=== PATIENT | male | born 1935 | race Caucasian/White ===

== ENCOUNTER 2016-12-28 21:50 | Inpatient (IN) | payer MEDICARE, OTHER ==
--- NOTE | 2016-12-28 22:07 | ED ---
Altered Mental Status HPI - General Stated Complaint: Altered Mental Status Time Seen by Provider: 12/28/16 21:51 Source: EMS Mode of arrival: EMS Limitations: altered mental status - History of Present Illness Initial Comments: This is a 81-year-old male with a history of arthritis in his lower back who presents emergency department for mental status changes. The patient is difficult to get a history from however per EMS he's been having mental status changes for the last 2 days. The has noticed that. The is not currently at bedside to get history from. The patient only takes tramadol and gabapentin. The patient denies having any complaints except for some lower back pain which is chronic for him. He states that he was sent in here because his was concerned about him. He denies any alcohol use or drug use. No overdose on his medications. No recent head trauma. He denies any physical complaints. No focal weakness. No other complaints. - Related Data Home Medications Medication Instructions Recorded Confirmed traMADol HCl [Ultram] 50 - 100 mg PO QID PRN 07/22/14 12/28/16 Atorvastatin Calcium [Lipitor] 10 mg PO DAILY 12/28/16 12/28/16 Gabapentin [Neurontin] 300 mg PO TID 12/28/16 12/28/16 Allergies Allergy/AdvReac Type Severity Reaction Status Date / Time thallium-201 Allergy "passed Verified 10/16/15 14:25 out" Review of Systems ROS Statement: Those systems with pertinent positive or pertinent negative responses have been documented in the HPI. ROS Other: All systems not noted in ROS Statement are negative. Past Medical History Past Medical History: GERD/Reflux, Hyperlipidemia, Osteoarthritis (OA), Prostate Disorder Additional Past Medical History / Comment(s): chronic back pain, arthritis; colonoscopy(s), mitral valve disorder History of Any Multi-Drug Resistant Organisms: None Reported Past Surgical History: Tonsillectomy Past Anesthesia/Blood Transfusion Reactions: No Reported Reaction Past Psychological History: No Psychological Hx Reported Smoking Status: Former smoker Past Alcohol Use History: None Reported Additional Past Alcohol Use History / Comment(s): ETOH & Smoking "i quit 38 years ago" "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 alcoholic" Past Drug Use History: None Reported - Past Family History Mother Family Medical History: Cancer Additional Family Medical History / Comment(s): lung Father History Unknown: Yes Additional Family Medical History / Comment(s): "i don't know a lot about him...he as an alcoholic General Exam - General Exam Comments Initial Comments: Constitutional: Awake alert Appears comfortable Head: Normocephalic atraumatic Eyes: no conjunctival injection No scleral icterus EOMI, pupils are 4 mm reactive bilaterally Neck: No JVD Supple Heart: Regular rate rhythm normal S1-S2 no murmurs Lungs: Clear to auscultation bilaterally No wheezing No rales Abdomen: Soft nondistended nontender Extremities: Non edematous DP pulses intact Radial pulses intact Neuro: A&Ox2, patient is oriented to the year and himself however does not know his location. He is slow to answer questions however does answer appropriately cranial nerves II through XII are grossly intact, 5 out of 5 strength in upper and lower [place] bilaterally, no ataxia in upper and lower extremities Psych: Appropriate mood and affect Limitations: altered mental status Course Vital Signs 12/28/16 12/28/16 21:58 23:02 Temperature 98.5 F Pulse Rate 82 76 Respiratory 16 16 Rate Blood Pressure 211/106 175/82 O2 Sat by Pulse 98 98 Oximetry - Reevaluation(s) Reevaluation #1: 12/28/16 23:07 EKG showing sinus rhythm with a rate of 78. No abnormal ST segment changes or T -wave inversions. QTC is 446. There is a right bundle-branch block. No ectopy. Medical Decision Making - Medical Decision Making This 81-year-old came in for mental status changes. No obvious cause for mental status changes on blood work or imaging. The states that this is brand-new over the last couple of days. Like to keep the hospital for neuro evaluation. Dr. kumari except see admission. - Lab Data Result diagrams: 12/28/16 22:50 12/28/16 22:50 Lab Results 12/28/16 12/28/16 12/28/16 Range/Units 22:50 22:50 22:50 WBC 5.0 (3.8-10.6) k/uL RBC 4.95 (4.30-5.90) m/uL Hgb 15.0 (13.0-17.5) gm/dL Hct 43.2 (39.0-53.0) % MCV 87.3 (80.0-100.0) fL MCH 30.3 (25.0-35.0) pg MCHC 34.7 (31.0-37.0) g/dL RDW 12.3 (11.5-15.5) % Plt Count 243 (150-450) k/uL Neutrophils % 75 % Lymphocytes % 13 % Monocytes % 9 % Eosinophils % 1 % Basophils % 1 % Neutrophils # 3.8 (1.3-7.7) k/uL Lymphocytes # 0.6 L (1.0-4.8) k/uL Monocytes # 0.4 (0-1.0) k/uL Eosinophils # 0.0 (0-0.7) k/uL Basophils # 0.0 (0-0.2) k/uL PT 11.1 (9.0-12.0) sec INR 1.1 (<1.1) APTT 27.6 (22.0-30.0) sec Sodium 127 L (137-145) mmol/L Potassium 4.4 (3.5-5.1) mmol/L Chloride 90 L (98-107) mmol/L Carbon Dioxide 27 (22-30) mmol/L Anion Gap 10 mmol/L BUN 17 (9-20) mg/dL Creatinine 0.80 (0.66-1.25) mg/dL Est GFR (MDRD) Af Amer >60 (>60 ml/min/1.73 sqM) Est GFR (MDRD) Non-Af >60 (>60 ml/min/1.73 sqM) Glucose 111 H (74-99) mg/dL Calcium 9.0 (8.4-10.2) mg/dL Magnesium 2.0 (1.6-2.3) mg/dL Total Bilirubin 0.7 (0.2-1.3) mg/dL AST 17 (17-59) U/L ALT 27 (21-72) U/L Alkaline Phosphatase 127 H (38-126) U/L Ammonia (<30) umol/L Troponin I (0.000-0.034) ng/mL Total Protein 6.9 (6.3-8.2) g/dL Albumin 4.1 (3.5-5.0) g/dL TSH 3.070 (0.465-4.680) mIU/L Urine Color Urine Appearance (Clear) Urine pH (5.0-8.0) Ur Specific [place] (1.001-1.035) Urine Protein (Negative) Urine Glucose (UA) (Negative) Urine Ketones (Negative) Urine Blood (Negative) Urine Nitrite (Negative) Urine Bilirubin (Negative) Urine Urobilinogen (<2.0) mg/dL Ur Leukocyte Esterase (Negative) Urine RBC (0-5) /hpf Urine WBC (0-5) /hpf Urine Mucus (None) /hpf Salicylates <1.0 mg/dL Urine Opiates Screen (NotDetected) Ur Oxycodone Screen (NotDetected) Urine Methadone Screen (NotDetected) Ur Propoxyphene Screen (NotDetected) Acetaminophen <10.0 ug/mL Ur Barbiturates Screen (NotDetected) U Tricyclic Antidepress (NotDetected) Ur Phencyclidine Scrn (NotDetected) Ur Amphetamines Screen (NotDetected) U Methamphetamines Scrn (NotDetected) U Benzodiazepines Scrn (NotDetected) Urine Cocaine Screen (NotDetected) U Marijuana (THC) Screen (NotDetected) Serum Alcohol <10 mg/dL 12/28/16 12/28/16 12/29/16 Range/Units 22:50 22:50 00:05 WBC (3.8-10.6) k/uL RBC (4.30-5.90) m/uL Hgb (13.0-17.5) gm/dL Hct (39.0-53.0) % MCV (80.0-100.0) fL MCH (25.0-35.0) pg MCHC (31.0-37.0) g/dL RDW (11.5-15.5) % Plt Count (150-450) k/uL Neutrophils % % Lymphocytes % % Monocytes % % Eosinophils % % Basophils % % Neutrophils # (1.3-7.7) k/uL Lymphocytes # (1.0-4.8) k/uL Monocytes # (0-1.0) k/uL Eosinophils # (0-0.7) k/uL Basophils # (0-0.2) k/uL PT (9.0-12.0) sec INR (<1.1) APTT (22.0-30.0) sec Sodium (137-145) mmol/L Potassium (3.5-5.1) mmol/L Chloride (98-107) mmol/L Carbon Dioxide (22-30) mmol/L Anion Gap mmol/L BUN (9-20) mg/dL Creatinine (0.66-1.25) mg/dL Est GFR (MDRD) Af Amer (>60 ml/min/1.73 sqM) Est GFR (MDRD) Non-Af (>60 ml/min/1.73 sqM) Glucose (74-99) mg/dL Calcium (8.4-10.2) mg/dL Magnesium (1.6-2.3) mg/dL Total Bilirubin (0.2-1.3) mg/dL AST (17-59) U/L ALT (21-72) U/L Alkaline Phosphatase (38-126) U/L Ammonia <9 (<30) umol/L Troponin I <0.012 (0.000-0.034) ng/mL Total Protein (6.3-8.2) g/dL Albumin (3.5-5.0) g/dL TSH (0.465-4.680) mIU/L Urine Color Yellow Urine Appearance Clear (Clear) Urine pH 6.5 (5.0-8.0) Ur Specific [place] 1.020 (1.001-1.035) Urine Protein 1+ H (Negative) Urine Glucose (UA) Negative (Negative) Urine Ketones 2+ H (Negative) Urine Blood Small H (Negative) Urine Nitrite Negative (Negative) Urine Bilirubin Negative (Negative) Urine Urobilinogen 2.0 (<2.0) mg/dL Ur Leukocyte Esterase Negative (Negative) Urine RBC 25 H (0-5) /hpf Urine WBC 1 (0-5) /hpf Urine Mucus Rare H (None) /hpf Salicylates mg/dL Urine Opiates Screen Not Detected (NotDetected) Ur Oxycodone Screen Not Detected (NotDetected) Urine Methadone Screen Not Detected (NotDetected) Ur Propoxyphene Screen Not Detected (NotDetected) Acetaminophen ug/mL Ur Barbiturates Screen Not Detected (NotDetected) U Tricyclic Antidepress Not Detected (NotDetected) Ur Phencyclidine Scrn Not Detected (NotDetected) Ur Amphetamines Screen Not Detected (NotDetected) U Methamphetamines Scrn Not Detected (NotDetected) U Benzodiazepines Scrn Not Detected (NotDetected) Urine Cocaine Screen Not Detected (NotDetected) U Marijuana (THC) Screen Not Detected (NotDetected) Serum Alcohol mg/dL Disposition Clinical Impression: Encephalopathy Disposition: ADMITTED IP TO THIS [facility] Condition: Stable
--- NOTE | 2016-12-28 22:57 | CT ---
EXAM: CT Head Without Intravenous Contrast CLINICAL HISTORY: Mental status change, altered, confused, agitated, poor historian TECHNIQUE: Axial computed tomography images of the head/brain without intravenous contrast. CTDI is 0.15, 59.43 mGy and DLP is 1165 mGy-cm. This CT exam was performed using one or more of the following dose reduction techniques: automated exposure control, adjustment of the mA and/or kV according to patient size, and/or use of iterative reconstruction technique. COMPARISON: No relevant prior studies available. FINDINGS: Brain: No acute intracranial hemorrhage, loss of ku-white differentiation, or significant mass effect. Areas of hypoattenuation in the periventricular white matter bilaterally are compatible with the sequela of chronic small vessel ischemic disease. Ventricular and sulcal prominence commensurate with the patient's age. Ventricles: As above. Bones/joints: Unremarkable. No acute fracture. Soft tissues: Unremarkable. Sinuses: Unremarkable as visualized. No acute sinusitis. Mastoid air cells: Unremarkable. IMPRESSION: No acute intracranial abnormality.
--- NOTE | 2016-12-28 23:04 | XR ---
EXAM: XR Chest, 2 Views CLINICAL HISTORY: Reason: Pain TECHNIQUE: Frontal and lateral views of the chest. COMPARISON: No relevant prior studies available. FINDINGS: Lungs: Unremarkable. No consolidation. Pleural space: Unremarkable. No pneumothorax. Heart: Unremarkable. No cardiomegaly. Mediastinum: Unremarkable. Bones/joints: No acute osseous abnormality. IMPRESSION: No acute cardiopulmonary process.
[2016-12-28 23:07] LABS: Basophils % (A) 1 %; CH 31.2; CHCM 35.8; Eosinophils % (A) 1 %; HCT 43.2 % (39.0-53.0); HDW 2.44; Luc # (Auto) 0.12; Luc % (Auto) 3; Lymphocytes # (A) 0.6 k/uL (1.0-4.8); Lymphocytes % (A) 13 %; MCH 30.3 pg (25.0-35.0); MCHC 34.7 g/dL (31.0-37.0); MCV 87.3 fL (80.0-100.0); Mean Platelet Volume 6.2; Monocytes # (A) 0.4 k/uL (0-1.0); Monocytes % (A) 9 %; Neutrophils # (A) 3.8 k/uL (1.3-7.7); Neutrophils % (A) 75 %; RBC 4.95 m/uL (4.30-5.90); RDW 12.3 % (11.5-15.5); WBC (Perox) 4.84
[2016-12-28] MEDS: SODIUM CHLORIDE 0.9% 1,000 ML IV SCH (23:08)
[2016-12-28] MEDS: hydrALAZINE HCL 20 MG/ML 1 ML VIAL IVP STA (23:16)
[2016-12-28 23:17] LABS: ALT 27 U/L (21-72); AST 17 U/L (17-59); Acetaminophen <10.0 ug/mL; Alcohol <10 mg/dL; Alkaline Phosphatase 127 U/L (38-126); Anion Gap 10 mmol/L; Blood Urea Nitrogen 17 mg/dL (9-20); Carbon Dioxide 27 mmol/L (22-30); Chloride 90 mmol/L (98-107); Glucose 111 mg/dL (74-99); INR 1.1 (<1.1); Non-African American GFR(MDRD) >60 (>60 ml/min/1.73 sqM); Partial Thromboplastin Time 27.6 sec (22.0-30.0); Potassium 4.4 mmol/L (3.5-5.1); Prothrombin Time 11.1 sec (9.0-12.0); Salicylate <1.0 mg/dL; Sodium 127 mmol/L (137-145); Total Bilirubin 0.7 mg/dL (0.2-1.3); Total Protein 6.9 g/dL (6.3-8.2)
[2016-12-29 00:23] LABS: Appearance,Urine Clear (Clear); Bilirubin,Urine Negative (Negative); Glucose,Urine (UA) Negative (Negative); Ketones,Urine 2+ (Negative); Leukocyte Esterase,Urine Negative (Negative); Mucus,Urine Rare /hpf; Nitrite,Urine Negative (Negative); PH, Urine 6.5 (5.0-8.0); Particle Count 1855; Protein,Urine 1+ (Negative); RBC,Urine 25 /hpf (0-5); UA Billing (MACRO vs. MICRO) MICRO; WBC,Urine 1 /hpf (0-5)
[2016-12-29] MEDS ORDERED: traMADol 50 MG TAB PO STA (01:07)
[2016-12-29] MEDS ORDERED: LORazepam 2 MG/ML SYRINGE IV STA ×2 (01:07→20:21)
[2016-12-29] MEDS ORDERED: NALOXONE 0.4 MG/ML 1 ML VIAL IV PRN (01:33)
[2016-12-29] MEDS ORDERED: traMADol 50 MG TAB PO PRN (01:33)
[2016-12-29] MEDS ORDERED: LABETALOL 5 MG/ML VIAL MDV IVP STA (02:43)
[2016-12-29] MEDS: hydrALAZINE HCL 20 MG/ML 1 ML VIAL IVP STA (02:52)
[2016-12-29] MEDS ORDERED: hydrALAZINE HCL 20 MG/ML 1 ML VIAL ONE (05:00)
[2016-12-29] MEDS ORDERED: cloNIDine HCL 0.1 MG TAB PO STA (05:45)
[2016-12-29] MEDS: SODIUM CHLORIDE 0.9% 1,000 ML IV SCH ×2 (08:44→18:24)
[2016-12-29] MEDS: hydrALAZINE HCL 20 MG/ML 1 ML VIAL IVP PRN ×2 (10:53→22:18)
[2016-12-29 11:56] LABS: ALT 24 U/L (21-72); AST 18 U/L (17-59); Alkaline Phosphatase 118 U/L (38-126); Anion Gap 13 mmol/L; Blood Urea Nitrogen 19 mg/dL (9-20); Carbon Dioxide 23 mmol/L (22-30); Chloride 91 mmol/L (98-107); Glucose 114 mg/dL (74-99); Non-African American GFR(MDRD) >60 (>60 ml/min/1.73 sqM); Potassium 4.3 mmol/L (3.5-5.1); Sodium 127 mmol/L (137-145); Total Bilirubin 0.8 mg/dL (0.2-1.3)
--- NOTE | 2016-12-29 14:06 | P.HPIM ---
History of Present Illness H&P Date: 12/29/16 Chief Complaint: Mental status changes This is a 81-year-old male one of Dr. Sanchez with a previous medical history significant for GERD, hyper lipidemia, osteophytes, enlarged prostate with lower urinary tract symptoms, degenerative disc disease of the lumbar spine under the care of Dr. Jack from pain management, history of mitral valve disorder, patient apparently was brought into the emergency department yesterday by his because of severe mental status changes with severe encephalopathy with negative computed tomography scan of the brain and negative chest x-ray however abnormal serum sodium with a sodium of 127 and a serum osmolality of 263, patient according to his was in his usual state of health about yesterday at around 2:30 in the afternoon when he was sitting in a recliner after he woke up in the morning and he took a shower and dressed up and suddenly he became quite confused and disoriented, patient became quite weak to the degree that he could not even make sense to a lot of things, he has no fever or chills at that time he had no nausea or vomiting at that time he had no coughing, patient's is a friend of and his had cold her and she was on her way to go see the patient however she told her that she is getting the patient to the ER for evaluation and subsequently was admitted to the hospital with neurology consultation was obtained. 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 Rodgers at the bedside I was concerned about the significant hyponatremia and the possibility of possible ischemic event even though the computed tomography scan was negative and we could be dealing with some acute event. 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 Past Anesthesia/Blood Transfusion Reactions: No Reported Reaction Past Psychological History: No Psychological Hx Reported Smoking Status: Former smoker (Patient used to smoke about pack every day and he quit about 38 years ago) Past Alcohol Use History: None Reported Additional Past Alcohol Use History / Comment(s): ETOH & Smoking "i quit 38 years ago" "I'm an recovering alcoholic" Past Drug Use History: None Reported - Past Family History Mother Family Medical History: Cancer (Mother from lung cancer as well as dementia at the age of 70.) Additional Family Medical History / Comment(s): lung Father History Unknown: Yes Family Medical History: No Reported History (Father in his 40s due to alcohol isn't.) Additional Family Medical History / Comment(s): "i don't know a lot about him...he as an alcoholic Brother(s) Family Medical History: Coronary Artery Disease (CAD) (Patient had 2 brothers one as a drug overdose in his 30s and the other one has CAD.) Sister(s) Family Medical History: Cancer, Coronary Artery Disease (CAD) (Patient has one sister with CAD and breast cancer.) Son(s) Family Medical History: No Reported History (Patient has 3 sons to contact and one healthy.) Medications and Allergies Home Medications Medication Instructions Recorded Confirmed Type Atorvastatin Calcium [Lipitor] 10 mg PO HS 12/29/16 12/29/16 History Tamsulosin HCl [Flomax] 0.4 mg PO BID 12/29/16 12/29/16 History Allergies Allergy/AdvReac Type Severity Reaction Status Date / Time thallium-201 Allergy Severe Dyspnea Verified 12/29/16 09:26 Physical Exam Vitals: Vital Signs Temp Pulse Pulse Resp BP BP Pulse Ox 12/29/16 10:12 99 170/87 12/29/16 09:27 83 18 12/29/16 07:00 99.1 F 83 18 175/92 95 12/29/16 06:24 99.9 F H 83 20 193/95 95 12/29/16 05:51 100 F H 82 20 169/86 98 12/29/16 02:55 88 18 190/93 97 12/29/16 02:31 86 20 189/99 97 12/28/16 23:02 76 16 175/82 98 12/28/16 21:58 98.5 F 82 16 211/106 98 Intake and Output 12/28/16 12/29/16 12/29/16 22:59 06:59 14:59 Other: Weight 81.193 kg 81.647 kg 81.647 kg Patient Weight 12/30/16 06:59 Weight 81.647 kg - Constitutional General appearance: average body habitus, mild distress - EENT Eyes: anicteric sclerae, no PERRLA, no ptosis, no scleral icterus, normal appearance ENT: hearing grossly normal, NA/AT, normal oropharynx (A bit dry.) Ears: bilateral: normal - Neck Neck: normal ROM, no rigidity, no stridor Carotids: bilateral: upstroke normal Thyroid: bilateral: normal size - Respiratory Respiratory: bilateral: diminished, negative: dullness, rales, rhonchi, wheezing , prolonged expiration - Cardiovascular Rhythm: regular Heart sounds: normal: S1, S2 Abnormal Heart Sounds: no systolic murmur, no diastolic murmur, no rub, no S3 Gallop, no S4 Gallop, no click - Gastrointestinal General gastrointestinal: distended, normal bowel sounds, soft, tenderness, no umbilical hernia, no ventral hernia - Genitourinary Male genitourinary: enlarged prostate - Integumentary Integumentary: normal, normal turgor - Neurologic Neurologic: CNII-XII intact - Musculoskeletal Musculoskeletal: generalized weakness, strength equal bilaterally - Psychiatric Psychiatric: no A&O x's 3, no appropriate affect, no intact judgment & insight Results CBC & Chem 7: 01/04/17 08:11 01/05/17 07:47 Labs: Abnormal Lab Results - Last 24 Hours (Table) 12/28/16 12/28/16 12/29/16 Range/Units 22:50 22:50 00:05 Lymphocytes # 0.6 L (1.0-4.8) k/uL Sodium 127 L (137-145) mmol/L Chloride 90 L (98-107) mmol/L Glucose 111 H (74-99) mg/dL Alkaline Phosphatase 127 H (38-126) U/L Urine Protein 1+ H (Negative) Urine Ketones 2+ H (Negative) Urine Blood Small H (Negative) Urine RBC 25 H (0-5) /hpf Urine Mucus Rare H (None) /hpf Thrombosis Risk Factor Assmnt - DVT/VTE Prophylaxis DVT/VTE Prophylaxis: Pharmacologic Prophylaxis ordered, Mechanical Prophylaxis ordered - Choose All That Apply Any of the Below Risk Factors Present?: No Other Risk Factors: Yes Each Risk Factor Represents 2 Points: Patient confined to bed Each Risk Factor Represents 3 Points: Age 75 years or older Other congenital or acquired thrombophilia - If yes, enter type in comment: No Thrombosis Risk Factor Assessment Total Risk Factor Score: 5 Thrombosis Risk Factor Assessment Level: High Risk Assessment and Plan Plan: Assessment and plan: 1. Metabolic encephalopathy due to hyponatremia and syndrome of inappropriate ADH secretion. Discontinue tramadol as well as gabapentin for now, patient was given normal saline 100 mL over the next 24 hours, and then we'll Hep-Lock his IV and place the patient on a fluid restriction, we will obtain repeat a computed tomography scan of the brain without contrast further evaluation, as the patient may need to go for the MRI/MRA of the brain when the patient is more stable. Neuro check every 2 hours for the next 34 hours, ultrasound of the carotid, echocardiogram, neurology consultation,and if the MRI is negative will proceed with Lumbar Puncture for evaluation of infectious etiology namely meningitis and or encephalitis. 2. Hyponatremia likely related to the syndrome of inappropriate ADH secretion that may be caused by neurological insults vascular or infectious. Patient will need to go on a fluid restriction 1000 mL and the next 24 hours. And we may need to start the patient on the Demeclocycline 300 mg orally twice every day. Monitor the patient BMP every 6 hours for the next 24 hours. 3. Enlarged prostate with urinary retention. A Cervantes catheter placement, start Flomax 0.4 mg orally twice every day. 4. Degenerative disc disease of the lumbar spine post epidural injection, discontinue tramadol, discontinue gabapentin, especially tramadol has the tendency to lower seizure threshold. 5. Hyperlipidemia. Continue Lipitor 10 mg orally once every day. 6. History of mitral valve disorder. We will get echo care gram. 7. Osteoarthritis. Stable at this time. 8. GERD. Start the patient on Protonix 40 mg IV push every 24 hours. 9. DVT prophylaxis. Heparin 5000 units subcutaneously every 12 hours as well as bilateral knee-high SHAR hose. 10. Patient is full code. 11. Admitted to inpatient. Estimate a length of stay 2 midnights.
[2016-12-29] MEDS: ASPIRIN 325 MG TAB PO SCH (15:38)
--- NOTE | 2016-12-29 16:47 | CT ---
EXAMINATION TYPE: CT brain wo con DATE OF EXAM: 12/29/2016 4:42 PM COMPARISON: 12/28/16 HISTORY: Altered mental status. CT DLP: 1009.[address] of the brain was performed. The ventricles, basal cisterns and sulci overlying the cerebral convexities demonstrate moderate enla rgement. There is no evidence for intracranial hemorrhage or sulcal effacement. There is decreased attenuation about the periventricular white matter and deep white matter of both c erebral hemispheres, compatible with chronic small vessel ischemia. Differential diagnosis does inclu de demyelination. No mass effects are seen.No midline shift. Osseous calvarium is intact. If symptoms persist consider MRI. IMPRESSION: 1. Age related atrophic and chronic small vessel ischemic change without acute intracranial process s een at this time.
[2016-12-29 19:22] LABS: Anion Gap 12 mmol/L; Blood Urea Nitrogen 18 mg/dL (9-20); Calcium 8.7 mg/dL (8.4-10.2); Carbon Dioxide 23 mmol/L (22-30); Chloride 92 mmol/L (98-107); Glucose 140 mg/dL (74-99); Non-African American GFR(MDRD) >60 (>60 ml/min/1.73 sqM); Potassium 3.9 mmol/L (3.5-5.1); Sodium 127 mmol/L (137-145)
[2016-12-29] MEDS: DEMECLOCYCLINE 150 MG TAB PO SCH (22:12)
[2016-12-29] MEDS: ATORVASTATIN 10 MG TAB PO SCH (22:13)
[2016-12-29] MEDS: TAMSULOSIN 0.4 MG CAP.ER.24H PO SCH (22:13)
[2016-12-29] MEDS: HEPARIN SODIUM,PORCINE 5,000 UNIT/ML 1 ML VIAL SQ SCH (22:13)
[2016-12-30 00:50] LABS: Anion Gap 11 mmol/L; Calcium 8.8 mg/dL (8.4-10.2); Carbon Dioxide 20 mmol/L (22-30); Chloride 98 mmol/L (98-107); Glucose 113 mg/dL (74-99); Non-African American GFR(MDRD) >60 (>60 ml/min/1.73 sqM); Sodium 129 mmol/L (137-145)
[2016-12-30 00:57] LABS: Blood Urea Nitrogen 18 mg/dL (9-20); Potassium 4.6 mmol/L (3.5-5.1)
[2016-12-30 02:02] LABS: Treponemal Ab Non-Reactive (Non-Reactive)
--- NOTE | 2016-12-30 07:46 | US ---
EXAMINATION TYPE: US carotid duplex BILAT DATE OF EXAM: 12/29/2016 3:33 PM COMPARISON: NONE CLINICAL HISTORY: cva. EXAM MEASUREMENTS: RIGHT: Peak Systolic Velocity (PSV) cm/sec ----- Right CCA: 50.5 ----- Right ICA: 236.8 ----- Right ECA: 178.3 ICA/CCA ratio: 4.7 RIGHT: End Diastole cm/sec ----- Right CCA: 0.0 ----- Right ICA: 25.0 ----- Right ECA: 9.6 LEFT: Peak Systolic Velocity (PSV) cm/sec ----- Left CCA: 93.7 ----- Left ICA: 82.9 ----- Left ECA: 114.0 ICA/CCA ratio: 0.9 LEFT: End Diastole cm/sec ----- Left CCA: 15.8 ----- Left ICA: 17.5 ----- Left ECA: 13.9 VERTEBRALS (direction of flow): Right Vertebral: Antegrade Left Vertebral: Antegrade Severe plaque in right bulb with elevated velocities. This appears to extend to the internal carotid artery origin. Left shows no significant stenosis. IMPRESSION: 1. 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 Criteria for Assigning % of Stenosis / Diameter reduction (Estimation based on the indirect measurements of the internal carotid artery velocities (ICA PSV). 1. Normal (no stenosis)=ICA PSV < 125 cm/s: ratio < 2.0: ICA EDV<40 cm/s. 2. Less than 50% stenosis=ICA PSV < 125 cm/s: ratio < 2.0: ICA EDV<40 cm/s. 3. 50 to 69% stenosis=ICA PSV of 125 to 230 cm/s: ration 2.0 ? 4.0: ICA EDV 40-100 cm/s. 4. Greater than 70% stenosis to near occlusion= ICA PSV > 230 cm/s: ratio > 4.0: ICA EDV > 100 cm/s. 5. Near occlusion= ICA PSV velocities may be low or undetectable: variable ratio and ICA EDV. 6. Total occlusion=unable to detect flow.
--- NOTE | 2016-12-30 08:13 | ECHOF ---
Referral Reason:CVA MEASUREMENTS -------- HEIGHT: 157.5 cm WEIGHT: 81.6 kg BP: 130/60 RVIDd: 2.5 cm (< 3.3) IVSd: 1.0 cm (0.6 - 1.1) LVIDd: 4.1 cm (3.9 - 5.3) LVPWd: 1.1 cm (0.6 - 1.1) IVSs: 1.4 cm LVIDs: 2.6 cm LVPWs: 1.4 cm Ao Diam: 2.9 cm (2.0 - 3.7) AV Cusp: 1.5 cm (1.5 - 2.6) LA Diam: 3.6 cm (2.7 - 3.8) MV EXCURSION: 18.742 mm (> 18.000) MV EF SLOPE: 108 mm/s (70 - 150) EPSS: 1.1 cm MV E Allen: 0.51 m/s MV DecT: 307 ms MV A Allen: 0.74 m/s MV E/A Ratio: 0.69 RAP: 5.00 mmHg RVSP: 11.19 mmHg FINDINGS -------- Sinus rhythm. This was a technically adequate study. There is mild concentric left ventricular hypertrophy. Overall left ventricular systolic function is low-normal with, an EF between 50 - 55 %. The right ventricle is normal in size. The left atrial size is normal. The right atrial size is normal. There is mild aortic valve sclerosis. There is no evidence of aortic regurgitation. Mild mitral annular calcification present. Mild mitral regurgitation is present. Mild tricuspid regurgitation present. There is no evidence of pulmonary hypertension. The right ventricular systolic pressure, as measured by Doppler, is 11.19mmHg. There is no pulmonic regurgitation present. The aortic root size is normal. There is a small, generalized pericardial effusion present. CONCLUSIONS -------- 1. There is mild concentric left ventricular hypertrophy. 2. Overall left ventricular systolic function is low-normal with, an EF between 50 - 55 %. 3. There is mild aortic valve sclerosis. 4. Mild mitral annular calcification present. 5. Mild mitral regurgitation is present. 6. Mild tricuspid regurgitation present. 7. There is no evidence of pulmonary hypertension. 8. The right ventricular systolic pressure, as measured by Doppler, is 11.19mmHg. MACHINE SOLE LEVELER: Deja Knight RDCS
--- NOTE | 2016-12-30 09:06 | CONS ---
DATE OF CONSULTATION: 12/29/2016 CHIEF COMPLAINT: Altered mental status. HISTORY OF PRESENT ILLNESS: Mr. Carrera is a 81-year-old, male who is being evaluated by the neurology service per the request of Dr. Fermin for altered mental status. The patient was brought into [facility] Emergency Room after his noticed that he has been getting more confused at home. According to the , she had woken up yesterday morning and did not notice anything abnormal with the patient. She did leave the house and when she returned several hours later the patient was acting like he was drowsy. She had noticed that the patient had not drank any of the coffee she made, which was quite unusual. She denies any changes in his medications recently. He does take Neurontin and Ultram for his chronic lumbago and treats with Dr. Jack for this. The patient went to lay down in his bed and when his went to check up on him, she found him to be still confused. She did contact Dr. Rodgers who is a family friend and she recommended that he be taken to the emergency room. In the emergency room, the patient was found to be significantly confused. His baseline is that he is oriented x3 and is quite independent and still works. The patient was found to have hyponatremia with a sodium of 127. He was also found to have urinary retention and a Cervantes catheter was placed, and it drained 800 mL of urine. A CT scan of the brain was done, which showed no acute intracranial abnormalities. Small vessel ischemic changes and generalized atrophy was seen. His CBC and urinalysis were normal. His serum osmolality was low at 263. His urine drug screen was negative. The patient was admitted for further workup and management and has been started on IV hydration with normal saline. A repeat chemistry panel continued hyponatremia at 127. A repeat CT scan of the brain was done today which showed no changes from yesterday. At the time of my evaluation, the patient is sleeping in his bed. He is arousable but his speech is difficult to comprehend. He does move all 4 extremities spontaneously with no evidence of any lateralizing weakness. PAST MEDICAL HISTORY: Chronic low back pain, osteoarthritis, dyslipidemia, gastroesophageal reflux disease, history of tonsillectomy. SOCIAL HISTORY: The patient has history of alcohol abuse, but he quit drinking almost 40 years ago. There is no history of any tobacco or drug use. FAMILY HISTORY: Positive for cancer. There is also a family history of heart disease. HOME MEDICATIONS: Reviewed in the chart. ALLERGIES: THALLIUM. REVIEW OF SYSTEMS: Unable to obtain due to confusion. PHYSICAL EXAM: Vital signs show a temperature of 100.4, pulse 104, respirations 16, blood pressure 170/86. GENERAL APPEARANCE: The patient is a well-developed male who appears to be drowsy. HEENT: Normocephalic, atraumatic, no facial asymmetry is seen. Extraocular muscle testing showed decreased left lateral gaze. Neck is supple with no masses felt. CARDIOVASCULAR: Regular rate and rhythm. ABDOMEN: Nontender, nondistended. Extremities showed no edema or clubbing. NEUROLOGICAL EXAM: The patient is quite drowsy. He is arousable but drifts right back to sleep. He is oriented to person only. He does move all 4 extremities to command with no obvious lateralizing weakness. Plantar reflex showed downgoing toes bilaterally. No tremors or seizure-like activity is seen. No facial asymmetry is noticed on cranial nerve testing. IMPRESSION: 1. Altered mental status. 2. Acute metabolic encephalopathy. 3. Hyponatremia. 4. 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 5. Fever. 6. Urinary retention. RECOMMENDATIONS: The patient's altered mental status is likely due to acute metabolic encephalopathy. He continues to have hyponatremia, although he has been receiving normal saline. Continue IV hydration as tolerated to slowly correct sodium levels. I highly recommend avoiding ( ) correction of his sodium to prevent any central pontine myelinolysis. I will consult nephrology. Otherwise, ( ) and has been on tramadol, both of these reduce seizure threshold. An EEG will be ordered to rule out any nonconvulsive seizures. His neurological examination showed reduced left lateral gaze on extraocular muscle testing. I will order an MRI of the brain to rule out any ischemic event. I will pretreat him with IV Ativan. Continue neurologic checks. I will continue to follow with you. Further recommendations to follow. Thank you Dr. Fermin for allowing me to participate in the care of your patient. If you have any questions, please feel free to contact me.
--- NOTE | 2016-12-30 09:25 | MR ---
EXAMINATION TYPE: MR brain wo con DATE OF EXAM: 12/30/2016 9:07 AM COMPARISON: CT brain 12/29/2016 HISTORY: AMS T1-weighted sagittal, T2, FLAIR, and diffusion axial, and T2 coronal coronal views of the brain are s ubmitted. There is no evidence of acute ischemia. Moderate degenerative change. There is diffuse and focal area s of abnormal signal the white matter which are nonspecific but most typical remote microvascular isc hemia. No midline shift. Changes of chronic sinusitis noted. 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 Areas of abnormal signal in the cristian are suggestive of remote ischemia. T1 sagittal demonstrates an area of hypercellular signal within the left posterior thalamus which is not seen on the additional sequences felt to be most likely artifactual. Craniocervical junction maintained. Sella turcica has a normal appearance. No cerebellopontine angle mass. IMPRESSION: 1. No acute intracranial process. Degenerative remote ischemic white matter changes suspected. Correl ate clinically for confirmation. 2. Area of increased signal on T1 sagittal within the posterior left thalamus and temporal lobe most likely is artifactual but recommend be correlated with repeat CT of the head to exclude potential hem orrhage which is felt less likely. Report called to patient's nurse. Stat CT brain recommended.
[2016-12-30] MEDS ORDERED: LORazepam 2 MG/ML SYRINGE IV STA (09:33)
[2016-12-30] MEDS: PANTOPRAZOLE 40 MG/10 ML VIAL IVP SCH (09:41)
[2016-12-30] MEDS: TAMSULOSIN 0.4 MG CAP.ER.24H PO SCH ×2 (09:41→21:29)
[2016-12-30] MEDS: DEMECLOCYCLINE 150 MG TAB PO SCH (09:41)
--- NOTE | 2016-12-30 10:45 | CT ---
EXAMINATION TYPE: CT brain wo con DATE OF EXAM: 12/30/2016 10:31 AM COMPARISON: 12/29/2016 INDICATION: altered mental status DLP: 1054.2 mGycm, Automated exposure control for dose reduction was used. CONTRAST: None CT of the brain is performed utilizing 3 mm thick sections through the posterior fossa and 3 mm thick sections through the remaining calvarium. Study is performed within 24 hours of arrival to the hosp ital. No abnormal hyperdensity is present to suggest an acute intracranial hemorrhage. No mass lesion is evident. No acute infarcts are evident. Confluent periventricular white matter changes are present suggestive for chronic white matter ischemic changes. This may be greater in the left basal ganglion and sanchez radiata. Ventricles and sulci are appropriate for the patient age. Paranasal sinuses and mastoid air cells within the [id number] are clear. IMPRESSIONS: 1. White matter ischemic changes., Stable from previous day.
[2016-12-30 11:15] LABS: Basophils % (A) 0 %; CHCM 34.9; Eosinophils # (A) 0.1 k/uL (0-0.7); Eosinophils % (A) 1 %; HDW 2.42; HGB 15.5 gm/dL (13.0-17.5); Luc # (Auto) 0.08; Luc % (Auto) 2; Lymphocytes # (A) 0.7 k/uL (1.0-4.8); Lymphocytes % (A) 13 %; MCHC 33.7 g/dL (31.0-37.0); Mean Platelet Volume 7.6; Monocytes # (A) 0.5 k/uL (0-1.0); Monocytes % (A) 9 %; Neutrophils # (A) 4.1 k/uL (1.3-7.7); Neutrophils % (A) 76 %; RBC 5.17 m/uL (4.30-5.90); RDW 12.4 % (11.5-15.5); WBC 5.4 k/uL (3.8-10.6); WBC (Perox) 5.57
[2016-12-30] MEDS: metroNIDAZOLE-NS PMX 500 MG in SALINE 1 100ML.BAG IVPB SCH ×3 (11:59→23:58)
[2016-12-30] MEDS: ASPIRIN 325 MG TAB PO SCH ×2 (12:01→13:29)
[2016-12-30] MEDS: HEPARIN SODIUM,PORCINE 5,000 UNIT/ML 1 ML VIAL SQ SCH ×2 (12:01→21:27)
--- NOTE | 2016-12-30 12:18 | P.NPCON ---
History of Present Illness - Reason for Consult hyponatremia - History of Present Illness Reason for consultation: Hyponatremia History of present illness: Patient is a 81-year-old male seen in renal consultation for hyponatremia. His sodium level was 127 on admission and is up to 129 as of yesterday. He is noted to have urinary retention and a Cervantes catheter has been placed. Initially over 800 mL of urine was obtained. Patient presented with acute mental status changes. According to the he was having severe back pain over the weekend but wasn't his usual self. Subsequently he became more confused and the brought him to the hospital. There is concern for an acute stroke. Patient's currently resting in bed and is quite lethargic and sleepy and is not a reliable historian. He did just receive a dose of Ativan. Denies any prior history of kidney disease. His creatinine is 0.7. Denies drinking excessive amounts of water. No evidence of sepsis. I don't see any thiazide diuretics listed in his home medications. He does have a history of BPH for which she is maintained on Flomax. He's also been having some diarrhea. He is currently off all IV fluids. Blood pressures are on the higher side. Vital signs are stable. General: The patient appeared well nourished and normally developed. HEENT: Head exam is unremarkable. Neck is without jugular venous distension. LUNGS: Lungs are clear to auscultation and percussion. Breath sounds decreased. HEART: Rate and Rhythm are regular. First and second heart sounds normal. No murmurs, rubs or gallops. ABDOMEN: Abdominal exam reveals normal bowel sounds. Non-tender and non- distended. No evidence of peritonitis. EXTREMITITES: No clubbing, cyanosis, or edema. 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 Past Anesthesia/Blood Transfusion Reactions: No Reported Reaction Past Psychological History: No Psychological Hx Reported Smoking Status: Former smoker (Patient used to smoke about pack every day and he quit about 38 years ago) Past Alcohol Use History: None Reported Additional Past Alcohol Use History / Comment(s): ETOH & Smoking "i quit 38 years ago" "I'm an recovering alcoholic" Past Drug Use History: None Reported - Past Family History Mother Family Medical History: Cancer (Mother from lung cancer as well as dementia at the age of 70.) Additional Family Medical History / Comment(s): lung Father History Unknown: Yes Family Medical History: No Reported History (Father in his 40s due to alcohol isn't.) Additional Family Medical History / Comment(s): "i don't know a lot about him...he as an alcoholic Brother(s) Family Medical History: Coronary Artery Disease (CAD) (Patient had 2 brothers one as a drug overdose in his 30s and the other one has CAD.) Sister(s) Family Medical History: Cancer, Coronary Artery Disease (CAD) (Patient has one sister with CAD and breast cancer.) Son(s) Family Medical History: No Reported History (Patient has 3 sons to contact and one healthy.) Medications and Allergies Home Medications Medication Instructions Recorded Confirmed Type traMADol HCl [Ultram] 50 - 100 mg PO QID PRN 07/22/14 12/28/16 History Gabapentin [Neurontin] 300 mg PO TID 12/28/16 12/28/16 History Atorvastatin Calcium [Lipitor] 10 mg PO HS 12/29/16 12/29/16 History Tamsulosin HCl [Flomax] 0.4 mg PO BID 12/29/16 12/29/16 History Allergies Allergy/AdvReac Type Severity Reaction Status Date / Time thallium-201 Allergy Severe Dyspnea Verified 12/29/16 09:26 Physical Exam Vitals: Vital Signs Temp Pulse Resp BP Pulse Ox 12/30/16 09:48 98.9 F 91 18 172/82 97 12/30/16 08:00 91 18 12/30/16 00:00 95 18 12/29/16 23:00 98.2 F 95 18 175/75 96 12/29/16 16:00 104 H 16 12/29/16 14:49 100.4 F H 104 H 16 170/86 96 Intake and Output 12/29/16 12/30/16 12/30/16 22:59 06:59 14:59 Intake Total 480 240 Output Total 600 450 Balance -120 -450 240 Intake: Oral 480 240 Output: Urine 600 450 Other: Voiding Method Indwelling Catheter # Voids 300 # Bowel Movements 1 2 2 Weight 81.647 kg Results - Lab Results Most recent lab results Calcium 8.8 mg/dL (8.4-10.2) 12/29/16 23:52 Magnesium 2.0 mg/dL (1.6-2.3) 12/28/16 22:50 12/30/16 11:10 12/29/16 23:52 Assessment and Plan Plan: Assessment: #1. Hyponatremia. Appears euvolemic in nature. He did have urinary retention which can be a contributing factor. Also concern of SIADH due to potential stroke. Sodium level 127 on admission and is up to 129 as of yesterday. #2. Urinary retention status post Cervantes catheter placement. #3. Altered mental status. Questionable CVA. Neurology following. Plan: I will put him on fluid restricted diet. Maintain Cervantes catheter. Discontinue demeclocycline. Repeat urine sodium and urine osmolality. Repeat morning labs. Check TSH, or cortisol and uric acid level. Thank you for the consultation. I will continue to follow the patient with you during his hospital stay.
[2016-12-30] MEDS: hydrALAZINE HCL 20 MG/ML 1 ML VIAL IVP PRN (12:37)
[2016-12-30 12:54] LABS: ALT 28 U/L (21-72); AST 26 U/L (17-59); Alkaline Phosphatase 111 U/L (38-126); Anion Gap 11 mmol/L; Blood Urea Nitrogen 19 mg/dL (9-20); Calcium 8.5 mg/dL (8.4-10.2); Carbon Dioxide 23 mmol/L (22-30); Chloride 97 mmol/L (98-107); Glucose 108 mg/dL (74-99); Non-African American GFR(MDRD) >60 (>60 ml/min/1.73 sqM); Potassium 3.7 mmol/L (3.5-5.1); Sodium 131 mmol/L (137-145); Total Bilirubin 0.7 mg/dL (0.2-1.3); Total Protein 6.3 g/dL (6.3-8.2); Uric Acid 4.2 mg/dL (3.5-8.5)
[2016-12-30] MEDS ORDERED: ACETAMINOPHEN TAB 325 MG TAB PO PRN (13:18)
[2016-12-30] MEDS ORDERED: ACETAMINOPHEN IV (For NPO) 1,000 MG in EMPTY BAG 1 BAG IVPB ONE (14:01)
--- NOTE | 2016-12-30 15:32 | P.PN ---
<Trudi Isbell A - Last Filed: 12/30/16 15:20> Subjective This is a 81-year-old male one of Dr. Sanchez with a previous medical history significant for GERD, hyper lipidemia, osteophytes, enlarged prostate with lower urinary tract symptoms, degenerative disc disease of the lumbar spine under the care of Dr. Jack from pain management, history of mitral valve disorder, patient apparently was brought into the emergency department yesterday by his because of severe mental status changes with severe encephalopathy with negative computed tomography scan of the brain and negative chest x-ray however abnormal serum sodium with a sodium of 127 and a serum osmolality of 263, patient according to his was in his usual state of health about yesterday at around 2:30 in the afternoon when he was sitting in a recliner after he woke up in the morning and he took a shower and dressed up and suddenly he became quite confused and disoriented, patient became quite weak to the degree that he could not even make sense to a lot of things, he has no fever or chills at that time he had no nausea or vomiting at that time he had no coughing, patient's is a friend of and his had cold her and she was on her way to go see the patient however she told her that she is getting the patient to the ER for evaluation and subsequently was admitted to the hospital with neurology consultation was obtained. 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 Rodgers at the bedside I was concerned about the significant hyponatremia and the possibility of possible ischemic event even though the computed tomography scan was negative and we could be dealing with some acute event. 12/30: Patient remains confused and unable to follow most commands. feels the patient is a little improved and was able to take some oral medications this morning. Subsequently, patient refused to take Tylenol by mouth and was holding it in his mouth and would not swallow. Sodium is improved to 131 and chloride is 97. Repeat lactic acid normal. Cortisol 22, serum osmolality 263 and urine osmolality 754. Urine sodium is 125 with repeat of 90. Consult added for Dr. Porter with plan to continue fluid restriction, discontinue demeclocycline. He remains with Cervantes catheter in place for urinary retention. Patient had 3 episodes of diarrhea during the night and 1 in the morning on day shift. Stool is negative for C. difficile toxin. CAT scan of the brain done last evening showed age-related atrophy and chronic small vessel ischemic change without acute intracranial process. MRI of the brain done this morning revealed no acute intracranial process. Degenerative remote ischemic white matter changes suspected. There are areas of increased signal in the posterior left thalamus and temporal lobe most likely artifact but recommend repeat CAT scan of the head to exclude potential hemorrhage which is less likely. Patient' s third CAT scan of the brain done this morning reveals white matter ischemic changes. Stable from previous day. Carotid ultrasound showed severe right internal carotid artery stenosis greater than 70% and consult with Dr. Jasso has been added. Echocardiogram reveals EF 50-55%, mild aortic sclerosis, mild mitral regurgitation, mild tricuspid regurgitation, mild concentric left ventricular hypertrophy. Patient was seen in consultation by Dr. Turcios with altered mental status most likely due to acute metabolic encephalopathy EEG has been ordered. Objective - Vital Signs Vital signs: Vital Signs Temp 98.9 F 12/30/16 09:48 Pulse 91 12/30/16 09:48 Resp 18 12/30/16 09:48 BP 172/82 12/30/16 09:48 Pulse Ox 97 12/30/16 09:48 Intake & Output 12/29/16 12/30/16 12/30/16 18:59 06:59 18:59 Intake Total 480 Output Total 600 450 Balance -600 30 Weight 81.647 kg Intake: Oral 480 Output: Urine 600 450 Other: # Voids 300 # Bowel Movements 1 2 - Exam General appearance: average body habitus, mild distress - EENT Eyes: anicteric sclerae, no PERRLA, no ptosis, no scleral icterus, normal appearance ENT: hearing grossly normal, NA/AT, normal oropharynx (A bit dry.) Ears: bilateral: normal - Neck Neck: normal ROM, no rigidity, no stridor Carotids: bilateral: upstroke normal Thyroid: bilateral: normal size - Respiratory Respiratory: bilateral: diminished, negative: dullness, rales, rhonchi, wheezing , prolonged expiration - Cardiovascular Rhythm: regular Heart sounds: normal: S1, S2 Abnormal Heart Sounds: no systolic murmur, no diastolic murmur, no rub, no S3 Gallop, no S4 Gallop, no click - Gastrointestinal General gastrointestinal: distended, normal bowel sounds, soft, tenderness, no umbilical hernia, no ventral hernia - Genitourinary Male genitourinary: enlarged prostate - Integumentary Integumentary: normal, normal turgor - Neurologic Neurologic: CNII-XII intact - Musculoskeletal Musculoskeletal: generalized weakness, strength equal bilaterally - Psychiatric Psychiatric: no A&O x's 3, no appropriate affect, no intact judgment & insight - Labs CBC & Chem 7: 12/30/16 11:10 12/30/16 12:24 Labs: Abnormal Lab Results - Last 24 Hours (Table) 12/29/16 12/29/16 12/29/16 Range/Units 10:59 12:21 18:47 Sodium 127 L 127 L (137-145) mmol/L Chloride 91 L 92 L (98-107) mmol/L Carbon Dioxide (22-30) mmol/L Glucose 114 H 140 H (74-99) mg/dL Osmolality 263 L (280-301) mosm/kg Ur Random Sodium 125 H (30-90) mmol/L 12/29/16 Range/Units 23:52 Sodium 129 L (137-145) mmol/L Chloride (98-107) mmol/L Carbon Dioxide 20 L (22-30) mmol/L Glucose 113 H (74-99) mg/dL Osmolality (280-301) mosm/kg Ur Random Sodium (30-90) mmol/L Assessment and Plan Plan: 1. Metabolic encephalopathy due to hyponatremia and syndrome of inappropriate ADH secretion. Discontinue tramadol as well as gabapentin for now, patient was given normal saline 100 mL over the next 24 hours, and then we'll Hep-Lock his IV and place the patient on a fluid restriction, repeat a computed tomography scan of the brain and MRI/MRA of the brain as above. Neuro consult appreciated. EEG is pending. Carotid ultrasound as above. Consult with Dr. Jasso appreciated. 2. Hyponatremia likely related to hypovolemia and the syndrome of inappropriate ADH secretion. Continue fluid restriction 1000 mL and the next 24 hours. Monitor the patient BMP closely. Consult with nephrology appreciated. 3. Enlarged prostate with urinary retention. A Cervantes catheter placement, start Flomax 0.4 mg orally twice every day. 4. Degenerative disc disease of the lumbar spine post epidural injection, discontinue tramadol, discontinue gabapentin, especially tramadol has the tendency to lower seizure threshold. 5. Hyperlipidemia. Continue Lipitor 10 mg orally once every day. 6. History of mitral valve disorder. We will get echo care gram. 7. Osteoarthritis. Stable at this time. 8. GERD. Start the patient on Protonix 40 mg IV push every 24 hours. 9. DVT prophylaxis. Heparin 5000 units subcutaneously every 12 hours as well as bilateral knee-high SHAR hose. 10. Patient is full code. Discharge plan: To be determined Impression and plan of care have been directed as dictated by the signing physician. Trudi Isbell nurse practitioner acting as scribe for signing physician. 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 Objective - Vital Signs Vital signs: Vital Signs Temp 98.5 F 12/30/16 15:00 Pulse 88 12/30/16 15:00 Resp 18 12/30/16 15:00 BP 170/82 12/30/16 15:00 Pulse Ox 98 12/30/16 15:00 Intake & Output 12/29/16 12/30/16 12/30/16 18:59 06:59 18:59 Intake Total 480 340 Output Total 600 450 Balance -600 30 340 Weight 81.647 kg Intake: Intake, IV Titration 100 Amount metroNIDAZOLE-NS PMX 500 100 mg In Saline 1 100ml.bag @ 100 mls/hr IVPB Q8HR MEG Rx#:[id number] Oral 480 240 Output: Urine 600 450 Other: Voiding Method Indwelling Catheter # Voids 300 # Bowel Movements 1 2 2 - Labs CBC & Chem 7: 01/04/17 08:11 01/05/17 07:47 Labs: Abnormal Lab Results - Last 24 Hours (Table) 12/29/16 12/29/16 12/30/16 Range/Units 18:47 23:52 11:10 Lymphocytes # 0.7 L (1.0-4.8) k/uL Sodium 127 L 129 L (137-145) mmol/L Chloride 92 L (98-107) mmol/L Carbon Dioxide 20 L (22-30) mmol/L Glucose 140 H 113 H (74-99) mg/dL 12/30/16 Range/Units 12:24 Lymphocytes # (1.0-4.8) k/uL Sodium 131 L (137-145) mmol/L Chloride 97 L (98-107) mmol/L Carbon Dioxide (22-30) mmol/L Glucose 108 H (74-99) mg/dL Assessment and Plan Plan: 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
--- NOTE | 2016-12-30 16:20 | P.PN ---
Subjective Principal diagnosis: Patient is a 81-year-old male who is being followed by the neurology service for altered mental status. noticed patient to be drowsy and had behavioral changes which prompted her to bring him to [facility] emergency room. Upon admission to the emergency room patient was found to be quite confused. Patient was found to be hyponatremic with a sodium of 127. Patient also had urinary retention. A computed tomography scan of the brain was done which showed no acute intracranial abnormalities. CT did reveal small vessel ischemic changes and generalized atrophy. Patient had repeat computed tomography scan of the brain which showed no changes from previous day. Patient did have MRI of the brain done today which showed no intracranial process. MRI did reveal area of increased signal within the posterior left thalamus and temporal lobe which most likely is artifactual but needs to be correlated with repeat CT of the head to exclude potential hemorrhage. Stat CT of the brain was done today which is stable as compared to CT done yesterday. CT did reveal white matter ischemic changes. At the time of my evaluation, patient is sedated having had an MRI previously. Patient is currently being prepped for an EEG. Objective - Vital Signs Vital signs: Vital Signs Temp 98.9 F 12/30/16 09:48 Pulse 91 12/30/16 09:48 Resp 18 12/30/16 09:48 BP 170/98 12/30/16 12:39 Pulse Ox 97 12/30/16 09:48 Intake & Output 12/29/16 12/30/16 12/30/16 18:59 06:59 18:59 Intake Total 480 340 Output Total 600 450 Balance -600 30 340 Weight 81.647 kg Intake: Intake, IV Titration 100 Amount metroNIDAZOLE-NS PMX 500 100 mg In Saline 1 100ml.bag @ 100 mls/hr IVPB Q8HR [facility] Rx#:[id number] Oral 480 240 Output: Urine 600 450 Other: Voiding Method Indwelling Catheter # Voids 300 # Bowel Movements 1 2 2 - Exam PHYSICAL EXAM: GENERAL APPEARANCE: Patient is a male who appears to be in no acute distress. HEENT: Normocephalic, atraumatic, no facial asymmetry is seen. Neck is supple with no masses felt. CARDIOVASCULAR: Regular rate and rhythm. ABDOMEN: Nontender, nondistended. EXTREMITIES: Show no edema or clubbing. NEUROLOGICAL EXAM: Patient is currently sedated and is extremely lethargic. I am unable to perform a meaningful neurological exam at this point. - Labs CBC & Chem 7: 12/30/16 11:10 12/30/16 12:24 Labs: Abnormal Lab Results - Last 24 Hours (Table) 12/29/16 12/29/16 12/30/16 Range/Units 18:47 23:52 11:10 Lymphocytes # 0.7 L (1.0-4.8) k/uL Sodium 127 L 129 L (137-145) mmol/L Chloride 92 L (98-107) mmol/L Carbon Dioxide 20 L (22-30) mmol/L Glucose 140 H 113 H (74-99) mg/dL 12/30/16 Range/Units 12:24 Lymphocytes # (1.0-4.8) k/uL Sodium 131 L (137-145) mmol/L Chloride 97 L (98-107) mmol/L Carbon Dioxide (22-30) mmol/L Glucose 108 H (74-99) mg/dL Assessment and Plan (1) Encephalopathy Status: Acute (2) Hyponatremia Status: Acute Plan: Recommendations: Patient's altered mental status is likely due to acute metabolic encephalopathy. Sodium is still low at 131 today. I recommend continuing correction of sodium level. I recommend slowly correcting sodium levels to avoid central pontine myelinolysis. Nephrology has been consulted. An EEG was about to be started at the time of my visit. No seizure activities been reported by the staff. Continue neurological checks. I will continue to follow with you. Further recommendations to follow. I performed an examination of the patient and discussed the management with the BULKING MACHINE OPERATOR. I have reviewed the BULKING MACHINE OPERATOR notes and agree with the findings and plan of care.
[2016-12-30 19:14] LABS: Anion Gap 13 mmol/L; Blood Urea Nitrogen 19 mg/dL (9-20); Calcium 8.7 mg/dL (8.4-10.2); Carbon Dioxide 20 mmol/L (22-30); Chloride 98 mmol/L (98-107); Glucose 101 mg/dL (74-99); Non-African American GFR(MDRD) >60 (>60 ml/min/1.73 sqM); Potassium 3.4 mmol/L (3.5-5.1); Sodium 131 mmol/L (137-145)
--- NOTE | 2016-12-30 20:43 | EEG ---
DATE OF SERVICE: 12/30/2016 REASON FOR TESTING: Altered mental status. DESCRIPTION OF THE PROCEDURE: This EEG was performed using a 21-channel digital electroencephalograph, following international 10-20 system. DESCRIPTION OF THE RECORDING: From the beginning of the tracing, and with the patient's eyes closed, the background rhythm was mostly consisting of 7 Hz theta frequency in the posterior occipital leads. No obvious asymmetry is seen. Significant lead artifacts are noticed. Occasional movement artifacts are seen. The patient does reach stage II of sleep and occasional sleep spindles are seen. More lead artifacts are seen later in the tracing. No epileptiform discharges were seen. INTERPRETATION: This asleep and awake EEG is limited due to the frequency of lead and movement artifacts. There is evidence of mild encephalopathy. No obvious asymmetry is seen. No epileptiform discharges were noticed. The absence of epileptiform discharges does not rule out the diagnosis of epilepsy; therefore clinical correlation is recommended.
[2016-12-30] MEDS: ATORVASTATIN 10 MG TAB PO SCH (21:29)
[2016-12-31] MEDS: hydrALAZINE HCL 20 MG/ML 1 ML VIAL IVP PRN (05:20)
[2016-12-31 08:04] LABS: CH 31.2; CHCM 35.9; HDW 2.45; HGB 15.7 gm/dL (13.0-17.5); MCH 30.4 pg (25.0-35.0); MCHC 34.9 g/dL (31.0-37.0); MCV 87.2 fL (80.0-100.0); Mean Platelet Volume 6.5; RBC 5.16 m/uL (4.30-5.90); RDW 12.5 % (11.5-15.5); WBC 5.7 k/uL (3.8-10.6)
[2016-12-31 08:23] LABS: Anion Gap 12 mmol/L; Blood Urea Nitrogen 20 mg/dL (9-20); Calcium 8.6 mg/dL (8.4-10.2); Carbon Dioxide 22 mmol/L (22-30); Chloride 99 mmol/L (98-107); Glucose 95 mg/dL (74-99); Non-African American GFR(MDRD) >60 (>60 ml/min/1.73 sqM); Potassium 3.5 mmol/L (3.5-5.1); Sodium 133 mmol/L (137-145)
[2016-12-31 09:18] LABS: Glucose,Whole Blood 98 mg/dL (75-99)
[2016-12-31 09:54] LABS: Glucose,Whole Blood 98 mg/dL (75-99)
--- NOTE | 2016-12-31 09:54 | XR ---
EXAMINATION TYPE: XR chest 1V portable DATE OF EXAM: 12/31/2016 9:48 AM COMPARISON: 12/28/2016 HISTORY: Shortness of breath TECHNIQUE: Single frontal view of the chest is obtained. FINDINGS: There is no focal air space opacity, pleural effusion, or pneumothorax seen. The cardiac silhouette size is within normal limits. The osseous structures are intact. Arthropathy of the shou lders. Hypertrophic change of the spine. No overt failure. IMPRESSION: No acute process.
[2016-12-31] MEDS ORDERED: ACETAMINOPHEN IV (For NPO) 1,000 MG in EMPTY BAG 1 BAG IVPB PRN (10:03)
--- NOTE | 2016-12-31 10:41 | P.PN ---
Subjective Patient is seen in follow-up for hyponatremia. His sodium level was 127 on admission. He was noted to have urinary retention and Cervantes catheter was placed. His sodium level today is up to 133. He is currently not on any IV fluids. He was seen in the intensive care unit. Patient was apparently tachycardic into This morning and was subsequently transferred to the intensive care unit. He is following commands however his mentation is not at his baseline. He has a Cervantes catheter in place and is nonoliguric. Vital signs are stable. General: The patient appeared well nourished and normally developed. HEENT: Head exam is unremarkable. Neck is without jugular venous distension. LUNGS: Lungs are clear to auscultation and percussion. Breath sounds decreased. HEART: Rate and Rhythm are regular. First and second heart sounds normal. No murmurs, rubs or gallops. ABDOMEN: Abdominal exam reveals normal bowel sounds. Non-tender and non- distended. No evidence of peritonitis. EXTREMITITES: No clubbing, cyanosis, or edema. Objective - Vital Signs Vital signs: Vital Signs Temp 97.1 F L 12/31/16 07:00 Pulse 101 H 12/31/16 07:00 Resp 20 12/31/16 07:00 BP 158/77 12/31/16 07:00 Pulse Ox 94 L 12/31/16 07:00 Intake & Output 12/30/16 12/31/16 12/31/16 18:59 06:59 18:59 Intake Total 340 110 Output Total 450 Balance -110 110 Intake: IV 100 metroNIDAZOLE-NS PMX 500 100 mg In Saline 1 100ml.bag @ 100 mls/hr IVPB Q8HR [facility] Rx#:[id number] Intake, IV Titration 100 Amount metroNIDAZOLE-NS PMX 500 100 mg In Saline 1 100ml.bag @ 100 mls/hr IVPB Q8HR [facility] Rx#:[id number] Oral 240 10 Output: Urine 450 Other: Voiding Method Indwelling Catheter Indwelling Catheter # Voids 300 # Bowel Movements 2 - Labs CBC & Chem 7: 12/31/16 07:22 12/31/16 07:22 Labs: Abnormal Lab Results - Last 24 Hours (Table) 12/30/16 12/30/16 12/30/16 Range/Units 11:10 12:24 18:15 Lymphocytes # 0.7 L (1.0-4.8) k/uL Sodium 131 L 131 L (137-145) mmol/L Potassium 3.4 L (3.5-5.1) mmol/L Chloride 97 L (98-107) mmol/L Carbon Dioxide 20 L (22-30) mmol/L Glucose 108 H 101 H (74-99) mg/dL 12/31/16 Range/Units 07:22 Lymphocytes # (1.0-4.8) k/uL Sodium 133 L (137-145) mmol/L Potassium (3.5-5.1) mmol/L Chloride (98-107) mmol/L Carbon Dioxide (22-30) mmol/L Glucose (74-99) mg/dL Microbiology - Last 24 Hours (Table) 12/29/16 22:50 Blood Culture - Preliminary Blood No Growth after 24 hours Assessment and Plan Plan: Assessment: #1. Hyponatremia. Appears euvolemic in nature. He did have urinary retention which can be a contributing factor. Also concern of SIADH due to potential stroke versus [place] infection. Sodium level 127 on admission and is up to 133 today. TSH and cortisol level normal. #2. Urinary retention status post Cervantes catheter placement. #3. Altered mental status. Questionable CVA versus infectious etiology. Neurology following. Plan: He is currently nothing by mouth. Maintain Cervantes catheter. Demeclocycline has been discontinued. Repeat sodium level at 6 PM today. If sodium level drops, I will give him a small dose of Lasix to help dilute the urine further. Case was discussed with the as well as the software engineer backend. Potential plans to do a lumbar puncture.
[2016-12-31 10:45] LABS: ALT 28 U/L (21-72); AST 27 U/L (17-59); Alkaline Phosphatase 110 U/L (38-126); Anion Gap 14 mmol/L; Blood Urea Nitrogen 21 mg/dL (9-20); Calcium 8.7 mg/dL (8.4-10.2); Carbon Dioxide 21 mmol/L (22-30); Chloride 98 mmol/L (98-107); Glucose 100 mg/dL (74-99); Non-African American GFR(MDRD) >60 (>60 ml/min/1.73 sqM); Potassium 3.4 mmol/L (3.5-5.1); Sodium 133 mmol/L (137-145); Total Bilirubin 0.8 mg/dL (0.2-1.3); Total Protein 6.9 g/dL (6.3-8.2)
[2016-12-31 10:55] LABS: Basophils # (A) 0.1 k/uL (0-0.2); Basophils % (A) 1 %; CH 30.7; CHCM 35.4; Eosinophils % (A) 0 %; HDW 2.64; Luc # (Auto) 0.08; Luc % (Auto) 1; Lymphocytes # (A) 0.6 k/uL (1.0-4.8); Lymphocytes % (A) 9 %; MCH 31.1 pg (25.0-35.0); MCHC 35.6 g/dL (31.0-37.0); MCV 87.2 fL (80.0-100.0); Mean Platelet Volume 6.8; Monocytes # (A) 0.6 k/uL (0-1.0); Monocytes % (A) 10 %; Neutrophils # (A) 4.6 k/uL (1.3-7.7); Neutrophils % (A) 78 %; RBC 5.16 m/uL (4.30-5.90); RDW 12.2 % (11.5-15.5); WBC 5.9 k/uL (3.8-10.6); WBC (Perox) 5.86
--- NOTE | 2016-12-31 11:02 | P.CNPUL ---
History of Present Illness Consult date: 12/31/16 Chief complaint: Altered mental status History of present illness: This is a 81-year-old male patient, who was in a good state of health until approximately 4 days ago when he started developing acute mental status change. For that reason the patient was brought into the hospital as his mental status was gradually declining and this was witnessed by his . The patient had no fever chills or any night sweats. The patient had no neck stiffness. No skin rashes. No oral ulceration. No trauma to the head. No substance abuse. He was on his usual medication and there is no new medication change. No sick contacts. No travel history. Initially his sodium level was at 127 and his urine is osmolality was at 263. 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 Based on that he was placed on fluid restriction and he was given a dose of demeclocycline. Subsequent sodium levels improved. My understanding that the patient also had some urinary retention. The Cervantes catheter was inserted and immediately the bladder was emptied and this could have also contributed to his low sodium. Most recent sodium level is at 131. For now, the patient has undergone a neurologic workup and this included 2 CAT scans of the head and a subsequent MRI of the brain that was done on 2016. The MRI showed no acute intracranial process. There is degenerative remote ischemic white matter changes. There is an area of signal intensity at the level of posterior left thalamus and temporal lobe, likely an artifactual area and it was recommended to correlated with a repeat CAT scan of the brain to exclude any potential hemorrhage. The patient had a EGD that showed no evidence of any epileptic foci and showed mild encephalopathy. 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 The patient is slow in answering questions and obviously still encephalopathic. He can follow some simple commands. His considerably weak both in upper and lower extremities. No spasticity. No rigidity. He remains afebrile. He became a bit tachypneic this morning and there was no signs of any respiratory failure or distress. No reported aspiration. White cell count remains low at 5.7. The rest of the electrodes are all within normal limits. There is no significant acidosis from today. Patient's anion gap is at 14. Liver function tests are all within normal limits. Coagulation profile was within normal limits. Urine drug screen was also negative. Salicylate and acetaminophen levels were negative. Alcohol level was negative. C x-ray is within normal limits. Patient's pulse ox on room air is between 94-98%. No hypotension. Is producing adequate amount of urine output. He is currently not taking any IV fluids and repeat electrodes are still pending for now. The patient has had previous history of pain shots for lumbar ago by Dr. Jack and the last shot was more than 2 years ago. 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 Past Anesthesia/Blood Transfusion Reactions: No Reported Reaction Past Psychological History: No Psychological Hx Reported Smoking Status: Former smoker (Patient used to smoke about pack every day and he quit about 38 years ago) Past Alcohol Use History: None Reported Additional Past Alcohol Use History / Comment(s): ETOH & Smoking "i quit 38 years ago" "I'm an recovering alcoholic" Past Drug Use History: None Reported - Past Family History Mother Family Medical History: Cancer (Mother from lung cancer as well as dementia at the age of 70.) Additional Family Medical History / Comment(s): lung Father History Unknown: Yes Family Medical History: No Reported History (Father in his 40s due to alcohol isn't.) Additional Family Medical History / Comment(s): "i don't know a lot about him...he as an alcoholic Brother(s) Family Medical History: Coronary Artery Disease (CAD) (Patient had 2 brothers one as a drug overdose in his 30s and the other one has CAD.) Sister(s) Family Medical History: Cancer, Coronary Artery Disease (CAD) (Patient has one sister with CAD and breast cancer.) Son(s) Family Medical History: No Reported History (Patient has 3 sons to contact and one healthy.) Medications and Allergies Home Medications Medication Instructions Recorded Confirmed Type traMADol HCl [Ultram] 50 - 100 mg PO QID PRN 07/22/14 12/28/16 History Gabapentin [Neurontin] 300 mg PO TID 12/28/16 12/28/16 History Atorvastatin Calcium [Lipitor] 10 mg PO HS 12/29/16 12/29/16 History Tamsulosin HCl [Flomax] 0.4 mg PO BID 12/29/16 12/29/16 History Allergies Allergy/AdvReac Type Severity Reaction Status Date / Time thallium-201 Allergy Severe Dyspnea Verified 12/29/16 09:26 Physical Exam Vitals: Vital Signs Temp Pulse Pulse Resp BP Pulse Ox 12/31/16 08:00 101 H 101 H 30 H 12/31/16 07:00 97.1 F L 101 H 20 158/77 94 L 12/30/16 23:00 98.4 F 83 16 169/77 98 12/30/16 16:00 88 18 12/30/16 15:00 98.5 F 88 18 170/82 98 12/30/16 12:39 170/98 Intake and Output 12/30/16 12/31/16 12/31/16 22:59 06:59 14:59 Intake Total 0 110 Output Total 450 Balance -450 110 Intake: IV 100 metroNIDAZOLE-NS PMX 500 100 mg In Saline 1 100ml.bag @ 100 mls/hr IVPB Q8HR [facility] Rx#:[id number] Oral 0 10 Output: Urine 450 Other: Voiding Method Indwelling Catheter Indwelling Catheter Indwelling Catheter # Voids 300 # Bowel Movements 2 The patient is a well-developed male patient, nonacute distal distress. Not using excessive muscle breathing. His lethargic and obtunded. He opens his eyes spontaneously. At times he is able to follow simple commands such as squeezing with his fingers and moving his toes stents taken out his tongue and the majority of these are simple commands. His speech is delayed and garbled.Head exam was generally normal. There was no scleral icterus or corneal arcus. Mucous membranes were moist. No neck stiffness.Neck was supple and without jugular venous distension, thyromegaly, or carotid bruits. Carotids were easily palpable bilaterally. There was no adenopathy.Lungs were clear to auscultation and percussion, and with normal diaphragmatic excursion. No wheezes or rales were noted. Cardiac exam revealed the PMI to be normally situated and sized. The rhythm was regular and no extrasystoles were noted during several minutes of auscultation. The first and second heart sounds were normal and physiologic splitting of the second heart sound was noted. There were no murmurs, rubs, clicks, or gallops.Abdominal exam revealed normal bowel sounds. The abdomen was soft, non-tender, and without masses, organomegaly, or appreciable enlargement of the abdominal aorta.Examination of the extremities revealed easily palpable radial, femoral and pedal pulses. There was no cyanosis , clubbing or edema. Results - Laboratory Findings CBC and BMP: 12/31/16 07:22 12/31/16 10:18 PT/INR, D-dimer PT 11.1 sec (9.0-12.0) 12/28/16 22:50 INR 1.1 (<1.1) 12/28/16 22:50 D-Dimer 1.38 mg/L FEU (<0.60) H 12/31/16 10:18 Abnormal lab findings: Abnormal Labs 12/28/16 12/28/16 12/29/16 22:50 22:50 00:05 Lymphocytes # 0.6 L D-Dimer Sodium 127 L Potassium Chloride 90 L Carbon Dioxide BUN Glucose 111 H Osmolality Alkaline Phosphatase 127 H Urine Protein 1+ H Urine Ketones 2+ H Urine Blood Small H Urine RBC 25 H Urine Mucus Rare H Ur Random Sodium 12/29/16 12/29/16 12/29/16 10:59 12:21 18:47 Lymphocytes # D-Dimer Sodium 127 L 127 L Potassium Chloride 91 L 92 L Carbon Dioxide BUN Glucose 114 H 140 H Osmolality 263 L Alkaline Phosphatase Urine Protein Urine Ketones Urine Blood Urine RBC Urine Mucus Ur Random Sodium 125 H 12/29/16 12/30/16 12/30/16 23:52 11:10 12:24 Lymphocytes # 0.7 L D-Dimer Sodium 129 L 131 L Potassium Chloride 97 L Carbon Dioxide 20 L BUN Glucose 113 H 108 H Osmolality Alkaline Phosphatase Urine Protein Urine Ketones Urine Blood Urine RBC Urine Mucus Ur Random Sodium 12/30/16 12/31/16 12/31/16 18:15 07:22 10:18 Lymphocytes # D-Dimer 1.38 H Sodium 131 L 133 L Potassium 3.4 L Chloride Carbon Dioxide 20 L BUN Glucose 101 H Osmolality Alkaline Phosphatase Urine Protein Urine Ketones Urine Blood Urine RBC Urine Mucus Ur Random Sodium 12/31/16 10:18 Lymphocytes # D-Dimer Sodium 133 L Potassium 3.4 L Chloride Carbon Dioxide 21 L BUN 21 H Glucose 100 H Osmolality Alkaline Phosphatase Urine Protein Urine Ketones Urine Blood Urine RBC Urine Mucus Ur Random Sodium - Diagnostic Findings Chest x-ray: image reviewed Assessment and Plan Plan: Assessment 1 altered mental status. This is most likely an underlying encephalopathy and the possibilities include viral encephalopathy. An underlying stroke cannot be completely excluded despite the negative CAT scans and MRI lower obtain over the past 48 hours. The patient has no signs of septicemia. No leukocytosis. He is afebrile. No other obvious cause for his encephalopathy. Further workup will be needed including a lumbar puncture. 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 I doubt the hyponatremia was contributing to his altered mentation. 3 chronic lower back pain 4 osteoarthritis 5 hyperlipidemia 6 BPH 7 normal echocardiogram with an ejection fraction of 50-55%. No evidence of any pulmonary hypertension. Plan Repeat electrolytes today. Fluid management per nephrology. Proceed with a lumbar puncture. I've contacted anesthesia and an LP will be done today. His correlation profile admission was normal. He has normal platelets and he has not been on any form of anticoagulation or antiplatelet agents. Based on this, the PEEP will be done and the fluid was sent for analysis. Neurology on the case. Consider repeating the CAT scan of the brain. Monitor his hemodynamics in the ICU. We'll continue to follow make further recommendations. Atelectatic discussion with the patient's elderly consider transferring him to another facility if his condition remains the same and underlying diagnoses remains unclear.
--- NOTE | 2016-12-31 11:46 | P.PCN ---
Date of Procedure: 12/31/16 Preoperative Diagnosis: Postoperative Diagnosis: Procedure(s) Performed: Procedure=1-lumbar puncture . Preoperative diagnoses= altered mental status Postoperative diagnosis= altered mental status Anesthesia= local lidocaine infiltration 1% 3 mL for skin and subcu infiltration. Condition= stable. Complications=none. Indication for the procedure= patient with altered mental status, lumbar puncture for diagnostic study procedure risk and benefits and alternatives discussed with the patient and his agreed with the preceding, Description of the procedure= patient in the procedure room lateral position (left side down )and monitors on ,, the back prepped with chlorhexidine 3, sterile technique, local infiltration of the skin and subcu interstitial with lidocaine 1% 3 mL, then 22-gauge quickie Needle advanced slowly at L4 5 interlaminar space, the cerebrospinal fluid was clear, and no heme no paresthesia, a total of 10 mL of clear cerebrospinal fluid collected in 4 different tubes, the needle removed, Band-Aid applied , patient tolerated the procedure well without any complications, and further management as per her neurologist Opening pressure =16.5 mm h2o closing pressure= 11 mm h2o Implants: Indications for Procedure: Operative Findings: Description of Procedure:
[2016-12-31 11:52] LABS: ABG Base Excess -1.8 mmol/L; ABG HCO3 21 mmol/L (21-25); ABG PCO2 30 mmHg (35-45); ABG PH 7.47 (7.35-7.45); ABG PO2 100 mmHg (83-108); ABG TCO2 22 mmol/L (19-24)
[2016-12-31] MEDS: ASPIRIN 325 MG TAB PO SCH (11:57)
[2016-12-31] MEDS: LOSARTAN 25 MG TAB PO SCH (11:57)
[2016-12-31] MEDS: TAMSULOSIN 0.4 MG CAP.ER.24H PO SCH ×2 (11:57→21:24)
[2016-12-31 12:06] LABS: Glucose,CSF 36 mg/dL (40-70)
[2016-12-31 12:44] LABS: Appearance,CSF Clear
[2016-12-31 12:45] LABS: Red Blood Cell, CSF Fresh 100 %
[2016-12-31 12:47] LABS: Diff, Total Cells Cnt, CSF 100; Polynuclear WBC,CSF 4 %
[2016-12-31] MEDS ORDERED: DEXAMETHASONE SOD PHOSPHATE 10 MG/ML 1 ML VIAL IV STA (13:00)
[2016-12-31] MEDS: PANTOPRAZOLE 40 MG/10 ML VIAL IVP SCH (13:10)
[2016-12-31] MEDS: HEPARIN SODIUM,PORCINE 5,000 UNIT/ML 1 ML VIAL SQ SCH ×2 (13:16→21:28)
[2016-12-31] MEDS ORDERED: AMPICILLIN 250 MG VIAL IV SCH (13:30)
[2016-12-31] MEDS ORDERED: IV VANCOMYCIN PER PHARMACY 1 EACH MISC MISCELLANE ONE (13:30)
[2016-12-31] MEDS ORDERED: VANCOMYCIN 1,500 MG in SODIUM CHLORIDE 0.9% 250 ML IVPB ONE (14:00)
[2016-12-31] MEDS: cefTRIAXone 2,000 MG in SODIUM CHLORIDE 0.9% 100 ML IVPB SCH ×2 (14:01→21:28)
[2016-12-31] MEDS: ACYCLOVIR SODIUM 800 MG in SODIUM CHLORIDE 0.9% 100 ML IV SCH ×2 (14:03→23:00)
[2016-12-31] MEDS ORDERED: LIDOCAINE 2% INJ 20 MG/ML SQ ONE (15:18)
--- NOTE | 2016-12-31 15:49 | XR ---
EXAMINATION TYPE: XR chest 1V portable DATE OF EXAM: 12/31/2016 3:43 PM COMPARISON: NONE HISTORY: PICC line placement TECHNIQUE: Single frontal view of the chest is obtained. FINDINGS: There is no focal air space opacity, pleural effusion, or pneumothorax seen. The cardiac silhouette size is within normal limits. The osseous structures are intact. Tip of the PICC line ap pears at the level of the SVC. Slight paratracheal soft tissue fullness is stable. This likely is vas cular. Alternatively could be related to thyroid. Atherosclerotic change aorta. Hyperinflation sugges ts COPD. IMPRESSION: 1. No acute infiltrate. 2. PICC line appears with the tip overlying the SVC
--- NOTE | 2016-12-31 16:04 | P.PN ---
Subjective This is a 81-year-old male one of Dr. Sanchez with a previous medical history significant for GERD, hyper lipidemia, osteophytes, enlarged prostate with lower urinary tract symptoms, degenerative disc disease of the lumbar spine under the care of Dr. Jack from pain management, history of mitral valve disorder, patient apparently was brought into the emergency department yesterday by his because of severe mental status changes with severe encephalopathy with negative computed tomography scan of the brain and negative chest x-ray however abnormal serum sodium with a sodium of 127 and a serum osmolality of 263, patient according to his was in his usual state of health about yesterday at around 2:30 in the afternoon when he was sitting in a recliner after he woke up in the morning and he took a shower and dressed up and suddenly he became quite confused and disoriented, patient became quite weak to the degree that he could not even make sense to a lot of things, he has no fever or chills at that time he had no nausea or vomiting at that time he had no coughing, patient's is a friend of and his had cold her and she was on her way to go see the patient however she told her that she is getting the patient to the ER for evaluation and subsequently was admitted to the hospital with neurology consultation was obtained. 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 Rodgers at the bedside I was concerned about the significant hyponatremia and the possibility of possible ischemic event even though the computed tomography scan was negative and we could be dealing with some acute event. 12/30: Patient remains confused and unable to follow most commands. feels the patient is a little improved and was able to take some oral medications this morning. Subsequently, patient refused to take Tylenol by mouth and was holding it in his mouth and would not swallow. Sodium is improved to 131 and chloride is 97. Repeat lactic acid normal. Cortisol 22, serum osmolality 263 and urine osmolality 754. Urine sodium is 125 with repeat of 90. Consult added for Dr. Porter with plan to continue fluid restriction, discontinue demeclocycline. He remains with Cervantes catheter in place for urinary retention. Patient had 3 episodes of diarrhea during the night and 1 in the morning on day shift. Stool is negative for C. difficile toxin. CAT scan of the brain done last evening showed age-related atrophy and chronic small vessel ischemic change without acute intracranial process. MRI of the brain done this morning revealed no acute intracranial process. Degenerative remote ischemic white matter changes suspected. There are areas of increased signal in the posterior left thalamus and temporal lobe most likely artifact but recommend repeat CAT scan of the head to exclude potential hemorrhage which is less likely. Patient' s third CAT scan of the brain done this morning reveals white matter ischemic changes. Stable from previous day. Carotid ultrasound showed severe right internal carotid artery stenosis greater than 70% and consult with Dr. Jasso has been added. Echocardiogram reveals EF 50-55%, mild aortic sclerosis, mild mitral regurgitation, mild tricuspid regurgitation, mild concentric left ventricular hypertrophy. Patient was seen in consultation by Dr. Turcios with altered mental status most likely due to acute metabolic encephalopathy EEG has been ordered. 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 Espinoza and the patient was seen also in consultation by Dr. Bustamante from intensive care, patient was maintaining his airways, I had a long conversation with his at the bedside and they were in agreement for the above plan of treatment. Objective - Vital Signs Vital signs: Vital Signs Temp 100.2 F H 12/31/16 12:00 Pulse 105 H 12/31/16 12:00 Resp 38 H 12/31/16 12:00 BP 172/90 12/31/16 12:00 Pulse Ox 99 12/31/16 12:00 Intake & Output 12/30/16 12/31/16 12/31/16 18:59 06:59 18:59 Intake Total 340 110 0 Output Total 450 50 Balance -110 110 -50 Intake: IV 100 metroNIDAZOLE-NS PMX 500 100 mg In Saline 1 100ml.bag @ 100 mls/hr IVPB Q8HR [facility] Rx#:[id number] Intake, IV Titration 100 Amount metroNIDAZOLE-NS PMX 500 100 mg In Saline 1 100ml.bag @ 100 mls/hr IVPB Q8HR [facility] Rx#:[id number] Oral 240 10 0 Tube Feeding 0 Output: Urine 450 50 Other: Voiding Method Indwelling Catheter Indwelling Catheter Indwelling Catheter # Voids 300 # Bowel Movements 2 - Exam - Exam General appearance: average body habitus, mild distress - EENT Eyes: anicteric sclerae, no PERRLA, no ptosis, no scleral icterus, normal appearance ENT: hearing grossly normal, NA/AT, normal oropharynx (A bit dry.) Ears: bilateral: normal - Neck Neck: normal ROM, no rigidity, no stridor Carotids: bilateral: upstroke normal Thyroid: bilateral: normal size - Respiratory Respiratory: bilateral: diminished, negative: dullness, rales, rhonchi, wheezing , prolonged expiration - Cardiovascular Rhythm: regular Heart sounds: normal: S1, S2 Abnormal Heart Sounds: no systolic murmur, no diastolic murmur, no rub, no S3 Gallop, no S4 Gallop, no click - Gastrointestinal General gastrointestinal: distended, normal bowel sounds, soft, tenderness, no umbilical hernia, no ventral hernia - Genitourinary Male genitourinary: enlarged prostate - Integumentary Integumentary: normal, normal turgor - Neurologic Neurologic: CNII-XII intact - Musculoskeletal Musculoskeletal: generalized weakness, strength equal bilaterally - Psychiatric Psychiatric: no A&O x's 3, no appropriate affect, no intact judgment & insight - Labs CBC & Chem 7: 12/31/16 10:18 12/31/16 10:18 Labs: Abnormal Lab Results - Last 24 Hours (Table) 12/30/16 12/30/16 12/31/16 Range/Units 12:24 18:15 07:22 Lymphocytes # (1.0-4.8) k/uL D-Dimer (<0.60) mg/L FEU ABG pH (7.35-7.45) ABG pCO2 (35-45) mmHg ABG O2 Saturation (94-97) % Sodium 131 L 131 L 133 L (137-145) mmol/L Potassium 3.4 L (3.5-5.1) mmol/L Chloride 97 L (98-107) mmol/L Carbon Dioxide 20 L (22-30) mmol/L BUN (9-20) mg/dL Glucose 108 H 101 H (74-99) mg/dL Troponin I (0.000-0.034) ng/mL CSF RBC (0-10) u/L CSF Tot Nucleated Cells (0-5) u/L CSF Glucose (40-70) mg/dL CSF Total Protein (12-60) mg/dL 12/31/16 12/31/16 12/31/16 Range/Units :02 06: 10:18 Lymphocytes # 0.6 L (1.0-4.8) k/uL D-Dimer 1.38 H (<0.60) mg/L FEU ABG pH (7.35-7.45) ABG pCO2 (35-45) mmHg ABG O2 Saturation (94-97) % Sodium 133 L (137-145) mmol/L Potassium 3.4 L (3.5-5.1) mmol/L Chloride (98-107) mmol/L Carbon Dioxide 21 L (22-30) mmol/L BUN 21 H (9-20) mg/dL Glucose 100 H (74-99) mg/dL Troponin I (0.000-0.034) ng/mL CSF RBC (0-10) u/L CSF Tot Nucleated Cells (0-5) u/L CSF Glucose (40-70) mg/dL CSF Total Protein (12-60) mg/dL 12/31/16 12/31/16 12/31/16 Range/Units 10:18 11:15 11:43 Lymphocytes # (1.0-4.8) k/uL D-Dimer (<0.60) mg/L FEU ABG pH 7.47 H (7.35-7.45) ABG pCO2 30 L (35-45) mmHg ABG O2 Saturation 98.0 H (94-97) % Sodium (137-145) mmol/L Potassium (3.5-5.1) mmol/L Chloride (98-107) mmol/L Carbon Dioxide (22-30) mmol/L BUN (9-20) mg/dL Glucose (74-99) mg/dL Troponin I 0.066 H* (0.000-0.034) ng/mL CSF RBC 15 H (0-10) u/L CSF Tot Nucleated Cells 323 H (0-5) u/L CSF Glucose 36 L (40-70) mg/dL CSF Total Protein 434 H (12-60) mg/dL Microbiology - Last 24 Hours (Table) 12/29/16 22:50 Blood Culture - Preliminary Blood No Growth after 24 hours Assessment and Plan Plan: Assessment and Plan Plan: 1. 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 Place the patient in droplet isolation, contact isolation , continue vancomycin, Rocephin, ampicillin, acyclovir, infectious disease consultation, transfer the patient to the intensive care unit, ICU consult from Dr. Bustamante, IV fluid resuscitation, start the patient on Decadron SHANITA.. 2. 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 Continue treatment as in #1. 3. Enlarged prostate with urinary retention. A Cervantes catheter placement, start Flomax 0.4 mg orally twice every day. 4. Degenerative disc disease of the lumbar spine post epidural injection, discontinue tramadol, discontinue gabapentin, especially tramadol has the tendency to lower seizure threshold. 5. Hyperlipidemia. Continue Lipitor 10 mg orally once every day. 6. History of mitral valve disorder. We will get echo care gram. 7. Osteoarthritis. Stable at this time. 8. GERD. Start the patient on Protonix 40 mg IV push every 24 hours. 9. DVT prophylaxis. Heparin 5000 units subcutaneously every 12 hours as well as bilateral knee-high SHAR hose. 10. Patient is full code.
[2016-12-31] MEDS ORDERED: MIDAZOLAM 2 MG/2 ML VIAL IV ONE (16:37)
--- NOTE | 2016-12-31 17:07 | P.PN ---
Subjective Principal diagnosis: Patient is a 81-year-old male who is being followed by the neurology service for altered mental status. noticed patient to be drowsy and had behavioral changes which prompted her to bring him to [facility] emergency room. Upon admission to the emergency room patient was found to be quite confused. Patient was found to be hyponatremic with a sodium of 127. Patient also had urinary retention. A computed tomography scan of the brain was done which showed no acute intracranial abnormalities. CT did reveal small vessel ischemic changes and generalized atrophy. Patient had repeat computed tomography scan of the brain which showed no changes from previous day. Patient did have MRI of the brain done today which showed no intracranial process. MRI did reveal area of increased signal within the posterior left thalamus and temporal lobe which most likely is artifactual but needs to be correlated with repeat CT of the head to exclude potential hemorrhage. Stat CT of the brain was done today which is stable as compared to CT done yesterday. CT did reveal white matter ischemic changes. Patient was quite sedated following Ativan given for MRI yesterday. Patient remained with altered mental status changes this morning. A lumbar puncture was done which was concerning for bacterial meningitis. Patient was started on vancomycin and an infectious disease consult was obtained. Patient was transferred to the ICU. At the time of my evaluation, patient continues to be lethargic but in no acute distress. is at the bedside. Objective - Vital Signs Vital signs: Vital Signs Temp 99.4 F 12/31/16 13:00 Pulse 105 H 12/31/16 14:00 Resp 26 H 12/31/16 14:00 BP 184/96 12/31/16 14:00 Pulse Ox 97 12/31/16 14:00 Intake & Output 12/30/16 12/31/16 12/31/16 18:59 06:59 18:59 Intake Total 340 110 350 Output Total 450 115 Balance -110 110 235 Intake: IV 100 metroNIDAZOLE-NS PMX 500 100 mg In Saline 1 100ml.bag @ 100 mls/hr IVPB Q8HR [facility] Rx#:[id number] Intake, IV Titration 100 350 Amount Acyclovir Sodium 800 mg 100 In Sodium Chloride 0.9% 100 ml @ 100 mls/hr IV Q8H [facility] Rx#:[id number] Vancomycin 1,500 mg In 250 Sodium Chloride 0.9% 250 ml @ 125 mls/hr IVPB ONCE ONE Rx#:[id number] metroNIDAZOLE-NS PMX 500 100 mg In Saline 1 100ml.bag @ 100 mls/hr IVPB Q8HR [facility] Rx#:[id number] Oral 240 10 0 Tube Feeding 0 Output: Urine 450 115 Other: Voiding Method Indwelling Catheter Indwelling Catheter Indwelling Catheter # Voids 300 # Bowel Movements 2 - Exam PHYSICAL EXAM: GENERAL APPEARANCE: Patient is a male who appears to be in no acute distress. HEENT: Normocephalic, atraumatic, no facial asymmetry is seen. Neck is supple with no masses felt. CARDIOVASCULAR: Regular rate and rhythm. ABDOMEN: Nontender, nondistended. EXTREMITIES: Show no edema or clubbing. NEUROLOGICAL EXAM: Patient awakens to name and will track. He does not follow commands. He does withdraw all 4 extremities to pain. No obvious facial asymmetry is seen. No tremors or seizure-like activity is noted. No obvious lateralizing weakness is seen. - Labs CBC & Chem 7: 12/31/16 10:18 12/31/16 10:18 Labs: Abnormal Lab Results - Last 24 Hours (Table) 12/30/16 12/31/16 12/31/16 Range/Units 18:15 07:22 10:18 Lymphocytes # 0.6 L (1.0-4.8) k/uL D-Dimer (<0.60) mg/L FEU ABG pH (7.35-7.45) ABG pCO2 (35-45) mmHg ABG O2 Saturation (94-97) % Sodium 131 L 133 L (137-145) mmol/L Potassium 3.4 L (3.5-5.1) mmol/L Carbon Dioxide 20 L (22-30) mmol/L BUN (9-20) mg/dL Glucose 101 H (74-99) mg/dL Troponin I (0.000-0.034) ng/mL CSF RBC (0-10) u/L CSF Tot Nucleated Cells (0-5) u/L CSF Glucose (40-70) mg/dL CSF Total Protein (12-60) mg/dL 12/31/16 12/31/16 12/31/16 Range/Units 10:18 10:18 10:18 Lymphocytes # (1.0-4.8) k/uL D-Dimer 1.38 H (<0.60) mg/L FEU ABG pH (7.35-7.45) ABG pCO2 (35-45) mmHg ABG O2 Saturation (94-97) % Sodium 133 L (137-145) mmol/L Potassium 3.4 L (3.5-5.1) mmol/L Carbon Dioxide 21 L (22-30) mmol/L BUN 21 H (9-20) mg/dL Glucose 100 H (74-99) mg/dL Troponin I 0.066 H* (0.000-0.034) ng/mL CSF RBC (0-10) u/L CSF Tot Nucleated Cells (0-5) u/L CSF Glucose (40-70) mg/dL CSF Total Protein (12-60) mg/dL 12/31/16 12/31/16 Range/Units 11:15 11:43 Lymphocytes # (1.0-4.8) k/uL D-Dimer (<0.60) mg/L FEU ABG pH 7.47 H (7.35-7.45) ABG pCO2 30 L (35-45) mmHg ABG O2 Saturation 98.0 H (94-97) % Sodium (137-145) mmol/L Potassium (3.5-5.1) mmol/L Carbon Dioxide (22-30) mmol/L BUN (9-20) mg/dL Glucose (74-99) mg/dL Troponin I (0.000-0.034) ng/mL CSF RBC 15 H (0-10) u/L CSF Tot Nucleated Cells 323 H (0-5) u/L CSF Glucose 36 L (40-70) mg/dL CSF Total Protein 434 H (12-60) mg/dL Microbiology - Last 24 Hours (Table) 12/31/16 11:15 CSF Gram Stain - Preliminary Cerebral Spinal Fluid CSF Culture - Preliminary 12/29/16 22:50 Blood Culture - Preliminary Blood No Growth after 24 hours Assessment and Plan (1) Encephalopathy Status: Acute (2) Hyponatremia Status: Acute Plan: Recommendations: As previously mentioned, patient's mental status declined and patient was scheduled for lumbar puncture. Patient's lumbar puncture preliminary results are consistent with bacterial meningitis. Patient's been started on multiple antibiotics with infectious disease on consult. CSF cultures are pending. No seizure activity has been reported by the staff. EEG showed mild encephalopathy. This may improve as infectious process improves. I agree with discontinuation of tramadol as this can lower seizure threshold. Carotid ultrasound did show severe right internal carotid artery stenosis greater than 70% and Dr. Jasso has been consulted. Continue neurological checks. Continue contact isolation. I will continue to follow with you. Further recommendations to follow. I performed an examination of the patient and discussed the management with the FOOD ADVISER. I have reviewed the FOOD ADVISER notes and agree with the findings and plan of care.
[2016-12-31] MEDS: AMPICILLIN 2,000 MG in SODIUM CHLORIDE 0.9% 100 ML IVPB SCH ×2 (17:30→21:24)
[2016-12-31] MEDS: SODIUM CHLORIDE 0.9% 1,000 ML IV SCH (17:30)
[2016-12-31] MEDS: DEXAMETHASONE SOD PHOSPHATE 10 MG/ML 1 ML VIAL IV SCH (17:31)
[2016-12-31 18:33] LABS: Anion Gap 13 mmol/L; Blood Urea Nitrogen 22 mg/dL (9-20); Calcium 9.2 mg/dL (8.4-10.2); Carbon Dioxide 18 mmol/L (22-30); Chloride 105 mmol/L (98-107); Glucose 104 mg/dL (74-99); Non-African American GFR(MDRD) >60 (>60 ml/min/1.73 sqM); Sodium 136 mmol/L (137-145)
[2016-12-31 18:38] LABS: Potassium 5.6 mmol/L (3.5-5.1)
[2016-12-31] MEDS: ATORVASTATIN 10 MG TAB PO SCH (21:54)
--- NOTE | 2016-12-31 21:56 | MR ---
EXAMINATION TYPE: MR brain w con DATE OF EXAM: 12/31/2016 9:23 PM COMPARISON: NONE HISTORY: Neurologic symptoms possible meningitis CONTRAST: Patient received 20 mL intravenous gadolinium contrast. Post contrast axial and coronal T1-weighted images are submitted only. The ventricles, basal cisterns and sulci overlying the cerebral convexities are mildly enlarged. There is no evidence for leptomeningeal enhancement to suggest meningitis although strict clinical co rrelation is advised and correlation with CSF. No enhancing mass lesion identified. Normal vascular enhancement seen. IMPRESSION: There is no evidence for leptomeningeal enhancement to suggest meningitis although strict clinical co rrelation is advised and correlation with CSF.
--- NOTE | 2016-12-31 22:05 | MR ---
EXAMINATION TYPE: MR cspine/tspine/lspine wo/w DATE OF EXAM: 12/31/2016 9:24 PM COMPARISON: NONE HISTORY: Pain evaluate for paraspinal abscess. CONTRAST: Multihance 20ml Technique: Limited MRI of the complete spine was performed with sagittal T1 and T2-weighted images ob tained as well as sagittal T1-weighted imaging postcontrast administration. Coronal T1 also obtained. Limited study was performed given patient's overall sedated state. Patient was also very uncooperati ve. FINDINGS: No pathologic enhancement to suggest paraspinal abscess. No evidence for epidural enhancing abscess. Bone marrow signal is somewhat heterogenous. Correlate with CBC and with patient history of any prima ry malignancy to exclude metastatic disease. Disc desiccation is noted at C4-5, C5-6 and C6-7 with disc bulging seen. No central stenosis or herni ation. Ventral spondylosis identified. Degenerative disc disc disease at T8-9 and T9-T10. Disc bulging noted. At T8-9 and cannot exclude a s mall protrusion. Degenerative disc disease with disc bulge and annular tear at L3-4 L4-5 and L5-S1. No central stenosi s or bryant herniation. IMPRESSION: 1. No definite enhancing paraspinal abscess or epidural abscess. No evidence for discitis. 2. Degenerative disc disease with disc bulging as discussed.
[2016-12-31] MEDS: VANCOMYCIN 1,500 MG in SODIUM CHLORIDE 0.9% 250 ML IVPB SCH (22:59)
--- NOTE | 2016-12-31 23:54 | CONS ---
DATE OF CONSULTATION: 12/31/2016 REASON FOR CONSULTATION: Encephalitis / meningitis. HISTORY OF PRESENT ILLNESS: The patient is a 81-year-old male who was brought into the ER at [facility] on 12/28/2016 with the chief complaints of mental status changes. Apparently the patient's symptoms started on Wednesday, December 28, with some weakness and lethargy noticed over the weekend. The patient remains lethargic. No high-grade fever, though. No significant history of any headache, nausea or vomiting. However, his did mention that he did have episodes of diarrhea. No significant abdominal pain or chest pain or shortness of breath or cough. The patient apparently does have chronic back pain and sees Dr. Jack; recently saw him last week. However, the patient did not have spinal injection. The patient has been admitted to the hospital, where the patient was noticed to be hyponatremic with evidence of urinary retention. He did have a CT scan of the brain which did not show any acute bleed. An MRI was done which raised the possibility of abnormality in the thalamus and the left temporal lobe area. With his worsening mental status, the patient has been admitted to the ICU, where the patient underwent a lumbar puncture. Results show low glucose of 36, high protein of 434. The white count was 323 with 96% mononuclear cells. Patient has been started on broad-spectrum antibiotic in addition to the antiviral steroids. I was asked to see the patient for further recommendations. All of this information has been obtained from review of chart and talking to his present at the bedside, as the patient was not in a condition to give me any reliable history. Review of the chart did show that the patient did have a low-grade fever of 100.4 on December 29 and 100.2 today. Review of systems could not be reliably obtained. The positives have been mentioned in the HPI. His past medical history is significant for: 1. Chronic back pain. 2. Osteoarthritis. 3. Hyperlipidemia. 4. Gastroesophageal reflux disease. 5. Benign prostatic hypertrophy. PAST SURGICAL HISTORY: Tonsillectomy, epidural injection. SOCIAL HISTORY: Remote history of smoking; quit about 38 years ago. He is a recovered alcoholic. No drug use. FAMILY HISTORY: Mother from lung cancer. Father in his 40s ALLERGIES: THALLIUM. Medications currently include: 1. Tylenol. 2. Acyclovir. 3. Ampicillin. 4. Lipitor. 5. Ceftriaxone 2 grams q.12. 6. Vancomycin. 7. Decadron 10 mg q.6. 8. Hydralazine. 9. Cozaar. 10. Narcan. 11. Protonix. 12. Flomax. On examination, blood pressure is 166/96 with a pulse of 94, temperature 99.2, T-max 100.2. He is 98% on 2 L nasal cannula. General description is an elderly male lying in bed in no distress. No tachypnea or accessory muscle of respiration use. HEENT examination shows no pallor or scleral icterus. Oral mucous membrane dry. NECK: Trachea is central. No thyromegaly. LUNGS: Unlabored breathing. Clear to auscultation anteriorly. No wheeze or crackles. HEART: S1, S2. Regular rate and rhythm. ABDOMEN: Soft. No tenderness. No guarding or rigidity. EXTREMITIES: No edema of the feet. SKIN EXAMINATION: No rash or mass palpable. NEUROLOGICAL: The patient is awake but confused, disoriented. He was unable to provide any history to me . No significant neck rigidity was noticed, either. LABS: BUN of 22 with a creatinine 0.70. Hemoglobin is 16. White count of 5.9. CSF examination with glucose of 36, protein 434, 323 WBCs with 96% mononuclear cells. CT was negative. xray negative for pneumonia. MRI report as mentioned above. DIAGNOSTIC IMPRESSION AND PLAN: Patient with mental status changes, confusion, lethargy, with a low-grade fever, now with CSF with a high protein, low glucose, elevated white count with mostly mononuclear cells with some abnormality seen on the temporal lobe; raises the possibility of herpes encephalitis , the possibility of bacterial meningitis especially Listeria with GI symptoms cannot be entirely excluded in addition to the routine pathogens. PLAN: 1. We will obtain HSV DNA by PCR on the CSF examination and await CSF culture to finalize. Blood culture will be obtained, too. 2. Patient will be kept on the acyclovir 10 mg per kg while watching his clinical condition closely in addition to the vancomycin ampicillin and rocephin while waiting for the culture to finalize. 3. We will continue with the steroids. 4. Will follow up on his clinical condition and cultures to further adjust medication if needed. Thank you for this consultation. Will follow this patient along with you. MARCO
[2017-01-01] MEDS: AMPICILLIN 2,000 MG in SODIUM CHLORIDE 0.9% 100 ML IVPB SCH ×6 (00:15→19:43)
[2017-01-01] MEDS: DEXAMETHASONE SOD PHOSPHATE 10 MG/ML 1 ML VIAL IV SCH ×4 (00:15→17:16)
[2017-01-01] MEDS: hydrALAZINE HCL 20 MG/ML 1 ML VIAL IVP PRN (03:19)
[2017-01-01 04:44] LABS: CHCM 35.7; HCT 44.2 % (39.0-53.0); HDW 2.57; HGB 15.6 gm/dL (13.0-17.5); MCH 30.7 pg (25.0-35.0); MCHC 35.3 g/dL (31.0-37.0); Mean Platelet Volume 6.6; RBC 5.07 m/uL (4.30-5.90); RDW 12.5 % (11.5-15.5); WBC 4.9 k/uL (3.8-10.6)
[2017-01-01 05:07] LABS: Anion Gap 12 mmol/L; Blood Urea Nitrogen 25 mg/dL (9-20); Calcium 8.6 mg/dL (8.4-10.2); Carbon Dioxide 19 mmol/L (22-30); Chloride 105 mmol/L (98-107); Glucose 117 mg/dL (74-99); Non-African American GFR(MDRD) >60 (>60 ml/min/1.73 sqM); Potassium 3.4 mmol/L (3.5-5.1); Sodium 136 mmol/L (137-145)
[2017-01-01] MEDS ORDERED: POTASSIUM CHLORIDE 20 MEQ in WATER FOR INJECTION 1 100ML.BAG IVPB ONE (05:24)
[2017-01-01] MEDS ORDERED: Potassium Replacement Protocol 1 EACH MISC MISCELLANE PRN (05:24)
[2017-01-01] MEDS: ACYCLOVIR SODIUM 800 MG in SODIUM CHLORIDE 0.9% 100 ML IV SCH ×3 (05:53→22:02)
[2017-01-01] MEDS: ASPIRIN 325 MG TAB PO SCH (07:58)
[2017-01-01] MEDS: LOSARTAN 25 MG TAB PO SCH (07:58)
[2017-01-01] MEDS: TAMSULOSIN 0.4 MG CAP.ER.24H PO SCH ×2 (07:59→20:55)
--- NOTE | 2017-01-01 08:44 | P.PN ---
Subjective Patient is seen in follow-up for hyponatremia. His sodium level was 127 on admission. He was noted to have urinary retention and Cervantes catheter was placed. His sodium level today is up to 136. He was seen in the intensive care unit. Patient is more awake and alert this morning although still not a very reliable historian due to encephalopathy. No vomiting or diarrhea. He underwent lumbar puncture yesterday as well as MRI of the brain and spine. There is concern for bacterial meningitis for which she is maintained on broad- spectrum antibiotics. Vital signs are stable. General: The patient appeared well nourished and normally developed. HEENT: Head exam is unremarkable. Neck is without jugular venous distension. LUNGS: Lungs are clear to auscultation and percussion. Breath sounds decreased. HEART: Rate and Rhythm are regular. First and second heart sounds normal. No murmurs, rubs or gallops. ABDOMEN: Abdominal exam reveals normal bowel sounds. Non-tender and non- distended. No evidence of peritonitis. EXTREMITITES: No clubbing, cyanosis, or edema. Objective - Vital Signs Vital signs: Vital Signs Temp 98.7 F 01/01/17 08:00 Pulse 129 H 01/01/17 08:00 Resp 27 H 01/01/17 08:00 BP 139/88 01/01/17 08:00 Pulse Ox 97 01/01/17 08:00 Intake & Output 12/31/16 01/01/17 01/01/17 18:59 06:59 18:59 Intake Total 700 600 200 Output Total 230 310 65 Balance 470 290 135 Weight 76.2 kg 75.2 kg Intake: IV 150 600 100 Sodium Chloride 0.9% 1, 150 600 100 000 ml @ 50 mls/hr IV . Q20H [facility] Rx#:[id number] Intake, IV Titration 550 100 Amount Acyclovir Sodium 800 mg 100 In Sodium Chloride 0.9% 100 ml @ 100 mls/hr IV Q8H [facility] Rx#:[id number] Ampicillin 2,000 mg In 100 100 Sodium Chloride 0.9% 100 ml @ 200 mls/hr IVPB Q4HR [facility] Rx#:[id number] Vancomycin 1,500 mg In 250 Sodium Chloride 0.9% 250 ml @ 125 mls/hr IVPB ONCE ONE Rx#:[id number] cefTRIAXone 2,000 mg In 100 Sodium Chloride 0.9% 100 ml @ 100 mls/hr IVPB Q12HR [facility] Rx#:[id number] Oral 0 0 Tube Feeding 0 Output: Urine 230 310 65 Other: Voiding Method Indwelling Catheter Indwelling Catheter - Labs CBC & Chem 7: 01/01/17 04:20 01/01/17 04:20 Labs: Abnormal Lab Results - Last 24 Hours (Table) 12/31/16 12/31/16 12/31/16 Range/Units 10:18 10:18 10:18 Lymphocytes # 0.6 L (1.0-4.8) k/uL D-Dimer 1.38 H (<0.60) mg/L FEU ABG pH (7.35-7.45) ABG pCO2 (35-45) mmHg ABG O2 Saturation (94-97) % Sodium 133 L (137-145) mmol/L Potassium 3.4 L (3.5-5.1) mmol/L Carbon Dioxide 21 L (22-30) mmol/L BUN 21 H (9-20) mg/dL Glucose 100 H (74-99) mg/dL Troponin I (0.000-0.034) ng/mL CSF RBC (0-10) u/L CSF Tot Nucleated Cells (0-5) u/L CSF Glucose (40-70) mg/dL CSF Total Protein (12-60) mg/dL 12/31/16 12/31/16 12/31/16 Range/Units 10:18 11:15 11:43 Lymphocytes # (1.0-4.8) k/uL D-Dimer (<0.60) mg/L FEU ABG pH 7.47 H (7.35-7.45) ABG pCO2 30 L (35-45) mmHg ABG O2 Saturation 98.0 H (94-97) % Sodium (137-145) mmol/L Potassium (3.5-5.1) mmol/L Carbon Dioxide (22-30) mmol/L BUN (9-20) mg/dL Glucose (74-99) mg/dL Troponin I 0.066 H* (0.000-0.034) ng/mL CSF RBC 15 H (0-10) u/L CSF Tot Nucleated Cells 323 H (0-5) u/L CSF Glucose 36 L (40-70) mg/dL CSF Total Protein 434 H (12-60) mg/dL 12/31/16 01/01/17 Range/Units 17:57 04:20 Lymphocytes # (1.0-4.8) k/uL D-Dimer (<0.60) mg/L FEU ABG pH (7.35-7.45) ABG pCO2 (35-45) mmHg ABG O2 Saturation (94-97) % Sodium 136 L 136 L (137-145) mmol/L Potassium 5.6 H 3.4 L (3.5-5.1) mmol/L Carbon Dioxide 18 L 19 L (22-30) mmol/L BUN 22 H 25 H (9-20) mg/dL Glucose 104 H 117 H (74-99) mg/dL Troponin I (0.000-0.034) ng/mL CSF RBC (0-10) u/L CSF Tot Nucleated Cells (0-5) u/L CSF Glucose (40-70) mg/dL CSF Total Protein (12-60) mg/dL Microbiology - Last 24 Hours (Table) 12/29/16 22:50 Blood Culture - Preliminary Blood No Growth after 48 hours 12/31/16 11:15 CSF Gram Stain - Preliminary Cerebral Spinal Fluid CSF Culture - Preliminary Assessment and Plan Plan: Assessment: #1. Hyponatremia. Appears euvolemic in nature. He did have urinary retention which can be a contributing factor. Also concern of SIADH due to potential stroke versus [employer] infection. Sodium level 127 on admission and is up to 136 today. TSH and cortisol level normal. #2. Urinary retention status post Cervantes catheter placement. #3. Altered mental status. Questionable CVA versus infectious etiology. Neurology and infectious disease following. Status post lumbar puncture as well as MRI of the brain and spine. There is concern for bacterial meningitis. Plan: Maintain Cervantes catheter. Demeclocycline has been discontinued. Increase maintenance fluids to 75 mL an hour. Antibiotics per infectious disease recommendations. Follow-up cultures. Continue to monitor renal function and urine output. He is on multiple antibiotics as well as IV acyclovir which can potentially be nephrotoxic.
[2017-01-01] MEDS: cefTRIAXone 2,000 MG in SODIUM CHLORIDE 0.9% 100 ML IVPB SCH ×2 (10:12→20:55)
[2017-01-01] MEDS: HEPARIN SODIUM,PORCINE 5,000 UNIT/ML 1 ML VIAL SQ SCH ×2 (10:13→20:55)
[2017-01-01] MEDS: PANTOPRAZOLE 40 MG/10 ML VIAL IVP SCH (10:13)
[2017-01-01] MEDS: VANCOMYCIN 1,500 MG in SODIUM CHLORIDE 0.9% 250 ML IVPB SCH ×2 (11:31→22:04)
[2017-01-01] MEDS: SODIUM CHLORIDE 0.9% 1,000 ML IV SCH ×2 (12:13→17:17)
--- NOTE | 2017-01-01 14:40 | P.PN ---
<Trudi Isbell A - Last Filed: 01/01/17 14:35> Subjective This is a 81-year-old male one of Dr. Sanchez with a previous medical history significant for GERD, hyper lipidemia, osteophytes, enlarged prostate with lower urinary tract symptoms, degenerative disc disease of the lumbar spine under the care of Dr. Jack from pain management, history of mitral valve disorder, patient apparently was brought into the emergency department yesterday by his because of severe mental status changes with severe encephalopathy with negative computed tomography scan of the brain and negative chest x-ray however abnormal serum sodium with a sodium of 127 and a serum osmolality of 263, patient according to his was in his usual state of health about yesterday at around 2:30 in the afternoon when he was sitting in a recliner after he woke up in the morning and he took a shower and dressed up and suddenly he became quite confused and disoriented, patient became quite weak to the degree that he could not even make sense to a lot of things, he has no fever or chills at that time he had no nausea or vomiting at that time he had no coughing, patient's is a friend of and his had cold her and she was on her way to go see the patient however she told her that she is getting the patient to the ER for evaluation and subsequently was admitted to the hospital with neurology consultation was obtained. 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 Rodgers at the bedside I was concerned about the significant hyponatremia and the possibility of possible ischemic event even though the computed tomography scan was negative and we could be dealing with some acute event. 12/30: Patient remains confused and unable to follow most commands. feels the patient is a little improved and was able to take some oral medications this morning. Subsequently, patient refused to take Tylenol by mouth and was holding it in his mouth and would not swallow. Sodium is improved to 131 and chloride is 97. Repeat lactic acid normal. Cortisol 22, serum osmolality 263 and urine osmolality 754. Urine sodium is 125 with repeat of 90. Consult added for Dr. Porter with plan to continue fluid restriction, discontinue demeclocycline. He remains with Cervantes catheter in place for urinary retention. Patient had 3 episodes of diarrhea during the night and 1 in the morning on day shift. Stool is negative for C. difficile toxin. CAT scan of the brain done last evening showed age-related atrophy and chronic small vessel ischemic change without acute intracranial process. MRI of the brain done this morning revealed no acute intracranial process. Degenerative remote ischemic white matter changes suspected. There are areas of increased signal in the posterior left thalamus and temporal lobe most likely artifact but recommend repeat CAT scan of the head to exclude potential hemorrhage which is less likely. Patient' s third CAT scan of the brain done this morning reveals white matter ischemic changes. Stable from previous day. Carotid ultrasound showed severe right internal carotid artery stenosis greater than 70% and consult with Dr. Jasso has been added. Echocardiogram reveals EF 50-55%, mild aortic sclerosis, mild mitral regurgitation, mild tricuspid regurgitation, mild concentric left ventricular hypertrophy. Patient was seen in consultation by Dr. Turcios with altered mental status most likely due to acute metabolic encephalopathy EEG has been ordered. 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 Espinoza and the patient was seen also in consultation by Dr. Bustamante from intensive care, patient was maintaining his airways, I had a long conversation with his at the bedside and they were in agreement for the above plan of treatment. 01/01: Consult was added for Dr. Espinoza. Patient currently on antimicrobials including acyclovir, ceftriaxone and vancomycin. He is also continued on Decadron. Neurology continues to follow the patient. EEG showed mild encephalopathy. Patient has been seen by nephrology for hyponatremia. Cervantes catheter has been maintained. Demeclocycline was discontinued. IV fluids increased. His mental status is slightly improved today and that he will follow a few commands and can make eye contact. Objective - Vital Signs Vital signs: Vital Signs Temp 98.7 F 01/01/17 08:00 Pulse 129 H 01/01/17 08:00 Resp 27 H 01/01/17 08:00 BP 139/88 01/01/17 08:00 Pulse Ox 97 01/01/17 08:00 Intake & Output 12/31/16 01/01/17 01/01/17 18:59 06:59 18:59 Intake Total 700 600 200 Output Total 230 310 65 Balance 470 290 135 Weight 76.2 kg 75.2 kg Intake: IV 150 600 100 Sodium Chloride 0.9% 1, 150 600 100 000 ml @ 50 mls/hr IV . Q20H [facility] Rx#:[id number] Intake, IV Titration 550 100 Amount Acyclovir Sodium 800 mg 100 In Sodium Chloride 0.9% 100 ml @ 100 mls/hr IV Q8H [facility] Rx#:[id number] Ampicillin 2,000 mg In 100 100 Sodium Chloride 0.9% 100 ml @ 200 mls/hr IVPB Q4HR [facility] Rx#:[id number] Vancomycin 1,500 mg In 250 Sodium Chloride 0.9% 250 ml @ 125 mls/hr IVPB ONCE ONE Rx#:[id number] cefTRIAXone 2,000 mg In 100 Sodium Chloride 0.9% 100 ml @ 100 mls/hr IVPB Q12HR [facility] Rx#:[id number] Oral 0 0 Tube Feeding 0 Output: Urine 230 310 65 Other: Voiding Method Indwelling Catheter Indwelling Catheter Indwelling Catheter - Exam General appearance: average body habitus, mild distress - EENT Eyes: anicteric sclerae, no PERRLA, no ptosis, no scleral icterus, normal appearance ENT: hearing grossly normal, NA/AT, normal oropharynx (A bit dry.) Ears: bilateral: normal - Neck Neck: normal ROM, no rigidity, no stridor Carotids: bilateral: upstroke normal Thyroid: bilateral: normal size - Respiratory Respiratory: bilateral: diminished, negative: dullness, rales, rhonchi, wheezing , prolonged expiration - Cardiovascular Rhythm: regular Heart sounds: normal: S1, S2 Abnormal Heart Sounds: no systolic murmur, no diastolic murmur, no rub, no S3 Gallop, no S4 Gallop, no click - Gastrointestinal General gastrointestinal: distended, normal bowel sounds, soft, tenderness, no umbilical hernia, no ventral hernia - Genitourinary Male genitourinary: enlarged prostate - Integumentary Integumentary: normal, normal turgor - Neurologic Neurologic: CNII-XII intact - Musculoskeletal Musculoskeletal: generalized weakness, strength equal bilaterally - Psychiatric Psychiatric: no A&O x's 3, no appropriate affect, no intact judgment & insight - Labs CBC & Chem 7: 01/01/17 04:20 01/01/17 04:20 Labs: Abnormal Lab Results - Last 24 Hours (Table) 12/31/16 12/31/16 12/31/16 Range/Units 10: 10:18 10:18 Lymphocytes # 0.6 L (1.0-4.8) k/uL D-Dimer 1.38 H (<0.60) mg/L FEU ABG pH (7.35-7.45) ABG pCO2 (35-45) mmHg ABG O2 Saturation (94-97) % Sodium 133 L (137-145) mmol/L Potassium 3.4 L (3.5-5.1) mmol/L Carbon Dioxide 21 L (22-30) mmol/L BUN 21 H (9-20) mg/dL Glucose 100 H (74-99) mg/dL Troponin I (0.000-0.034) ng/mL CSF RBC (0-10) u/L CSF Tot Nucleated Cells (0-5) u/L CSF Glucose (40-70) mg/dL CSF Total Protein (12-60) mg/dL 12/31/16 12/31/16 12/31/16 Range/Units 10:18 11:15 11:43 Lymphocytes # (1.0-4.8) k/uL D-Dimer (<0.60) mg/L FEU ABG pH 7.47 H (7.35-7.45) ABG pCO2 30 L (35-45) mmHg ABG O2 Saturation 98.0 H (94-97) % Sodium (137-145) mmol/L Potassium (3.5-5.1) mmol/L Carbon Dioxide (22-30) mmol/L BUN (9-20) mg/dL Glucose (74-99) mg/dL Troponin I 0.066 H* (0.000-0.034) ng/mL CSF RBC 15 H (0-10) u/L CSF Tot Nucleated Cells 323 H (0-5) u/L CSF Glucose 36 L (40-70) mg/dL CSF Total Protein 434 H (12-60) mg/dL 12/31/16 01/01/17 Range/Units 17:57 04:20 Lymphocytes # (1.0-4.8) k/uL D-Dimer (<0.60) mg/L FEU ABG pH (7.35-7.45) ABG pCO2 (35-45) mmHg ABG O2 Saturation (94-97) % Sodium 136 L 136 L (137-145) mmol/L Potassium 5.6 H 3.4 L (3.5-5.1) mmol/L Carbon Dioxide 18 L 19 L (22-30) mmol/L BUN 22 H 25 H (9-20) mg/dL Glucose 104 H 117 H (74-99) mg/dL Troponin I (0.000-0.034) ng/mL CSF RBC (0-10) u/L CSF Tot Nucleated Cells (0-5) u/L CSF Glucose (40-70) mg/dL CSF Total Protein (12-60) mg/dL Microbiology - Last 24 Hours (Table) 12/29/16 22:50 Blood Culture - Preliminary Blood No Growth after 48 hours 12/31/16 11:15 CSF Gram Stain - Preliminary Cerebral Spinal Fluid CSF Culture - Preliminary Assessment and Plan Plan: 1. 1. 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 Place the patient in droplet isolation, contact isolation , continue vancomycin, Rocephin, ampicillin, acyclovir, infectious disease consultation, transfer the patient to the intensive care unit, ICU consult from Dr. Bustamante, IV fluid resuscitation, start the patient on Decadron SHANITA.. 2. 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 Continue fluid restriction 1000 mL and the next 24 hours. Monitor the patient BMP closely. Consult with nephrology appreciated. 3. Enlarged prostate with urinary retention. A Cervantes catheter placement, start Flomax 0.4 mg orally twice every day. 4. Degenerative disc disease of the lumbar spine post epidural injection, discontinue tramadol, discontinue gabapentin, especially tramadol has the tendency to lower seizure threshold. 5. Hyperlipidemia. Continue Lipitor 10 mg orally once every day. 6. History of mitral valve disorder. We will get echo care gram. 7. Osteoarthritis. Stable at this time. 8. GERD. Start the patient on Protonix 40 mg IV push every 24 hours. 9. DVT prophylaxis. Heparin 5000 units subcutaneously every 12 hours as well as bilateral knee-high SHAR hose. 10. Patient is full code. Discharge plan: To be determined Impression and plan of care have been directed as dictated by the signing physician. Trudi Isbell nurse practitioner acting as scribe for signing physician. <Aleksandr Fermin - Last Filed: 01/06/17 07:37> Objective - Vital Signs Vital signs: Vital Signs Temp 98.0 F 01/05/17 23:00 Pulse 109 H 01/05/17 23:00 Resp 18 01/05/17 23:00 BP 151/73 01/05/17 23:00 Pulse Ox 95 01/05/17 23:00 Intake & Output 01/05/17 01/06/17 01/06/17 18:59 06:59 18:59 Intake Total 240 80 Output Total 1050 2500 Balance -810 -2420 Weight 116 kg Intake: Oral 240 80 Output: Urine 1050 2300 Uretheral (Cervantes) 2100 Post Void Residual 200 Other: Voiding Method Urinal Diaper # Voids 3 # Bowel Movements 2 - Labs CBC & Chem 7: 01/04/17 08:11 01/05/17 07:47 Labs: Abnormal Lab Results - Last 24 Hours (Table) 01/05/17 Range/Units 07:47 Sodium 148 H (137-145) mmol/L Chloride 114 H (98-107) mmol/L BUN 28 H (9-20) mg/dL Creatinine 1.54 H (0.66-1.25) mg/dL Glucose 110 H (74-99) mg/dL Assessment and Plan Plan: 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
--- NOTE | 2017-01-01 14:42 | P.PN ---
Subjective Principal diagnosis: Patient is a 81-year-old male who is being followed by the neurology service for altered mental status. noticed patient to be drowsy and had behavioral changes which prompted her to bring him to [facility] emergency room. Upon admission to the emergency room patient was found to be quite confused. Patient was found to be hyponatremic with a sodium of 127. Patient also had urinary retention. A computed tomography scan of the brain was done which showed no acute intracranial abnormalities. CT did reveal small vessel ischemic changes and generalized atrophy. Patient had repeat computed tomography scan of the brain which showed no changes from previous day. Patient did have MRI of the brain done today which showed no intracranial process. MRI did reveal area of increased signal within the posterior left thalamus and temporal lobe which most likely is artifactual but needs to be correlated with repeat CT of the head to exclude potential hemorrhage. Stat CT of the brain was done today which is stable as compared to CT done yesterday. CT did reveal white matter ischemic changes. Patient continued with decreased mental status and lumbar puncture was performed. A lumbar puncture was performed and was concerning for bacterial meningitis. Patient was started on vancomycin, Rocephin, Decadron, and acyclovir. Infectious disease consult was obtained. Patient was transferred to the ICU. Patient had central line placed in the ICU. At the time of my evaluation, patient is much more alert and responsive today. is at the bedside. Objective - Vital Signs Vital signs: Vital Signs Temp 99.3 F 01/01/17 12:00 Pulse 98 01/01/17 14:00 Resp 28 H 01/01/17 14:00 BP 156/85 01/01/17 14:00 Pulse Ox 97 01/01/17 14:00 Intake & Output 12/31/16 01/01/17 01/01/17 18:59 06:59 18:59 Intake Total 700 600 775 Output Total 230 310 237 Balance 470 290 538 Weight 76.2 kg 75.2 kg Intake: IV 150 600 675 Sodium Chloride 0.9% 1, 150 600 325 000 ml @ 50 mls/hr IV . Q20H [facility] Rx#:[id number] Vancomycin 1,500 mg In 250 Sodium Chloride 0.9% 250 ml @ 125 mls/hr IVPB ONCE ONE Rx#:[id number] cefTRIAXone 2,000 mg In 100 Sodium Chloride 0.9% 100 ml @ 100 mls/hr IVPB Q12HR [facility] Rx#:[id number] Intake, IV Titration 550 100 Amount Acyclovir Sodium 800 mg 100 In Sodium Chloride 0.9% 100 ml @ 100 mls/hr IV Q8H [facility] Rx#:[id number] Ampicillin 2,000 mg In 100 100 Sodium Chloride 0.9% 100 ml @ 200 mls/hr IVPB Q4HR [facility] Rx#:[id number] Vancomycin 1,500 mg In 250 Sodium Chloride 0.9% 250 ml @ 125 mls/hr IVPB ONCE ONE Rx#:[id number] cefTRIAXone 2,000 mg In 100 Sodium Chloride 0.9% 100 ml @ 100 mls/hr IVPB Q12HR [facility] Rx#:[id number] Oral 0 0 Tube Feeding 0 Output: Urine 230 310 235 Stool 2 Other: Voiding Method Indwelling Catheter Indwelling Catheter Indwelling Catheter - Exam PHYSICAL EXAM: GENERAL APPEARANCE: Patient is a male who appears to be in no acute distress. HEENT: Normocephalic, atraumatic, no facial asymmetry is seen. Neck is supple with no masses felt. CARDIOVASCULAR: Regular rate and rhythm. ABDOMEN: Nontender, nondistended. EXTREMITIES: Show no edema or clubbing. NEUROLOGICAL EXAM: Patient awakens to name and will track. He does not follow commands. He does withdraw all 4 extremities to pain. He does move all 4 extremities purposefully. No obvious facial asymmetry is seen. No tremors or seizure-like activity is noted. No obvious lateralizing weakness is seen. - Labs CBC & Chem 7: 01/01/17 04:20 01/01/17 04:20 Labs: Abnormal Lab Results - Last 24 Hours (Table) 12/31/16 01/01/17 Range/Units 17:57 04:20 Sodium 136 L 136 L (137-145) mmol/L Potassium 5.6 H 3.4 L (3.5-5.1) mmol/L Carbon Dioxide 18 L 19 L (22-30) mmol/L BUN 22 H 25 H (9-20) mg/dL Glucose 104 H 117 H (74-99) mg/dL Microbiology - Last 24 Hours (Table) 12/31/16 11:15 CSF Gram Stain - Preliminary Cerebral Spinal Fluid CSF Culture - Preliminary 12/29/16 22:50 Blood Culture - Preliminary Blood No Growth after 48 hours Assessment and Plan (1) Encephalopathy Status: Acute (2) Hyponatremia Status: Acute Plan: Recommendations: Patient's lumbar puncture preliminary results are concerning for bacterial meningitis. Awaiting CSF cultures. Patient's mental status has improved as compared to yesterday. Patient's been started on multiple antibiotics with infectious disease on consult. No seizure activity has been reported by the staff. EEG showed mild encephalopathy. This may improve as infectious process improves. As you recall, CT was negative for any acute process. I agree with discontinuation of tramadol as this can lower seizure threshold. Carotid ultrasound did show severe right internal carotid artery stenosis greater than 70% and Dr. Jasso has been consulted. Continue neurological checks. Continue contact isolation. Continue current ICU management. I will continue to follow with you. Further recommendations to follow. I performed an examination of the patient and discussed the management with the [employer]. I have reviewed the [employer] notes and agree with the findings and plan of care.
--- NOTE | 2017-01-01 14:53 | P.PN ---
Subjective This is a 81-year-old male patient, who was in a good state of health until approximately 4 days ago when he started developing acute mental status change. For that reason the patient was brought into the hospital as his mental status was gradually declining and this was witnessed by his . The patient had no fever chills or any night sweats. The patient had no neck stiffness. No skin rashes. No oral ulceration. No trauma to the head. No substance abuse. He was on his usual medication and there is no new medication change. No sick contacts. No travel history. Initially his sodium level was at 127 and his urine is osmolality was at 263. 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 Based on that he was placed on fluid restriction and he was given a dose of demeclocycline. Subsequent sodium levels improved. My understanding that the patient also had some urinary retention. The Cervantes catheter was inserted and immediately the bladder was emptied and this could have also contributed to his low sodium. Most recent sodium level is at 131. For now, the patient has undergone a neurologic workup and this included 2 CAT scans of the head and a subsequent MRI of the brain that was done on 2016. The MRI showed no acute intracranial process. There is degenerative remote ischemic white matter changes. There is an area of signal intensity at the level of posterior left thalamus and temporal lobe, likely an artifactual area and it was recommended to correlated with a repeat CAT scan of the brain to exclude any potential hemorrhage. The patient had a EGD that showed no evidence of any epileptic foci and showed mild encephalopathy. 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 The patient is slow in answering questions and obviously still encephalopathic. He can follow some simple commands. His considerably weak both in upper and lower extremities. No spasticity. No rigidity. He remains afebrile. He became a bit tachypneic this morning and there was no signs of any respiratory failure or distress. No reported aspiration. White cell count remains low at 5.7. The rest of the electrodes are all within normal limits. There is no significant acidosis from today. Patient's anion gap is at 14. Liver function tests are all within normal limits. Coagulation profile was within normal limits. Urine drug screen was also negative. Salicylate and acetaminophen levels were negative. Alcohol level was negative. C x-ray is within normal limits. Patient's pulse ox on room air is between 94-98%. No hypotension. Is producing adequate amount of urine output. He is currently not taking any IV fluids and repeat electrodes are still pending for now. The patient has had previous history of pain shots for lumbar ago by Dr. Jack and the last shot was more than 2 years ago. On the patient is being seen in follow-up. The patient remains in the intensive care unit. Please refer to the events that occurred over the past 24 hours. Specifically, the patient a lumbar puncture that came back abnormal. The patient had a mononuclear predominance with a total cell count of 323, 96% on nuclear cells. At the same time the CSF glucose was low at 36 and protein was high at 434. The Gram stain is negative thus far. Cultures also negative. Based on these findings, the patient was placed on a combination of IV acyclovir, IV vancomycin, IV Rocephin and IV ampicillin. MRI of the brain was repeated that showed no meningeal enhancement. No other abnormalities was noted. MRI of the entire spine showed no evidence of any epidural abscess collection. Clinically the patient is afebrile. His neck is not stiff. He seems to be much more alert compared to yesterday. He still has a garbled speech however he follows simple commands and responds appropriately and his neurologic exam is nonfocal. His sodium level is within normal limits at 136. The patient is being hydrated with normal saline. No other significant events overnight. Neurologist on the case. Objective - Vital Signs Vital signs: Vital Signs Temp 99.3 F 01/01/17 12:00 Pulse 98 01/01/17 14:00 Resp 28 H 01/01/17 14:00 BP 156/85 01/01/17 14:00 Pulse Ox 97 01/01/17 14:00 Intake & Output 12/31/16 01/01/17 01/01/17 18:59 06:59 18:59 Intake Total 797 996 0080 Output Total 230 310 297 Balance 470 290 728 Weight 76.2 kg 75.2 kg Intake: IV 150 600 925 Acyclovir Sodium 800 mg 100 In Sodium Chloride 0.9% 100 ml @ 100 mls/hr IV Q8H [facility] Rx#:[id number] Sodium Chloride 0.9% 1, 150 600 475 000 ml @ 75 mls/hr IV . [id number] [facility] Rx#:[id number] Vancomycin 1,500 mg In 250 Sodium Chloride 0.9% 250 ml @ 125 mls/hr IVPB ONCE ONE Rx#:[id number] cefTRIAXone 2,000 mg In 100 Sodium Chloride 0.9% 100 ml @ 100 mls/hr IVPB Q12HR [facility] Rx#:[id number] Intake, IV Titration 550 100 Amount Acyclovir Sodium 800 mg 100 In Sodium Chloride 0.9% 100 ml @ 100 mls/hr IV Q8H [facility] Rx#:[id number] Ampicillin 2,000 mg In 100 100 Sodium Chloride 0.9% 100 ml @ 200 mls/hr IVPB Q4HR [facility] Rx#:[id number] Vancomycin 1,500 mg In 250 Sodium Chloride 0.9% 250 ml @ 125 mls/hr IVPB ONCE ONE Rx#:[id number] cefTRIAXone 2,000 mg In 100 Sodium Chloride 0.9% 100 ml @ 100 mls/hr IVPB Q12HR [facility] Rx#:[id number] Oral 0 0 Tube Feeding 0 Output: Urine 230 310 295 Stool 2 Other: Voiding Method Indwelling Catheter Indwelling Catheter Indwelling Catheter - Exam The patient appeared well nourished and normally developed. Vital signs as documented. Head exam is unremarkable. No scleral icterus or corneal arcus noted. Neck is without jugular venous distension, thyromegaly, or carotid bruits. Carotid upstrokes are brisk bilaterally. Lungs are clear to auscultation and percussion. Cardiac exam reveals the PMI to be normally sized and situated. Rhythm is regular. First and second heart sounds normal. No murmurs, rubs or gallops. Abdominal exam reveals normal bowel sounds, no masses , no organomegaly and no aortic enlargement. Extremities are nonedematous and both femoral and pedal pulses are normal. Neurologically, the patient has no focal neurological deficits. The patient has no cranial nerve deficits. No neck stiffness. He is however lethargic and unable to communicate still. Speech is garbled and the patient remains noncoherent. - Labs CBC & Chem 7: 01/01/17 04:20 01/01/17 04:20 Labs: Abnormal Lab Results - Last 24 Hours (Table) 12/31/16 01/01/17 Range/Units 17:57 04:20 Sodium 136 L 136 L (137-145) mmol/L Potassium 5.6 H 3.4 L (3.5-5.1) mmol/L Carbon Dioxide 18 L 19 L (22-30) mmol/L BUN 22 H 25 H (9-20) mg/dL Glucose 104 H 117 H (74-99) mg/dL Microbiology - Last 24 Hours (Table) 12/31/16 11:15 CSF Gram Stain - Preliminary Cerebral Spinal Fluid CSF Culture - Preliminary 12/29/16 22:50 Blood Culture - Preliminary Blood No Growth after 48 hours Assessment and Plan Plan: Assessment 1 altered mental status. This is most likely an underlying encephalopathy and the possibilities include viral encephalopathy or less likely bacterial. [employer] malignancy is felt to be less likely. Vasculitis involving the CLAIM[employer] SU[employer]OR is felt to be less likely. MRI of the brain was negative on 2 separate occasions. CSF abnormalities was noted. Clinically slightly improved compared to yesterday, more alert and awake although not fully recovered as the patient remains confused and the speech is still garbled. Remains afebrile hemodynamically stable.. 2 hyponatremia, recovered 3 chronic lower back pain 4 osteoarthritis 5 hyperlipidemia 6 BPH 7 normal echocardiogram with an ejection fraction of 50-55%. No evidence of any pulmonary hypertension. Plan Keep the patient in intensive care unit. Continue current antibiotic and antiviral agents. Check CARLTON, ANCA, SSA, SSB, rheumatoid factor, sed rate, Lyme antibodies, West Nile virus antibodies. Obtain bilateral panel on the CSF fluid. Obtain fluid cytology from CSF. Obtain microbial cultures including listeria and the CSF. Keep the patient ICU. We'll continue to follow.
--- NOTE | 2017-01-01 17:13 | PN ---
DATE OF SERVICE: 01/01/2017 REASON FOR FOLLOWUP: Possible encephalitis. INTERVAL HISTORY: The patient is afebrile. He seems to be more awake and alert today. He is breathing comfortably. The patient denied any headache to me; denied any chest pain or cough. No abdominal pain. Speech is still slightly garbled. No nausea or vomiting has been noticed or any diarrhea per the RN. On examination, blood pressure is 157/86 with a pulse of 97, temperature 99.3. He is 97% on 2 L nasal cannula. General description is an elderly male up in the bed in no distress. RESPIRATORY SYSTEM: Unlabored breathing. Clear to auscultation anteriorly. HEART: S1, S2. Regular rate and rhythm. ABDOMEN: Soft. No tenderness. LABS: Hemoglobin is 15.6 with white count of 4.9 with a BUN of 25, creatinine 0.80. 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 Patient seems to be responding to the acyclovir. That will be continued. If the bacterial cultures are negative, will recommend discontinuation of the Rocephin, vancomycin and amoxicillin. Family present at the beside. Their questions were answered. MARCO
[2017-01-01] MEDS: ATORVASTATIN 10 MG TAB PO SCH (20:55)
[2017-01-01] MEDS ORDERED: ACYCLOVIR 800 MG TAB PO SCH (22:00)
--- NOTE | 2017-01-01 22:55 | P.GSCN ---
History of Present Illness Consult date: 12/31/16 Reason for Consult: Neurologic symptoms with carotid stenosis Requesting physician: Aleksandr Fermin History of present illness: This 81-year-old gentleman had a fairly rapid onset of altered sensorium at home. He first had a minor amount of confusion which progressed to confusion and altered consciousness. There was no history of focal motor or obvious visual deficits. 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 Past Anesthesia/Blood Transfusion Reactions: No Reported Reaction Past Psychological History: No Psychological Hx Reported Smoking Status: Former smoker (Patient used to smoke about pack every day and he quit about 38 years ago) Past Alcohol Use History: None Reported Additional Past Alcohol Use History / Comment(s): ETOH & Smoking "i quit 38 years ago" "I'm an recovering alcoholic" Past Drug Use History: None Reported - Past Family History Mother Family Medical History: Cancer (Mother from lung cancer as well as dementia at the age of 70.) Additional Family Medical History / Comment(s): lung Father History Unknown: Yes Family Medical History: No Reported History (Father in his 40s due to alcohol isn't.) Additional Family Medical History / Comment(s): "i don't know a lot about him...he as an alcoholic Brother(s) Family Medical History: Coronary Artery Disease (CAD) (Patient had 2 brothers one as a drug overdose in his 30s and the other one has CAD.) Sister(s) Family Medical History: Cancer, Coronary Artery Disease (CAD) (Patient has one sister with CAD and breast cancer.) Son(s) Family Medical History: No Reported History (Patient has 3 sons to contact and one healthy.) Medications and Allergies Home Medications Medication Instructions Recorded Confirmed Type traMADol HCl [Ultram] 50 - 100 mg PO QID PRN 07/22/14 12/28/16 History Gabapentin [Neurontin] 300 mg PO TID 12/28/16 12/28/16 History Atorvastatin Calcium [Lipitor] 10 mg PO HS 12/29/16 12/29/16 History Tamsulosin HCl [Flomax] 0.4 mg PO BID 12/29/16 12/29/16 History Allergies Allergy/AdvReac Type Severity Reaction Status Date / Time thallium-201 Allergy Severe Dyspnea Verified 12/29/16 09:26 Surgical - Exam Osteopathic Statement: *. No significant issues noted on an osteopathic structural exam other than those noted in the History and Physical/Consult. Vital Signs Temp Pulse Resp BP Pulse Ox 98.5 F 82 16 211/106 98 12/28/16 21:58 12/28/16 21:58 12/28/16 21:58 12/28/16 21:58 12/28/16 21:58 - General well developed, well nourished, no distress - Eyes normal ocular movement, no icteric - ENT no hearing loss, no congestion - Neck no masses, trachea midline - Respiratory normal expansion, normal respiratory effort, clear to auscultation - Cardiovascular Rhythm: regular - Abdomen Abdomen: soft, non tender, no guarding, no rigid, no rebound - Integumentary no rash, no abnormal pigmentation - Neurologic Patient at the time of his assessment could not be aroused. When he moves however there is no asymmetry. He has had episodes where he was alert but confused and could not speak disoriented, no combative, confused - Musculoskeletal Currently bed bound - Psychiatric oriented to time, oriented to person, oriented to place, speech is normal, memory intact Results - Labs 01/01/17 04:20 01/01/17 04:20 Abnormal Lab Results - Last 24 Hours (Table) 12/30/16 12/30/16 12/30/16 Range/Units 11:10 12:24 18:15 Lymphocytes # 0.7 L (1.0-4.8) k/uL D-Dimer (<0.60) mg/L FEU Sodium 131 L 131 L (137-145) mmol/L Potassium 3.4 L (3.5-5.1) mmol/L Chloride 97 L (98-107) mmol/L Carbon Dioxide 20 L (22-30) mmol/L BUN (9-20) mg/dL Glucose 108 H 101 H (74-99) mg/dL 12/31/16 12/31/16 12/31/16 Range/Units 07:22 10:18 10:18 Lymphocytes # 0.6 L (1.0-4.8) k/uL D-Dimer 1.38 H (<0.60) mg/L FEU Sodium 133 L (137-145) mmol/L Potassium (3.5-5.1) mmol/L Chloride (98-107) mmol/L Carbon Dioxide (22-30) mmol/L BUN (9-20) mg/dL Glucose (74-99) mg/dL 12/31/16 Range/Units 10:18 Lymphocytes # (1.0-4.8) k/uL D-Dimer (<0.60) mg/L FEU Sodium 133 L (137-145) mmol/L Potassium 3.4 L (3.5-5.1) mmol/L Chloride (98-107) mmol/L Carbon Dioxide 21 L (22-30) mmol/L BUN 21 H (9-20) mg/dL Glucose 100 H (74-99) mg/dL Microbiology - Last 24 Hours (Table) 12/29/16 22:50 Blood Culture - Preliminary Blood No Growth after 24 hours Diabetes panel 12/30/16 12/30/16 12/31/16 Range/Units 12:24 18:15 07:22 Sodium 131 L 131 L 133 L (137-145) mmol/L Potassium 3.7 3.4 L 3.5 (3.5-5.1) mmol/L Chloride 97 L 98 99 (98-107) mmol/L Carbon Dioxide 23 20 L 22 (22-30) mmol/L BUN 19 19 20 (9-20) mg/dL Creatinine 0.70 0.70 0.69 (0.66-1.25) mg/dL Glucose 108 H 101 H 95 (74-99) mg/dL Calcium 8.5 8.7 8.6 (8.4-10.2) mg/dL AST 26 (17-59) U/L ALT 28 (21-72) U/L Alkaline Phosphatase 111 (38-126) U/L Total Protein 6.3 (6.3-8.2) g/dL Albumin 3.8 (3.5-5.0) g/dL 12/31/16 Range/Units 10:18 Sodium 133 L (137-145) mmol/L Potassium 3.4 L (3.5-5.1) mmol/L Chloride 98 (98-107) mmol/L Carbon Dioxide 21 L (22-30) mmol/L BUN 21 H (9-20) mg/dL Creatinine 0.71 (0.66-1.25) mg/dL Glucose 100 H (74-99) mg/dL Calcium 8.7 (8.4-10.2) mg/dL AST 27 (17-59) U/L ALT 28 (21-72) U/L Alkaline Phosphatase 110 (38-126) U/L Total Protein 6.9 (6.3-8.2) g/dL Albumin 3.8 (3.5-5.0) g/dL Thyroid panel 12/30/16 Range/Units 12:24 TSH 3.350 (0.465-4.680) mIU/L Calcium panel 12/30/16 12/30/16 12/31/16 Range/Units 12:24 18:15 07:22 Calcium 8.5 8.7 8.6 (8.4-10.2) mg/dL Albumin 3.8 (3.5-5.0) g/dL 12/31/16 Range/Units 10:18 Calcium 8.7 (8.4-10.2) mg/dL Albumin 3.8 (3.5-5.0) g/dL Pituitary panel 12/30/16 12/30/16 12/31/16 Range/Units 12:24 18:15 07:22 Sodium 131 L 131 L 133 L (137-145) mmol/L Potassium 3.7 3.4 L 3.5 (3.5-5.1) mmol/L Chloride 97 L 98 99 (98-107) mmol/L Carbon Dioxide 23 20 L 22 (22-30) mmol/L BUN 19 19 20 (9-20) mg/dL Creatinine 0.70 0.70 0.69 (0.66-1.25) mg/dL Glucose 108 H 101 H 95 (74-99) mg/dL Calcium 8.5 8.7 8.6 (8.4-10.2) mg/dL TSH 3.350 (0.465-4.680) mIU/L 12/31/16 Range/Units 10:18 Sodium 133 L (137-145) mmol/L Potassium 3.4 L (3.5-5.1) mmol/L Chloride 98 (98-107) mmol/L Carbon Dioxide 21 L (22-30) mmol/L BUN 21 H (9-20) mg/dL Creatinine 0.71 (0.66-1.25) mg/dL Glucose 100 H (74-99) mg/dL Calcium 8.7 (8.4-10.2) mg/dL TSH (0.465-4.680) mIU/L Adrenal panel 12/30/16 12/30/16 12/31/16 Range/Units 12:24 18:15 07:22 Sodium 131 L 131 L 133 L (137-145) mmol/L Potassium 3.7 3.4 L 3.5 (3.5-5.1) mmol/L Chloride 97 L 98 99 (98-107) mmol/L Carbon Dioxide 23 20 L 22 (22-30) mmol/L BUN 19 19 20 (9-20) mg/dL Creatinine 0.70 0.70 0.69 (0.66-1.25) mg/dL Glucose 108 H 101 H 95 (74-99) mg/dL Calcium 8.5 8.7 8.6 (8.4-10.2) mg/dL Total Bilirubin 0.7 (0.2-1.3) mg/dL AST 26 (17-59) U/L ALT 28 (21-72) U/L Alkaline Phosphatase 111 (38-126) U/L Total Protein 6.3 (6.3-8.2) g/dL Albumin 3.8 (3.5-5.0) g/dL 12/31/16 Range/Units 10:18 Sodium 133 L (137-145) mmol/L Potassium 3.4 L (3.5-5.1) mmol/L Chloride 98 (98-107) mmol/L Carbon Dioxide 21 L (22-30) mmol/L BUN 21 H (9-20) mg/dL Creatinine 0.71 (0.66-1.25) mg/dL Glucose 100 H (74-99) mg/dL Calcium 8.7 (8.4-10.2) mg/dL Total Bilirubin 0.8 (0.2-1.3) mg/dL AST 27 (17-59) U/L ALT 28 (21-72) U/L Alkaline Phosphatase 110 (38-126) U/L Total Protein 6.9 (6.3-8.2) g/dL Albumin 3.8 (3.5-5.0) g/dL - Imaging Additional studies: Carotid duplex suggests 70-80% right ICA stenosis CT and MRI failed to show acute stroke Assessment and Plan (1) Encephalopathy Status: Acute Plan: Differential diagnosis would include encephalopathy versus CVA. Carotid stenosis is significant but unlikely to relate to current symptomatology. Recommendation: Continue with medical assessment and management. No indication for intervention at this time. Any intervention in regards to his carotid stenosis would depend on recovery from his current condition.
[2017-01-02] MEDS: DEXAMETHASONE SOD PHOSPHATE 10 MG/ML 1 ML VIAL IV SCH ×2 (00:45→06:23)
[2017-01-02] MEDS: hydrALAZINE HCL 20 MG/ML 1 ML VIAL IVP PRN ×2 (00:46→07:12)
[2017-01-02 04:25] LABS: Basophils % (A) 0 %; CH 30.6; CHCM 35.4; Eosinophils % (A) 0 %; HCT 41.5 % (39.0-53.0); HDW 2.57; HGB 14.5 gm/dL (13.0-17.5); Luc # (Auto) 0.03; Luc % (Auto) 1; Lymphocytes # (A) 0.4 k/uL (1.0-4.8); Lymphocytes % (A) 8 %; MCH 30.4 pg (25.0-35.0); MCV 86.9 fL (80.0-100.0); Mean Platelet Volume 6.4; Monocytes # (A) 0.2 k/uL (0-1.0); Monocytes % (A) 4 %; Neutrophils # (A) 4.8 k/uL (1.3-7.7); Neutrophils % (A) 88 %; RBC 4.77 m/uL (4.30-5.90); RDW 12.6 % (11.5-15.5); WBC 5.5 k/uL (3.8-10.6); WBC (Perox) 5.26
[2017-01-02 04:48] LABS: Anion Gap 11 mmol/L; Blood Urea Nitrogen 33 mg/dL (9-20); Calcium 8.4 mg/dL (8.4-10.2); Carbon Dioxide 21 mmol/L (22-30); Chloride 110 mmol/L (98-107); Glucose 136 mg/dL (74-99); Non-African American GFR(MDRD) >60 (>60 ml/min/1.73 sqM); Potassium 3.5 mmol/L (3.5-5.1); Sodium 142 mmol/L (137-145)
[2017-01-02] MEDS ORDERED: Potassium Replacement Protocol 1 EACH MISC MISCELLANE PRN (05:19)
[2017-01-02] MEDS ORDERED: POTASSIUM CHLORIDE 10 MEQ in WATER FOR INJECTION 1 100ML.BAG IVPB ONE (05:19)
[2017-01-02 06:55] LABS: Lyme Antibodies Total(IgG/IgM) 0.24 (<0.90)
--- NOTE | 2017-01-02 08:50 | P.PN ---
Subjective This is a 81-year-old male patient, who was in a good state of health until approximately 4 days ago when he started developing acute mental status change. For that reason the patient was brought into the hospital as his mental status was gradually declining and this was witnessed by his . The patient had no fever chills or any night sweats. The patient had no neck stiffness. No skin rashes. No oral ulceration. No trauma to the head. No substance abuse. He was on his usual medication and there is no new medication change. No sick contacts. No travel history. Initially his sodium level was at 127 and his urine is osmolality was at 263. 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 Based on that he was placed on fluid restriction and he was given a dose of demeclocycline. Subsequent sodium levels improved. My understanding that the patient also had some urinary retention. The Cervantes catheter was inserted and immediately the bladder was emptied and this could have also contributed to his low sodium. Most recent sodium level is at 131. For now, the patient has undergone a neurologic workup and this included 2 CAT scans of the head and a subsequent MRI of the brain that was done on 2016. The MRI showed no acute intracranial process. There is degenerative remote ischemic white matter changes. There is an area of signal intensity at the level of posterior left thalamus and temporal lobe, likely an artifactual area and it was recommended to correlated with a repeat CAT scan of the brain to exclude any potential hemorrhage. The patient had a EGD that showed no evidence of any epileptic foci and showed mild encephalopathy. 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 The patient is slow in answering questions and obviously still encephalopathic. He can follow some simple commands. His considerably weak both in upper and lower extremities. No spasticity. No rigidity. He remains afebrile. He became a bit tachypneic this morning and there was no signs of any respiratory failure or distress. No reported aspiration. White cell count remains low at 5.7. The rest of the electrodes are all within normal limits. There is no significant acidosis from today. Patient's anion gap is at 14. Liver function tests are all within normal limits. Coagulation profile was within normal limits. Urine drug screen was also negative. Salicylate and acetaminophen levels were negative. Alcohol level was negative. C x-ray is within normal limits. Patient's pulse ox on room air is between 94-98%. No hypotension. Is producing adequate amount of urine output. He is currently not taking any IV fluids and repeat electrodes are still pending for now. The patient has had previous history of pain shots for lumbar ago by Dr. Jack and the last shot was more than 2 years ago. On the patient is being seen in follow-up. The patient remains in the intensive care unit. Please refer to the events that occurred over the past 24 hours. Specifically, the patient a lumbar puncture that came back abnormal. The patient had a mononuclear predominance with a total cell count of 323, 96% on nuclear cells. At the same time the CSF glucose was low at 36 and protein was high at 434. The Gram stain is negative thus far. Cultures also negative. Based on these findings, the patient was placed on a combination of IV acyclovir, IV vancomycin, IV Rocephin and IV ampicillin. MRI of the brain was repeated that showed no meningeal enhancement. No other abnormalities was noted. MRI of the entire spine showed no evidence of any epidural abscess collection. Clinically the patient is afebrile. His neck is not stiff. He seems to be much more alert compared to yesterday. He still has a garbled speech however he follows simple commands and responds appropriately and his neurologic exam is nonfocal. His sodium level is within normal limits at 136. The patient is being hydrated with normal saline. No other significant events overnight. Neurologist on the case. On 01/02/2017, the patient is being seen in follow-up. The patient seems to be a bit more interactive compared to yesterday. He is always is smiley and comfortable. Unable to speak in full sentences yet. He is following some simple commands. He has a low-grade temperature of 99.2. No significant neck stiffness. No seizure activity has been noted. The patient had HSV 2 by PCR positive in the CSF and this confirmed the diagnosis of HSV 2 meningitis. Progressive antibodies will be discontinued. The patient will be kept on IV acyclovir. Decadron will be discontinued. The patient has been stable for the past 24 hours and the patient can be transferred to a telemetry unit with neuro monitoring. Meanwhile, will continued IV fluids. The patient has not eaten yet and he refuses to eat. Objective - Vital Signs Vital signs: Vital Signs Temp 99.2 F 01/02/17 08:00 Pulse 105 H 01/02/17 08:00 Resp 27 H 01/02/17 08:00 BP 154/77 01/02/17 08:00 Pulse Ox 94 L 01/02/17 08:00 Intake & Output 01/01/17 01/02/17 01/02/17 18:59 06:59 18:59 Intake Total 1325 900 150 Output Total 412 400 85 Balance 913 500 65 Weight 75.2 kg 76.4 kg Intake: IV 1225 900 150 Acyclovir Sodium 800 mg 100 In Sodium Chloride 0.9% 100 ml @ 100 mls/hr IV Q8H [facility] Rx#:[id number] Sodium Chloride 0.9% 1, 775 900 150 000 ml @ 75 mls/hr IV . [id number] [facility] Rx#:[id number] Vancomycin 1,500 mg In 250 Sodium Chloride 0.9% 250 ml @ 125 mls/hr IVPB ONCE ONE Rx#:[id number] cefTRIAXone 2,000 mg In 100 Sodium Chloride 0.9% 100 ml @ 100 mls/hr IVPB Q12HR [facility] Rx#:[id number] Intake, IV Titration 100 Amount Ampicillin 2,000 mg In 100 Sodium Chloride 0.9% 100 ml @ 200 mls/hr IVPB Q4HR [facility] Rx#:[id number] Output: Urine 408 400 85 Stool 4 Other: Voiding Method Indwelling Catheter Indwelling Catheter - Exam The patient appeared well nourished and normally developed. Vital signs as documented. Head exam is unremarkable. No scleral icterus or corneal arcus noted. Neck is without jugular venous distension, thyromegaly, or carotid bruits. Carotid upstrokes are brisk bilaterally. Lungs are clear to auscultation and percussion. Cardiac exam reveals the PMI to be normally sized and situated. Rhythm is regular. First and second heart sounds normal. No murmurs, rubs or gallops. Abdominal exam reveals normal bowel sounds, no masses , no organomegaly and no aortic enlargement. Extremities are nonedematous and both femoral and pedal pulses are normal. Neurologically, the patient has no focal neurological deficits. The patient has no cranial nerve deficits. No neck stiffness. He is however lethargic and unable to communicate still. Speech is garbled and the patient remains noncoherent. 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 Diagnoses been confirmed by PCR in the CSF. Patient currently is on IV acyclovir. 2 hyponatremia, recovered 3 chronic lower back pain 4 osteoarthritis 5 hyperlipidemia 6 BPH 7 normal echocardiogram with an ejection fraction of 50-55%. No evidence of any pulmonary hypertension. Plan The patient will be moved out of the intensive care unit. He can go to telemetry unit with neuro monitoring every 2 hours. The patient will have the rest of the antibiotics discontinued including the vancomycin and Rocephin. We' ll discontinue Decadron as there is no evidence indicating that steroids would improve viral meningitis. Continued IV fluids. PTOT evaluation. Neuro follow- up. We'll continue to follow.
[2017-01-02] MEDS: ACYCLOVIR SODIUM 800 MG in SODIUM CHLORIDE 0.9% 100 ML IV SCH ×2 (08:51→21:48)
[2017-01-02] MEDS: HEPARIN SODIUM,PORCINE 5,000 UNIT/ML 1 ML VIAL SQ SCH ×2 (08:54→20:32)
[2017-01-02] MEDS: ACYCLOVIR SODIUM 800 MG in SODIUM CHLORIDE 0.9% 250 ML IV SCH ×2 (09:45→17:29)
[2017-01-02] MEDS: ASPIRIN 325 MG TAB PO SCH (09:52)
[2017-01-02] MEDS: TAMSULOSIN 0.4 MG CAP.ER.24H PO SCH ×2 (09:58→20:32)
[2017-01-02] MEDS: LOSARTAN 25 MG TAB PO SCH (09:58)
[2017-01-02] MEDS ORDERED: VANCOMYCIN TROUGH DUE 1 EACH MISC MISCELLANE ONE (10:00)
[2017-01-02] MEDS: PANTOPRAZOLE 40 MG/10 ML VIAL IVP SCH (10:36)
[2017-01-02] MEDS ORDERED: ENALAPRILAT 1.25 MG/ML 1 ML VIAL IVP PRN (10:44)
--- NOTE | 2017-01-02 11:58 | PN ---
INTERVAL HISTORY: Patient continues to be confused. His is at the bedside and believes that he understands what he is saying, that he has problem saying what he wants. Patient is not following commands. When he was asked to squeeze, he was not able to squeeze, but he was laughing. No major events reported by nursing staff. PHYSICAL EXAMINATION: VITAL SIGNS: Reviewed and stable. LUNGS: Clear to auscultation bilaterally. HEART: Normal S1, S2. ABDOMEN: Soft. No tenderness. Positive bowel sounds in all 4 quadrants. LOWER EXTREMITIES: Positive for edema. PSYCH: As mentioned above. IMAGING AND LABS: CBC normal. Chemistry showed BUN at 33 but normal creatinine. Otherwise, chloride slightly elevated at 110 and glucose 136. Culture results showed positive for herpes simplex type 2. Gram stain is negative. Blood cultures negative. ASSESSMENT AND PLAN: 1. Herpes simplex encephalitis with meningitis. Patient on acyclovir IV, currently hemodynamically stable. Can be moved out of the unit. I discussed with Dr. Bustamante this morning. Discussed with his current treatment options and prognosis. She is agreeable to the current treatment plan. 2. Protein-calorie malnutrition. Patient is refusing to eat. I ordered Ensure Plus 3 times daily. Patient is still refusing to eat. His believes that he has no problem with swallowing but keeps refusing to eat due to his confusion. 3. Benign prostatic hypertrophy. Will continue Flomax if patient is agreeable to take the medicine. 4. Hyperlipidemia. Will continue Lipitor. 5. Chronic back pain. Will continue pain medicine regimen at this point. 6. Deep venous thrombosis prophylaxis. Patient is on heparin. 7. Prognosis is guarded.
--- NOTE | 2017-01-02 12:21 | P.PN ---
Subjective Principal diagnosis: Patient is a 81-year-old male who is being followed by the neurology service for altered mental status. Patient is seen today in the ICU. Patient had multiple CT done of the brain which did not reveal any acute process. Patient had MRI 2 which did not reveal any acute process. Patient had lumbar puncture done which was concerning for meningitis. CSF cultures were performed. Infectious disease consult was obtained. Patient has no significant nuchal rigidity. No seizure activities been reported. The patient' s laboratory workup revealed patient has HSV 2 meningitis. Medications are adjusted per ICU management. Patient's responsiveness seems to be improving. At the time of my evaluation, patient is resting comfortably in bed and appears to be in no acute distress. is at the bedside. Objective - Vital Signs Vital signs: Vital Signs Temp 99.2 F 01/02/17 08:00 Pulse 105 H 01/02/17 08:00 Resp 27 H 01/02/17 08:00 BP 154/77 01/02/17 08:00 Pulse Ox 94 L 01/02/17 08:00 Intake & Output 01/01/17 01/02/17 01/02/17 18:59 06:59 18:59 Intake Total 1325 900 150 Output Total 412 400 85 Balance 913 500 65 Weight 75.2 kg 76.4 kg Intake: IV 1225 900 150 Acyclovir Sodium 800 mg 100 In Sodium Chloride 0.9% 100 ml @ 100 mls/hr IV Q8H [facility] Rx#:[id number] Sodium Chloride 0.9% 1, 775 900 150 000 ml @ 75 mls/hr IV . [id number] [facility] Rx#:[id number] Vancomycin 1,500 mg In 250 Sodium Chloride 0.9% 250 ml @ 125 mls/hr IVPB ONCE ONE Rx#:[id number] cefTRIAXone 2,000 mg In 100 Sodium Chloride 0.9% 100 ml @ 100 mls/hr IVPB Q12HR [facility] Rx#:[id number] Intake, IV Titration 100 Amount Ampicillin 2,000 mg In 100 Sodium Chloride 0.9% 100 ml @ 200 mls/hr IVPB Q4HR [facility] Rx#:[id number] Output: Urine 408 400 85 Stool 4 Other: Voiding Method Indwelling Catheter Indwelling Catheter - Exam PHYSICAL EXAM: GENERAL APPEARANCE: Patient is a male who appears to be in no acute distress. HEENT: Normocephalic, atraumatic, no facial asymmetry is seen. Neck is supple with no masses felt. CARDIOVASCULAR: Regular rate and rhythm. ABDOMEN: Nontender, nondistended. EXTREMITIES: Show no edema or clubbing. NEUROLOGICAL EXAM: Patient awake, alert, and oriented 2. Patient does follow simple commands. He is moving all 4 extremities purposefully. No obvious lateralizing weakness is seen. No facial asymmetry is noted on cranial nerve testing. No tremors or seizure-like activity is noted. - Labs CBC & Chem 7: 01/02/17 04:00 01/02/17 04:00 Labs: Abnormal Lab Results - Last 24 Hours (Table) 12/31/16 01/02/17 01/02/17 Range/Units 11:15 04:00 04:00 Lymphocytes # 0.4 L (1.0-4.8) k/uL Chloride 110 H (98-107) mmol/L Carbon Dioxide 21 L (22-30) mmol/L BUN 33 H (9-20) mg/dL Glucose 136 H (74-99) mg/dL Viral Test See Below H Microbiology - Last 24 Hours (Table) 12/31/16 11:15 CSF Gram Stain - Preliminary Cerebral Spinal Fluid CSF Culture - Preliminary 12/29/16 22:50 Blood Culture - Preliminary Blood No Growth after 72 hours Assessment and Plan (1) Encephalopathy Status: Acute (2) Hyponatremia Status: Acute Plan: Recommendations: Patient's lumbar puncture and CSF cultures confirmed the diagnosis of HSV-2 meningitis. Patient's mental status has improved as compared to yesterday. Infectious disease is following. No seizure activity has been reported by the staff. EEG showed mild encephalopathy. This may improve as infectious process improves. As you recall, CT was negative for any acute process. Continue neurological checks. Continue current ICU management. I will continue to follow with you on an as-needed basis. Feel free to call with any questions or concerns. I performed an examination of the patient and discussed the management with the FOR[employer] MANAGER. I have reviewed the FOR[employer] MANAGER notes and agree with the findings and plan of care.
[2017-01-02] MEDS: SODIUM CHLORIDE 0.9% 1,000 ML IV SCH ×2 (17:30→20:37)
[2017-01-02] MEDS: ATORVASTATIN 10 MG TAB PO SCH (20:32)
[2017-01-02] MEDS: AMPICILLIN 2,000 MG in SODIUM CHLORIDE 0.9% 100 ML IVPB SCH (21:48)
[2017-01-02] MEDS: metroNIDAZOLE-NS PMX 500 MG in SALINE 1 100ML.BAG IVPB SCH (21:49)
[2017-01-03] MEDS: ACYCLOVIR SODIUM 800 MG in SODIUM CHLORIDE 0.9% 250 ML IV SCH ×3 (01:50→17:11)
[2017-01-03 06:21] LABS: Basophils % (A) 0 %; CH 30.6; CHCM 34.8; Eosinophils % (A) 0 %; HCT 38.7 % (39.0-53.0); HDW 2.55; Luc # (Auto) 0.05; Luc % (Auto) 1; Lymphocytes # (A) 0.6 k/uL (1.0-4.8); Lymphocytes % (A) 11 %; MCH 29.7 pg (25.0-35.0); MCHC 33.6 g/dL (31.0-37.0); MCV 88.3 fL (80.0-100.0); Mean Platelet Volume 6.4; Monocytes # (A) 0.4 k/uL (0-1.0); Monocytes % (A) 7 %; Neutrophils # (A) 4.7 k/uL (1.3-7.7); Neutrophils % (A) 82 %; RBC 4.38 m/uL (4.30-5.90); RDW 12.7 % (11.5-15.5); WBC 5.7 k/uL (3.8-10.6); WBC (Perox) 6.11
[2017-01-03 06:35] LABS: Anion Gap 6 mmol/L; Blood Urea Nitrogen 33 mg/dL (9-20); Calcium 8.1 mg/dL (8.4-10.2); Carbon Dioxide 24 mmol/L (22-30); Chloride 114 mmol/L (98-107); Glucose 102 mg/dL (74-99); Non-African American GFR(MDRD) >60 (>60 ml/min/1.73 sqM); Potassium 3.4 mmol/L (3.5-5.1); Sodium 144 mmol/L (137-145)
[2017-01-03] MEDS: POTASSIUM CHLORIDE 20 MEQ, LIDOCAINE 2% INJ 20 MG in SODIUM CHLORIDE 0.9% 100 ML IVPB SCH ×3 (07:37→13:08)
[2017-01-03] MEDS: ASPIRIN 325 MG TAB PO SCH (07:55)
[2017-01-03] MEDS: LOSARTAN 25 MG TAB PO SCH (07:55)
[2017-01-03] MEDS: TAMSULOSIN 0.4 MG CAP.ER.24H PO SCH ×2 (07:56→21:20)
[2017-01-03] MEDS: PANTOPRAZOLE 40 MG TABLET PO SCH (07:56)
[2017-01-03] MEDS: HEPARIN SODIUM,PORCINE 5,000 UNIT/ML 1 ML VIAL SQ SCH ×2 (07:56→21:20)
[2017-01-03] MEDS: hydrALAZINE HCL 20 MG/ML 1 ML VIAL IVP PRN (10:12)
--- NOTE | 2017-01-03 10:59 | PN ---
INTERVAL HISTORY: Patient continued to be hemodynamically stable. No major events reported by nursing staff. Today patient is more verbal, answering questions and follows simple commands at the time. He was not speaking coherently yesterday and was not following simple commands. Patient was able to squeeze both hands, lift up both legs but with weakness. Patient was able to stick out his tongue and move it to the right and the left and asked me question before I left the room to tell me when he is supposed to go home. The patient continued to refuse to eat or drink and family said that they will bring him food from [employer] as he used to like their food. PHYSICAL EXAMINATION: VITAL SIGNS: Blood pressure of 154/78, heart rate of 86, respiratory rate 16, sating 94% on room air. GENERAL: In his stated age, no acute distress. HEENT: Atraumatic, normocephalic. PERRLA. NECK: Supple, no masses. No thyromegaly. LUNGS: Clear to auscultation bilaterally. HEART: Normal S1, S2. ABDOMEN: Soft, no tenderness, positive bowel sounds in all 4 quadrants. SKIN: No new rash. PSYCH: As above. IMAGING AND LABS: CBC showed normal findings. Chemistry showed low potassium at 3.4, normal otherwise. Calcium is 8.1. Cultures are still the same. No change from prior study. ASSESSMENT AND PLAN: 1. Herpes simplex encephalitis with meningitis. Patient still on acyclovir IV. We will continue with current recommendations from Infectious Disease. The patient will be transferred to general medical floor today. We will keep the telemonitoring. Discussed with the nursing staff at the bedside. The patient seems to be improving overall. We will continue monitoring. 2. Protein calorie malnutrition. Patient is still refusing to eat. I talked to the family at the bedside and we will encourage p.o. intake. The patient understands the necessity of improving his nutrition status. Willing to cooperate today. 3. Benign prostatic hypertrophy. Will continue Flomax. 4. Hyperlipidemia. Continue statin. 5. Back pain seems to be under fair control. 6. Debility. Will have PT/OT evaluate the patient in the morning.
[2017-01-03] MEDS: SODIUM CHLORIDE 0.9% 1,000 ML IV SCH (13:07)
--- NOTE | 2017-01-03 14:04 | P.PN ---
Subjective This is a 81-year-old male patient, who was in a good state of health until approximately 4 days ago when he started developing acute mental status change. For that reason the patient was brought into the hospital as his mental status was gradually declining and this was witnessed by his . The patient had no fever chills or any night sweats. The patient had no neck stiffness. No skin rashes. No oral ulceration. No trauma to the head. No substance abuse. He was on his usual medication and there is no new medication change. No sick contacts. No travel history. Initially his sodium level was at 127 and his urine is osmolality was at 263. 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 Based on that he was placed on fluid restriction and he was given a dose of demeclocycline. Subsequent sodium levels improved. My understanding that the patient also had some urinary retention. The Cervantes catheter was inserted and immediately the bladder was emptied and this could have also contributed to his low sodium. Most recent sodium level is at 131. For now, the patient has undergone a neurologic workup and this included 2 CAT scans of the head and a subsequent MRI of the brain that was done on 2016. The MRI showed no acute intracranial process. There is degenerative remote ischemic white matter changes. There is an area of signal intensity at the level of posterior left thalamus and temporal lobe, likely an artifactual area and it was recommended to correlated with a repeat CAT scan of the brain to exclude any potential hemorrhage. The patient had a EGD that showed no evidence of any epileptic foci and showed mild encephalopathy. 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 The patient is slow in answering questions and obviously still encephalopathic. He can follow some simple commands. His considerably weak both in upper and lower extremities. No spasticity. No rigidity. He remains afebrile. He became a bit tachypneic this morning and there was no signs of any respiratory failure or distress. No reported aspiration. White cell count remains low at 5.7. The rest of the electrodes are all within normal limits. There is no significant acidosis from today. Patient's anion gap is at 14. Liver function tests are all within normal limits. Coagulation profile was within normal limits. Urine drug screen was also negative. Salicylate and acetaminophen levels were negative. Alcohol level was negative. C x-ray is within normal limits. Patient's pulse ox on room air is between 94-98%. No hypotension. Is producing adequate amount of urine output. He is currently not taking any IV fluids and repeat electrodes are still pending for now. The patient has had previous history of pain shots for lumbar ago by Dr. Jack and the last shot was more than 2 years ago. On the patient is being seen in follow-up. The patient remains in the intensive care unit. Please refer to the events that occurred over the past 24 hours. Specifically, the patient a lumbar puncture that came back abnormal. The patient had a mononuclear predominance with a total cell count of 323, 96% on nuclear cells. At the same time the CSF glucose was low at 36 and protein was high at 434. The Gram stain is negative thus far. Cultures also negative. Based on these findings, the patient was placed on a combination of IV acyclovir, IV vancomycin, IV Rocephin and IV ampicillin. MRI of the brain was repeated that showed no meningeal enhancement. No other abnormalities was noted. MRI of the entire spine showed no evidence of any epidural abscess collection. Clinically the patient is afebrile. His neck is not stiff. He seems to be much more alert compared to yesterday. He still has a garbled speech however he follows simple commands and responds appropriately and his neurologic exam is nonfocal. His sodium level is within normal limits at 136. The patient is being hydrated with normal saline. No other significant events overnight. Neurologist on the case. On 01/02/2017, the patient is being seen in follow-up. The patient seems to be a bit more interactive compared to yesterday. He is always is smiley and comfortable. Unable to speak in full sentences yet. He is following some simple commands. He has a low-grade temperature of 99.2. No significant neck stiffness. No seizure activity has been noted. The patient had HSV 2 by PCR positive in the CSF and this confirmed the diagnosis of HSV 2 meningitis. Progressive antibodies will be discontinued. The patient will be kept on IV acyclovir. Decadron will be discontinued. The patient has been stable for the past 24 hours and the patient can be transferred to a telemetry unit with neuro monitoring. Meanwhile, will continued IV fluids. The patient has not eaten yet and he refuses to eat. On 01/03/2017 the patient is showing slow yet steady recovery. His speech is more clear compared to yesterday. His still sometimes not cohesive. The tells that she is noting improvement. Neurologic exam is nonfocal. No seizure activity. The patient is currently on acyclovir for an HSV2 meningitis. He is afebrile. No neck stiffness. He is gradually increasing his oral intake. Objective - Vital Signs Vital signs: Vital Signs Temp 98.5 F 01/03/17 12:00 Pulse 85 01/03/17 12:00 Resp 18 01/03/17 12:00 BP 142/71 01/03/17 12:00 Pulse Ox 95 01/03/17 12:00 Intake & Output 01/02/17 01/03/17 01/03/17 18:59 06:59 18:59 Intake Total 750 1200 200 Output Total 340 500 602 Balance 410 700 -402 Weight 116 kg Intake: IV 750 1200 Sodium Chloride 0.9% 1, 750 1200 000 ml @ 75 mls/hr IV . [id number] [facility] Rx#:[id number] Oral 200 Output: Urine 337 500 600 Stool 3 2 Other: Voiding Method Indwelling Catheter Indwelling Catheter Indwelling Catheter - Exam The patient appeared well nourished and normally developed. Vital signs as documented. Head exam is unremarkable. No scleral icterus or corneal arcus noted. Neck is without jugular venous distension, thyromegaly, or carotid bruits. Carotid upstrokes are brisk bilaterally. Lungs are clear to auscultation and percussion. Cardiac exam reveals the PMI to be normally sized and situated. Rhythm is regular. First and second heart sounds normal. No murmurs, rubs or gallops. Abdominal exam reveals normal bowel sounds, no masses , no organomegaly and no aortic enlargement. Extremities are nonedematous and both femoral and pedal pulses are normal. Neurologically, the patient has no focal neurological deficits. The patient has no cranial nerve deficits. No neck stiffness. He is however lethargic and unable to communicate still. Speech is garbled and the patient remains noncoherent. 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 Diagnoses been confirmed by PCR in the CSF. Patient currently is on IV acyclovir. 2 hyponatremia, recovered 3 chronic lower back pain 4 osteoarthritis 5 hyperlipidemia 6 BPH 7 normal echocardiogram with an ejection fraction of 50-55%. No evidence of any pulmonary hypertension. Plan We'll continue the IV acyclovir. Gradually improving. Monitor renal function. Keep the patient hydrated. Neurology follow-up. We'll likely need 14 days of acyclovir along with physical therapy. Encourage increase oral intake.
[2017-01-03] MEDS: ATORVASTATIN 10 MG TAB PO SCH (21:20)
[2017-01-04] MEDS: hydrALAZINE HCL 20 MG/ML 1 ML VIAL IVP PRN ×2 (00:42→10:43)
[2017-01-04] MEDS: ACYCLOVIR SODIUM 800 MG in SODIUM CHLORIDE 0.9% 250 ML IV SCH ×4 (02:10→22:23)
[2017-01-04] MEDS: SODIUM CHLORIDE 0.9% 1,000 ML IV SCH ×2 (02:10→14:45)
[2017-01-04 09:38] LABS: Basophils % (A) 0 %; CH 30.7; CHCM 34.4; Eosinophils % (A) 0 %; HCT 43.8 % (39.0-53.0); HDW 2.56; HGB 14.4 gm/dL (13.0-17.5); Luc # (Auto) 0.06; Luc % (Auto) 1; Lymphocytes # (A) 0.4 k/uL (1.0-4.8); Lymphocytes % (A) 4 %; MCH 29.5 pg (25.0-35.0); MCHC 32.9 g/dL (31.0-37.0); MCV 89.5 fL (80.0-100.0); Mean Platelet Volume 6.7; Monocytes # (A) 0.4 k/uL (0-1.0); Monocytes % (A) 4 %; Neutrophils # (A) 8.7 k/uL (1.3-7.7); Neutrophils % (A) 91 %; RDW 12.8 % (11.5-15.5); WBC 9.6 k/uL (3.8-10.6); WBC (Perox) 9.89
[2017-01-04 09:45] LABS: Anion Gap 8 mmol/L; Blood Urea Nitrogen 23 mg/dL (9-20); Calcium 8.2 mg/dL (8.4-10.2); Carbon Dioxide 24 mmol/L (22-30); Chloride 110 mmol/L (98-107); Glucose 122 mg/dL (74-99); Non-African American GFR(MDRD) >60 (>60 ml/min/1.73 sqM); Potassium 3.2 mmol/L (3.5-5.1); Sodium 142 mmol/L (137-145)
--- NOTE | 2017-01-04 10:25 | P.PN ---
Subjective Patient is seen in follow-up for hyponatremia. His sodium level was 127 on admission. He was noted to have urinary retention and Cervantes catheter was placed. His sodium level today is 142. Patient is more awake and alert this morning and currently sitting up in a chair. No vomiting or diarrhea. He is currently being treated for HSV-2 meningitis. Appetite is fair. Denies chest pain or shortness of breath. Vital signs are stable. General: The patient appeared well nourished and normally developed. HEENT: Head exam is unremarkable. Neck is without jugular venous distension. LUNGS: Lungs are clear to auscultation and percussion. Breath sounds decreased. HEART: Rate and Rhythm are regular. First and second heart sounds normal. No murmurs, rubs or gallops. ABDOMEN: Abdominal exam reveals normal bowel sounds. Non-tender and non- distended. No evidence of peritonitis. EXTREMITITES: No clubbing, cyanosis, or edema. Objective - Vital Signs Vital signs: Vital Signs Temp 97.4 F L 01/04/17 07:00 Pulse 101 H 01/04/17 07:00 Resp 16 01/04/17 07:00 BP 168/94 01/04/17 07:00 Pulse Ox 95 01/04/17 07:00 Intake & Output 01/03/17 01/04/17 01/04/17 18:59 06:59 18:59 Intake Total 200 Output Total 603 1600 Balance -403 -1600 Intake: Oral 200 Output: Urine 600 1600 Stool 3 Other: Voiding Method Indwelling Catheter Indwelling Catheter # Voids 1 - Labs CBC & Chem 7: 01/04/17 08:11 01/04/17 08:11 Labs: Abnormal Lab Results - Last 24 Hours (Table) 12/31/16 01/04/17 01/04/17 Range/Units 11:30 08:11 08:11 Neutrophils # 8.7 H (1.3-7.7) k/uL Lymphocytes # 0.4 L (1.0-4.8) k/uL Potassium 3.2 L (3.5-5.1) mmol/L Chloride 110 H (98-107) mmol/L BUN 23 H (9-20) mg/dL Glucose 122 H (74-99) mg/dL Calcium 8.2 L (8.4-10.2) mg/dL Viral Test See Below H Microbiology - Last 24 Hours (Table) 12/29/16 22:50 Blood Culture - Preliminary Blood No Growth after 120 hours 12/31/16 11:15 CSF Gram Stain - Preliminary Cerebral Spinal Fluid CSF Culture - Preliminary Assessment and Plan Plan: Assessment: #1. Hyponatremia. Appears euvolemic in nature. He did have urinary retention which can be a contributing factor. Also concern of SIADH due to [employer]ICIAN infection. Sodium level 127 on admission and is up to 142 today. TSH and cortisol level normal. #2. Urinary retention status post Cervantes catheter placement. #3. 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 Neurology and infectious disease following. #4. Hypokalemia secondary to poor oral intake. Rule out magnesium deficiency. Plan: Maintain Cervantes catheter. Continue normal saline to be run at 75 mL an hour. Currently maintained on IV acyclovir. Infectious disease following. Continue to monitor renal function and urine output. Encourage oral intake. Replace potassium. Check Magnesium level.
[2017-01-04] MEDS: HEPARIN SODIUM,PORCINE 5,000 UNIT/ML 1 ML VIAL SQ SCH ×2 (10:38→22:23)
[2017-01-04] MEDS: PANTOPRAZOLE 40 MG TABLET PO SCH (10:38)
[2017-01-04] MEDS: TAMSULOSIN 0.4 MG CAP.ER.24H PO SCH ×2 (10:38→22:23)
[2017-01-04] MEDS: LOSARTAN 25 MG TAB PO SCH (10:38)
[2017-01-04] MEDS: ASPIRIN 325 MG TAB PO SCH (10:38)
[2017-01-04] MEDS: POTASSIUM CHLORIDE 10 MEQ, LIDOCAINE 2% INJ 10 MG in SODIUM CHLORIDE 0.9% 100 ML IVPB SCH ×4 (12:50→17:25)
--- NOTE | 2017-01-04 13:38 | P.CONS ---
History of Present Illness - Chief Complaint Gait disturbance and confusion - History of Present Illness 81-year-old right-handed white male admitted December 29 with mental status change and possible encephalopathy. Seen by Drs. Sewell or hyponatremia, likely SIADH. Seen by Dr. Castro. Seen by Dr. Espinoza who diagnosed encephalitis. PT and OT prescribed. I have added speech therapy. PT reports moderate assistance to stand, transfer and gait 3 feet with roller walker. Brain MRI negative. Chest x-ray negative. 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 Previous functional sick: As elicited from . 81-year-old right-handed white male who is lives in one floor home with . Modular home. Retired. History smoking but doesn't smoke or drink currently. They do eat out a lot. does the laundry. Patient can drive and was independent with standing shower and gait without device. Regular doctors Dr. Sanchez. Family history father was a smoker and drinker. Review of Systems Review of systems: The patient was confused historian and elicited from . ENT: Denies sneezes or discharge. Eyes: Denies discharge or photophobia. Cardiac: Denies chest pain or palpitation. Pulmonary: Denies cough or shortness of breath. Gastrointestinal: Denies nausea, emesis, constipation, diarrhea. Genitourinary: Denies discharge or frequency. Musculoskeletal: Denies muscle or bone aches. Neurologic: At least mild generalized weakness and definite confusion. Endocrine: Denies shakes or sweats. Oncology: Denies cancers. Dermatologic: Denies rash, itching, pruritus. ALLERGY/immunology: Denies sneezes, rashes. 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 Past Anesthesia/Blood Transfusion Reactions: No Reported Reaction Past Psychological History: No Psychological Hx Reported Smoking Status: Former smoker (Patient used to smoke about pack every day and he quit about 38 years ago) Past Alcohol Use History: None Reported Additional Past Alcohol Use History / Comment(s): ETOH & Smoking "i quit 38 years ago" "I'm an recovering alcoholic" Past Drug Use History: None Reported - Past Family History Mother Family Medical History: Cancer (Mother from lung cancer as well as dementia at the age of 70.) Additional Family Medical History / Comment(s): lung Father History Unknown: Yes Family Medical History: No Reported History (Father in his 40s due to alcohol isn't.) Additional Family Medical History / Comment(s): "i don't know a lot about him...he as an alcoholic Brother(s) Family Medical History: Coronary Artery Disease (CAD) (Patient had 2 brothers one as a drug overdose in his 30s and the other one has CAD.) Sister(s) Family Medical History: Cancer, Coronary Artery Disease (CAD) (Patient has one sister with CAD and breast cancer.) Son(s) Family Medical History: No Reported History (Patient has 3 sons to contact and one healthy.) Medications and Allergies Home Medications Medication Instructions Recorded Confirmed Type traMADol HCl [Ultram] 50 - 100 mg PO QID PRN 07/22/14 12/28/16 History Gabapentin [Neurontin] 300 mg PO TID 12/28/16 12/28/16 History Atorvastatin Calcium [Lipitor] 10 mg PO HS 12/29/16 12/29/16 History Tamsulosin HCl [Flomax] 0.4 mg PO BID 12/29/16 12/29/16 History Allergies Allergy/AdvReac Type Severity Reaction Status Date / Time thallium-201 Allergy Severe Dyspnea Verified 12/29/16 09:26 Physical Exam Vitals: Vital Signs Temp Pulse Pulse Resp BP Pulse Ox 01/04/17 07:00 97.4 F L 101 H 16 168/94 95 01/04/17 04:00 140/87 01/04/17 00:35 85 164/85 01/03/17 23:00 97.8 F 89 19 153/97 95 01/03/17 21:26 93 18 180/86 93 L 01/03/17 15:21 98.6 F 78 18 141/77 96 01/03/17 15:19 65 85 18 Intake and Output 01/03/17 01/04/17 01/04/17 22:59 06:59 14:59 Output Total 801 800 Balance -801 -800 Output: Urine 800 800 Stool 1 Other: Voiding Method Indwelling Catheter Indwelling Catheter # Voids 1 Skin: Atrophic, intact. General: Medium build and comfortable appearance. Head: Normocephalic, atraumatic. Eyes: Symmetric. Pupils equal round. Ears: Symmetric. Hearing within normal limits. Mouth: Clear. Neck: Supple. Carotid without bruit. Cardiac: Regular rate and rhythm. Lungs: Clear anteriorly and posteriorly. Abdomen: Soft active nontender. Extremities: Normal tone. Neurological: Mental status: Alert, cooperative, pleasant. Cranial nerves: Symmetric facial tone and trapezius. Motor: Actively moves all limbs but at best antigravity. Sensation: Intact throughout. DTRs: Symmetric and equal throughout. Mobility: Currently fatigued physically and mentally and would be an maximal assist to sit. Results CBC & Chem 7: 01/04/17 08:11 01/04/17 08:11 Labs: Abnormal Lab Results - Last 24 Hours (Table) 12/31/16 01/04/17 01/04/17 Range/Units 11:30 08:11 08:11 Neutrophils # 8.7 H (1.3-7.7) k/uL Lymphocytes # 0.4 L (1.0-4.8) k/uL Potassium 3.2 L (3.5-5.1) mmol/L Chloride 110 H (98-107) mmol/L BUN 23 H (9-20) mg/dL Glucose 122 H (74-99) mg/dL Calcium 8.2 L (8.4-10.2) mg/dL Viral Test See Below H Microbiology - Last 24 Hours (Table) 12/31/16 11:15 CSF Gram Stain - Final Cerebral Spinal Fluid CSF Culture - Final 12/29/16 22:50 Blood Culture - Preliminary Blood No Growth after 120 hours MRI - head: report reviewed (Negative.) Assessment and Plan (1) Encephalopathy Status: Acute Plan: Impression: 1. Gait disturbance. 2. Encephalopathy with encephalitis. 3. Hyponatremia. Possible SIADH. 4. Reflux. 5. Dyslipidemia. 6. Osteoarthritis. Comments and plan: At this time PT is ongoing, OT ordered and I've added speech therapy. Confusion main problem. Noted preference is inpatient rehab. Have discussed inpatient criteria including 3 hour therapy requirement per day. At this time, does not appear the patient could tolerate 3 hours per day. Will follow closely with yourself.
[2017-01-04 15:38] LABS: C-ANCA <1:20 Titer (<1:20); P-ANCA <1:20 Titer (<1:20)
--- NOTE | 2017-01-04 16:18 | P.PN ---
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 This is a 81-year-old male patient, who was in a good state of health until approximately 4 days ago when he started developing acute mental status change. For that reason the patient was brought into the hospital as his mental status was gradually declining and this was witnessed by his . The patient had no fever chills or any night sweats. The patient had no neck stiffness. No skin rashes. No oral ulceration. No trauma to the head. No substance abuse. He was on his usual medication and there is no new medication change. No sick contacts. No travel history. Initially his sodium level was at 127 and his urine is osmolality was at 263. 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 Based on that he was placed on fluid restriction and he was given a dose of demeclocycline. Subsequent sodium levels improved. My understanding that the patient also had some urinary retention. The Cervantes catheter was inserted and immediately the bladder was emptied and this could have also contributed to his low sodium. Most recent sodium level is at 131. For now, the patient has undergone a neurologic workup and this included 2 CAT scans of the head and a subsequent MRI of the brain that was done on 2016. The MRI showed no acute intracranial process. There is degenerative remote ischemic white matter changes. There is an area of signal intensity at the level of posterior left thalamus and temporal lobe, likely an artifactual area and it was recommended to correlated with a repeat CAT scan of the brain to exclude any potential hemorrhage. The patient had a EGD that showed no evidence of any epileptic foci and showed mild encephalopathy. 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 The patient is slow in answering questions and obviously still encephalopathic. He can follow some simple commands. His considerably weak both in upper and lower extremities. No spasticity. No rigidity. He remains afebrile. He became a bit tachypneic this morning and there was no signs of any respiratory failure or distress. No reported aspiration. White cell count remains low at 5.7. The rest of the electrodes are all within normal limits. There is no significant acidosis from today. Patient's anion gap is at 14. Liver function tests are all within normal limits. Coagulation profile was within normal limits. Urine drug screen was also negative. Salicylate and acetaminophen levels were negative. Alcohol level was negative. C x-ray is within normal limits. Patient's pulse ox on room air is between 94-98%. No hypotension. Is producing adequate amount of urine output. He is currently not taking any IV fluids and repeat electrodes are still pending for now. The patient has had previous history of pain shots for lumbar ago by Dr. Jack and the last shot was more than 2 years ago. On the patient is being seen in follow-up. The patient remains in the intensive care unit. Please refer to the events that occurred over the past 24 hours. Specifically, the patient a lumbar puncture that came back abnormal. The patient had a mononuclear predominance with a total cell count of 323, 96% on nuclear cells. At the same time the CSF glucose was low at 36 and protein was high at 434. The Gram stain is negative thus far. Cultures also negative. Based on these findings, the patient was placed on a combination of IV acyclovir, IV vancomycin, IV Rocephin and IV ampicillin. MRI of the brain was repeated that showed no meningeal enhancement. No other abnormalities was noted. MRI of the entire spine showed no evidence of any epidural abscess collection. Clinically the patient is afebrile. His neck is not stiff. He seems to be much more alert compared to yesterday. He still has a garbled speech however he follows simple commands and responds appropriately and his neurologic exam is nonfocal. His sodium level is within normal limits at 136. The patient is being hydrated with normal saline. No other significant events overnight. Neurologist on the case. On 01/02/2017, the patient is being seen in follow-up. The patient seems to be a bit more interactive compared to yesterday. He is always is smiley and comfortable. Unable to speak in full sentences yet. He is following some simple commands. He has a low-grade temperature of 99.2. No significant neck stiffness. No seizure activity has been noted. The patient had HSV 2 by PCR positive in the CSF and this confirmed the diagnosis of HSV 2 meningitis. Progressive antibodies will be discontinued. The patient will be kept on IV acyclovir. Decadron will be discontinued. The patient has been stable for the past 24 hours and the patient can be transferred to a telemetry unit with neuro monitoring. Meanwhile, will continued IV fluids. The patient has not eaten yet and he refuses to eat. On 01/03/2017 the patient is showing slow yet steady recovery. His speech is more clear compared to yesterday. His still sometimes not cohesive. The tells that she is noting improvement. Neurologic exam is nonfocal. No seizure activity. The patient is currently on acyclovir for an HSV2 meningitis. He is afebrile. No neck stiffness. He is gradually increasing his oral intake. On 01/04/2017, patient is feeling much better, mental status is significantly improved according to the , patient is not confused, not lethargic, not obtunded, and he seems to be quite appropriate. Labs showed relatively normal CBC and normal basic metabolic profile except for a low potassium of 3.2 being corrected as per protocol. Objective - Vital Signs Vital signs: Vital Signs Temp 97.2 F L 01/04/17 15:00 Pulse 69 01/04/17 15:00 Resp 14 01/04/17 15:00 BP 92/61 01/04/17 15:00 Pulse Ox 98 01/04/17 15:00 Intake & Output 01/03/17 01/04/17 01/04/17 18:59 06:59 18:59 Intake Total 200 Output Total 603 1600 800 Balance -403 -1600 -800 Intake: Oral 200 Output: Urine 600 1600 800 Stool 3 Other: Voiding Method Indwelling Catheter Indwelling Catheter Indwelling Catheter # Voids 1 - Exam Physical Exam: Revealed a 81-year-old in no distress HEENT:[Neck is supple.] [No neck masses.] [No thyromegaly.] [No JVD.] Chest: [Clear throughout, no crackles, no rhonchi, no wheezes.] Cardiac Exam: [Normal S1 and S2, no S3 gallop, no murmur.] Abdomen: [Soft, nontender, no megaly, no rebound, no guarding, normal bowel sounds.] Extremities: [No clubbing, no edema, no cyanosis.] Neurological Exam: [No focal neurologic deficit.] - Labs CBC & Chem 7: 01/04/17 08:11 01/04/17 08:11 Labs: Abnormal Lab Results - Last 24 Hours (Table) 01/04/17 01/04/17 Range/Units 08:11 08:11 Neutrophils # 8.7 H (1.3-7.7) k/uL Lymphocytes # 0.4 L (1.0-4.8) k/uL Potassium 3.2 L (3.5-5.1) mmol/L Chloride 110 H (98-107) mmol/L BUN 23 H (9-20) mg/dL Glucose 122 H (74-99) mg/dL Calcium 8.2 L (8.4-10.2) mg/dL Microbiology - Last 24 Hours (Table) 12/31/16 11:15 CSF Gram Stain - Final Cerebral Spinal Fluid CSF Culture - Final 12/29/16 22:50 Blood Culture - Preliminary Blood No Growth after 120 hours Assessment and Plan Plan: 1 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 Diagnoses been confirmed by PCR in the CSF. Patient currently is on IV acyclovir. 2 hyponatremia, recovered 3 chronic lower back pain 4 osteoarthritis 5 hyperlipidemia 6 BPH Plan: Continue IV acyclovir, continue to monitor renal status, keep the patient hydrated, patient will likely need 14 days of acyclovir therapy along with physical therapy, we'll continue to follow. Time with Patient: Less than 30
--- NOTE | 2017-01-04 16:35 | P.PN ---
Subjective This is a 81-year-old male one of Dr. Sanchez with a previous medical history significant for GERD, hyper lipidemia, osteophytes, enlarged prostate with lower urinary tract symptoms, degenerative disc disease of the lumbar spine under the care of Dr. Jack from pain management, history of mitral valve disorder, patient apparently was brought into the emergency department yesterday by his because of severe mental status changes with severe encephalopathy with negative computed tomography scan of the brain and negative chest x-ray however abnormal serum sodium with a sodium of 127 and a serum osmolality of 263, patient according to his was in his usual state of health about yesterday at around 2:30 in the afternoon when he was sitting in a recliner after he woke up in the morning and he took a shower and dressed up and suddenly he became quite confused and disoriented, patient became quite weak to the degree that he could not even make sense to a lot of things, he has no fever or chills at that time he had no nausea or vomiting at that time he had no coughing, patient's is a friend of and his had cold her and she was on her way to go see the patient however she told her that she is getting the patient to the ER for evaluation and subsequently was admitted to the hospital with neurology consultation was obtained. 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 Rodgers at the bedside I was concerned about the significant hyponatremia and the possibility of possible ischemic event even though the computed tomography scan was negative and we could be dealing with some acute event. 12/30: Patient remains confused and unable to follow most commands. feels the patient is a little improved and was able to take some oral medications this morning. Subsequently, patient refused to take Tylenol by mouth and was holding it in his mouth and would not swallow. Sodium is improved to 131 and chloride is 97. Repeat lactic acid normal. Cortisol 22, serum osmolality 263 and urine osmolality 754. Urine sodium is 125 with repeat of 90. Consult added for Dr. Porter with plan to continue fluid restriction, discontinue demeclocycline. He remains with Cervantes catheter in place for urinary retention. Patient had 3 episodes of diarrhea during the night and 1 in the morning on day shift. Stool is negative for C. difficile toxin. CAT scan of the brain done last evening showed age-related atrophy and chronic small vessel ischemic change without acute intracranial process. MRI of the brain done this morning revealed no acute intracranial process. Degenerative remote ischemic white matter changes suspected. There are areas of increased signal in the posterior left thalamus and temporal lobe most likely artifact but recommend repeat CAT scan of the head to exclude potential hemorrhage which is less likely. Patient' s third CAT scan of the brain done this morning reveals white matter ischemic changes. Stable from previous day. Carotid ultrasound showed severe right internal carotid artery stenosis greater than 70% and consult with Dr. Jasso has been added. Echocardiogram reveals EF 50-55%, mild aortic sclerosis, mild mitral regurgitation, mild tricuspid regurgitation, mild concentric left ventricular hypertrophy. Patient was seen in consultation by Dr. Turcios with altered mental status most likely due to acute metabolic encephalopathy EEG has been ordered. 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 Espinoza and the patient was seen also in consultation by Dr. Bustamante from intensive care, patient was maintaining his airways, I had a long conversation with his at the bedside and they were in agreement for the above plan of treatment. 01/01: Consult was added for Dr. Espinoza. Patient currently on antimicrobials including acyclovir, ceftriaxone and vancomycin. He is also continued on Decadron. Neurology continues to follow the patient. EEG showed mild encephalopathy. Patient has been seen by nephrology for hyponatremia. Cervantes catheter has been maintained. Demeclocycline was discontinued. IV fluids increased. His mental status is slightly improved today and that he will follow a few commands and can make eye contact. 01/04: Dr. Espinoza has recommended acyclovir 800 mg 3 times daily for 2 weeks. Cervantes catheter will be discontinued. Consult added for Dr. Wen. Possible discharge in the next 24 hours. Objective - Vital Signs Vital signs: Vital Signs Temp 97.5 F L 01/04/17 15:00 Pulse 104 H 01/04/17 15:00 Resp 16 01/04/17 15:00 BP 160/98 01/04/17 15:00 Pulse Ox 94 L 01/04/17 15:00 Intake & Output 01/03/17 01/04/17 01/04/17 18:59 06:59 18:59 Intake Total 200 Output Total 603 1600 800 Balance -403 -1600 -800 Intake: Oral 200 Output: Urine 600 1600 800 Stool 3 Other: Voiding Method Indwelling Catheter Indwelling Catheter Indwelling Catheter # Voids 1 - Exam General appearance: average body habitus, mild distress - EENT Eyes: anicteric sclerae, no PERRLA, no ptosis, no scleral icterus, normal appearance ENT: hearing grossly normal, NA/AT, normal oropharynx (A bit dry.) Ears: bilateral: normal - Neck Neck: normal ROM, no rigidity, no stridor Carotids: bilateral: upstroke normal Thyroid: bilateral: normal size - Respiratory Respiratory: bilateral: diminished, negative: dullness, rales, rhonchi, wheezing , prolonged expiration - Cardiovascular Rhythm: regular Heart sounds: normal: S1, S2 Abnormal Heart Sounds: no systolic murmur, no diastolic murmur, no rub, no S3 Gallop, no S4 Gallop, no click - Gastrointestinal General gastrointestinal: distended, normal bowel sounds, soft, tenderness, no umbilical hernia, no ventral hernia - Genitourinary Male genitourinary: enlarged prostate - Integumentary Integumentary: normal, normal turgor - Neurologic Neurologic: CNII-XII intact - Musculoskeletal Musculoskeletal: generalized weakness, strength equal bilaterally - Psychiatric Psychiatric: no A&O x's 3, no appropriate affect, no intact judgment & insight - Labs CBC & Chem 7: 01/04/17 08:11 01/04/17 08:11 Labs: Abnormal Lab Results - Last 24 Hours (Table) 01/04/17 01/04/17 Range/Units 08:11 08:11 Neutrophils # 8.7 H (1.3-7.7) k/uL Lymphocytes # 0.4 L (1.0-4.8) k/uL Potassium 3.2 L (3.5-5.1) mmol/L Chloride 110 H (98-107) mmol/L BUN 23 H (9-20) mg/dL Glucose 122 H (74-99) mg/dL Calcium 8.2 L (8.4-10.2) mg/dL Microbiology - Last 24 Hours (Table) 12/31/16 11:15 CSF Gram Stain - Final Cerebral Spinal Fluid CSF Culture - Final 12/29/16 22:50 Blood Culture - Preliminary Blood No Growth after 120 hours Assessment and Plan Plan: 1. 1. 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 Place the patient in droplet isolation, contact isolation , continue vancomycin, Rocephin, ampicillin, acyclovir, infectious disease consultation, transfer the patient to the intensive care unit, ICU consult from Dr. Bustamante, IV fluid resuscitation, start the patient on Decadron SHANITA.. 2. 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 Continue fluid restriction 1000 mL and the next 24 hours. Monitor the patient BMP closely. Consult with nephrology appreciated. 3. Enlarged prostate with urinary retention. A Cervantes catheter placement, start Flomax 0.4 mg orally twice every day. 4. Degenerative disc disease of the lumbar spine post epidural injection, discontinue tramadol, discontinue gabapentin, especially tramadol has the tendency to lower seizure threshold. 5. Hyperlipidemia. Continue Lipitor 10 mg orally once every day. 6. History of mitral valve disorder. We will get echo care gram. 7. Osteoarthritis. Stable at this time. 8. GERD. Start the patient on Protonix 40 mg IV push every 24 hours. 9. DVT prophylaxis. Heparin 5000 units subcutaneously every 12 hours as well as bilateral knee-high SHAR hose. 10. Patient is full code. Discharge plan: Inpatient rehab or subacute rehab Impression and plan of care have been directed as dictated by the signing physician. Trudi Isbell nurse practitioner acting as scribe for signing physician.
--- NOTE | 2017-01-04 21:47 | PN ---
DATE OF SERVICE: 01/04/2017 REASON FOR FOLLOWUP: Herpes encephalitis. INTERVAL HISTORY: The patient is afebrile, has been breathing comfortably. The patient denies significant chest pain or cough. No abdominal pain. On examination, blood pressure is 168/94 with a pulse of 101, temperature 97.4. She is 95% on room air. General description is an elderly male lying in bed in no distress. RESPIRATORY SYSTEM: Unlabored breathing. Clear to auscultation anteriorly. HEART: S1, S2. Regular rate and rhythm. ABDOMEN: Soft. No tenderness. LABS: Hemoglobin 14.4, white count 9.6 with a BUN of 23, creatinine 1.0. DIAGNOSTIC IMPRESSION AND PLAN: Patient with herpes encephalitis. Patient will continue on the acyclovir 800 q.8 i-e 10 mg/kg for another 2 weeks. Careful monitoring of his kidney function. His was present at the bedside. Her questions and concerns were answered. [facility]
[2017-01-04] MEDS: ATORVASTATIN 10 MG TAB PO SCH (22:23)
[2017-01-05] MEDS: SODIUM CHLORIDE 0.9% 1,000 ML IV SCH ×4 (03:11→22:15)
[2017-01-05] MEDS: TAMSULOSIN 0.4 MG CAP.ER.24H PO SCH ×2 (08:13→22:12)
[2017-01-05] MEDS: HEPARIN SODIUM,PORCINE 5,000 UNIT/ML 1 ML VIAL SQ SCH ×2 (08:13→22:12)
[2017-01-05] MEDS: PANTOPRAZOLE 40 MG TABLET PO SCH (08:13)
[2017-01-05] MEDS: ASPIRIN 325 MG TAB PO SCH (08:13)
[2017-01-05] MEDS: LOSARTAN 25 MG TAB PO SCH (08:13)
[2017-01-05 08:37] LABS: Calcium 8.4 mg/dL (8.4-10.2); Magnesium 2.3 mg/dL (1.6-2.3); Potassium 3.9 mmol/L (3.5-5.1)
[2017-01-05] MEDS: ACYCLOVIR SODIUM 800 MG in SODIUM CHLORIDE 0.9% 250 ML IV SCH ×2 (09:51→17:21)
--- NOTE | 2017-01-05 11:17 | P.DS ---
Providers Date of admission: 12/29/16 01:35 Expected date of discharge: 01/06/17 Attending physician: Aleksandr Fermin Consults: 12/29/16 01:36 Consult Physician Routine Consulting Provider: Aden Turcios Consult Reason/Comments: Encephalopathy Do you want consulting provider notified?: Yes, Notify in am 12/29/16 20:18 Consult Physician Routine Consulting Provider: Osiris Saul Consult Reason/Comments: Hyponatremia, likely SIADH Do you want consulting provider notified?: Yes 12/30/16 10:44 Consult Physician Routine Consulting Provider: Kishor Porter Consult Reason/Comments: hyponatremia Do you want consulting provider notified?: Yes 12/30/16 11:12 Consult Physician Routine Consulting Provider: Travon Jasso Consult Reason/Comments: carotid stenosis Do you want consulting provider notified?: Yes 12/31/16 09:33 Consult Physician Urgent Consulting Provider: Diamond Bustamante Consult Reason/Comments: ICU management Do you want consulting provider notified?: Yes 12/31/16 20:58 Consult Physician Urgent Consulting Provider: Andrei Espinoza Consult Reason/Comments: possible bacterial meningitis Do you want consulting provider notified?: Already Contacted 01/04/17 12:00 Consult Physician Routine Consulting Provider: Richmond Wen Consult Reason/Comments: inpt rehab Do you want consulting provider notified?: Yes Primary care physician: [employer] [facility] Course: This is a 81-year-old male one of Dr. Sanchez with a previous medical history significant for GERD, hyper lipidemia, osteophytes, enlarged prostate with lower urinary tract symptoms, degenerative disc disease of the lumbar spine under the care of Dr. Jack from pain management, history of mitral valve disorder, patient apparently was brought into the emergency department yesterday by his because of severe mental status changes with severe encephalopathy with negative computed tomography scan of the brain and negative chest x-ray however abnormal serum sodium with a sodium of 127 and a serum osmolality of 263, patient according to his was in his usual state of health about yesterday at around 2:30 in the afternoon when he was sitting in a recliner after he woke up in the morning and he took a shower and dressed up and suddenly he became quite confused and disoriented, patient became quite weak to the degree that he could not even make sense to a lot of things, he has no fever or chills at that time he had no nausea or vomiting at that time he had no coughing, patient's is a friend of and his had cold her and she was on her way to go see the patient however she told her that she is getting the patient to the ER for evaluation and subsequently was admitted to the hospital with neurology consultation was obtained. 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 Rodgers at the bedside I was concerned about the significant hyponatremia and the possibility of possible ischemic event even though the computed tomography scan was negative and we could be dealing with some acute event. 12/30: Patient remains confused and unable to follow most commands. feels the patient is a little improved and was able to take some oral medications this morning. Subsequently, patient refused to take Tylenol by mouth and was holding it in his mouth and would not swallow. Sodium is improved to 131 and chloride is 97. Repeat lactic acid normal. Cortisol 22, serum osmolality 263 and urine osmolality 754. Urine sodium is 125 with repeat of 90. Consult added for Dr. Porter with plan to continue fluid restriction, discontinue demeclocycline. He remains with Cervantes catheter in place for urinary retention. Patient had 3 episodes of diarrhea during the night and 1 in the morning on day shift. Stool is negative for C. difficile toxin. CAT scan of the brain done last evening showed age-related atrophy and chronic small vessel ischemic change without acute intracranial process. MRI of the brain done this morning revealed no acute intracranial process. Degenerative remote ischemic white matter changes suspected. There are areas of increased signal in the posterior left thalamus and temporal lobe most likely artifact but recommend repeat CAT scan of the head to exclude potential hemorrhage which is less likely. Patient' s third CAT scan of the brain done this morning reveals white matter ischemic changes. Stable from previous day. Carotid ultrasound showed severe right internal carotid artery stenosis greater than 70% and consult with Dr. Jasso has been added. Echocardiogram reveals EF 50-55%, mild aortic sclerosis, mild mitral regurgitation, mild tricuspid regurgitation, mild concentric left ventricular hypertrophy. Patient was seen in consultation by Dr. Turcios with altered mental status most likely due to acute metabolic encephalopathy EEG has been ordered. 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 Espinoza and the patient was seen also in consultation by Dr. Bustamante from intensive care, patient was maintaining his airways, I had a long conversation with his at the bedside and they were in agreement for the above plan of treatment. 01/01: Consult was added for Dr. Espinoza. Patient currently on antimicrobials including acyclovir, ceftriaxone and vancomycin. He is also continued on Decadron. Neurology continues to follow the patient. EEG showed mild encephalopathy. Patient has been seen by nephrology for hyponatremia. Cervantes catheter has been maintained. Demeclocycline was discontinued. IV fluids increased. His mental status is slightly improved today and that he will follow a few commands and can make eye contact. 01/04: Dr. Espinoza has recommended acyclovir 800 mg 3 times daily for 2 weeks. Cervantes catheter will be discontinued. Consult added for Dr. Wen. Possible discharge in the next 24 hours. 01/05: Cervantes catheter was removed yesterday and patient has been able to void. Patient has been evaluated by Dr. Wen and is not a candidate for inpatient rehab as he is unable to tolerate 3 hours of physical therapy. Patient will be discharged to [facility] today in stable condition. 01/06: Patient's mental status is much improved. Repeat BUN 24 and creatinine 1.65. Cervantes catheter has been replaced the patient has had good urine output. Patient's states that he is drinking plenty of fluids but does not have much appetite and not eating very much. Dr. Espinoza has recommended IV acyclovir to complete 2 weeks. He does have a PICC line in which was placed while he was in the intensive care unit. Patient will be discharge to [facility] today in stable condition with plan for basic metabolic panel every 3 days while on acyclovir. Discharge diagnoses: 1. 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 2. Hyponatremia likely related to syndrome of inappropriate ADH secretion which is due to early meningitis 3. Enlarged prostate with urinary retention. 4. Degenerative disc disease of the lumbar spine post epidural injection 5. Hyperlipidemia. 6. History of mitral valve disorder. 7. Osteoarthritis generalized 8. GERD. 9. Mild calorie protein malnutrition Discharge plan: [facility] under the care of Dr. Sanchez Impression and plan of care have been directed as dictated by the signing physician. Trudi Isbell nurse practitioner acting as scribe for signing physician. Patient Condition at Discharge: Good Plan - Discharge Summary New Discharge Prescriptions: Acyclovir [Zovirax] 800 mg IVPB TID #42 tab Discharge Medication List Atorvastatin Calcium [Lipitor] 10 mg PO HS 12/29/16 [History] Tamsulosin HCl [Flomax] 0.4 mg PO BID 12/29/16 [History] Acetaminophen Tab [Tylenol] 650 mg PO Q6HR PRN tab 01/05/17 [Rx] Aspirin 325 mg PO DAILY tab 01/05/17 [Rx] amLODIPine [Norvasc] 5 mg PO DAILY tab 01/05/17 [Rx] hydrALAZINE HCL [Apresoline] 50 mg PO TID tab 01/05/17 [Rx] Acyclovir [Zovirax] 800 mg IVPB TID #42 tab 01/06/17 [Rx] Follow up Appointment(s)/Referral(s): Bhaskar Sanchez MD [Primary Care Provider] - 01/13/17 11:30 am Andrei Espinoza MD [STAFF PHYSICIAN] - 01/14/17 11:00 am Ambulatory/Diagnostic Orders: Basic Metabolic Panel [LAB.AMB] Location: Determined By Patient Discharge Disposition: TRANSFER TO SNF/ECF
--- NOTE | 2017-01-05 12:04 | P.PN ---
Subjective Patient is seen in follow-up for hyponatremia. His sodium level was 127 on admission. He was noted to have urinary retention and Cervantes catheter was placed. Cervantes catheter was removed and he required straight catheterization last night. His sodium level has been gradually getting higher and is 148 this morning. He is not eating and drinking much. Patient is more awake and alert this morning and currently sitting up in a chair. No vomiting or diarrhea. He is currently being treated for HSV-2 meningitis. Appetite is fair. Denies chest pain or shortness of breath.creatinine today is up to 1.54. Vital signs are stable. General: The patient appeared well nourished and normally developed. HEENT: Head exam is unremarkable. Neck is without jugular venous distension. LUNGS: Lungs are clear to auscultation and percussion. Breath sounds decreased. HEART: Rate and Rhythm are regular. First and second heart sounds normal. No murmurs, rubs or gallops. ABDOMEN: Abdominal exam reveals normal bowel sounds. Non-tender and non- distended. No evidence of peritonitis. EXTREMITITES: No clubbing, cyanosis, or edema. Objective - Vital Signs Vital signs: Vital Signs Temp 97.8 F 01/05/17 07:00 Pulse 106 H 01/05/17 07:00 Resp 18 01/05/17 07:00 BP 182/98 01/05/17 07:00 Pulse Ox 96 01/05/17 07:00 Intake & Output 01/04/17 01/05/17 01/05/17 18:59 06:59 18:59 Output Total 925 700 Balance -925 -700 Output: Urine 925 700 Other: Voiding Method Indwelling Catheter # Voids 2 # Bowel Movements 2 - Labs CBC & Chem 7: 01/04/17 08:11 01/05/17 07:47 Labs: Abnormal Lab Results - Last 24 Hours (Table) 01/05/17 Range/Units 07:47 Sodium 148 H (137-145) mmol/L Chloride 114 H (98-107) mmol/L BUN 28 H (9-20) mg/dL Creatinine 1.54 H (0.66-1.25) mg/dL Glucose 110 H (74-99) mg/dL Microbiology - Last 24 Hours (Table) 12/29/16 22:50 Blood Culture - Final Blood No Growth after 144 hours 12/31/16 11:15 CSF Gram Stain - Final Cerebral Spinal Fluid CSF Culture - Final Assessment and Plan Plan: Assessment: #1. Hyponatremia - resolved. Appears euvolemic in nature. He did have urinary retention which can be a contributing factor. Also concern of SIADH due to [employer] infection. Sodium level 127 on admission and is up to 148 today. TSH and cortisol level normal. #2. Urinary retention status post Cervantes catheter placement and removal. Did having high PVRs. #3. 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 Neurology and infectious disease following. #4. Hypokalemia secondary to poor oral intake. improved.Magnesium normal. #5. Nonoliguric acute kidney injury. Creatinine up to 1.54 today. Concern for acyclovir toxicity. Plan: Increase normal saline to be run at 150 mL an hour. Repeat urinalysis. Currently maintained on IV acyclovir. Infectious disease following. Continue to monitor renal function and urine output. Encourage oral intake. Continue to monitor postvoid residuals and to insert Cervantes catheter if greater than 250 mL present. Strict is and os. Repeat electrolytes in the morning.
[2017-01-05] MEDS: amLODIPine 5 MG TAB PO SCH (12:14)
[2017-01-05] MEDS: hydrALAZINE HCL 50 MG TAB PO SCH ×3 (12:14→22:11)
--- NOTE | 2017-01-05 12:27 | P.PN ---
Subjective This is a 81-year-old male one of Dr. Sanchez with a previous medical history significant for GERD, hyper lipidemia, osteophytes, enlarged prostate with lower urinary tract symptoms, degenerative disc disease of the lumbar spine under the care of Dr. Jack from pain management, history of mitral valve disorder, patient apparently was brought into the emergency department yesterday by his because of severe mental status changes with severe encephalopathy with negative computed tomography scan of the brain and negative chest x-ray however abnormal serum sodium with a sodium of 127 and a serum osmolality of 263, patient according to his was in his usual state of health about yesterday at around 2:30 in the afternoon when he was sitting in a recliner after he woke up in the morning and he took a shower and dressed up and suddenly he became quite confused and disoriented, patient became quite weak to the degree that he could not even make sense to a lot of things, he has no fever or chills at that time he had no nausea or vomiting at that time he had no coughing, patient's is a friend of and his had cold her and she was on her way to go see the patient however she told her that she is getting the patient to the ER for evaluation and subsequently was admitted to the hospital with neurology consultation was obtained. 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 Rodgers at the bedside I was concerned about the significant hyponatremia and the possibility of possible ischemic event even though the computed tomography scan was negative and we could be dealing with some acute event. 12/30: Patient remains confused and unable to follow most commands. feels the patient is a little improved and was able to take some oral medications this morning. Subsequently, patient refused to take Tylenol by mouth and was holding it in his mouth and would not swallow. Sodium is improved to 131 and chloride is 97. Repeat lactic acid normal. Cortisol 22, serum osmolality 263 and urine osmolality 754. Urine sodium is 125 with repeat of 90. Consult added for Dr. Porter with plan to continue fluid restriction, discontinue demeclocycline. He remains with Cervantes catheter in place for urinary retention. Patient had 3 episodes of diarrhea during the night and 1 in the morning on day shift. Stool is negative for C. difficile toxin. CAT scan of the brain done last evening showed age-related atrophy and chronic small vessel ischemic change without acute intracranial process. MRI of the brain done this morning revealed no acute intracranial process. Degenerative remote ischemic white matter changes suspected. There are areas of increased signal in the posterior left thalamus and temporal lobe most likely artifact but recommend repeat CAT scan of the head to exclude potential hemorrhage which is less likely. Patient' s third CAT scan of the brain done this morning reveals white matter ischemic changes. Stable from previous day. Carotid ultrasound showed severe right internal carotid artery stenosis greater than 70% and consult with Dr. Jsaso has been added. Echocardiogram reveals EF 50-55%, mild aortic sclerosis, mild mitral regurgitation, mild tricuspid regurgitation, mild concentric left ventricular hypertrophy. Patient was seen in consultation by Dr. Turcios with altered mental status most likely due to acute metabolic encephalopathy EEG has been ordered. 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 Espinoza and the patient was seen also in consultation by Dr. Bustamante from intensive care, patient was maintaining his airways, I had a long conversation with his at the bedside and they were in agreement for the above plan of treatment. 01/01: Consult was added for Dr. Espinoza. Patient currently on antimicrobials including acyclovir, ceftriaxone and vancomycin. He is also continued on Decadron. Neurology continues to follow the patient. EEG showed mild encephalopathy. Patient has been seen by nephrology for hyponatremia. Cervantes catheter has been maintained. Demeclocycline was discontinued. IV fluids increased. His mental status is slightly improved today and that he will follow a few commands and can make eye contact. 01/04: Dr. Espinoza has recommended acyclovir 800 mg 3 times daily for 2 weeks. Cervantes catheter will be discontinued. Consult added for Dr. Wen. Possible discharge in the next 24 hours. 01/05:01/05: Cervantes catheter was removed yesterday and patient required straight cath during the night. Patient has been evaluated by Dr. Wen and is not a candidate for inpatient rehab as he is unable to tolerate 3 hours of physical therapy. Renal function has worsened with BUN of 20 and creatinine 1.54. Magnesium is 2.3. Dr. Porter has increased IV fluids 250 mL per hour, repeat urinalysis. Patient has been accepted at [facility] once ready for discharge. Objective - Vital Signs Vital signs: Vital Signs Temp 97.8 F 01/05/17 07:00 Pulse 106 H 01/05/17 07:00 Resp 18 01/05/17 07:00 BP 182/98 01/05/17 07:00 Pulse Ox 96 01/05/17 07:00 Intake & Output 01/04/17 01/05/17 01/05/17 18:59 06:59 18:59 Output Total 925 700 Balance -925 -700 Output: Urine 925 700 Other: Voiding Method Indwelling Catheter # Voids 2 # Bowel Movements 2 - Exam General appearance: average body habitus, mild distress - EENT Eyes: anicteric sclerae, no PERRLA, no ptosis, no scleral icterus, normal appearance ENT: hearing grossly normal, NA/AT, normal oropharynx (A bit dry.) Ears: bilateral: normal - Neck Neck: normal ROM, no rigidity, no stridor Carotids: bilateral: upstroke normal Thyroid: bilateral: normal size - Respiratory Respiratory: bilateral: diminished, negative: dullness, rales, rhonchi, wheezing , prolonged expiration - Cardiovascular Rhythm: regular Heart sounds: normal: S1, S2 Abnormal Heart Sounds: no systolic murmur, no diastolic murmur, no rub, no S3 Gallop, no S4 Gallop, no click - Gastrointestinal General gastrointestinal: distended, normal bowel sounds, soft, tenderness, no umbilical hernia, no ventral hernia - Genitourinary Male genitourinary: enlarged prostate - Integumentary Integumentary: normal, normal turgor - Neurologic Neurologic: CNII-XII intact - Musculoskeletal Musculoskeletal: generalized weakness, strength equal bilaterally - Psychiatric Psychiatric: no A&O x's 3, no appropriate affect, no intact judgment & insight - Labs CBC & Chem 7: 01/04/17 08:11 01/05/17 07:47 Labs: Abnormal Lab Results - Last 24 Hours (Table) 01/05/17 Range/Units 07:47 Sodium 148 H (137-145) mmol/L Chloride 114 H (98-107) mmol/L BUN 28 H (9-20) mg/dL Creatinine 1.54 H (0.66-1.25) mg/dL Glucose 110 H (74-99) mg/dL Microbiology - Last 24 Hours (Table) 12/29/16 22:50 Blood Culture - Final Blood No Growth after 144 hours 12/31/16 11:15 CSF Gram Stain - Final Cerebral Spinal Fluid CSF Culture - Final Assessment and Plan Plan: 1. 1. 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 Continue acyclovir, infectious disease consultation. 2. Hyponatremia likely related to syndrome of inappropriate ADH secretion which is due to early meningitis, resolved 3. Enlarged prostate with urinary retention. A Cervantes catheter placement, start Flomax 0.4 mg orally twice every day. Currently monitoring post void residuals 4. Degenerative disc disease of the lumbar spine post epidural injection, discontinue tramadol, discontinue gabapentin, especially tramadol has the tendency to lower seizure threshold. 5. Hyperlipidemia. Continue Lipitor 10 mg orally once every day. 6. History of mitral valve disorder. We will get echo care gram. 7. Osteoarthritis. Stable at this time. 8. Acute kidney injury. Nephrology is following. IV fluids and recheck in the morning 9. GERD. Start the patient on Protonix 40 mg every 24 hours. 10. DVT prophylaxis. Heparin 5000 units subcutaneously every 12 hours as well as bilateral knee-high SHAR hose. 11. Patient is full code. Discharge plan: subacute rehab Impression and plan of care have been directed as dictated by the signing physician. Trudi Isbell nurse practitioner acting as scribe for signing physician.
--- NOTE | 2017-01-05 15:07 | P.PN ---
Subjective Principal diagnosis: HSV-2 meningitis This is a 81-year-old male patient, who was in a good state of health until approximately 4 days ago when he started developing acute mental status change. For that reason the patient was brought into the hospital as his mental status was gradually declining and this was witnessed by his . The patient had no fever chills or any night sweats. The patient had no neck stiffness. No skin rashes. No oral ulceration. No trauma to the head. No substance abuse. He was on his usual medication and there is no new medication change. No sick contacts. No travel history. Initially his sodium level was at 127 and his urine is osmolality was at 263. 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 Based on that he was placed on fluid restriction and he was given a dose of demeclocycline. Subsequent sodium levels improved. My understanding that the patient also had some urinary retention. The Cervantes catheter was inserted and immediately the bladder was emptied and this could have also contributed to his low sodium. Most recent sodium level is at 131. For now, the patient has undergone a neurologic workup and this included 2 CAT scans of the head and a subsequent MRI of the brain that was done on 2016. The MRI showed no acute intracranial process. There is degenerative remote ischemic white matter changes. There is an area of signal intensity at the level of posterior left thalamus and temporal lobe, likely an artifactual area and it was recommended to correlated with a repeat CAT scan of the brain to exclude any potential hemorrhage. The patient had a EGD that showed no evidence of any epileptic foci and showed mild encephalopathy. 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 The patient is slow in answering questions and obviously still encephalopathic. He can follow some simple commands. His considerably weak both in upper and lower extremities. No spasticity. No rigidity. He remains afebrile. He became a bit tachypneic this morning and there was no signs of any respiratory failure or distress. No reported aspiration. White cell count remains low at 5.7. The rest of the electrodes are all within normal limits. There is no significant acidosis from today. Patient's anion gap is at 14. Liver function tests are all within normal limits. Coagulation profile was within normal limits. Urine drug screen was also negative. Salicylate and acetaminophen levels were negative. Alcohol level was negative. C x-ray is within normal limits. Patient's pulse ox on room air is between 94-98%. No hypotension. Is producing adequate amount of urine output. He is currently not taking any IV fluids and repeat electrodes are still pending for now. The patient has had previous history of pain shots for lumbar ago by Dr. Jack and the last shot was more than 2 years ago. On the patient is being seen in follow-up. The patient remains in the intensive care unit. Please refer to the events that occurred over the past 24 hours. Specifically, the patient a lumbar puncture that came back abnormal. The patient had a mononuclear predominance with a total cell count of 323, 96% on nuclear cells. At the same time the CSF glucose was low at 36 and protein was high at 434. The Gram stain is negative thus far. Cultures also negative. Based on these findings, the patient was placed on a combination of IV acyclovir, IV vancomycin, IV Rocephin and IV ampicillin. MRI of the brain was repeated that showed no meningeal enhancement. No other abnormalities was noted. MRI of the entire spine showed no evidence of any epidural abscess collection. Clinically the patient is afebrile. His neck is not stiff. He seems to be much more alert compared to yesterday. He still has a garbled speech however he follows simple commands and responds appropriately and his neurologic exam is nonfocal. His sodium level is within normal limits at 136. The patient is being hydrated with normal saline. No other significant events overnight. Neurologist on the case. On 01/02/2017, the patient is being seen in follow-up. The patient seems to be a bit more interactive compared to yesterday. He is always is smiley and comfortable. Unable to speak in full sentences yet. He is following some simple commands. He has a low-grade temperature of 99.2. No significant neck stiffness. No seizure activity has been noted. The patient had HSV 2 by PCR positive in the CSF and this confirmed the diagnosis of HSV 2 meningitis. Progressive antibodies will be discontinued. The patient will be kept on IV acyclovir. Decadron will be discontinued. The patient has been stable for the past 24 hours and the patient can be transferred to a telemetry unit with neuro monitoring. Meanwhile, will continued IV fluids. The patient has not eaten yet and he refuses to eat. On 01/03/2017 the patient is showing slow yet steady recovery. His speech is more clear compared to yesterday. His still sometimes not cohesive. The tells that she is noting improvement. Neurologic exam is nonfocal. No seizure activity. The patient is currently on acyclovir for an HSV2 meningitis. He is afebrile. No neck stiffness. He is gradually increasing his oral intake. On 01/04/2017, patient is feeling much better, mental status is significantly improved according to the , patient is not confused, not lethargic, not obtunded, and he seems to be quite appropriate. Labs showed relatively normal CBC and normal basic metabolic profile except for a low potassium of 3.2 being corrected as per protocol. The patient is seen again today 01/05/2017 in follow-up on the regular floor. He is more awake and alert and his mentation is improving daily. He still has issues with appetite being poor and significant weakness. He has been up ambulating with assistance. He was evaluated by Dr. Wen for inpatient rehabilitation but he felt his weakness was too profound for 3 hours of therapy per day. He has been accepted into [facility] subacute rehabilitation area he has had issues with urinary retention and required a straight catheterization yesterday for retained urine postvoid. His creatinine is up today to 1.54. He is still on acyclovir. Sodium continues to rise as well at 148. He has no pulmonary complaints. He is maintaining good O2 saturations in the upper 90s on room air. He's been afebrile. Objective - Vital Signs Vital signs: Vital Signs Temp 97.8 F 01/05/17 07:00 Pulse 104 H 01/05/17 12:10 Resp 18 01/05/17 07:00 BP 153/81 01/05/17 12:10 Pulse Ox 96 01/05/17 07:00 Intake & Output 01/04/17 01/05/17 01/05/17 18:59 06:59 18:59 Output Total 925 700 Balance -925 -700 Output: Urine 925 700 Other: Voiding Method Indwelling Catheter # Voids 2 # Bowel Movements 2 - Exam GENERAL EXAM: Alert, improved mentation, comfortable in no apparent distress. HEAD: Normocephalic. EYES: Normal reaction of pupils, equal size. NOSE: Clear with pink turbinates. THROAT: No erythema or exudates. NECK: No masses, no JVD. CHEST: No chest wall deformity. LUNGS: Equal air entry with no crackles, wheeze, rhonchi or dullness. CVS: S1 and S2 normal with no audible murmurs, regular rhythm. ABDOMEN: No hepatosplenomegaly, normal bowel sounds, no guarding or rigidity. SPINE: No scoliosis or deformity SKIN: No rashes CENTRAL NERVOUS SYSTEM: No focal deficits, tone is normal in all 4 extremities. Extremities: There is no significant peripheral edema. No clubbing, no cyanosis. Peripheral pulses are intact. 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 Diagnoses been confirmed by PCR in the CSF. Patient currently is on IV acyclovir. 2 hyponatremia, recovered 3 chronic lower back pain 4 osteoarthritis 5 hyperlipidemia 6 BPH with retained postvoid residuals requiring straight cath. 7 acute kidney injury current creatinine 1.54. Plan: The patient was seen and evaluated by Dr. Blue. He is stable from the pulmonary and critical care standpoint. There is some concern regarding possible acyclovir toxicity with increasing creatinine. Nephrology is on the case as well and have increased in normal saline to 150 MLS per hour. We'll continue to monitor the renal function. Continue to monitor urine output. Increase his activity as tolerated with PT OT and speech therapies. We'll continue to follow.
[2017-01-05 15:12] VITALS: BMI 35.6
[2017-01-05 15:27] LABS: Appearance,Urine Clear (Clear); Bilirubin,Urine Negative (Negative); Glucose,Urine (UA) Negative (Negative); Ketones,Urine Negative (Negative); Leukocyte Esterase,Urine Negative (Negative); Nitrite,Urine Negative (Negative); Protein,Urine Negative (Negative); Specific Gravity,Urine 1.007 (1.001-1.035); UA Billing (MACRO vs. MICRO) CHEM; Urobilinogen,Urine <2.0 mg/dL (<2.0)
[2017-01-05] MEDS: ATORVASTATIN 10 MG TAB PO SCH (22:11)
[2017-01-06] MEDS: ACYCLOVIR SODIUM 800 MG in SODIUM CHLORIDE 0.9% 250 ML IV SCH ×3 (03:48→16:09)
[2017-01-06] MEDS: SODIUM CHLORIDE 0.9% 1,000 ML IV SCH ×4 (06:21→16:10)
--- NOTE | 2017-01-06 07:41 | PN ---
DATE OF SERVICE: 01/05/2017 Reason for followup is herpes encephalitis. INTERVAL HISTORY: The patient is afebrile. Has been breathing comfortably. Patient denies any significant chest pain. No cough, no abdominal, no nausea, or any diarrhea. On examination, blood pressure 154/90 with a pulse of 98, temperature 98.2, he is 96% on room air. General description is an elderly male, lying in bed in no distress. RESPIRATORY SYSTEM: Unlabored breathing. Clear to auscultation anteriorly. HEART: S1, S2, regular rate and rhythm. ABDOMEN: Soft, no tenderness. LABS: BUN of 28 with a creatinine of 1.54. UA has been negative. DIAGNOSTIC IMPRESSION AND PLAN: Patient with herpes encephalitis. Follow the patient, currently continue with the acyclovir with the kidney function. Nephrology is following the patient closely. Will repeat his BNP tomorrow and administer a dose of acyclovir if further elevation of the creatinine. Family present at the bedside. Their questions were answered. MARCO
[2017-01-06] MEDS: HEPARIN SODIUM,PORCINE 5,000 UNIT/ML 1 ML VIAL SQ SCH (09:07)
[2017-01-06] MEDS: hydrALAZINE HCL 50 MG TAB PO SCH (09:07)
[2017-01-06] MEDS: PANTOPRAZOLE 40 MG TABLET PO SCH (09:08)
[2017-01-06] MEDS: amLODIPine 5 MG TAB PO SCH (09:08)
[2017-01-06] MEDS: ASPIRIN 325 MG TAB PO SCH (09:08)
[2017-01-06] MEDS: TAMSULOSIN 0.4 MG CAP.ER.24H PO SCH (09:08)
--- NOTE | 2017-01-06 10:53 | P.PN ---
Subjective Patient is seen in follow-up for hyponatremia. His sodium level was 127 on admission. He was noted to have urinary retention and Cervantes catheter was placed. Cervantes catheter was removed and he required straight catheterization and subsequent reinsertion of the Cervantes catheter. His sodium level has been gradually getting higher and was 148 as of yesterday. His oral intake has improved. Patient is more awake and alert this morning and currently sitting up in a chair. No vomiting or diarrhea. He is currently being treated for HSV-2 meningitis. Denies chest pain or shortness of breath. creatinine was up to 1.54 yesterday and labs from today are pending at this time. He is currently on normal saline running at 150 mL an hour. Urinalysis is noted to be completely benign. Vital signs are stable. General: The patient appeared well nourished and normally developed. HEENT: Head exam is unremarkable. Neck is without jugular venous distension. LUNGS: Lungs are clear to auscultation and percussion. Breath sounds decreased. HEART: Rate and Rhythm are regular. First and second heart sounds normal. No murmurs, rubs or gallops. ABDOMEN: Abdominal exam reveals normal bowel sounds. Non-tender and non- distended. No evidence of peritonitis. EXTREMITITES: No clubbing, cyanosis, or edema. Objective - Vital Signs Vital signs: Vital Signs Temp 97.5 F L 01/06/17 07:00 Pulse 104 H 01/06/17 07:00 Resp 16 01/06/17 07:00 BP 156/94 01/06/17 07:00 Pulse Ox 93 L 01/06/17 07:00 Intake & Output 01/05/17 01/06/17 01/06/17 18:59 06:59 18:59 Intake Total 240 80 550 Output Total 1050 2500 Balance -810 -2420 550 Weight 116 kg Intake: IV 300 Sodium Chloride 0.9% 1, 300 000 ml @ 150 mls/hr IV . Q6H40M MEG Rx#:[id number] Intake, IV Titration 250 Amount Acyclovir Sodium 800 mg 250 In Sodium Chloride 0.9% 250 ml @ 266 mls/hr IV Q8H MEG Rx#:[id number] Oral 240 80 Output: Urine 1050 2300 Uretheral (Cervantes) 2100 Post Void Residual 200 Other: Voiding Method Urinal Diaper # Voids 3 # Bowel Movements 2 - Labs CBC & Chem 7: 01/04/17 08:11 01/05/17 07:47 Assessment and Plan Plan: Assessment: #1. Hyponatremia - resolved. Appears euvolemic in nature. He did have urinary retention which can be a contributing factor. 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 Sodium level 127 on admission and is up to 148 as of yesterday. TSH and cortisol level normal. #2. Urinary retention status post reinsertion of Cervantes catheter. #3. 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 Improved. Neurology and infectious disease following. #4. Hypokalemia secondary to poor oral intake. improved.Magnesium normal. #5. Nonoliguric acute kidney injury. Creatinine up to 1.54 as of yesterday. Concern for acyclovir toxicity. Urinalysis completely benign. Plan: Continue normal saline to be run at 150 mL an hour. Currently maintained on IV acyclovir. Infectious disease following. Continue to monitor renal function and urine output. Encourage oral intake. If renal function improved, he can be discharged to [facility]. He will need to get repeat BMP checked every 2-3 days while he is on IV acyclovir. I encouraged him to keep himself well-hydrated. He is to follow-up as an outpatient in the next 1-2 weeks.
[2017-01-06 12:24] LABS: Calcium 8.5 mg/dL (8.4-10.2); Potassium 3.5 mmol/L (3.5-5.1)
--- NOTE | 2017-01-06 12:34 | CDI ---
In responding to this query, please exercise your independent professional judgment. The [facility] Coding Staff and Clinical Documentation Specialists appreciate your assistance in clarifying documentation, maintaining compliance with coding guidelines, accurately documenting patients condition and capturing severity of illness. The fact that a question is asked does not imply that any particular answer is desired or expected. Communication forms are a method of clarifying documentation and are not made part of the Legal Health Record. Thank you in advance for your clarification. Last Revision, June 2015 [address] [place] [address] Documentation Clarification Form Date: 01/06/2017 12:24:00 PM From: Teagan Ahmadi, ALPA, CCDS Admit Date: 12/29/2016 1:35:00 AM Patient Name: Noble Carrera Visit Number: [id number] Discharge Date: Dr. Savannah Mayorga: Malnutrition has been documented in 01/02 & 01/03 progress notes as protein calorie malnutrition. History/Risk Factors: 81 yo male, admitted with altered mental status, diagnosed with Herpes menginitis and Herpes Encephalitis. Has been lethargic & refusing to eat, poor appetite for 1-2 weeks. Clinical Indicators: Albumin 4.1 - 3.8; Total Protein 6.9 - 6.3 Nutrition assessment: Obese, consuming 25-30% meals. BMI 35.6, overweight with inadequate oral intake. Treatment: Broad spectrum antibiotics, IV Narcan, IV fluids, Isolation precautions for suspected bacterial meningitis. Supplements: Ensure Plus ordered. In your professional opinion, can you please clarify if these findings signify one of the following conditions? Mild Protein Malnutrition Mild Protein-Calorie Malnutrition Moderate Protein Malnutrition Moderate Protein-Calorie Malnutrition Severe Protein Malnutrition Severe Protein-Calorie Malnutrition Other condition, please specify Unable to determine Please document in your progress notes and discharge summary in order to capture severity of illness and risk of mortality. Include clinical findings that support your diagnosis. FYI: Press F11 to launch patient chart. Place X here if this finding has no clinical significance, is not applicable or if you are not able to provide any additional documentation. Thank You. MARCO
[2017-01-06 15:39] VITALS: BP 161/76; RESP 20; TEMP 97.2
--- NOTE | 2017-01-06 16:46 | PN ---
DATE OF SERVICE: 01/06/2017 REASON FOR FOLLOWUP: Herpes encephalitis. INTERVAL HISTORY: The patient is afebrile. He is more awake, alert; breathing comfortably. Denies significant chest pain or cough. No abdominal pain or diarrhea. On examination, blood pressure 156/94 with a pulse of 104, temperature 97.5. He is 93% on room air. General description is an elderly male up in the chair in no distress. RESPIRATORY SYSTEM: Unlabored breathing. Clear to auscultation anteriorly. HEART: S1, S2. Regular rate and rhythm. ABDOMEN: Soft. No tenderness. LABS: BUN of 24 and a creatinine of 1.65. DIAGNOSTIC IMPRESSION AND PLAN: Patient with herpes encephalitis, for which the patient will continue on the IV acyclovir for another 2 weeks to finish about a 3-week course of therapy. His kidney function needs to be monitored closely. Plan of care discussed in detail with the primary team at the bedside.
[2017-01-06 16:56] VITALS: PULSE 104
--- NOTE | 2017-01-15 21:43 | IR ---
PICC LINE PLACEMENT: HISTORY: Infection requiring long-term antibiotic therapy PROCEDURE: Ultrasound guidance of PICC line placement. ABA THERAPIST: Dr. Elizalde. COMPLICATIONS: None ANESTHESIA: 1. 1% Lidocaine locally. FINDINGS/TECHNIQUE: The procedure was explained to the patient. The risks, complications, benefits and alternatives were discussed and any questions were answered. Informed consent was obtained. The patient was placed supine on the fluoroscopic table and prepped and draped in the usual sterile [facility]. Utilizing a 21 gauge needle and sonographic guidance, access in the left basilic vein was achi eved and there is placement of a 0.018 guidewire. The vein is patent. A 5-F. Sheath was placed over the guidewire. The guidewire and dilator were removed and a 5-F. Double lumen PICC line was placed through the sheath with the chest x-ray confirming the tip at the level of the SVC. The sheath was r emoved, the catheter was flushed and sutured into position. The patient was stable throughout the pr ocedure and remained stable upon discharge from the Department of Radiology. The vein puncture was patent under ultrasound. A ku scale image was obtained to document patency of the vein punctured. All elements of the maximal barrier technique were utilized. IMPRESSION: 1. Successful PICC line placement under ultrasound performed bedside.
== END 2017-01-06 17:29 | DRG 75 ==
LOC: EC 21:50 → OBSVTOIN 12-29 01:35 → 5MS5E 12-29 01:35 → 6ICU 12-29 05:49 → 5MS5E 12-29 05:52 → 6ICU 12-31 09:51 → 6SEL 01-02 16:53 → 4MS4W 01-03 21:49
PROVIDERS: ADMIT Internal Medicine; ATTEND Internal Medicine
PROC: 009U3ZX Drainage of Spinal Canal, Percutaneous Approach, Diagnostic (ICD-10-PCS; principal; 2016-12-31 15:05)
DX: B00.3 Herpesviral meningitis (principal); B00.4 Herpesviral encephalitis; G93.41 Metabolic encephalopathy; N17.9 Acute kidney failure, unspecified; E22.2 Syndrome of inappropriate secretion of antidiuretic hormone; E44.1 Mild protein-calorie malnutrition; E78.5 Hyperlipidemia, unspecified; E87.6 Hypokalemia; F10.21 Alcohol dependence, in remission; G89.29 Other chronic pain; I08.1 Rheumatic disorders of both mitral and tricuspid valves; I65.21 Occlusion and stenosis of right carotid artery; I70.0 Atherosclerosis of aorta; K21.9 Gastro-esophageal reflux disease without esophagitis; M19.90 Unspecified osteoarthritis, unspecified site; M51.36 Other intervertebral disc degeneration, lumbar region; N40.1 Benign prostatic hyperplasia with lower urinary tract symptoms; R33.8 Other retention of urine; Z79.899 Other long term (current) drug therapy; Z82.49 Family history of ischemic heart disease and other diseases of the circulatory system; Z87.891 Personal history of nicotine dependence; R19.7 Diarrhea, unspecified
CPT/HCPCS: 36415; 36569; 70450; 70551; 70552; 71010; 71020; 72156; 72157; 72158; 76937; 77001; 80048; 80053; 80306; 80320; 81001; 81003; 82042; 82140; 82533; 82553; 82805; 82945; 83090; 83520; 83605; 83735; 83930; 83935; 84157; 84300; 84443; 84484; 84550; 85025; 85027; 85379; 85610; 85652; 85730; 86038; 86235; 86255; 86431; 86618; 86780; 86789; 87040; 87070; 87075; 87205; 87252; 87324; 87496; 87498; 87529; 87798; 88108; 89050; 93005; 93306; 93880; 95819

== ENCOUNTER 2017-05-05 09:50 | Inpatient (IN) | payer MEDICARE ==
[2017-05-05 10:32] LABS: Basophils % (A) 1 %; CH 31.7; CHCM 37.1; Eosinophils # (A) 0.1 k/uL (0-0.7); Eosinophils % (A) 1 %; HCT 39.2 % (39.0-53.0); HDW 2.58; HGB 14.5 gm/dL (13.0-17.5); Luc # (Auto) 0.09; Luc % (Auto) 2; Lymphocytes % (A) 17 %; MCH 31.6 pg (25.0-35.0); MCHC 36.9 g/dL (31.0-37.0); MCV 85.7 fL (80.0-100.0); Mean Platelet Volume 6.6; Monocytes # (A) 0.5 k/uL (0-1.0); Monocytes % (A) 8 %; Neutrophils # (A) 4.3 k/uL (1.3-7.7); Neutrophils % (A) 73 %; RBC 4.58 m/uL (4.30-5.90); RDW 12.1 % (11.5-15.5); WBC 5.9 k/uL (3.8-10.6); WBC (Perox) 6.25
[2017-05-05 10:40] LABS: ALT 29 U/L (21-72); AST 21 U/L (17-59); Alkaline Phosphatase 68 U/L (38-126); Anion Gap 10 mmol/L; Blood Urea Nitrogen 15 mg/dL (9-20); Calcium 9.1 mg/dL (8.4-10.2); Carbon Dioxide 25 mmol/L (22-30); Chloride 85 mmol/L (98-107); Glucose 94 mg/dL (74-99); Non-African American GFR(MDRD) >60 (>60 ml/min/1.73 sqM); Potassium 4.5 mmol/L (3.5-5.1); Total Bilirubin 0.6 mg/dL (0.2-1.3); Total Protein 6.6 g/dL (6.3-8.2)
[2017-05-05 10:41] LABS: INR 1.1 (<1.2); Partial Thromboplastin Time 27.1 sec (22.0-30.0); Prothrombin Time 10.7 sec (9.0-12.0)
[2017-05-05 10:45] LABS: Sodium 120 mmol/L (137-145)
[2017-05-05] MEDS ORDERED: SODIUM CHLORIDE 0.9% 1,000 ML IV SCH ×2 (10:45→12:00)
[2017-05-05 11:03] LABS: Creatine Kinase MB 0.8 ng/mL (0.0-2.4); Troponin I 0.019 ng/mL (0.000-0.034)
--- NOTE | 2017-05-05 11:12 | CT ---
EXAMINATION TYPE: CT brain wo con DATE OF EXAM: 05/05/2017 COMPARISON: 12/30/16 HISTORY: Dizziness CT DLP: 1090.[address] of the brain was performed. The ventricles, basal cisterns and sulci overlying the cerebral convexities demonstrate mild enlargem ent. There is no evidence for intracranial hemorrhage or sulcal effacement. There is decreased attenuation about the periventricular white matter and deep white matter of both c erebral hemispheres, compatible with chronic small vessel ischemia. Differential diagnosis does inclu de demyelination. No mass effects are seen.No midline shift. Osseous calvarium is intact. If symptoms persist consider MRI. IMPRESSION: 1. Age related atrophic and chronic small vessel ischemic change without acute intracranial process s een at this time.
--- NOTE | 2017-05-05 11:34 | XR ---
EXAMINATION TYPE: XR chest 2V DATE OF EXAM: 05/05/2017 COMPARISON: 12/31/2016 HISTORY: Shortness of breath TECHNIQUE: Frontal and lateral views of the chest are obtained. FINDINGS: Scattered senescent parenchymal changes noted. Hyperinflation compatible with COPD. No evidence for infiltrate. No evidence for atelectasis. Heart size is stable. Mediastinal structures are stable and grossly unremarkable. No evidence for hilar prominence. Degenerative changes dorsal spine. IMPRESSION: 1. No evidence for acute pulmonary disease.
--- NOTE | 2017-05-05 11:42 | ED ---
General Adult HPI - General Chief complaint: Recheck/Abnormal Lab/Rx Stated complaint: Weakness Time Seen by Provider: 05/05/17 09:55 Source: patient, EMS, RN notes reviewed, old records reviewed Mode of arrival: EMS Limitations: no limitations - History of Present Illness Initial comments: 81-year-old male presents for evaluation of episode of confusion. Patient was at restaurant this morning where he is well-known, he was having difficulty finding words, staring into space. Restaurant staff did call EMS as well as the patient's . By time EMS arrived symptoms resolved. Patient was alert and oriented 3. No complaints. He does not specifically remember these events. Patient had recent hospital admission with viral meningitis and subsequently went to rehab, he has been home for approximately 5 weeks. He was recently started on antidepressant medication, no other changes in medications recently. Patient has no complains. No headache. No chest patient was brought. No fever or chills. - Related Data Home Medications Medication Instructions Recorded Confirmed Atorvastatin Calcium [Lipitor] 10 mg PO HS 12/29/16 05/05/17 Tamsulosin HCl [Flomax] 0.4 mg PO BID 12/29/16 05/05/17 Baclofen [Baclofen] 5 mg PO TID PRN 05/05/17 05/05/17 Citalopram Hydrobromide 20 mg PO DAILY 05/05/17 05/05/17 [Citalopram HBr] Sodium Bicarbonate Tab 650 mg PO BID 05/05/17 05/05/17 Allergies Allergy/AdvReac Type Severity Reaction Status Date / Time thallium-201 Allergy Severe Dyspnea Verified 05/05/17 10:36 Review of Systems ROS Statement: Those systems with pertinent positive or pertinent negative responses have been documented in the HPI. ROS Other: All systems not noted in ROS Statement are negative. 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 Past Anesthesia/Blood Transfusion Reactions: No Reported Reaction Past Psychological History: No Psychological Hx Reported Smoking Status: Former smoker Past Alcohol Use History: None Reported Past Drug Use History: None Reported - Past Family History Mother Family Medical History: Cancer (Mother from lung cancer as well as dementia at the age of 70.) Additional Family Medical History / Comment(s): lung Father History Unknown: Yes Family Medical History: No Reported History (Father in his 40s due to alcohol isn't.) Additional Family Medical History / Comment(s): "i don't know a lot about him...he as an alcoholic Brother(s) Family Medical History: Coronary Artery Disease (CAD) (Patient had 2 brothers one as a drug overdose in his 30s and the other one has CAD.) Sister(s) Family Medical History: Cancer, Coronary Artery Disease (CAD) (Patient has one sister with CAD and breast cancer.) Son(s) Family Medical History: No Reported History (Patient has 3 sons to contact and one healthy.) General Exam Limitations: no limitations General appearance: alert, in no apparent distress Head exam: Present: atraumatic, normocephalic Eye exam: Present: normal appearance, PERRL ENT exam: Present: normal exam, mucous membranes moist Neck exam: Present: normal inspection. Absent: meningismus, full ROM Respiratory exam: Present: normal lung sounds bilaterally, respiratory distress Cardiovascular Exam: Present: regular rate, normal rhythm GI/Abdominal exam: Absent: soft, distended, tenderness Extremities exam: Present: normal inspection, normal capillary refill. Absent: pedal edema Neurological exam: Present: alert, oriented X3, CN II-XII intact. Absent: motor sensory deficit Psychiatric exam: Present: normal affect, normal mood Skin exam: Present: warm, dry, intact. Absent: cyanosis, diaphoretic Course Vital Signs 05/05/17 05/05/17 09:52 11:04 Temperature 97.3 F L 97.8 F Pulse Rate 71 62 Respiratory 18 18 Rate Blood Pressure 166/109 163/80 O2 Sat by Pulse 98 100 Oximetry EKG Findings - EKG Comments: EKG Findings:: EKG shows normal sinus rhythm, ventricular rate 65, [place] 144, castration 1.6, QTC 424, there is right bundle branch block, no signs of ischemia Medical Decision Making - Medical Decision Making 81-year-old male presenting with episode of confusion. This was resolved at the time my evaluation. Neurologic examination was nonfocal. Head CT obtained showed no acute intracranial process, chest x-ray showed no active disease. Laboratory studies including CBC and CMP is significant for hyponatremia otherwise unremarkable. Patient's sodium is 120. This may explain the patient' s symptoms. Urinalysis is pending Diagnosis: Hyponatremia with confusion - Lab Data Result diagrams: 05/05/17 10:04 05/05/17 10:04 Lab Results 05/05/17 05/05/17 05/05/17 Range/Units 10:04 10:04 10:04 WBC 5.9 (3.8-10.6) k/uL RBC 4.58 (4.30-5.90) m/uL Hgb 14.5 (13.0-17.5) gm/dL Hct 39.2 (39.0-53.0) % MCV 85.7 (80.0-100.0) fL MCH 31.6 (25.0-35.0) pg MCHC 36.9 (31.0-37.0) g/dL RDW 12.1 (11.5-15.5) % Plt Count 268 (150-450) k/uL Neutrophils % 73 % Lymphocytes % 17 % Monocytes % 8 % Eosinophils % 1 % Basophils % 1 % Neutrophils # 4.3 (1.3-7.7) k/uL Lymphocytes # 1.0 (1.0-4.8) k/uL Monocytes # 0.5 (0-1.0) k/uL Eosinophils # 0.1 (0-0.7) k/uL Basophils # 0.0 (0-0.2) k/uL PT (9.0-12.0) sec INR (<1.2) APTT (22.0-30.0) sec Sodium 120 L* (137-145) mmol/L Potassium 4.5 (3.5-5.1) mmol/L Chloride 85 L (98-107) mmol/L Carbon Dioxide 25 (22-30) mmol/L Anion Gap 10 mmol/L BUN 15 (9-20) mg/dL Creatinine 0.90 (0.66-1.25) mg/dL Est GFR (MDRD) Af Amer >60 (>60 ml/min/1.73 sqM) Est GFR (MDRD) Non-Af >60 (>60 ml/min/1.73 sqM) Glucose 94 (74-99) mg/dL Calcium 9.1 (8.4-10.2) mg/dL Total Bilirubin 0.6 (0.2-1.3) mg/dL AST 21 (17-59) U/L ALT 29 (21-72) U/L Alkaline Phosphatase 68 (38-126) U/L Total Creatine Kinase 57 (55-170) U/L CK-MB (CK-2) 0.8 (0.0-2.4) ng/mL CK-MB (CK-2) Rel Index 1.4 Troponin I 0.019 (0.000-0.034) ng/mL Total Protein 6.6 (6.3-8.2) g/dL Albumin 4.1 (3.5-5.0) g/dL 05/05/17 Range/Units 10:04 WBC (3.8-10.6) k/uL RBC (4.30-5.90) m/uL Hgb (13.0-17.5) gm/dL Hct (39.0-53.0) % MCV (80.0-100.0) fL MCH (25.0-35.0) pg MCHC (31.0-37.0) g/dL RDW (11.5-15.5) % Plt Count (150-450) k/uL Neutrophils % % Lymphocytes % % Monocytes % % Eosinophils % % Basophils % % Neutrophils # (1.3-7.7) k/uL Lymphocytes # (1.0-4.8) k/uL Monocytes # (0-1.0) k/uL Eosinophils # (0-0.7) k/uL Basophils # (0-0.2) k/uL PT 10.7 (9.0-12.0) sec INR 1.1 (<1.2) APTT 27.1 (22.0-30.0) sec Sodium (137-145) mmol/L Potassium (3.5-5.1) mmol/L Chloride (98-107) mmol/L Carbon Dioxide (22-30) mmol/L Anion Gap mmol/L BUN (9-20) mg/dL Creatinine (0.66-1.25) mg/dL Est GFR (MDRD) Af Amer (>60 ml/min/1.73 sqM) Est GFR (MDRD) Non-Af (>60 ml/min/1.73 sqM) Glucose (74-99) mg/dL Calcium (8.4-10.2) mg/dL Total Bilirubin (0.2-1.3) mg/dL AST (17-59) U/L ALT (21-72) U/L Alkaline Phosphatase (38-126) U/L Total Creatine Kinase (55-170) U/L CK-MB (CK-2) (0.0-2.4) ng/mL CK-MB (CK-2) Rel Index Troponin I (0.000-0.034) ng/mL Total Protein (6.3-8.2) g/dL Albumin (3.5-5.0) g/dL Disposition Clinical Impression: Hyponatremia Disposition: ADMITTED IP TO THIS [facility] Condition: Stable Referrals: Bhaskar Sanchez MD [Primary Care Provider] - 1-2 days Decision to Admit Reason: Admit from EC Decision Date: 05/05/17 Decision Time: 11:42
[2017-05-05] MEDS ORDERED: BACLOFEN 10 MG TAB PO PRN (11:46)
--- NOTE | 2017-05-05 13:03 | P.HPIM ---
History of Present Illness H&P Date: 05/05/17 Chief Complaint: dizziness This is a 81-year-old male one of Dr. Sanchez with a previous medical history significant for GERD, hyper lipidemia, osteophytes, enlarged prostate with lower urinary tract symptoms, degenerative disc disease of the lumbar spine under the care of Dr. 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 He contacted the staff, patient was confused, had difficulty finding words and was staring into space. Patient is a regular visitor at the restaurant and staff felt that the patient was behaving differently and called the EMS. According to the , patient has been confused, forgetful, with low energy for the past Wednesday. He also had been depressed and has requested his primary care physician for antidepressant and was started on citalopram last week. Patient was doing well post his discharge from the hospital in December. He finished a month of rehabitation at [facility] and was receiving physical therapy for the past few weeks. Patient denies any headache, change in vision, loss of function in any extremities are loss of sensation. Patient denies any nausea, vomiting or diarrhea. He has a good appetite and was eating and drinking without difficulty. Patient denies any change in the medication, any recent travel or sick contact. She denies any seizure like activity. Initial sodium in the ED is 120, chloride 85, anion gap 10, creatinine 0.9, normal troponin and normal CBC. CT head was negative for any acute abnormality except for age-related atrophic and chronic small vessel ischemic changes. Chest x-ray negative for any acute pulmonary changes. Since patient has symptomatic hyponatremia, patient will be admitted for management of hyponatremia Review of Systems Constitutional: Reports daytime sleepiness, Reports fatigue, Reports lethargy, Denies anorexia, Denies chills, Denies chronic headaches, Denies chronic pain, Denies fever, Denies poor appetite, Denies weakness, Denies weight loss Eyes: denies blurred vision, denies decreased vision, denies diplopia, denies pain, denies loss of peripheral vision, denies loss of vision Ears: deny: decreased hearing Ears, nose, mouth and throat: Denies ant. neck pain, Denies headache, Denies nasal discharge, Denies neck fullness/pressure, Denies voice changes Cardiovascular: Reports lightheadedness, Denies chest pain, Denies dyspnea on exertion, Denies high blood pressure, Denies leg edema, Denies palpitations, Denies rapid heart beat, Denies shortness of breath, Denies syncope Respiratory: Denies congestion, Denies cough, Denies dyspnea, Denies pain on inspiration Gastrointestinal: Denies abdominal pain, Denies bloating, Denies change in bowel habits, Denies diarrhea, Denies early satiety, Denies hematemesis, Denies loss of appetite, Denies vomiting Genitourinary: Denies dysuria, Denies flank pain, Denies hematuria Musculoskeletal: Reports gait dysfunction, Denies arm numbness/tingling, Denies leg numbness/tingling, Denies limitation of motion, Denies low back pain, Denies neck pain, Denies neck stiffness Musculoskeletal: right: as per HPI, absent: ankle pain, foot pain, knee pain, wrist pain Integumentary: Denies change in hair/nails, Denies lesions, Denies rash Neurological: Reports balance difficulties, Reports change in mentation, Reports confusion, Denies change in speech, Denies convulsions, Denies double vision, Denies head injury, Denies loss of vision, Denies motor disturbance, Denies numbness, Denies paresthesias, Denies seizures, Denies sensory deficit, Denies transient paralysis, Denies tremors, Denies vertigo, Denies visual changes Psychiatric: Reports confusion, Reports depression, Reports hypersomnia, Reports memory loss, Reports sadness/tearfulness, Denies anxiety, Denies change in sleep habits, Denies disorientation, Denies suicidal ideation Endocrine: Reports fatigue, Denies deepening of the voice, Denies excessive sweating, Denies excessive thirst, Denies flushing, Denies heat intolerance, Denies high blood sugars, Denies palpitations, Denies recent glucocorticoid use , Denies weight change Past Medical History Past Medical History: GERD/Reflux, Hyperlipidemia, Musculoskeletal Disorder, Osteoarthritis (OA), Prostate Disorder Additional Past Medical History / Comment(s): chronic back pain, arthritis; colonoscopy(s), mitral valve disorder History of Any Multi-Drug Resistant Organisms: None Reported Past Surgical History: Tonsillectomy Additional Past Surgical History / Comment(s): Tonsillectomy, 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 Past Anesthesia/Blood Transfusion Reactions: No Reported Reaction Past Psychological History: No Psychological Hx Reported, Depression Smoking Status: Former smoker Past Alcohol Use History: None Reported Past Drug Use History: None Reported - Past Family History Mother Family Medical History: Cancer (Mother from lung cancer as well as dementia at the age of 70.) Additional Family Medical History / Comment(s): lung Father History Unknown: Yes Family Medical History: No Reported History (Father in his 40s due to alcohol isn't.) Additional Family Medical History / Comment(s): "i don't know a lot about him...he as an alcoholic Brother(s) Family Medical History: Coronary Artery Disease (CAD) (Patient had 2 brothers one as a drug overdose in his 30s and the other one has CAD.) Sister(s) Family Medical History: Cancer, Coronary Artery Disease (CAD) (Patient has one sister with CAD and breast cancer.) Son(s) Family Medical History: No Reported History (Patient has 3 sons to contact and one healthy.) Medications and Allergies Home Medications Medication Instructions Recorded Confirmed Type Atorvastatin Calcium [Lipitor] 10 mg PO HS 12/29/16 05/05/17 History Tamsulosin HCl [Flomax] 0.4 mg PO BID 12/29/16 05/05/17 History Baclofen [Baclofen] 5 mg PO TID PRN 05/05/17 05/05/17 History Citalopram Hydrobromide 20 mg PO DAILY 05/05/17 05/05/17 History [Citalopram HBr] Sodium Bicarbonate Tab 650 mg PO BID 05/05/17 05/05/17 History Allergies Allergy/AdvReac Type Severity Reaction Status Date / Time thallium-201 Allergy Severe Dyspnea Verified 05/05/17 10:36 Physical Exam Vitals: Vital Signs Temp Pulse Resp BP Pulse Ox 05/05/17 11:04 97.8 F 62 18 163/80 100 05/05/17 09:52 97.3 F L 71 18 166/109 98 Intake and Output 05/04/17 05/05/17 05/05/17 22:59 06:59 14:59 Other: Weight 79.379 kg Patient Weight 05/06/17 06:59 Weight 79.379 kg - Constitutional General appearance: average body habitus, cooperative, no acute distress - EENT Eyes: EOMI, PERRLA, no photophobia ENT: normal oropharynx Ears: bilateral: normal - Neck Neck: no lymphadenopathy, no normal ROM, no rigidity Carotids: bilateral: upstroke normal Thyroid: bilateral: normal size - Respiratory Respiratory: bilateral: diminished (diminished at bases ), negative: dullness, rales, rhonchi, wheezing - Cardiovascular Rhythm: regular Heart sounds: normal: S1, S2 Abnormal Heart Sounds: no systolic murmur, no diastolic murmur - Gastrointestinal General gastrointestinal: no organomegaly, soft, no tenderness - Neurologic Neurologic: CNII-XII intact - Musculoskeletal Musculoskeletal: strength equal bilaterally - Psychiatric Psychiatric: A&O x's 3 (patient appeared confused and didnot know why was he brought to the hospital. He was otherwise OX3) Results CBC & Chem 7: 05/05/17 10:04 05/05/17 10:04 Labs: Abnormal Lab Results - Last 24 Hours (Table) 05/05/17 Range/Units 10:04 Sodium 120 L* (137-145) mmol/L Chloride 85 L (98-107) mmol/L Thrombosis Risk Factor Assmnt - DVT/VTE Prophylaxis DVT/VTE Prophylaxis: Pharmacologic Prophylaxis ordered - Choose All That Apply Each Risk Factor Represents 2 Points: Patient confined to bed Each Risk Factor Represents 3 Points: Age 75 years or older Thrombosis Risk Factor Assessment Total Risk Factor Score: 5 Thrombosis Risk Factor Assessment Level: High Risk Assessment and Plan Plan: 81 years old male with history of GERD, hyperlipidemia, and last prostate with lower urinary tract symptoms, degenerative disc disease of lumbar spine, history of medullary dysautonomia with recent admission in December 2016 for acute encephalopathy secondary to meningitis and hyponatremia from [facility] presents with another episode of confusion, gait instability change in mental status likely secondary to hyponatremia. 1. Metabolic encephalopathy secondary to hyponatremia - Likely secondary to SIADH since patient had a recent presentation of [facility] from meningitis. - Urine sodium, urine osmolarity and serum osmolality ordered - serum sodium every 6 hours - Discontinue fluids and keep patient on fluid restriction of 1000 mL - Nephrology consult - Repeat BMP in a.m. 2. Enlarged prostate - continue Flomax 0.4 mg orally twice daily 3. Degenerative disc disease of lumbar spine with history of epidural injection in the past - Baclofen 10 mg po TID prn 4. Hyperlipidemia. Continue Lipitor 10 mg orally once every day. 5. History of mitral valve disorder. asymptomatic 6. Osteoarthritis. Stable at this time. 7. GERD. - Will start the patient on pepcid 20 mg po daily 8. DVT prophylaxis. - Heparin 5000 units subcutaneously every 12 hours 9. Patient is full code. 10. Admitted to inpatient. Estimate a length of stay 2 midnights.
[2017-05-05 16:00] LABS: Glucose,Whole Blood 88 mg/dL (75-99)
[2017-05-05 16:04] LABS: Appearance,Urine Clear (Clear); Bilirubin,Urine Negative (Negative); Glucose,Urine (UA) Negative (Negative); Ketones,Urine 1+ (Negative); Leukocyte Esterase,Urine Negative (Negative); Nitrite,Urine Negative (Negative); PH, Urine 6.5 (5.0-8.0); Protein,Urine Negative (Negative); Specific Gravity,Urine 1.005 (1.001-1.035); UA Billing (MACRO vs. MICRO) CHEM; Urobilinogen,Urine <2.0 mg/dL (<2.0)
[2017-05-05] MEDS ORDERED: SODIUM CHLORIDE 3%(HYPERTONIC) 500 ML IV ONE (16:15)
--- NOTE | 2017-05-05 16:47 | P.CNPUL ---
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 The patient was having difficulties in finding words and staring off into space and he was found also to be stumbling. At that time EMS was called and the patient was brought into this hospital for further evaluation. The also noted that the patient is becoming confused and forgetful and having difficulties in strength and complaining of generalized weakness since last week. Note that the patient was also feeling depressed and he was seen by his primary care physician and he was started on citalopram last week. No other medication changes were done. Note that following discharge from the hospital in December 2016 the patient underwent rehabilitation and he was recovering reasonably well. No headache. No neck stiffness. No diarrhea. No use of any diuretics. His sodium at time of admission was 120 with a chloride of 85 with anion gap of 10. Renal function was stable with a creatinine of 0.9. CAT scan of the brain showed no acute abnormalities and there was age-related atrophy. Chest x-ray showed no acute abnormalities in the lung. The patient will be started on hypertonic saline at 50% at the rate of 40s an hour and he was brought into the intensive care unit for further monitoring. No hypotension. No fever. Review of Systems Constitutional: Reports daytime sleepiness, Reports fatigue, Reports weakness Eyes: denies as per HPI, denies blurred vision, denies bulging eye, denies decreased vision Ears: deny: decreased hearing, ear discharge, earache Cardiovascular: Denies chest pain, Denies shortness of breath Respiratory: Denies cough Gastrointestinal: Denies abdominal pain, Denies diarrhea, Denies nausea, Denies vomiting Genitourinary: Reports as per HPI Musculoskeletal: Reports gait dysfunction, Reports muscle weakness Musculoskeletal: absent: ankle pain, ankle stiffness, ankle swelling Integumentary: Denies pruritus, Denies rash Neurological: Reports change in mentation, Reports confusion, Reports gait dysfunction, Reports numbness, Reports weakness Psychiatric: Reports depression Endocrine: Denies fatigue, Denies weight change Past Medical History Past Medical History: GERD/Reflux, Hyperlipidemia, Musculoskeletal Disorder, Osteoarthritis (OA), Prostate Disorder Additional Past Medical History / Comment(s): 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 History of Any Multi-Drug Resistant Organisms: None Reported Past Surgical History: Tonsillectomy Additional Past Surgical History / Comment(s): Tonsillectomy, 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 Past Anesthesia/Blood Transfusion Reactions: No Reported Reaction Past Psychological History: No Psychological Hx Reported, Depression Smoking Status: Former smoker Past Alcohol Use History: None Reported Past Drug Use History: None Reported - Past Family History Mother Family Medical History: Cancer (Mother from lung cancer as well as dementia at the age of 70.) Additional Family Medical History / Comment(s): lung Father History Unknown: Yes Family Medical History: No Reported History (Father in his 40s due to alcohol isn't.) Additional Family Medical History / Comment(s): "i don't know a lot about him...he as an alcoholic Brother(s) Family Medical History: Coronary Artery Disease (CAD) (Patient had 2 brothers one as a drug overdose in his 30s and the other one has CAD.) Sister(s) Family Medical History: Cancer, Coronary Artery Disease (CAD) (Patient has one sister with CAD and breast cancer.) Son(s) Family Medical History: No Reported History (Patient has 3 sons to contact and one healthy.) Medications and Allergies Home Medications Medication Instructions Recorded Confirmed Type Atorvastatin Calcium [Lipitor] 10 mg PO HS 12/29/16 05/05/17 History Tamsulosin HCl [Flomax] 0.4 mg PO BID 12/29/16 05/05/17 History Baclofen [Baclofen] 5 mg PO TID PRN 05/05/17 05/05/17 History Citalopram Hydrobromide 20 mg PO DAILY 05/05/17 05/05/17 History [Citalopram HBr] Sodium Bicarbonate Tab 650 mg PO BID 05/05/17 05/05/17 History Allergies Allergy/AdvReac Type Severity Reaction Status Date / Time thallium-201 Allergy Severe Dyspnea Verified 05/05/17 10:36 Physical Exam Vitals: Vital Signs Temp Pulse Pulse Resp BP BP Pulse Ox 05/05/17 16:00 97.9 F 70 68 16 182/89 99 05/05/17 14:29 64 16 05/05/17 14:00 97.6 F 64 16 188/88 100 05/05/17 13:19 97.6 F 63 20 164/78 97 05/05/17 11:04 97.8 F 62 18 163/80 100 05/05/17 09:52 97.3 F L 71 18 166/109 98 Intake and Output 05/05/17 05/05/17 05/05/17 06:59 14:59 22:59 Output Total 400 Balance -400 Output: Urine 400 Other: Voiding Method Urinal Urinal Weight 79.379 kg Patient Weight 05/06/17 06:59 Weight 79.379 kg The patient is a well-developed male patient, nonacute distal distress. Not using excessive muscle breathing. Neurologically, His lethargic and obtunded. He opens his eyes spontaneously. At times he is able to follow simple commands such as squeezing with his fingers and moving his toes stents taken out his tongue and the majority of these are simple commands. His speech is delayed and garbled.Head exam was generally normal. There was no scleral icterus or corneal arcus. Mucous membranes were moist. No neck stiffness.Neck was supple and without jugular venous distension, thyromegaly, or carotid bruits. Carotids were easily palpable bilaterally. There was no adenopathy.Lungs were clear to auscultation and percussion, and with normal diaphragmatic excursion. No wheezes or rales were noted. Cardiac exam revealed the PMI to be normally situated and sized. The rhythm was regular and no extrasystoles were noted during several minutes of auscultation. The first and second heart sounds were normal and physiologic splitting of the second heart sound was noted. There were no murmurs, rubs, clicks, or gallops.Abdominal exam revealed normal bowel sounds. The abdomen was soft, non-tender, and without masses, organomegaly, or appreciable enlargement of the abdominal aorta.Examination of the extremities revealed easily palpable radial, femoral and pedal pulses. There was no cyanosis , clubbing or edema. Skin is negative for any skin rashes ulcerations or wounds or cellulitis. Skeletal is negative for any joint deformities. Results - Laboratory Findings CBC and BMP: 05/05/17 10:04 05/05/17 14:02 PT/INR, D-dimer PT 10.7 sec (9.0-12.0) 05/05/17 10:04 INR 1.1 (<1.2) 05/05/17 10:04 Abnormal lab findings: Abnormal Labs 05/05/17 05/05/17 05/05/17 10:04 14:02 15:45 Sodium 120 L* 120 L* Chloride 85 L Urine Ketones 1+ H Ur Random Sodium 05/05/17 15:45 Sodium Chloride Urine Ketones Ur Random Sodium 28 L - Diagnostic Findings Chest x-ray: image reviewed Assessment and Plan Plan: Assessment 1 acute hyponatremia and the patient's sodium was as low as 120 knowing that his baseline sodium was normal back in January 2017. Rule out SIADH. This could be a drug-induced SIADH knowing that the patient was recently started on Celexa. Other possibilities include paraneoplastic SIADH. Chest x-ray was clear of any lung masses or lesions. No other obvious causes for this patient' s hyponatremia. Will restrict fluids. We'll start the patient hypertonic saline knowing that the patient is having acute neurologic manifestations. 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 Start the patient hypertonic saline 3% saline and this will be at the rate of 40 mL an hour. The rate of sodium increased to be not more than 10 mEq over 24 hours. We will proceed with slowly correcting the patient's sodium level. Stop Celexa for now. Will screen the patient for any malignancy with a CAT scan of the chest if the sodium levels remain low and nonresponsive. Monitor the sodium level every 6 hours in the ICU. We'll continue to follow urine osmolality and serum osmolality was sent and results are still pending for now. We will need also a baseline thyroid function tests.
[2017-05-05] MEDS ORDERED: ENALAPRILAT 1.25 MG/ML 1 ML VIAL IVP PRN (16:48)
[2017-05-05 20:35] LABS: Uric Acid 4.3 mg/dL (3.5-8.5)
[2017-05-05] MEDS: TAMSULOSIN 0.4 MG CAP.ER.24H PO SCH (21:02)
[2017-05-05] MEDS: ATORVASTATIN 10 MG TAB PO SCH (21:02)
[2017-05-05] MEDS: HEPARIN SODIUM,PORCINE 5,000 UNIT/ML 1 ML VIAL SQ SCH (21:02)
[2017-05-06] MEDS ORDERED: SODIUM CHLORIDE 0.9% 250 ML IV ONE (01:34)
[2017-05-06] MEDS ORDERED: SODIUM CHLORIDE 3%(HYPERTONIC) 500 ML IV SCH (03:15)
[2017-05-06 06:01] LABS: Basophils % (A) 0 %; CH 32.5; CHCM 36.3; Eosinophils # (A) 0.1 k/uL (0-0.7); Eosinophils % (A) 2 %; HCT 36.5 % (39.0-53.0); HDW 2.25; HGB 12.5 gm/dL (13.0-17.5); Luc # (Auto) 0.09; Luc % (Auto) 2; Lymphocytes # (A) 1.1 k/uL (1.0-4.8); Lymphocytes % (A) 23 %; MCH 30.6 pg (25.0-35.0); MCHC 34.1 g/dL (31.0-37.0); MCV 89.7 fL (80.0-100.0); Mean Platelet Volume 6.8; Monocytes # (A) 0.5 k/uL (0-1.0); Monocytes % (A) 11 %; Neutrophils # (A) 2.8 k/uL (1.3-7.7); Neutrophils % (A) 61 %; RBC 4.07 m/uL (4.30-5.90); RDW 13.1 % (11.5-15.5); WBC 4.6 k/uL (3.8-10.6); WBC (Perox) 4.66
[2017-05-06 06:22] LABS: ALT 28 U/L (21-72); AST 17 U/L (17-59); Alkaline Phosphatase 61 U/L (38-126); Anion Gap 4 mmol/L; Blood Urea Nitrogen 17 mg/dL (9-20); Calcium 8.5 mg/dL (8.4-10.2); Carbon Dioxide 25 mmol/L (22-30); Chloride 97 mmol/L (98-107); Glucose 82 mg/dL (74-99); Non-African American GFR(MDRD) >60 (>60 ml/min/1.73 sqM); Potassium 4.4 mmol/L (3.5-5.1); Sodium 126 mmol/L (137-145); Total Bilirubin 0.3 mg/dL (0.2-1.3)
--- NOTE | 2017-05-06 09:30 | P.PN ---
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 The patient was having difficulties in finding words and staring off into space and he was found also to be stumbling. At that time EMS was called and the patient was brought into this hospital for further evaluation. The also noted that the patient is becoming confused and forgetful and having difficulties in strength and complaining of generalized weakness since last week. Note that the patient was also feeling depressed and he was seen by his primary care physician and he was started on citalopram last week. No other medication changes were done. Note that following discharge from the hospital in December 2016 the patient underwent rehabilitation and he was recovering reasonably well. No headache. No neck stiffness. No diarrhea. No use of any diuretics. His sodium at time of admission was 120 with a chloride of 85 with anion gap of 10. Renal function was stable with a creatinine of 0.9. CAT scan of the brain showed no acute abnormalities and there was age-related atrophy. Chest x-ray showed no acute abnormalities in the lung. The patient will be started on hypertonic saline at 50% at the rate of 40s an hour and he was brought into the intensive care unit for further monitoring. No hypotension. No fever. On 05/06/2017 I'm seeing this patient for a follow-up. The patient is improved and his mentation is normalized. No headaches. No neck stiffness. No fever. No signs of encephalitis. The patient is having his sodium corrected and hypertonic saline was discontinued this morning at around 3 AM and his sodium is up to 126. We are doing fluid restriction. No nausea. No vomiting. No diarrhea. No hemodynamic instability. Blood pressures under better control. The urine sodium and osmolality are low and this is not consistent with SIADH. Objective - Vital Signs Vital signs: Vital Signs Temp 98 F 05/06/17 00:00 Pulse 50 L 05/06/17 06:00 Resp 16 05/06/17 04:00 BP 112/57 05/06/17 06:00 Pulse Ox 97 05/06/17 04:00 Intake & Output 05/05/17 05/06/17 05/06/17 18:59 06:59 18:59 Intake Total 175 770 30 Output Total 400 190 90 Balance -225 580 -60 Weight 79.379 kg 74.5 kg Intake: IV 720 30 0.9 kvo 20 30 Sodium Chloride 0.9% 250 250 ml @ 999 mls/hr IV .Q16M ONE Rx#:[id number] Sodium Chloride 3%( 450 Hypertonic) 500 ml @ 50 mls/hr IV .Q10H ONE Rx#: [id number] Intake, IV Titration 175 50 Amount Sodium Chloride 3%( 175 50 Hypertonic) 500 ml @ 50 mls/hr IV .Q10H ONE Rx#: [id number] Output: Urine 400 190 90 Other: Voiding Method Urinal Bedside Commode Urinal # Voids 1 - Exam The patient is a well-developed male patient, nonacute distal distress. Not using excessive muscle breathing. Neurologically, neurologically, the patient is improved and the mentation is normalized. He is awake and alert 3 and there is no focal neurological deficit at this point..Head exam was generally normal. There was no scleral icterus or corneal arcus. Mucous membranes were moist. No neck stiffness.Neck was supple and without jugular venous distension , thyromegaly, or carotid bruits. Carotids were easily palpable bilaterally. There was no adenopathy.Lungs were clear to auscultation and percussion, and with normal diaphragmatic excursion. No wheezes or rales were noted. Cardiac exam revealed the PMI to be normally situated and sized. The rhythm was regular and no extrasystoles were noted during several minutes of auscultation. The first and second heart sounds were normal and physiologic splitting of the second heart sound was noted. There were no murmurs, rubs, clicks, or gallops.Abdominal exam revealed normal bowel sounds. The abdomen was soft, non- tender, and without masses, organomegaly, or appreciable enlargement of the abdominal aorta.Examination of the extremities revealed easily palpable radial, femoral and pedal pulses. There was no cyanosis, clubbing or edema. Skin is negative for any skin rashes ulcerations or wounds or cellulitis. Skeletal is negative for any joint deformities. - Labs CBC & Chem 7: 05/06/17 05:03 05/06/17 04:59 Labs: Abnormal Lab Results - Last 24 Hours (Table) 05/05/17 05/05/17 05/05/17 Range/Units 10:04 14:02 15:45 RBC (4.30-5.90) m/uL Hgb (13.0-17.5) gm/dL Hct (39.0-53.0) % Sodium 120 L* 120 L* (137-145) mmol/L Chloride 85 L (98-107) mmol/L Osmolality 254 L (280-301) mosm/kg Total Protein (6.3-8.2) g/dL Albumin (3.5-5.0) g/dL Urine Ketones 1+ H (Negative) Ur Random Sodium (30-90) mmol/L 05/05/17 05/05/17 05/05/17 Range/Units 15:45 17:33 20:09 RBC (4.30-5.90) m/uL Hgb (13.0-17.5) gm/dL Hct (39.0-53.0) % Sodium 121 L 122 L (137-145) mmol/L Chloride (98-107) mmol/L Osmolality (280-301) mosm/kg Total Protein (6.3-8.2) g/dL Albumin (3.5-5.0) g/dL Urine Ketones (Negative) Ur Random Sodium 28 L (30-90) mmol/L 05/05/17 05/06/17 05/06/17 Range/Units 22:20 00:23 02:24 RBC (4.30-5.90) m/uL Hgb (13.0-17.5) gm/dL Hct (39.0-53.0) % Sodium 123 L 123 L 125 L (137-145) mmol/L Chloride (98-107) mmol/L Osmolality (280-301) mosm/kg Total Protein (6.3-8.2) g/dL Albumin (3.5-5.0) g/dL Urine Ketones (Negative) Ur Random Sodium (30-90) mmol/L 05/06/17 05/06/17 Range/Units 04:59 05:03 RBC 4.07 L (4.30-5.90) m/uL Hgb 12.5 L (13.0-17.5) gm/dL Hct 36.5 L (39.0-53.0) % Sodium 126 L (137-145) mmol/L Chloride 97 L (98-107) mmol/L Osmolality (280-301) mosm/kg Total Protein 5.0 L (6.3-8.2) g/dL Albumin 3.0 L (3.5-5.0) g/dL Urine Ketones (Negative) Ur Random Sodium (30-90) mmol/L Assessment and Plan Plan: Assessment 1 acute hyponatremia and the patient's sodium was as low as 120 knowing that his baseline sodium was normal back in January 2017. The urine osmolality and urine sodium is low and this is not consistent with SIADH. There is probably a hypovolemic hyponatremia which is improving and the sodium level is up to 126 and the mental status changes improved. 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 It continue the hypertonic saline. Monitor the sodium level slowly and we need slow correction at the rate of 0.5 mEq an hourly basis and not more than 10 mEq a day. Mental status has normalized. The parameters and the urine sodium is not consistent with SIADH. Awaiting nephrology evaluation. We'll continue to follow. The patient is stable enough to be transferred to a medical floor at this point. No signs of encephalitis at this point. There is no tracheal evidence of recurrent encephalitis.
[2017-05-06] MEDS: FAMOTIDINE 20 MG TAB PO SCH (10:09)
[2017-05-06] MEDS: HEPARIN SODIUM,PORCINE 5,000 UNIT/ML 1 ML VIAL SQ SCH ×2 (10:09→21:43)
[2017-05-06] MEDS: TAMSULOSIN 0.4 MG CAP.ER.24H PO SCH ×2 (10:10→21:43)
--- NOTE | 2017-05-06 10:28 | P.NPCON ---
History of Present Illness - Reason for Consult hyponatremia - History of Present Illness Reason for consultation: Hyponatremia History of present illness: Patient is a 81-year-old male seen in renal consultation for hyponatremia. Patient was admitted earlier in the year in December 2016 and was also noted to be hyponatremic with a sodium level of 127. At that time he was noted to have urinary retention and sodium level corrected with Cervantes catheter placement. This admission his sodium level was 120. Apparently the patient was at a restaurant and was known to the employees there. He was noted to be somewhat confused and also stumbled. He was then staring into the wall and not acting himself and the EMS was called. Patient was brought to the hospital and was started on 0.9 saline. His sodium level did not correct with 0.9 saline and was subsequently started on 3% saline in the intensive care unit. His sodium level this morning is up to 126. According to the his mentation is significantly improved. Since his admission in December 2016 when he was diagnosed with HSV encephalitis he has been quite depressed. Patient states his appetite is good but has decreased since before. He was started on Celexa about a week and a half ago for depression. He does made to drinking 4 bottles of Gatorade every day. Denies vomiting or diarrhea. Denies excess water intake. He has been voiding. No evidence of urinary retention. I don't see any diuretics and his home medications. He was actually hypotensive on admission but his blood pressures have been quite labile. Blood pressure this morning was 131/79. Vital signs are stable. General: The patient appeared well nourished and normally developed. HEENT: Head exam is unremarkable. Neck is without jugular venous distension. LUNGS: Lungs are clear to auscultation and percussion. Breath sounds decreased. HEART: Rate and Rhythm are regular. First and second heart sounds normal. No murmurs, rubs or gallops. ABDOMEN: Abdominal exam reveals normal bowel sounds. Non-tender and non- distended. No evidence of peritonitis. EXTREMITITES: No clubbing, cyanosis, or edema. 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 History of Any Multi-Drug Resistant Organisms: None Reported Past Surgical History: Tonsillectomy Additional Past Surgical History / Comment(s): Tonsillectomy, 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 Past Anesthesia/Blood Transfusion Reactions: No Reported Reaction Past Psychological History: No Psychological Hx Reported, Depression Smoking Status: Former smoker Past Alcohol Use History: None Reported Past Drug Use History: None Reported - Past Family History Mother Family Medical History: Cancer (Mother from lung cancer as well as dementia at the age of 70.) Additional Family Medical History / Comment(s): lung Father History Unknown: Yes Family Medical History: No Reported History (Father in his 40s due to alcohol isn't.) Additional Family Medical History / Comment(s): "i don't know a lot about him...he as an alcoholic Brother(s) Family Medical History: Coronary Artery Disease (CAD) (Patient had 2 brothers one as a drug overdose in his 30s and the other one has CAD.) Sister(s) Family Medical History: Cancer, Coronary Artery Disease (CAD) (Patient has one sister with CAD and breast cancer.) Son(s) Family Medical History: No Reported History (Patient has 3 sons to contact and one healthy.) Medications and Allergies Home Medications Medication Instructions Recorded Confirmed Type Atorvastatin Calcium [Lipitor] 10 mg PO HS 12/29/16 05/05/17 History Tamsulosin HCl [Flomax] 0.4 mg PO BID 12/29/16 05/05/17 History Baclofen [Baclofen] 5 mg PO TID PRN 05/05/17 05/05/17 History Citalopram Hydrobromide 20 mg PO DAILY 05/05/17 05/05/17 History [Citalopram HBr] Sodium Bicarbonate Tab 650 mg PO BID 05/05/17 05/05/17 History Allergies Allergy/AdvReac Type Severity Reaction Status Date / Time thallium-201 Allergy Severe Dyspnea Verified 05/05/17 10:36 Physical Exam Vitals: Vital Signs Temp Pulse Pulse Resp BP BP Pulse Ox 05/06/17 10:00 59 L 14 99 05/06/17 09:00 71 14 131/79 98 05/06/17 08:00 97.7 F 65 14 131/79 98 05/06/17 07:00 57 L 14 112/57 99 05/06/17 06:00 50 L 112/57 05/06/17 05:00 75 87/52 05/06/17 04:00 55 L 68 16 112/48 97 05/06/17 03:30 60 127/64 05/06/17 03:00 65 112/52 05/06/17 02:30 68 110/68 05/06/17 02:10 62 110/68 05/06/17 02:00 60 110/68 97 05/06/17 01:50 52 L 05/06/17 01:40 50 L 05/06/17 01:30 53 L 78/51 05/06/17 01:20 49 L 59/31 05/06/17 01:10 48 L 05/06/17 01:00 55 L 16 96/53 97 05/06/17 00:30 65 95/55 05/06/17 00:00 98 F 56 L 68 16 89/52 05/05/17 23:30 56 L 107/49 05/05/17 23:22 59 L 107/49 05/05/17 23:00 58 L 86/53 97 05/05/17 22:30 58 L 120/58 05/05/17 22:00 56 L 105/56 98 05/05/17 21:30 52 L 91/43 05/05/17 21:00 70 92/54 05/05/17 20:30 57 L 86/45 97 05/05/17 20:00 97.6 F 57 L 16 96/52 97 05/05/17 19:56 68 18 05/05/17 19:30 61 86/52 98 05/05/17 19:00 60 84/50 97 05/05/17 18:30 63 103/53 97 05/05/17 18:00 67 18 102/64 97 05/05/17 17:30 71 176/73 98 05/05/17 17:00 71 18 174/82 93 L 05/05/17 16:30 65 178/87 98 05/05/17 16:00 97.9 F 70 68 16 182/89 99 05/05/17 14:29 64 16 05/05/17 14:00 97.6 F 64 16 188/88 100 05/05/17 13:19 97.6 F 63 20 164/78 97 05/05/17 11:04 97.8 F 62 18 163/80 100 Intake and Output 05/05/17 05/06/17 05/06/17 22:59 06:59 14:59 Intake Total 375 570 50 Output Total 400 190 120 Balance -25 380 -70 Intake: IV 150 570 50 0.9 kvo 20 50 Sodium Chloride 0.9% 250 250 ml @ 999 mls/hr IV .Q16M ONE Rx#:[id number] Sodium Chloride 3%( 150 300 Hypertonic) 500 ml @ 50 mls/hr IV .Q10H ONE Rx#: [id number] Intake, IV Titration 225 Amount Sodium Chloride 3%( 225 Hypertonic) 500 ml @ 50 mls/hr IV .Q10H ONE Rx#: [id number] Output: Urine 400 190 120 Other: Voiding Method Bedside Commode Bedside Commode Urinal Urinal # Voids 1 1 Weight 74.5 kg Results - Lab Results Most recent lab results Calcium 8.5 mg/dL (8.4-10.2) 05/06/17 04:59 05/06/17 05:03 05/06/17 04:59 Assessment and Plan Plan: Assessment: #1. Hypotonic hyponatremia. Appears euvolemic in nature. This can be Celexa- induced SIADH. Although his urine osmolality and urine sodium were not as high as one would expect with SIADH, it can be that the patient was also not eating as much and drinking more fluids. TSH and cortisol level were noted to be normal. Uric acid level was also normal at 4.3. Infectious process can also lead to SIADH however the patient is afebrile with no white count and no evidence of sepsis at this time. #2. 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 #3. BPH maintained on Flomax. Plan: Currently remains off all IV fluids. Maintain 1200 mL fluid restriction. Encouraged oral intake, add ensure 3 times daily. Repeat sodium level as well as urine studies at 3 PM today. Celexa has been discontinued. Thank you for the consultation. I will continue to follow the patient with you during his hospital stay.
--- NOTE | 2017-05-06 14:31 | P.PN ---
Subjective This is a 81-year-old male one of Dr. Sanchez with a previous medical history significant for GERD, hyper lipidemia, osteophytes, enlarged prostate with lower urinary tract symptoms, degenerative disc disease of the lumbar spine under the care of Dr. 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 He contacted the staff, patient was confused, had difficulty finding words and was staring into space. Patient is a regular visitor at the restaurant and staff felt that the patient was behaving differently and called the EMS. According to the , patient has been confused, forgetful, with low energy for the past Wednesday. He also had been depressed and has requested his primary care physician for antidepressant and was started on citalopram last week. Patient was doing well post his discharge from the hospital in December. He finished a month of rehabitation at [facility] and was receiving physical therapy for the past few weeks. Patient denies any headache, change in vision, loss of function in any extremities are loss of sensation. Patient denies any nausea, vomiting or diarrhea. He has a good appetite and was eating and drinking without difficulty. Patient denies any change in the medication, any recent travel or sick contact. She denies any seizure like activity. Initial sodium in the ED is 120, chloride 85, anion gap 10, creatinine 0.9, normal troponin and normal CBC. CT head was negative for any acute abnormality except for age-related atrophic and chronic small vessel ischemic changes. Chest x-ray negative for any acute pulmonary changes. Since patient has symptomatic hyponatremia, patient will be admitted for management of hyponatremia 05/06: Serum sodium level has gradually increased to 126 this morning. Urine osmolality was 254, urine sodium 28, serum osmolality 254. TSH was 2.350 cortisol level XVI. Patient is seen in the intensive care unit. Patient has been seen by Dr. Bustamante for intensive care management. Dr. Porter is on consult and yesterday he was changed over to a 3% sodium infusion. Patient states that he is feeling better today. He denies any shortness of breath. He states he slept on and off during the night. Ensure has been added. Discussed with patient and his the patient may benefit from Remeron for his depression versus Celexa. Patient will be transferred to the [facility] floor today. Objective - Vital Signs Vital signs: Vital Signs Temp 98 F 05/06/17 00:00 Pulse 50 L 05/06/17 06:00 Resp 16 05/06/17 04:00 BP 112/57 05/06/17 06:00 Pulse Ox 97 05/06/17 04:00 Intake & Output 05/05/17 05/06/17 05/06/17 18:59 06:59 18:59 Intake Total 175 770 Output Total 400 190 Balance -225 580 Weight 79.379 kg 74.5 kg Intake: IV 720 0.9 kvo 20 Sodium Chloride 0.9% 250 250 ml @ 999 mls/hr IV .Q16M ONE Rx#:[id number] Sodium Chloride 3%( 450 Hypertonic) 500 ml @ 50 mls/hr IV .Q10H ONE Rx#: [id number] Intake, IV Titration 175 50 Amount Sodium Chloride 3%( 175 50 Hypertonic) 500 ml @ 50 mls/hr IV .Q10H ONE Rx#: [id number] Output: Urine 400 190 Other: Voiding Method Urinal Bedside Commode Urinal # Voids 1 - Exam General appearance: average body habitus, cooperative, no acute distress - EENT Eyes: EOMI, PERRLA, no photophobia ENT: normal oropharynx Ears: bilateral: normal - Neck Neck: no lymphadenopathy, no normal ROM, no rigidity Carotids: bilateral: upstroke normal Thyroid: bilateral: normal size - Respiratory Respiratory: bilateral: diminished (diminished at bases ), negative: dullness, rales, rhonchi, wheezing - Cardiovascular Rhythm: regular Heart sounds: normal: S1, S2 Abnormal Heart Sounds: no systolic murmur, no diastolic murmur - Gastrointestinal General gastrointestinal: no organomegaly, soft, no tenderness - Neurologic Neurologic: CNII-XII intact - Musculoskeletal Musculoskeletal: strength equal bilaterally - Psychiatric Psychiatric: A&O x's 3 (patient appeared confused and didnot know why was he brought to the hospital. He was otherwise OX3) - Labs CBC & Chem 7: 05/06/17 05:03 05/06/17 04:59 Labs: Abnormal Lab Results - Last 24 Hours (Table) 05/05/17 05/05/17 05/05/17 Range/Units 10:04 14:02 15:45 RBC (4.30-5.90) m/uL Hgb (13.0-17.5) gm/dL Hct (39.0-53.0) % Sodium 120 L* 120 L* (137-145) mmol/L Chloride 85 L (98-107) mmol/L Osmolality 254 L (280-301) mosm/kg Total Protein (6.3-8.2) g/dL Albumin (3.5-5.0) g/dL Urine Ketones 1+ H (Negative) Ur Random Sodium (30-90) mmol/L 05/05/17 05/05/17 05/05/17 Range/Units 15:45 17:33 20:09 RBC (4.30-5.90) m/uL Hgb (13.0-17.5) gm/dL Hct (39.0-53.0) % Sodium 121 L 122 L (137-145) mmol/L Chloride (98-107) mmol/L Osmolality (280-301) mosm/kg Total Protein (6.3-8.2) g/dL Albumin (3.5-5.0) g/dL Urine Ketones (Negative) Ur Random Sodium 28 L (30-90) mmol/L 05/05/17 05/06/17 05/06/17 Range/Units 22:20 00:23 02:24 RBC (4.30-5.90) m/uL Hgb (13.0-17.5) gm/dL Hct (39.0-53.0) % Sodium 123 L 123 L 125 L (137-145) mmol/L Chloride (98-107) mmol/L Osmolality (280-301) mosm/kg Total Protein (6.3-8.2) g/dL Albumin (3.5-5.0) g/dL Urine Ketones (Negative) Ur Random Sodium (30-90) mmol/L 05/06/17 05/06/17 Range/Units 04:59 05:03 RBC 4.07 L (4.30-5.90) m/uL Hgb 12.5 L (13.0-17.5) gm/dL Hct 36.5 L (39.0-53.0) % Sodium 126 L (137-145) mmol/L Chloride 97 L (98-107) mmol/L Osmolality (280-301) mosm/kg Total Protein 5.0 L (6.3-8.2) g/dL Albumin 3.0 L (3.5-5.0) g/dL Urine Ketones (Negative) Ur Random Sodium (30-90) mmol/L Assessment and Plan Plan: 1. Metabolic encephalopathy secondary to hyponatremia - Likely secondary to SIADH due to medication effect of Celexa. - serum sodium every 12 hours - Discontinue fluids and keep patient on fluid restriction of 1200 mL - Nephrology consult - Repeat BMP in a.m. 2. Enlarged prostate - continue Flomax 0.4 mg orally twice daily 3. Degenerative disc disease of lumbar spine with history of epidural injection in the past - Baclofen 10 mg po TID prn 4. Hyperlipidemia. Continue Lipitor 10 mg orally once every day. 5. History of mitral valve disorder. asymptomatic 6. Osteoarthritis. Stable at this time. 7. GERD. - Will start the patient on pepcid 20 mg po daily 8. DVT prophylaxis. - Heparin 5000 units subcutaneously every 12 hours 9. Patient is full code. Discharge plan: Return home Impression and plan of care have been directed as dictated by the signing physician. Trudi Isbell nurse practitioner acting as scribe for signing physician.
[2017-05-06] MEDS: ATORVASTATIN 10 MG TAB PO SCH (21:43)
[2017-05-07] MEDS: HEPARIN SODIUM,PORCINE 5,000 UNIT/ML 1 ML VIAL SQ SCH ×2 (07:58→21:18)
[2017-05-07] MEDS: FAMOTIDINE 20 MG TAB PO SCH (07:58)
[2017-05-07] MEDS: TAMSULOSIN 0.4 MG CAP.ER.24H PO SCH ×2 (07:58→21:18)
--- NOTE | 2017-05-07 08:03 | P.PN ---
Subjective Patient is seen in follow-up for hyponatremia. 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 He was recently started on Celexa about a week and a half ago. He was at a restaurant and was noted to be stumbling and somewhat confused. EMS was called and he was brought to the hospital. Sodium level was 120 on admission. Sodium did not improve 0.9 saline and he was subsequently started on 3% saline. Sodium level gradually improved and he has been off IV fluids for the last 24 hours. Sodium level as of last night was 129. He is currently resting in bed. He feels better. Appetite is good. Good urine output. No vomiting or diarrhea. Celexa has been discontinued. Vital signs are stable. General: The patient appeared well nourished and normally developed. HEENT: Head exam is unremarkable. Neck is without jugular venous distension. LUNGS: Lungs are clear to auscultation and percussion. Breath sounds decreased. HEART: Rate and Rhythm are regular. First and second heart sounds normal. No murmurs, rubs or gallops. ABDOMEN: Abdominal exam reveals normal bowel sounds. Non-tender and non- distended. No evidence of peritonitis. EXTREMITITES: No clubbing, cyanosis, or edema. Objective - Vital Signs Vital signs: Vital Signs Temp 97.6 F 05/07/17 07:35 Pulse 73 05/07/17 07:35 Resp 14 05/07/17 07:35 BP 148/78 05/07/17 07:35 Pulse Ox 98 05/07/17 07:35 Intake & Output 05/06/17 05/07/17 05/07/17 18:59 06:59 18:59 Intake Total 350 115 Output Total 120 300 Balance 230 -185 Weight 74.5 kg 74.5 kg Intake: IV 100 115 0.9 kvo 100 115 Oral 250 0 Output: Urine 120 300 Other: Voiding Method Toilet Toilet # Voids 1 1 - Labs CBC & Chem 7: 05/06/17 05:03 05/06/17 15:21 Labs: Abnormal Lab Results - Last 24 Hours (Table) 05/06/17 Range/Units 15:21 Sodium 129 L (137-145) mmol/L Assessment and Plan Plan: Assessment: #1. Hypotonic hyponatremia. Appears euvolemic in nature. This can be Celexa- induced SIADH. Although his urine osmolality and urine sodium were not as high as one would expect with SIADH, it can be that the patient was also not eating as much and drinking more fluids. TSH and cortisol level were noted to be normal. Uric acid level was also normal at 4.3. Infectious process can also lead to SIADH however the patient is afebrile with no white count and no evidence of sepsis at this time. #2. 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 #3. BPH maintained on Flomax. Plan: Currently remains off all IV fluids. Maintain 1200 mL fluid restriction. Encouraged oral intake, added ensure 3 times daily. Celexa has been discontinued. Morning labs pending.
[2017-05-07 10:05] LABS: Anion Gap 9 mmol/L; Blood Urea Nitrogen 17 mg/dL (9-20); Calcium 8.6 mg/dL (8.4-10.2); Carbon Dioxide 22 mmol/L (22-30); Chloride 97 mmol/L (98-107); Glucose 103 mg/dL (74-99); Non-African American GFR(MDRD) >60 (>60 ml/min/1.73 sqM); Potassium 3.8 mmol/L (3.5-5.1); Sodium 128 mmol/L (137-145)
[2017-05-07] MEDS ORDERED: FUROSEMIDE 20 MG TAB PO STA (11:04)
--- NOTE | 2017-05-07 12:05 | P.PN ---
Subjective This is a 81-year-old male one of Dr. Sanchez with a previous medical history significant for GERD, hyper lipidemia, osteophytes, enlarged prostate with lower urinary tract symptoms, degenerative disc disease of the lumbar spine under the care of Dr. 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 He contacted the staff, patient was confused, had difficulty finding words and was staring into space. Patient is a regular visitor at the restaurant and staff felt that the patient was behaving differently and called the EMS. According to the , patient has been confused, forgetful, with low energy for the past Wednesday. He also had been depressed and has requested his primary care physician for antidepressant and was started on citalopram last week. Patient was doing well post his discharge from the hospital in December. He finished a month of rehabitation at [facility] and was receiving physical therapy for the past few weeks. Patient denies any headache, change in vision, loss of function in any extremities are loss of sensation. Patient denies any nausea, vomiting or diarrhea. He has a good appetite and was eating and drinking without difficulty. Patient denies any change in the medication, any recent travel or sick contact. She denies any seizure like activity. Initial sodium in the ED is 120, chloride 85, anion gap 10, creatinine 0.9, normal troponin and normal CBC. CT head was negative for any acute abnormality except for age-related atrophic and chronic small vessel ischemic changes. Chest x-ray negative for any acute pulmonary changes. Since patient has symptomatic hyponatremia, patient will be admitted for management of hyponatremia 05/06: Serum sodium level has gradually increased to 126 this morning. Urine osmolality was 254, urine sodium 28, serum osmolality 254. TSH was 2.350 cortisol level XVI. Patient is seen in the intensive care unit. Patient has been seen by Dr. Bustamante for intensive care management. Dr. Porter is on consult and yesterday he was changed over to a 3% sodium infusion. Patient states that he is feeling better today. He denies any shortness of breath. He states he slept on and off during the night. Ensure has been added. Discussed with patient and his the patient may benefit from Remeron for his depression versus Celexa. Patient will be transferred to the [facility] floor today. 04/06: Sodium at 1500 on 921 was 129 and this morning is 128. Patient is continued on fluid restriction of 1200 mL. Patient states he is feeling much improved since admission. Patient will be started on Remeron 7.5 mg tonight. He and especially his state he does suffer from severe depression. A prescription for Remeron has been sent to his pharmacy. Anticipate possible discharge tomorrow. Objective - Vital Signs Vital signs: Vital Signs Temp 97.6 F 05/07/17 07:35 Pulse 73 05/07/17 07:35 Resp 14 05/07/17 07:35 BP 148/78 05/07/17 07:35 Pulse Ox 98 05/07/17 07:35 Intake & Output 05/06/17 05/07/17 05/07/17 18:59 06:59 18:59 Intake Total 350 115 Output Total 120 300 Balance 230 -185 Weight 74.5 kg 74.5 kg Intake: IV 100 115 0.9 kvo 100 115 Oral 250 0 Output: Urine 120 300 Other: Voiding Method Toilet Toilet # Voids 1 1 - Exam General appearance: average body habitus, cooperative, no acute distress - EENT Eyes: EOMI, PERRLA, no photophobia ENT: normal oropharynx Ears: bilateral: normal - Neck Neck: no lymphadenopathy, no normal ROM, no rigidity Carotids: bilateral: upstroke normal Thyroid: bilateral: normal size - Respiratory Respiratory: bilateral: diminished (diminished at bases ), negative: dullness, rales, rhonchi, wheezing - Cardiovascular Rhythm: regular Heart sounds: normal: S1, S2 Abnormal Heart Sounds: no systolic murmur, no diastolic murmur - Gastrointestinal General gastrointestinal: no organomegaly, soft, no tenderness - Neurologic Neurologic: CNII-XII intact - Musculoskeletal Musculoskeletal: strength equal bilaterally - Psychiatric Psychiatric: A&O x's 3 - Labs CBC & Chem 7: 05/06/17 05:03 05/07/17 08:53 Labs: Abnormal Lab Results - Last 24 Hours (Table) 05/06/17 Range/Units 15:21 Sodium 129 L (137-145) mmol/L Assessment and Plan Plan: 1. Metabolic encephalopathy secondary to hyponatremia - Likely secondary to SIADH due to medication effect of Celexa. - serum sodium every 12 hours - Discontinue fluids and keep patient on fluid restriction of 1200 mL - Nephrology consult - Repeat BMP in a.m. 2. Enlarged prostate - continue Flomax 0.4 mg orally twice daily 3. Degenerative disc disease of lumbar spine with history of epidural injection in the past - Baclofen 10 mg po TID prn 4. Hyperlipidemia. Continue Lipitor 10 mg orally once every day. 5. History of mitral valve disorder. asymptomatic 6. Osteoarthritis. Stable at this time. 7. GERD. - Will start the patient on pepcid 20 mg po daily 8. DVT prophylaxis. - Heparin 5000 units subcutaneously every 12 hours 9. Severe depression, recurrent. Celexa was discontinued. Patient will be started on Remeron 7.5 mg tonight. Patient is full code. Discharge plan: Return home most likely on Wednesday Impression and plan of care have been directed as dictated by the signing physician. Trudi Isbell nurse practitioner acting as scribe for signing physician.
--- NOTE | 2017-05-07 16:30 | P.PN ---
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 The patient was having difficulties in finding words and staring off into space and he was found also to be stumbling. At that time EMS was called and the patient was brought into this hospital for further evaluation. The also noted that the patient is becoming confused and forgetful and having difficulties in strength and complaining of generalized weakness since last week. Note that the patient was also feeling depressed and he was seen by his primary care physician and he was started on citalopram last week. No other medication changes were done. Note that following discharge from the hospital in December 2016 the patient underwent rehabilitation and he was recovering reasonably well. No headache. No neck stiffness. No diarrhea. No use of any diuretics. His sodium at time of admission was 120 with a chloride of 85 with anion gap of 10. Renal function was stable with a creatinine of 0.9. CAT scan of the brain showed no acute abnormalities and there was age-related atrophy. Chest x-ray showed no acute abnormalities in the lung. The patient will be started on hypertonic saline at 50% at the rate of 40s an hour and he was brought into the intensive care unit for further monitoring. No hypotension. No fever. On 05/06/2017 I'm seeing this patient for a follow-up. The patient is improved and his mentation is normalized. No headaches. No neck stiffness. No fever. No signs of encephalitis. The patient is having his sodium corrected and hypertonic saline was discontinued this morning at around 3 AM and his sodium is up to 126. We are doing fluid restriction. No nausea. No vomiting. No diarrhea. No hemodynamic instability. Blood pressures under better control. The urine sodium and osmolality are low and this is not consistent with SIADH. On 05/05/2017 patient is clinically stable. Neurologically stable. No change in mental status and confusion. Still weak. Undergoing physical therapy. Sodium level is up to 128. Urine osmolality and repeated was quite high above 700. Objective - Vital Signs Vital signs: Vital Signs Temp 97.3 F L 05/07/17 15:00 Pulse 75 05/07/17 15:00 Resp 14 05/07/17 07:35 BP 153/71 05/07/17 15:00 Pulse Ox 97 05/07/17 15:00 Intake & Output 05/06/17 05/07/17 05/07/17 18:59 06:59 18:59 Intake Total 350 115 880 Output Total 120 300 Balance 230 -185 880 Weight 74.5 kg 74.5 kg Intake: IV 100 115 40 0.9 kvo 100 115 40 Oral 250 0 840 Output: Urine 120 300 Other: Voiding Method Toilet Toilet Toilet # Voids 1 1 2 - Exam The patient is a well-developed male patient, nonacute distal distress. Not using excessive muscle breathing. Neurologically, neurologically, the patient is improved and the mentation is normalized. He is awake and alert 3 and there is no focal neurological deficit at this point..Head exam was generally normal. There was no scleral icterus or corneal arcus. Mucous membranes were moist. No neck stiffness.Neck was supple and without jugular venous distension , thyromegaly, or carotid bruits. Carotids were easily palpable bilaterally. There was no adenopathy.Lungs were clear to auscultation and percussion, and with normal diaphragmatic excursion. No wheezes or rales were noted. Cardiac exam revealed the PMI to be normally situated and sized. The rhythm was regular and no extrasystoles were noted during several minutes of auscultation. The first and second heart sounds were normal and physiologic splitting of the second heart sound was noted. There were no murmurs, rubs, clicks, or gallops.Abdominal exam revealed normal bowel sounds. The abdomen was soft, non- tender, and without masses, organomegaly, or appreciable enlargement of the abdominal aorta.Examination of the extremities revealed easily palpable radial, femoral and pedal pulses. There was no cyanosis, clubbing or edema. Skin is negative for any skin rashes ulcerations or wounds or cellulitis. Skeletal is negative for any joint deformities. - Labs CBC & Chem 7: 05/06/17 05:03 05/07/17 08:53 Labs: Abnormal Lab Results - Last 24 Hours (Table) 05/06/17 05/07/17 Range/Units 15:21 08:53 Sodium 129 L 128 L (137-145) mmol/L Chloride 97 L (98-107) mmol/L Glucose 103 H (74-99) mg/dL Assessment and Plan Plan: Assessment 1 acute hyponatremia and the patient's sodium was as low as 120 secondary mental status change, improving and the sodium level as high as 129 and neurologic symptoms have improved. 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 Avoid agents that may potentially cause SIADH. Pulmonary critical care will sign off the case.
[2017-05-07] MEDS: ATORVASTATIN 10 MG TAB PO SCH (21:18)
[2017-05-07] MEDS: MIRTAZAPINE 15 MG TAB PO SCH (21:18)
[2017-05-08 08:26] LABS: Basophils % (A) 1 %; CH 32.3; CHCM 35.1; Eosinophils # (A) 0.2 k/uL (0-0.7); Eosinophils % (A) 3 %; HCT 39.1 % (39.0-53.0); HDW 2.21; HGB 12.9 gm/dL (13.0-17.5); Luc # (Auto) 0.05; Luc % (Auto) 1; Lymphocytes # (A) 0.9 k/uL (1.0-4.8); Lymphocytes % (A) 17 %; MCH 30.6 pg (25.0-35.0); MCV 92.6 fL (80.0-100.0); Mean Platelet Volume 7.1; Monocytes # (A) 0.4 k/uL (0-1.0); Monocytes % (A) 7 %; Neutrophils # (A) 4.1 k/uL (1.3-7.7); Neutrophils % (A) 73 %; RBC 4.23 m/uL (4.30-5.90); WBC 5.6 k/uL (3.8-10.6); WBC (Perox) 5.45
[2017-05-08] MEDS: TAMSULOSIN 0.4 MG CAP.ER.24H PO SCH ×2 (08:44→20:18)
[2017-05-08] MEDS: HEPARIN SODIUM,PORCINE 5,000 UNIT/ML 1 ML VIAL SQ SCH ×2 (08:44→20:18)
[2017-05-08] MEDS: FAMOTIDINE 20 MG TAB PO SCH (08:45)
[2017-05-08 08:47] LABS: Anion Gap 6 mmol/L; Blood Urea Nitrogen 13 mg/dL (9-20); Carbon Dioxide 30 mmol/L (22-30); Chloride 96 mmol/L (98-107); Glucose 82 mg/dL (74-99); Non-African American GFR(MDRD) >60 (>60 ml/min/1.73 sqM); Potassium 4.3 mmol/L (3.5-5.1); Sodium 132 mmol/L (137-145)
[2017-05-08 13:01] VITALS: BMI 22.8
--- NOTE | 2017-05-08 15:12 | P.PN ---
Subjective his is a 81-year-old male one of Dr. Sanchez with a previous medical history significant for GERD, hyper lipidemia, osteophytes, enlarged prostate with lower urinary tract symptoms, degenerative disc disease of the lumbar spine under the care of Dr. 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 He contacted the staff, patient was confused, had difficulty finding words and was staring into space. Patient is a regular visitor at the restaurant and staff felt that the patient was behaving differently and called the EMS. According to the , patient has been confused, forgetful, with low energy for the past Wednesday. He also had been depressed and has requested his primary care physician for antidepressant and was started on citalopram last week. Patient was doing well post his discharge from the hospital in December. He finished a month of rehabitation at [facility] and was receiving physical therapy for the past few weeks. Patient denies any headache, change in vision, loss of function in any extremities are loss of sensation. Patient denies any nausea, vomiting or diarrhea. He has a good appetite and was eating and drinking without difficulty. Patient denies any change in the medication, any recent travel or sick contact. She denies any seizure like activity. Initial sodium in the ED is 120, chloride 85, anion gap 10, creatinine 0.9, normal troponin and normal CBC. CT head was negative for any acute abnormality except for age-related atrophic and chronic small vessel ischemic changes. Chest x-ray negative for any acute pulmonary changes. Since patient has symptomatic hyponatremia, patient will be admitted for management of hyponatremia 05/06: Serum sodium level has gradually increased to 126 this morning. Urine osmolality was 254, urine sodium 28, serum osmolality 254. TSH was 2.350 cortisol level XVI. Patient is seen in the intensive care unit. Patient has been seen by Dr. Bustamante for intensive care management. Dr. Porter is on consult and yesterday he was changed over to a 3% sodium infusion. Patient states that he is feeling better today. He denies any shortness of breath. He states he slept on and off during the night. Ensure has been added. Discussed with patient and his the patient may benefit from Remeron for his depression versus Celexa. Patient will be transferred to the [facility] floor today. 05/07: Sodium at 1500 on 921 was 129 and this morning is 128. Patient is continued on fluid restriction of 1200 mL. Patient states he is feeling much improved since admission. Patient will be started on Remeron 7.5 mg tonight. He and especially his state he does suffer from severe depression. A prescription for Remeron has been sent to his pharmacy. Anticipate possible discharge tomorrow. 05/08: Patient's doing well, fluid has been hep-locked, serum sodium 132, no side effects from the Remeron that was started, requested hepatitis C to be checked while in the hospital requested to stay 1 more day to monitor for medications and endurance and labs Objective - Vital Signs Vital signs: Vital Signs Temp 98 F 05/08/17 07:00 Pulse 72 05/08/17 07:00 Resp 20 05/08/17 07:00 BP 160/74 05/08/17 07:00 Pulse Ox 96 05/08/17 07:00 Intake & Output 05/07/17 05/08/17 05/08/17 18:59 06:59 18:59 Intake Total 1360 0 Balance 1360 0 Weight 74.5 kg Intake: IV 40 0.9 kvo 40 Oral 1320 0 Other: Voiding Method Toilet Toilet Toilet # Voids 2 1 - Constitutional General appearance: Present: average body habitus, cooperative, no acute distress - EENT Eyes: Present: anicteric sclerae, EOMI, PERRLA, dentition normal, normal appearance ENT: Present: NA/AT - Neck Neck: Present: normal ROM. Absent: lymphadenopathy, other, rigidity, stridor, thyromegaly - Respiratory Respiratory: bilateral: CTA, negative: diminished, dullness, rales, rhonchi - Cardiovascular Rhythm: regular Heart sounds: normal: S1, S2 Abnormal Heart Sounds: Absent: systolic murmur, diastolic murmur, rub, S3 Gallop , S4 Gallop, click, other - Gastrointestinal General gastrointestinal: Present: normal bowel sounds, soft - Integumentary Integumentary: Present: normal, normal turgor - Neurologic Neurologic: Present: CNII-XII intact - Musculoskeletal Musculoskeletal: Present: generalized weakness, strength equal bilaterally - Psychiatric Psychiatric: Present: A&O x's 3, appropriate affect, intact judgment & insight - Labs CBC & Chem 7: 05/08/17 07:53 05/08/17 07:53 Labs: Abnormal Lab Results - Last 24 Hours (Table) 05/08/17 05/08/17 Range/Units 07:53 07:53 RBC 4.23 L (4.30-5.90) m/uL Hgb 12.9 L (13.0-17.5) gm/dL Lymphocytes # 0.9 L (1.0-4.8) k/uL Sodium 132 L (137-145) mmol/L Chloride 96 L (98-107) mmol/L Assessment and Plan Plan: 1. Metabolic encephalopathy secondary to hyponatremia - Likely secondary to SIADH due to medication effect of Celexa. - serum sodium every 12 hours - Discontinue fluids and keep patient on fluid restriction of 1200 mL - Nephrology consult - Repeat BMP in a.m. - Fall precautions 2. Enlarged prostate - continue Flomax 0.4 mg orally twice daily 3. Degenerative disc disease of lumbar spine with history of epidural injection in the past - Baclofen 10 mg po TID prn 4. Hyperlipidemia. Continue Lipitor 10 mg orally once every day. 5. History of mitral valve disorder. asymptomatic 6. Osteoarthritis. Stable at this time. 7. GERD. - Will start the patient on pepcid 20 mg po daily 8. DVT prophylaxis. - Heparin 5000 units subcutaneously every 12 hours 9. Severe depression, recurrent. Celexa was discontinued. Patient will be started on Remeron 7.5 mg tonight. Patient is full code. Discharge plan: Return home most likely on Wednesday
[2017-05-08] MEDS: MIRTAZAPINE 15 MG TAB PO SCH (20:16)
[2017-05-08] MEDS: ATORVASTATIN 10 MG TAB PO SCH (20:18)
--- NOTE | 2017-05-08 23:08 | PN ---
PROGRESS NOTE Patient is seen for followup for hyponatremia. Currently patient is not on any IV fluids. He received a dose of Lasix yesterday. His serum sodium has improved to 132 today. Patient states he is feeling well. He denies any nausea, vomiting or abdominal pain. EXAMINATION: Blood pressure 150/73, heart rate 64 per minute. He is afebrile. HEART: S1, S2. LUNGS: Bilateral breath sounds are heard. ABDOMEN: Soft, nontender. Lower extremity show no evidence of edema. VIDEO CLERK: Grossly intact. Patient is moving all 4 extremities. LABS: Show sodium 132, potassium 4.3, BUN 13, serum creatinine 0.95. ASSESSMENT: 1. Euvolemic hyponatremia which worsened with normal saline and improved with Lasix and fluid restriction. Continue with fluid restriction. 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 As long as the patient is able to maintain his serum sodium without any other medications, we will continue with fluid restriction and we can use low-dose loop diuretics periodically. He will need to be monitored as an outpatient. Chest x- ray did not reveal any obvious masses as a possible etiology. The Celexa has been already discontinued. 2. History of herpes simplex virus encephalitis. 3. Benign prostatic hypertrophy, currently on Flomax. PLAN: Continue with fluid restriction. Repeat labs in a.m. Maintained good oral intake, particularly protein. MMODL / IJN: [id number] /
[2017-05-09 03:31] LABS: Hepatitis C Virus IgG Ab Negative (Negative); Hepatitis C Virus IgG Index 0.02
[2017-05-09 07:55] LABS: Basophils % (A) 1 %; CH 32.5; CHCM 34.9; Eosinophils # (A) 0.1 k/uL (0-0.7); Eosinophils % (A) 3 %; HCT 39.5 % (39.0-53.0); HDW 2.18; Luc # (Auto) 0.04; Luc % (Auto) 1; Lymphocytes # (A) 0.9 k/uL (1.0-4.8); Lymphocytes % (A) 16 %; MCH 30.6 pg (25.0-35.0); MCHC 32.9 g/dL (31.0-37.0); MCV 93.2 fL (80.0-100.0); Mean Platelet Volume 6.8; Monocytes # (A) 0.4 k/uL (0-1.0); Monocytes % (A) 7 %; Neutrophils # (A) 4.3 k/uL (1.3-7.7); Neutrophils % (A) 74 %; RBC 4.23 m/uL (4.30-5.90); WBC 5.8 k/uL (3.8-10.6); WBC (Perox) 6.17
[2017-05-09 08:18] VITALS: BP 165/89; PULSE 74; RESP 20; TEMP 97.9
[2017-05-09 08:24] LABS: Anion Gap 5 mmol/L; Blood Urea Nitrogen 18 mg/dL (9-20); Calcium 8.9 mg/dL (8.4-10.2); Carbon Dioxide 26 mmol/L (22-30); Chloride 100 mmol/L (98-107); Glucose 88 mg/dL (74-99); Non-African American GFR(MDRD) >60 (>60 ml/min/1.73 sqM); Potassium 4.9 mmol/L (3.5-5.1); Sodium 131 mmol/L (137-145)
[2017-05-09] MEDS: TAMSULOSIN 0.4 MG CAP.ER.24H PO SCH (09:17)
[2017-05-09] MEDS: HEPARIN SODIUM,PORCINE 5,000 UNIT/ML 1 ML VIAL SQ SCH (09:17)
[2017-05-09] MEDS: FAMOTIDINE 20 MG TAB PO SCH (09:17)
--- NOTE | 2017-05-09 14:14 | P.DS ---
Providers Date of admission: 05/05/17 11:43 Attending physician: Aleksandr Fermin Consults: 05/05/17 11:41 Consult Physician Routine Consulting Provider: Kishor Porter Consult Reason/Comments: hypnatremia Do you want consulting provider notified?: Yes 05/05/17 15:51 Consult Physician Routine Consulting Provider: Diamond Bustamante Consult Reason/Comments: ICU managment Do you want consulting provider notified?: Yes Primary care physician: Bhaskar [facility] Course: This is a 81-year-old male one of Dr. Sanchez with a previous medical history significant for GERD, hyper lipidemia, osteophytes, enlarged prostate with lower urinary tract symptoms, degenerative disc disease of the lumbar spine under the care of Dr. 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 He contacted the staff, patient was confused, had difficulty finding words and was staring into space. Patient is a regular visitor at the restaurant and staff felt that the patient was behaving differently and called the EMS. According to the , patient has been confused, forgetful, with low energy for the past Wednesday. He also had been depressed and has requested his primary care physician for antidepressant and was started on citalopram last week. Patient was doing well post his discharge from the hospital in December. He finished a month of rehabitation at [facility] and was receiving physical therapy for the past few weeks. Patient denies any headache, change in vision, loss of function in any extremities are loss of sensation. Patient denies any nausea, vomiting or diarrhea. He has a good appetite and was eating and drinking without difficulty. Patient denies any change in the medication, any recent travel or sick contact. She denies any seizure like activity. Initial sodium in the ED is 120, chloride 85, anion gap 10, creatinine 0.9, normal troponin and normal CBC. CT head was negative for any acute abnormality except for age-related atrophic and chronic small vessel ischemic changes. Chest x-ray negative for any acute pulmonary changes. Since patient has symptomatic hyponatremia, patient will be admitted for management of hyponatremia 05/06: Serum sodium level has gradually increased to 126 this morning. Urine osmolality was 254, urine sodium 28, serum osmolality 254. TSH was 2.350 cortisol level XVI. Patient is seen in the intensive care unit. Patient has been seen by Dr. Bustamante for intensive care management. Dr. Porter is on consult and yesterday he was changed over to a 3% sodium infusion. Patient states that he is feeling better today. He denies any shortness of breath. He states he slept on and off during the night. Ensure has been added. Discussed with patient and his the patient may benefit from Remeron for his depression versus Celexa. Patient will be transferred to the [facility] floor today. 05/07: Sodium at 1500 on 921 was 129 and this morning is 128. Patient is continued on fluid restriction of 1200 mL. Patient states he is feeling much improved since admission. Patient will be started on Remeron 7.5 mg tonight. He and especially his state he does suffer from severe depression. A prescription for Remeron has been sent to his pharmacy. Anticipate possible discharge tomorrow. 05/08: Patient's doing well, fluid has been hep-locked, serum sodium 132, no side effects from the Remeron that was started, requested hepatitis C to be checked while in the hospital requested to stay 1 more day to monitor for medications and endurance and labs 05/09 patient doing well will discharge to home with today. serum sodium 131 Discharge Diagnosis and Hospital Care: 1. Metabolic encephalopathy secondary to hyponatremia, improved - Likely secondary to SIADH due to medication effect of Celexa. - serum sodium every 12 hours - Discontinue fluids and keep patient on fluid restriction of 1200 mL - Nephrology consult, Dr Saul - Repeat BMP in a.m. - Fall precautions 2. Enlarged prostate - continue Flomax 0.4 mg orally twice daily 3. Degenerative disc disease of lumbar spine with history of epidural injection in the past - Baclofen 10 mg po TID prn 4. Hyperlipidemia. Continue Lipitor 10 mg orally once every day. 5. History of mitral valve disorder. asymptomatic 6. Osteoarthritis. Stable at this time. 7. GERD. - Will start the patient on pepcid 20 mg po daily 8. DVT prophylaxis. - Heparin 5000 units subcutaneously every 12 hours 9. Severe depression, recurrent. Celexa was discontinued. Patient will be started on Remeron 7.5 mg tonight. 10. Hx of viral hapatitis c exposure in past. current hep c ab negative Patient is full code. Discharge Medication List Atorvastatin Calcium [Lipitor] 10 mg PO HS 12/29/16 [History] Tamsulosin HCl [Flomax] 0.4 mg PO BID 12/29/16 [History] Baclofen 5 mg PO TID PRN 05/05/17 [History] Mirtazapine [Remeron] 7.5 mg PO HS #15 tab 05/07/17 [Rx] Patient Condition at Discharge: Good Plan - Discharge Summary New Discharge Prescriptions: New Mirtazapine [Remeron] 7.5 mg PO HS #15 tab Continue Tamsulosin HCl [Flomax] 0.4 mg PO BID Atorvastatin Calcium [Lipitor] 10 mg PO HS Baclofen 5 mg PO TID PRN PRN Reason: Muscle Spasm Discontinued Sodium Bicarbonate Tab 650 mg PO BID Citalopram Hydrobromide [Citalopram HBr] 20 mg PO DAILY Discharge Medication List Atorvastatin Calcium [Lipitor] 10 mg PO HS 12/29/16 [History] Tamsulosin HCl [Flomax] 0.4 mg PO BID 12/29/16 [History] Baclofen 5 mg PO TID PRN 05/05/17 [History] Mirtazapine [Remeron] 7.5 mg PO HS #15 tab 05/07/17 [Rx] Follow up Appointment(s)/Referral(s): Osiris Saul MD [STAFF PHYSICIAN] - 2 Weeks (Patient to call Dr. Saul's office Wednesday to schedule follow up appointment. The office is closed at time of discharge.) Bhaskar Sanchez MD [Primary Care Provider] - 1 Week (Patient to call Dr. Sanchez's office Wednesday to schedule follow up appointment. The office is closed at time of discharge.) Ambulatory/Diagnostic Orders: Basic Metabolic Panel [LAB.AMB] Location: Determined By Patient Patient Instructions/Handouts: Mirtazapine (By mouth), Hyponatremia (DC) Activity/Diet/Wound Care/Special Instructions: Fluid restriction 1200 ml. Discharge Disposition: HOME SELF-CARE
--- NOTE | 2017-05-09 21:47 | PN ---
PROGRESS NOTE Patient is seen for followup for hyponatremia. His serum sodium has been staying at about 131-132 mEq/L. Etiology is SIADH. The patient is being discharged today. He denies any complaints. The Celexa has been discontinued. EXAMINATION: Blood pressure is 165/89, heart rate 74 per minute. He is afebrile. Examination of the heart S1, S2. Examination lungs bilateral breath sounds are heard. Abdomen is soft, nontender. Examination lower extremities shows no evidence of edema. REALTIME CAPTIONER exam is grossly intact. LABS: Labs show sodium 131, potassium 4.9, BUN 18, serum creatinine 1.03, hemoglobin 13.0. ASSESSMENT: 1. Euvolemic hyponatremia secondary to syndrome of inappropriate antidiuretic hormone secretion. Currently off of Celexa and maintained on fluid restriction. The patient should monitor his serum sodium levels as outpatient. He should check his labs in 3-4 days post discharge. 2. History of herpes simplex virus encephalitis. 3. Benign prostatic hypertrophy, on Flomax. PLAN: The patient is stable for discharge. Follow up as outpatient with repeat labs in 3-4 days. MMODL / IJN: [id number] /
== END 2017-05-09 14:25 | disposition home or self-care (01) | DRG 643 ==
LOC: EC 09:50 → 6SEL 11:43 → 6ICU 15:59 → 5MS5E 05-06 11:29
PROVIDERS: ADMIT Internal Medicine; ATTEND Internal Medicine
PROC: 0T9B70Z Drainage of Bladder with Drainage Device, Via Natural or Artificial Opening (ICD-10-PCS; principal; 2017-05-06)
DX: E22.2 Syndrome of inappropriate secretion of antidiuretic hormone (principal); G92 Toxic encephalopathy; F33.2 Major depressive disorder, recurrent severe without psychotic features; I95.9 Hypotension, unspecified; I45.10 Unspecified right bundle-branch block; I34.8 Other nonrheumatic mitral valve disorders; I67.9 Cerebrovascular disease, unspecified; T43.225A Adverse effect of selective serotonin reuptake inhibitors, initial encounter; E78.5 Hyperlipidemia, unspecified; K21.9 Gastro-esophageal reflux disease without esophagitis; R09.89 Other specified symptoms and signs involving the circulatory and respiratory systems; R33.8 Other retention of urine; N40.1 Benign prostatic hyperplasia with lower urinary tract symptoms; R29.700 NIHSS score 0; R26.9 Unspecified abnormalities of gait and mobility; G89.29 Other chronic pain; M51.36 Other intervertebral disc degeneration, lumbar region; M47.816 Spondylosis without myelopathy or radiculopathy, lumbar region; Z86.61 Personal history of infections of the central nervous system; Z87.891 Personal history of nicotine dependence; Z79.899 Other long term (current) drug therapy; Z80.3 Family history of malignant neoplasm of breast; Z80.1 Family history of malignant neoplasm of trachea, bronchus and lung; Z82.49 Family history of ischemic heart disease and other diseases of the circulatory system; Z88.8 Allergy status to other drugs, medicaments and biological substances; Z71.3 Dietary counseling and surveillance; Z81.1 Family history of alcohol abuse and dependence; Z81.8 Family history of other mental and behavioral disorders; Z81.3 Family history of other psychoactive substance abuse and dependence; Z86.19 Personal history of other infectious and parasitic diseases
CPT/HCPCS: 36415; 70450; 71020; 80048; 80053; 81003; 82533; 82550; 82553; 83930; 83935; 84295; 84300; 84443; 84484; 84550; 85025; 85610; 85730; 86803; 93005; 94760; 96365; 96366; 99285

== ENCOUNTER → 2017-09-08 | Outpatient (CLI) | payer MEDICARE ==
--- NOTE | 2017-09-08 09:10 | MR ---
EXAMINATION TYPE: MR brain wo con DATE OF EXAM: 09/08/2017 COMPARISON: Prior MRI brain exams December 30, 2016 and December 31, 2016. HISTORY: Amnesia /cardiovascular disease, unspecified. Post herpes encephalitis per order. TECHNIQUE: Multiplanar, multisequence imaging of the brain and brainstem is performed without IV cont rast. FINDINGS: Diffusion weighted images demonstrate no evidence of a recent infarct or other diffusion abnormality. There is no worrisome extra-axial fluid collection. There is ventricular and sulcal prominence consis tent with diffuse cerebral atrophy. There are focal and confluent areas of T2 hyperintensity in the d eep and periventricular white matter. Lesions are nonspecific in appearance and distribution but most likely on basis of product of chronic small vessel ischemic change in patient this age. Pontine invo lvement is redemonstrated. Focus of T2 hyperintensity left anterior medial thalamus axial image 18 re yo present is felt to reflect old lacunar infarct. Midline structures demonstrate normal morphology. The craniocervical junction appears within normal limits. Normal vascular flow voids are present. The visualized sinuses are clear and the globes are i ntact. IMPRESSION: Mild diffuse cerebral atrophy and moderate to severe chronic small vessel ischemic change likely on basis of product of chronic small vessel ischemic change redemonstrated. 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 No significant change from prior study is seen.
--- NOTE | 2017-09-08 09:20 | MR ---
MR angiogram of the neck with and without contrast HISTORY: Amnesia, R 41.3, heart disease, I 51.9 Multiplanar multisequence and postcontrast images obtained through the neck following 7.5 cc Gadavist IV. Three-dimensional reconstructions performed. Comparison MR brain 09/08/2017 and carotid Doppler duplex 12/29/2016. There is motion on the exam. There are 3 super aortic branch vessels originating from the transverse aorta. Left and right common carotid, left and right subclavian, left and right vertebral arteries are patent. The left vertebral artery is dominant. The proximal right internal carotid artery shows a high-grade stenosis, there is right carotid bulb atheromatous plaque. No evident dissection or arterial occlusion, no vascular malf ormation. 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
== END | disposition home or self-care (01) ==
LOC: RADMRIMAIN 06:32
PROVIDERS: ATTEND Psychiatry & Neurology Neurology
DX: I65.21 Occlusion and stenosis of right carotid artery (principal); G31.9 Degenerative disease of nervous system, unspecified; I67.82 Cerebral ischemia; I51.9 Heart disease, unspecified; B00.4 Herpesviral encephalitis
CPT/HCPCS: 82565; 70549; 70551; 36415; A9581

== ENCOUNTER 2020-03-11 03:36 | Emergency (ER) | payer MEDICARE ==
[2020-03-11 03:55] VITALS: BP 174/76; PULSE 103; RESP 18; TEMP 97.7
--- NOTE | 2020-03-11 04:12 | ED ---
Male Urogenital HPI - General Chief complaint: Urogenital Stated complaint: unable to urinate Time Seen by Provider: 03/11/20 04:01 Source: patient Mode of arrival: ambulatory Limitations: no limitations - History of Present Illness MD Complaint: other (Not able to urinate) Onset/Timin -: days(s) Location: abdomen Radiation: none Severity: moderate Quality: other (Pressure) Consistency: constant Improves with: none Worsens with: none Reports: urinary retention - Related Data Home Medications Medication Instructions Recorded Confirmed Atorvastatin Calcium [Lipitor] 10 mg PO HS 12/29/16 05/05/17 Tamsulosin HCl [Flomax] 0.4 mg PO BID 12/29/16 05/05/17 Baclofen 5 mg PO TID PRN 05/05/17 05/05/17 Previous Rx's Medication Instructions Recorded Mirtazapine [Remeron] 7.5 mg PO HS #15 tab 05/07/17 Allergies Allergy/AdvReac Type Severity Reaction Status Date / Time thallium-201 Allergy Severe Dyspnea Verified 03/11/20 03:55 Review of Systems ROS Statement: Those systems with pertinent positive or pertinent negative responses have been documented in the HPI. ROS Other: All systems not noted in ROS Statement are negative. Constitutional: Denies: fever, chills Respiratory: Denies: cough, dyspnea Cardiovascular: Denies: chest pain, edema Gastrointestinal: Reports: as per HPI, abdominal pain. 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 History of Any Multi-Drug Resistant Organisms: None Reported Past Surgical History: Tonsillectomy Additional Past Surgical History / Comment(s): Tonsillectomy, 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 Past Anesthesia/Blood Transfusion Reactions: No Reported Reaction Past Psychological History: No Psychological Hx Reported, Depression Smoking Status: Former smoker Past Alcohol Use History: None Reported Past Drug Use History: None Reported - Past Family History Mother Family Medical History: Cancer (Mother from lung cancer as well as dementia at the age of 70.) Additional Family Medical History / Comment(s): lung Father History Unknown: Yes Family Medical History: No Reported History (Father in his 40s due to alcohol isn't.) Additional Family Medical History / Comment(s): "i don't know a lot about him...he as an alcoholic Brother(s) Family Medical History: Coronary Artery Disease (CAD) (Patient had 2 brothers one as a drug overdose in his 30s and the other one has CAD.) Sister(s) Family Medical History: Cancer, Coronary Artery Disease (CAD) (Patient has one sister with CAD and breast cancer.) Son(s) Family Medical History: No Reported History (Patient has 3 sons to contact and one healthy.) General Exam Limitations: no limitations General appearance: alert, in no apparent distress Head exam: Present: atraumatic, normocephalic Eye exam: Present: normal appearance. Absent: scleral icterus, conjunctival injection Respiratory exam: Present: normal lung sounds bilaterally. Absent: respiratory distress, wheezes, rales, rhonchi, stridor Cardiovascular Exam: Present: regular rate, normal rhythm, normal heart sounds. Absent: systolic murmur, diastolic murmur, rubs, gallop GI/Abdominal exam: Present: soft, mass (Suprapubic fullness consistent with bladder), hernia (Small umbilical hernia without incarceration and no tenderness). Absent: distended, tenderness, guarding, rebound, rigid, pulsatile mass Extremities exam: Present: normal inspection, normal capillary refill. Absent: pedal edema, calf tenderness Back exam: Present: normal inspection. Absent: CVA tenderness (R), CVA tenderne ss (L) Neurological exam: Present: alert Skin exam: Present: warm, dry, intact, normal color. Absent: rash Course Vital Signs 03/11/20 03:49 Temperature 97.7 F Pulse Rate 103 H Respiratory 18 Rate Blood Pressure 174/76 O2 Sat by Pulse 96 Oximetry Medical Decision Making - Lab Data Result diagrams: 03/11/20 04:24 03/11/20 04:24 Lab Results 03/11/20 03/11/2020 Range/Units 04:24 04:24 04:24 WBC 11.7 H (3.8-10.6) k/uL RBC 4.20 L (4.30-5.90) m/uL Hgb 12.9 L (13.0-17.5) gm/dL Hct 39.3 (39.0-53.0) % MCV 93.7 (80.0-100.0) fL MCH 30.7 (25.0-35.0) pg MCHC 32.8 (31.0-37.0) g/dL RDW 12.8 (11.5-15.5) % Plt Count 211 (150-450) k/uL Neutrophils % 91 % Lymphocytes % 4 % Monocytes % 3 % Eosinophils % 1 % Basophils % 0 % Neutrophils # 10.6 H (1.3-7.7) k/uL Lymphocytes # 0.5 L (1.0-4.8) k/uL Monocytes # 0.4 (0-1.0) k/uL Eosinophils # 0.1 (0-0.7) k/uL Basophils # 0.0 (0-0.2) k/uL Sodium 135 L (137-145) mmol/L Potassium 4.4 (3.5-5.1) mmol/L Chloride 104 (98-107) mmol/L Carbon Dioxide 23 (22-30) mmol/L Anion Gap 8 mmol/L BUN 30 H (9-20) mg/dL Creatinine 0.89 (0.66-1.25) mg/dL Est GFR (CKD-EPI)AfAm >90 (>60 ml/min/1.73 sqM) Est GFR (CKD-EPI)NonAf 80 (>60 ml/min/1.73 sqM) Glucose 137 H (74-99) mg/dL Calcium 9.0 (8.4-10.2) mg/dL Urine Color Yellow Urine Appearance Clear (Clear) Urine pH 6.5 (5.0-8.0) Ur Specific Elmer 1.018 (1.001-1.035) Urine Protein Negative (Negative) Urine Glucose (UA) Negative (Negative) Urine Ketones Negative (Negative) Urine Blood Negative (Negative) Urine Nitrite Negative (Negative) Urine Bilirubin Negative (Negative) Urine Urobilinogen <2.0 (<2.0) mg/dL Ur Leukocyte Esterase Negative (Negative) Disposition Clinical Impression: Urinary retention Disposition: HOME SELF-CARE Condition: Good Instructions (If sedation given, give patient instructions): Urinary Retention in Men (ED) Is patient prescribed a controlled substance at d/c from ED?: No Referrals: Bhaskar Sanchez MD [Primary Care Provider] - 1-2 days Jed Gibson MD [STAFF PHYSICIAN] - 1-2 days
[2020-03-11 04:31] LABS: Basophils % (A) 0 %; Eosinophils # (A) 0.1 k/uL (0-0.7); Eosinophils % (A) 1 %; HCT 39.3 % (39.0-53.0); HGB 12.9 gm/dL (13.0-17.5); Lymphocytes # (A) 0.5 k/uL (1.0-4.8); Lymphocytes % (A) 4 %; MCH 30.7 pg (25.0-35.0); MCHC 32.8 g/dL (31.0-37.0); MCV 93.7 fL (80.0-100.0); Mean Platelet Volume 7.1; Monocytes # (A) 0.4 k/uL (0-1.0); Monocytes % (A) 3 %; Neutrophils # (A) 10.6 k/uL (1.3-7.7); Neutrophils % (A) 91 %; Platelet Count 211 k/uL (150-450); RDW 12.8 % (11.5-15.5); WBC 11.7 k/uL (3.8-10.6)
[2020-03-11 04:32] LABS: Appearance,Urine Clear (Clear); Bilirubin,Urine Negative (Negative); Blood,Urine Negative (Negative); Color,Urine Yellow; Glucose,Urine (UA) Negative (Negative); Ketones,Urine Negative (Negative); Leukocyte Esterase,Urine Negative (Negative); Nitrite,Urine Negative (Negative); PH, Urine 6.5 (5.0-8.0); Protein,Urine Negative (Negative); Specific Gravity,Urine 1.018 (1.001-1.035); Urobilinogen,Urine <2.0 mg/dL (<2.0)
[2020-03-11 04:43] LABS: African American GFR (CKD) >90 (>60 ml/min/1.73 sqM); Anion Gap 8 mmol/L; Blood Urea Nitrogen 30 mg/dL (9-20); Carbon Dioxide 23 mmol/L (22-30); Chloride 104 mmol/L (98-107); Glucose 137 mg/dL (74-99); Non-African American GFR(CKD) 80 (>60 ml/min/1.73 sqM); Potassium 4.4 mmol/L (3.5-5.1); Sodium 135 mmol/L (137-145)
== END 2020-03-11 05:30 | disposition home or self-care (01) ==
LOC: EC 03:36
DX: R33.9 Retention of urine, unspecified (principal); E78.5 Hyperlipidemia, unspecified; N40.0 Benign prostatic hyperplasia without lower urinary tract symptoms; Z79.899 Other long term (current) drug therapy; Z87.891 Personal history of nicotine dependence; Z91.048 Other nonmedicinal substance allergy status
CPT/HCPCS: 36415; 51702; 80048; 81003; 85025; 99283

== ENCOUNTER 2020-03-11 11:15 | Observation (INO) | payer MEDICARE ==
[2020-03-11 12:32] LABS: Basophils % (A) 0 %; Eosinophils % (A) 0 %; HCT 37.9 % (39.0-53.0); HGB 12.5 gm/dL (13.0-17.5); Lymphocytes # (A) 0.4 k/uL (1.0-4.8); Lymphocytes % (A) 4 %; MCH 30.7 pg (25.0-35.0); MCHC 32.9 g/dL (31.0-37.0); MCV 93.3 fL (80.0-100.0); Monocytes # (A) 0.4 k/uL (0-1.0); Monocytes % (A) 4 %; Neutrophils # (A) 9.5 k/uL (1.3-7.7); Neutrophils % (A) 92 %; Platelet Count 221 k/uL (150-450); RBC 4.07 m/uL (4.30-5.90); RDW 12.9 % (11.5-15.5); WBC 10.3 k/uL (3.8-10.6)
[2020-03-11 12:56] LABS: ALT 10 U/L (4-49); AST 19 U/L (17-59); African American GFR (CKD) >90 (>60 ml/min/1.73 sqM); Albumin 4.2 g/dL (3.5-5.0); Alkaline Phosphatase 91 U/L (38-126); Anion Gap 7 mmol/L; Blood Urea Nitrogen 26 mg/dL (9-20); Carbon Dioxide 26 mmol/L (22-30); Chloride 103 mmol/L (98-107); Glucose 115 mg/dL (74-99); Magnesium 1.9 mg/dL (1.6-2.3); Non-African American GFR(CKD) 84 (>60 ml/min/1.73 sqM); Potassium 4.4 mmol/L (3.5-5.1); Sodium 136 mmol/L (137-145); Total Bilirubin 0.8 mg/dL (0.2-1.3); Total Protein 6.6 g/dL (6.3-8.2)
[2020-03-11 13:11] LABS: INR 0.9 (<1.2); Partial Thromboplastin Time 24.4 sec (22.0-30.0); Prothrombin Time 9.8 sec (9.0-12.0)
--- NOTE | 2020-03-11 14:20 | CT ---
EXAMINATION TYPE: CT abdomen pelvis w con DATE OF EXAM: 03/11/2020 COMPARISON: None HISTORY: Loose stools CT DLP: 838.4 mGycm CONTRAST: CT scan of the abdomen and pelvis is performed without Oral Contrast and with IV Contrast, patient in jected with 100 mL of Isovue 300. FINDINGS: LUNG BASES-: No visible nodule. No infiltrate. LIVER/GB: No calcified gallstones. No space occupying hepatic lesion. Biliary tree is of normal ca liber. PANCREAS: No inflammation. No distinct mass. SPLEEN: No splenic enlargement. No lesion seen. ADRENALS: No nodule. No thickening. KIDNEYS/BLADDER: No hydronephrosis. No nephrolithiasis. Simple cyst right kidney. Cervantes catheter is in place. BOWEL: Normal appendix. Normal bowel caliber. No inflammation. Moderate fecal stasis noted. GENITAL ORGANS: No gross abnormality. LYMPH NODES: No greater than 1cm abdominal or pelvic lymph nodes are appreciated. AORTA: No significant abnormality. OSSEOUS STRUCTURES: No significant abnormality is seen. OTHER: No significant additional abnormality is seen. IMPRESSION: 1. Moderate fecal stasis. No acute process identified at this time.
--- NOTE | 2020-03-11 14:47 | ED ---
General Adult HPI - General Chief complaint: Nausea/Vomiting/Diarrhea Stated complaint: diarrhea-revisit Time Seen by Provider: 03/11/20 11:42 Source: patient Mode of arrival: ambulatory Limitations: no limitations - History of Present Illness Initial comments: Patient is a 84-year-old male with past history of hyperlipidemia, prostate disorder who presents to the emergency room with reported retention and diarrhea. Patient was seen earlier in the emergency department for urinary retention. Cervantes was placed. Urinalysis was checked as well as kidney function. Patient was discharged home with a leg bag. states that they called urology who the patient is to follow up with on . The patient has subsequently developed diarrhea. states that there has been some blood in the patient's dependent she is unsure if it coming from the patient's penis or rectum. They called Dr. Sanchez recommend that the patient going to the emergency room for evaluation. Patient does report to some rectal pain upon bowel movement. He has not seen any blood in the toilet. Patient has chronic back pain but denies any new back pain. Does not seen any blood in his Cervantes bag. Denies any fevers or chills. No other alleviating, Perceptin or modifying factors - Related Data Home Medications Medication Instructions Recorded Confirmed Tamsulosin HCl [Flomax] 0.4 mg PO BID 12/29/16 03/11/20 Ascorbic Acid [Vitamin C] 1,000 mg PO DAILY 03/11/20 03/11/20 Previous Rx's Medication Instructions Recorded Polyethylene Glycol 3350 [Miralax] 17 gm PO DAILY #527 gm 03/12/20 bisacodyL [Dulcolax] 10 mg PO DAILY #30 tablet. 03/12/20 Allergies Allergy/AdvReac Type Severity Reaction Status Date / Time thallium-201 Allergy Severe Dyspnea Verified 03/11/20 12:42 Review of Systems ROS Statement: Those systems with pertinent positive or pertinent negative responses have been documented in the HPI. ROS Other: All systems not noted in ROS Statement are negative. 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 History of Any Multi-Drug Resistant Organisms: None Reported Past Surgical History: Tonsillectomy Additional Past Surgical History / Comment(s): Tonsillectomy, 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 Past Anesthesia/Blood Transfusion Reactions: No Reported Reaction Past Psychological History: No Psychological Hx Reported, Depression Smoking Status: Former smoker Past Alcohol Use History: None Reported Past Drug Use History: None Reported - Past Family History Mother Family Medical History: Cancer (Mother from lung cancer as well as dementia at the age of 70.) Additional Family Medical History / Comment(s): lung Father History Unknown: Yes Family Medical History: No Reported History (Father in his 40s due to alcohol isn't.) Additional Family Medical History / Comment(s): "i don't know a lot about him...he as an alcoholic Brother(s) Family Medical History: Coronary Artery Disease (CAD) (Patient had 2 brothers one as a drug overdose in his 30s and the other one has CAD.) Sister(s) Family Medical History: Cancer, Coronary Artery Disease (CAD) (Patient has one sister with CAD and breast cancer.) Son(s) Family Medical History: No Reported History (Patient has 3 sons to contact and one healthy.) General Exam Limitations: no limitations General appearance: alert, in no apparent distress Head exam: Present: atraumatic, normocephalic, normal inspection Eye exam: Present: normal appearance, PERRL, EOMI. Absent: scleral icterus, conjunctival injection, periorbital swelling ENT exam: Present: normal exam, mucous membranes moist Neck exam: Present: normal inspection. Absent: tenderness, meningismus, lymphadenopathy Respiratory exam: Present: normal lung sounds bilaterally. Absent: respiratory distress, wheezes, rales, rhonchi, stridor Cardiovascular Exam: Present: regular rate, normal rhythm, normal heart sounds. Absent: systolic murmur, diastolic murmur, rubs, gallop, clicks GI/Abdominal exam: Present: soft, normal bowel sounds. Absent: distended, tenderness, guarding, rebound, rigid Rectal exam: Present: heme (-) stool. Absent: black stool, bloody stool exam: Present: normal inspection, urethral discharge (mild bloody tinge around the uretheral meatus) Extremities exam: Present: normal inspection, full ROM, normal capillary refill. Absent: tenderness, pedal edema, joint swelling, calf tenderness Back exam: Present: normal inspection Neurological exam: Present: alert, oriented X3, CN II-XII intact Psychiatric exam: Present: normal affect, normal mood Skin exam: Present: warm, dry, intact, normal color. Absent: rash Course Vital Signs 03/11/20 03/11/20 03/11/20 11:25 13:57 15:17 Temperature 98.6 F 97.8 F Pulse Rate 102 H 104 H 89 Pulse Rate [ Pulse Oximetery ] Respiratory 18 16 16 Rate Blood Pressure 167/72 190/102 172/85 Blood Pressure [Left Arm Sitting] O2 Sat by Pulse 97 97 97 Oximetry 03/11/20 15:24 Temperature 98.3 F Pulse Rate Pulse Rate [ 93 Pulse Oximetery ] Respiratory 16 Rate Blood Pressure Blood Pressure 180/84 [Left Arm Sitting] O2 Sat by Pulse 96 Oximetry - Reevaluation(s) Reevaluation #1: 03/11/20 14:46 Awaiting call back from Dr. Sanchez Medical Decision Making - Medical Decision Making Upon arrival the patient is placed into room 4. A thorough history and physical exam is performed. Rectal exam is performed and there is no gross blood. Patient does have intact rectal tone. She does have some blood noted around his urethral meatus. No blood in Cervantes bag. Laboratory studies were conducted. Hemoglobin stable at 12.5. Occult is negative for blood. Patient went over for computed tomography scan and pelvis because is reported lower abdominal pain with new onset retention. Demonstrates moderate fecal stasis. Recommend enema at this time. is concerned patient's constitutional symptoms. Patient also has some elevated blood pressures at this time. I discussed the case with Dr. Sanchez agreed to admit the patient for fecal stasis, hypertension and new onset urinary retention. Orders were placed and the patient was transferred to floor in stable condition - Lab Data Result diagrams: 03/12/20 06:37 03/12/20 06:37 Lab Results 03/11/20 03/11/20 03/11/20 Range/Units 12:01 12:01 12:01 WBC 10.3 (3.8-10.6) k/uL RBC 4.07 L (4.30-5.90) m/uL Hgb 12.5 L (13.0-17.5) gm/dL Hct 37.9 L (39.0-53.0) % MCV 93.3 (80.0-100.0) fL MCH 30.7 (25.0-35.0) pg MCHC 32.9 (31.0-37.0) g/dL RDW 12.9 (11.5-15.5) % Plt Count 221 (150-450) k/uL Neutrophils % 92 % Lymphocytes % 4 % Monocytes % 4 % Eosinophils % 0 % Basophils % 0 % Neutrophils # 9.5 H (1.3-7.7) k/uL Lymphocytes # 0.4 L (1.0-4.8) k/uL Monocytes # 0.4 (0-1.0) k/uL Eosinophils # 0.0 (0-0.7) k/uL Basophils # 0.0 (0-0.2) k/uL PT 9.8 (9.0-12.0) sec INR 0.9 (<1.2) APTT 24.4 (22.0-30.0) sec Sodium (137-145) mmol/L Potassium (3.5-5.1) mmol/L Chloride (98-107) mmol/L Carbon Dioxide (22-30) mmol/L Anion Gap mmol/L BUN (9-20) mg/dL Creatinine (0.66-1.25) mg/dL Est GFR (CKD-EPI)AfAm (>60 ml/min/1.73 sqM) Est GFR (CKD-EPI)NonAf (>60 ml/min/1.73 sqM) Glucose (74-99) mg/dL Plasma Lactic Acid Kevin (0.7-2.0) mmol/L Calcium (8.4-10.2) mg/dL Magnesium (1.6-2.3) mg/dL Total Bilirubin (0.2-1.3) mg/dL AST (17-59) U/L ALT (4-49) U/L Alkaline Phosphatase (38-126) U/L Total Protein (6.3-8.2) g/dL Albumin (3.5-5.0) g/dL Lipase (23-300) U/L Stool Occult Blood Negative (Negative) 03/11/20 03/11/20 Range/Units 12:01 12:01 WBC (3.8-10.6) k/uL RBC (4.30-5.90) m/uL Hgb (13.0-17.5) gm/dL Hct (39.0-53.0) % MCV (80.0-100.0) fL MCH (25.0-35.0) pg MCHC (31.0-37.0) g/dL RDW (11.5-15.5) % Plt Count (150-450) k/uL Neutrophils % % Lymphocytes % % Monocytes % % Eosinophils % % Basophils % % Neutrophils # (1.3-7.7) k/uL Lymphocytes # (1.0-4.8) k/uL Monocytes # (0-1.0) k/uL Eosinophils # (0-0.7) k/uL Basophils # (0-0.2) k/uL PT (9.0-12.0) sec INR (<1.2) APTT (22.0-30.0) sec Sodium 136 L (137-145) mmol/L Potassium 4.4 (3.5-5.1) mmol/L Chloride 103 (98-107) mmol/L Carbon Dioxide 26 (22-30) mmol/L Anion Gap 7 mmol/L BUN 26 H (9-20) mg/dL Creatinine 0.80 (0.66-1.25) mg/dL Est GFR (CKD-EPI)AfAm >90 (>60 ml/min/1.73 sqM) Est GFR (CKD-EPI)NonAf 84 (>60 ml/min/1.73 sqM) Glucose 115 H (74-99) mg/dL Plasma Lactic Acid Kevin 1.3 (0.7-2.0) mmol/L Calcium 9.0 (8.4-10.2) mg/dL Magnesium 1.9 (1.6-2.3) mg/dL Total Bilirubin 0.8 (0.2-1.3) mg/dL AST 19 (17-59) U/L ALT 10 (4-49) U/L Alkaline Phosphatase 91 (38-126) U/L Total Protein 6.6 (6.3-8.2) g/dL Albumin 4.2 (3.5-5.0) g/dL Lipase 47 (23-300) U/L Stool Occult Blood (Negative) Disposition Clinical Impression: Diarrhea, Impaction of colon, Hypertension, Urinary retention Disposition: ADMITTED IP TO THIS HOSP Condition: Good Is patient prescribed a controlled substance at d/c from ED?: No Decision to Admit Reason: Admit from EC Decision Date: 03/11/20 Decision Time: 15:04
[2020-03-11] MEDS ORDERED: NALOXONE 0.4 MG/ML 1 ML VIAL IV PRN (15:04)
[2020-03-11] MEDS ORDERED: amLODIPine 5 MG TAB PO STA (15:06)
[2020-03-11] MEDS ORDERED: NA PHOS,M-B/NA PHOS,DI-BA 133 ML ENEMA RECTAL ONE (15:06)
[2020-03-11] MEDS: TAMSULOSIN 0.4 MG CAP.ER.24H PO SCH (21:52)
--- NOTE | 2020-03-11 23:39 | P.HPIM ---
History of Present Illness H&P Date: 03/11/20 Chief Complaint: Abdominal pain, acute urinary retention, severe BPH, severe diarrhea 84-year-old male with past medical history of the pH, hypertension, hyperlipidemia and encephalitis from herpes simplex type II back in 2017 significant memory loss since. Also patient had a chronic history of lower back pain. Presented to [facility] at [facility] this morning with significant urinary retention not been able to void for the last few days with significant distention and discomfort was seen and evaluated ended up having Cervantes catheter placed and ended up having slight bleeding at the time he went home a point urology made for . Patient developed to have severe pain and discomfort and lower abdominal area with severe cramps and worsening hematuria the time addition to it developed to have severe diarrhea with worsening symptom becomes slightly bit lightheaded. Return to [facility] and was evaluated this time found to have severe impaction causing diarrhea with the adjustment of his Cervantes catheter symptom becomes slightly bit better with continued to have significant discomfort with no more bleeding. Patient was to continue tamsulosin twice a day at this point consult urology The Cervantes catheter and admit patient to the hospital. Blood pressure originally was slightly but elevated and improve afterwards will be keeping patient on Norvasc 2.5 mg twice a day as needed. Lungs discussion with the specially with patient's recurrent symptom he might require to have TURP with urology after running ultrasound and further testing of prostate might be done. Also patient might have recent UTI/prostatitis was giving 1 g of Rocephin will continue Flomax and awaiting for the final UA and culture. Review of Systems CONSTITUTIONAL: Well-developed no acute respiratory distress. EYES: No icterus sclerae, no conjunctivitis. EARS, NOSE, MOUTH, THROAT, and FACE: No sore throat, lymphadenopathy, carotid bruits or deformity. RESPIRATORY: No SOB cough or wheezes. CARDIOVASCULAR: No CP, Palpitation, PND, Orthopnea, or angina. GASTROINTESTINAL: No Abd pain, Nausea or vomiting, no Diarrhea or constipation, No GI Bleed, positive abdominal distention and constipation with diarrhea. GENITOURINARY: Positive BPH symptom with slight hematuria. INTEGUMENT/BREAST: Negative for any muscular injury with mild osteoarthritis.. HEMATOLOGIC/LYMPHATIC: Negative for bleed or purpura. MUSCULOSKELTAL: Negative for Myalgia or arthralgia. NEURLOGICAL: No LOC, Sz or syncope, blurred vision dizziness or abnormality. Mild memory loss.. BEHAVIORAL/PSYCH: Negative. ENDOCRINE: Negative. 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 History of Any Multi-Drug Resistant Organisms: None Reported Past Surgical History: Tonsillectomy Additional Past Surgical History / Comment(s): Tonsillectomy, 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 Past Anesthesia/Blood Transfusion Reactions: No Reported Reaction Past Psychological History: No Psychological Hx Reported, Depression Smoking Status: Former smoker Past Alcohol Use History: None Reported Past Drug Use History: None Reported - Past Family History Mother Family Medical History: Cancer (Mother from lung cancer as well as dementia at the age of 70.) Additional Family Medical History / Comment(s): lung Father History Unknown: Yes Family Medical History: No Reported History (Father in his 40s due to alcohol isn't.) Additional Family Medical History / Comment(s): "i don't know a lot about him...he as an alcoholic Brother(s) Family Medical History: Coronary Artery Disease (CAD) (Patient had 2 brothers one as a drug overdose in his 30s and the other one has CAD.) Sister(s) Family Medical History: Cancer, Coronary Artery Disease (CAD) (Patient has one sister with CAD and breast cancer.) Son(s) Family Medical History: No Reported History (Patient has 3 sons to contact and one healthy.) Medications and Allergies Home Medications Medication Instructions Recorded Confirmed Type Tamsulosin HCl [Flomax] 0.4 mg PO BID 12/29/16 03/11/20 History Ascorbic Acid [Vitamin C] 1,000 mg PO DAILY 03/11/20 03/11/20 History Allergies Allergy/AdvReac Type Severity Reaction Status Date / Time thallium-201 Allergy Severe Dyspnea Verified 03/11/20 12:42 Physical Exam Vitals: Vital Signs Temp Pulse Pulse Resp BP BP Pulse Ox 03/11/20 15:24 98.3 F 93 16 180/84 96 03/11/20 15:17 97.8 F 89 16 172/85 97 03/11/20 13:57 104 H 16 190/102 97 03/11/20 11:25 98.6 F 102 H 18 167/72 97 Intake and Output 03/11/20 03/11/20 03/11/20 06:59 14:59 22:59 Output Total 150 Balance -150 Output: Stool 150 Other: # Voids 1 Weight 79.379 kg 79.379 kg General Appearance: Alert, cooperative, no distress, appears stated age. Neck HEENT: Supple, no lymphadenopathy, no thyroid enlargement, no carotid bruits. Lungs: Clear to auscultation without crackles or wheezes no rhonchi, no deformity. Chest Wall: Chest wall normal expansion with deep inspiration no tenderness and no deformity was found on exam, no costochondral pain or discomfort. Heart: Regular rate and rhythm, S1, S2 normal, no murmur, rub or gallop. Back: Symmetric, no curvature, ROM normal, no CVA tenderness. Abdomen: Soft, non-tender, bowel sounds active all four quadrants, no masses, no organomegaly. Extremities: Extremities normal, atraumatic, no cyanosis or edema. Pulses: 2+ and symmetric. Skin: Skin color, texture, tugor normal, no rashes or lesions. Neurologic: Alert oriented x3 cranial nerves II through XII intact, no motor deficit, no abnormal balance or gait. Results CBC & Chem 7: 03/11/20 12:03/11/20 12:01 Labs: Abnormal Lab Results - Last 24 Hours (Table) 03/11/20 03/11/20 Range/Units 12: 12:01 RBC 4.07 L (4.30-5.90) m/uL Hgb 12.5 L (13.0-17.5) gm/dL Hct 37.9 L (39.0-53.0) % Neutrophils # 9.5 H (1.3-7.7) k/uL Lymphocytes # 0.4 L (1.0-4.8) k/uL Sodium 136 L (137-145) mmol/L BUN 26 H (9-20) mg/dL Glucose 115 H (74-99) mg/dL Thrombosis Risk Factor Assmnt - DVT/VTE Prophylaxis DVT/VTE Prophylaxis: Pharmacologic Prophylaxis ordered, Mechanical Prophylaxis ordered - Choose All That Apply Each Risk Factor Represents 3 Points: Age 75 years or older Other congenital or acquired thrombophilia - If yes, enter type in comment: No Thrombosis Risk Factor Assessment Total Risk Factor Score: 3 Thrombosis Risk Factor Assessment Level: Moderate Risk Assessment and Plan Assessment: 1 severe urinary retention: Still have Cervantes catheter and continue Flomax con sult urology further testing including ultrasound of prostate and patient might require to go for TURP 2 Recent UTI and prostatitis: 1 g of Rocephin was giving continue to watch the final culture. 3 severe stool impaction: Fleet enema was ordered along with stool softener continue hydration watch for any further symptoms. 4 elevated blood pressure: Patient was on Norvasc we will add hydralazine 25 mg every 6 hour for systolic above 160. 5 slight memory loss most likely complication of encephalopathy and encephalitis he had in 2017 patient is still not any medication at this point. 6 acute kidney injury: Her kidney function is much better his GFR slightly bit low with stage II chronic kidney disease does not require any attention continue hydration watch BUN/creatinine next few days. 7 GI prophylaxis: Patient will be on Pepcid 20 mg daily. 8 DVT prophylaxis: Continue patient on Venodyne boots and knee-high SHAR hose. CODE STATUS: Full code. Admit patient to observation status for 1-2 nights stay.
[2020-03-12 07:53] LABS: Basophils % (A) 0 %; Eosinophils # (A) 0.2 k/uL (0-0.7); Eosinophils % (A) 2 %; HCT 37.5 % (39.0-53.0); HGB 11.9 gm/dL (13.0-17.5); Lymphocytes # (A) 1.2 k/uL (1.0-4.8); Lymphocytes % (A) 17 %; MCH 30.1 pg (25.0-35.0); MCHC 31.9 g/dL (31.0-37.0); MCV 94.3 fL (80.0-100.0); Mean Platelet Volume 7.2; Monocytes # (A) 0.4 k/uL (0-1.0); Monocytes % (A) 6 %; Neutrophils # (A) 5.3 k/uL (1.3-7.7); Neutrophils % (A) 74 %; Platelet Count 233 k/uL (150-450); RBC 3.97 m/uL (4.30-5.90); WBC 7.1 k/uL (3.8-10.6)
[2020-03-12 08:10] LABS: African American GFR (CKD) >90 (>60 ml/min/1.73 sqM); Anion Gap 5 mmol/L; Blood Urea Nitrogen 20 mg/dL (9-20); Calcium 8.3 mg/dL (8.4-10.2); Carbon Dioxide 27 mmol/L (22-30); Chloride 104 mmol/L (98-107); Glucose 87 mg/dL (74-99); Non-African American GFR(CKD) 78 (>60 ml/min/1.73 sqM); Potassium 4.1 mmol/L (3.5-5.1); Sodium 136 mmol/L (137-145)
[2020-03-12 08:49] VITALS: BP 138/64; PULSE 63; RESP 16; TEMP 97.8
[2020-03-12] MEDS: TAMSULOSIN 0.4 MG CAP.ER.24H PO SCH (08:53)
[2020-03-12] MEDS ORDERED: ASCORBIC ACID 500 MG TAB PO SCH (09:00)
[2020-03-12] MEDS ORDERED: FAMOTIDINE 20 MG TAB PO SCH (09:00)
--- NOTE | 2020-03-12 12:11 | P.DS ---
Providers Date of admission: 03/11/20 15:04 Expected date of discharge: 03/12/20 Attending physician: Bhaskar Sanchez Consults: 03/11/20 15:05 Consult Physician Urgent Consulting Provider: Ernie Lafleur Consult Reason/Comments: acute urinary retention Do you want consulting provider notified?: Yes Primary care physician: [facility] Hospital Course: 84-year-old male with past medical history of the pH, hypertension, hyperlipidemia and encephalitis from herpes simplex type II back in 2017 significant memory loss since. Also patient had a chronic history of lower back pain. Presented to [facility] at [facility] this morning with significant urinary retention not been able to void for the last few days with significant distention and discomfort was seen and evaluated ended up having Cervantes catheter placed and ended up having slight bleeding at the time he went home a point urology made for . Patient developed to have severe pain and discomfort and lower abdominal area with severe cramps and worsening hematuria the time addition to it developed to have severe diarrhea with worsening symptom becomes slightly bit lightheaded. Return to [facility] and was evaluated this time found to have severe impaction causing diarrhea with the adjustment of his Cervantes catheter symptom becomes slightly bit better with continued to have significant discomfort with no more bleeding. Patient was to continue tamsulosin twice a day at this point consult urology The Cervantes catheter and admit patient to the hospital. Blood pressure originally was slightly but bin vated and improve afterwards will be keeping patient on Norvasc 2.5 mg twice a day as needed. Lungs discussion with the specially with patient's recurrent symptom he might require to have TURP with urology after running ultrasound and further testing of prostate might be done. Also patient might have recent UTI/prostatitis was giving 1 g of Rocephin will continue Flomax and awaiting for the final UA and culture. 03/12: Patient has been afebrile, heart rate 63, blood pressure 138/64, pulse ox 95% on room air. Repeat lab work reveals Patient has been seen by Dr. Lafleur and will continue Flomax and follow up in the office in one week. Cervantes with leg bag to continue. Constipation has resolved. Repeat blood work reveals WBC 7.1, hemoglobin 11.9. Sodium 136. Creatinine 0.91 and BUN 20. Patient will be discharged on Miralax and Dulcolax. Patient will be discharged home today in stable condition. Discharge diagnoses: 1 severe urinary retention 2 Recent UTI and prostatitis 3 severe stool impaction 4 elevated blood pressure 5 slight memory loss most likely complication of encephalopathy and encephalitis 6 acute kidney injury 7 COVID-19 infection not present Discharge plan: Home Impression and plan of care have been directed as dictated by the signing physician. Trudi Isbell nurse practitioner acting as scribe for signing physician. Patient Condition at Discharge: Good Plan - Discharge Summary Discharge Rx Participant: No New Discharge Prescriptions: New bisacodyL [Dulcolax] 10 mg PO DAILY #30 tablet. Polyethylene Glycol 3350 [Miralax] 17 gm PO DAILY #527 gm Continue Tamsulosin HCl [Flomax] 0.4 mg PO BID Ascorbic Acid [Vitamin C] 1,000 mg PO DAILY Discharge Medication List Tamsulosin HCl [Flomax] 0.4 mg PO BID 12/29/16 [History] Ascorbic Acid [Vitamin C] 1,000 mg PO DAILY 03/11/20 [History] Polyethylene Glycol 3350 [Miralax] 17 gm PO DAILY #527 gm 03/12/20 [Rx] bisacodyL [Dulcolax] 10 mg PO DAILY #30 tablet. 03/12/20 [Rx] Follow up Appointment(s)/Referral(s): Ernie Lafleur MD [STAFF PHYSICIAN] - 03/20/20 10:00 am Bhaskar Sanchez MD [Primary Care Provider] - 1 Week Patient Instructions/Handouts: Urinary Retention in Men (ED), Cervantes Catheter Placement and Care (DC), Urinary Leg Bag (GEN) Discharge Disposition: HOME SELF-CARE
--- NOTE | 2020-03-12 16:45 | P.GSCN ---
History of Present Illness Consult date: 03/12/20 Reason for Consult: urinary retention History of present illness: Mr Carrera is an 84-year-old male that was admitted to the hospital with urinary retention PVR > 700 mL and blood around the catheter. He had lieberman catheter placed for his urinary retention. He indicated that he noticed some blood around the lieberman and that was the reason he presented to the ED. Of note he has a longstanding history of BPH and complains of weak stream and straining with urination. He is currently on flomax 0.8 mg and is fairly symptomatic from his urination. He indicated since admission he denies any gross hematuria. He has hx of retention 3 years ago. 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 History of Any Multi-Drug Resistant Organisms: None Reported Past Surgical History: Tonsillectomy Additional Past Surgical History / Comment(s): Tonsillectomy, 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 Past Anesthesia/Blood Transfusion Reactions: No Reported Reaction Past Psychological History: No Psychological Hx Reported, Depression Smoking Status: Former smoker Past Alcohol Use History: None Reported Past Drug Use History: None Reported - Past Family History Mother Family Medical History: Cancer (Mother from lung cancer as well as dementia at the age of 70.) Additional Family Medical History / Comment(s): lung Father History Unknown: Yes Family Medical History: No Reported History (Father in his 40s due to alcohol isn't.) Additional Family Medical History / Comment(s): "i don't know a lot about him...he as an alcoholic Brother(s) Family Medical History: Coronary Artery Disease (CAD) (Patient had 2 brothers one as a drug overdose in his 30s and the other one has CAD.) Sister(s) Family Medical History: Cancer, Coronary Artery Disease (CAD) (Patient has one sister with CAD and breast cancer.) Son(s) Family Medical History: No Reported History (Patient has 3 sons to contact and one healthy.) Medications and Allergies Home Medications Medication Instructions Recorded Confirmed Type Tamsulosin HCl [Flomax] 0.4 mg PO BID 12/29/16 03/11/20 History Ascorbic Acid [Vitamin C] 1,000 mg PO DAILY 03/11/20 03/11/20 History Polyethylene Glycol 3350 [Miralax] 17 gm PO DAILY #527 gm 03/12/20 Rx bisacodyL [Dulcolax] 10 mg PO DAILY #30 tablet. 03/12/20 Rx Allergies Allergy/AdvReac Type Severity Reaction Status Date / Time thallium-201 Allergy Severe Dyspnea Verified 03/11/20 12:42 Surgical - Exam Vital Signs Temp Pulse Resp BP Pulse Ox 98.6 F 102 H 18 167/72 97 03/11/20 11:25 03/11/20 11:25 03/11/20 11:25 03/11/20 11:25 03/11/20 11:25 - General well developed, well nourished, no distress, no pain - Eyes PERRL, normal ocular movement - ENT normal mucosa, no hearing loss - Respiratory normal expansion, normal respiratory effort - Abdomen Abdomen: soft - Genitourinary lieberman in place, draining clear yellow urine - Psychiatric oriented to time, oriented to person, oriented to place Results - Labs 03/12/20 06:37 03/12/20 06:37 Abnormal Lab Results - Last 24 Hours (Table) 03/12/20 03/12/20 Range/Units 06:37 06:37 RBC 3.97 L (4.30-5.90) m/uL Hgb 11.9 L (13.0-17.5) gm/dL Hct 37.5 L (39.0-53.0) % Sodium 136 L (137-145) mmol/L Calcium 8.3 L (8.4-10.2) mg/dL Diabetes panel 03/12/20 Range/Units 06:37 Sodium 136 L (137-145) mmol/L Potassium 4.1 (3.5-5.1) mmol/L Chloride 104 (98-107) mmol/L Carbon Dioxide 27 (22-30) mmol/L BUN 20 (9-20) mg/dL Creatinine 0.91 (0.66-1.25) mg/dL Glucose 87 (74-99) mg/dL Calcium 8.3 L (8.4-10.2) mg/dL Calcium panel 03/12/20 Range/Units 06:37 Calcium 8.3 L (8.4-10.2) mg/dL Pituitary panel 03/12/20 Range/Units 06:37 Sodium 136 L (137-145) mmol/L Potassium 4.1 (3.5-5.1) mmol/L Chloride 104 (98-107) mmol/L Carbon Dioxide 27 (22-30) mmol/L BUN 20 (9-20) mg/dL Creatinine 0.91 (0.66-1.25) mg/dL Glucose 87 (74-99) mg/dL Calcium 8.3 L (8.4-10.2) mg/dL Adrenal panel 03/12/20 Range/Units 06:37 Sodium 136 L (137-145) mmol/L Potassium 4.1 (3.5-5.1) mmol/L Chloride 104 (98-107) mmol/L Carbon Dioxide 27 (22-30) mmol/L BUN 20 (9-20) mg/dL Creatinine 0.91 (0.66-1.25) mg/dL Glucose 87 (74-99) mg/dL Calcium 8.3 L (8.4-10.2) mg/dL Assessment and Plan Assessment: 84 yo male admitted to the hospital with urinary retention and bleeding around the catheter. Has longstanding hx of BPH despite 0.8 of flomax. Bleeding most likely secondary to trauma from the catheter trauma no need for heamturia workup. CT showed his prostate measured approximetely 60 gram. I discussed with him urinary retention and significant LUTS he will benefit from surgical intervention, but will need cystoscopy prior to TURP. His constipation is also contributing to his urinary symptoms.
== END 2020-03-12 12:38 | disposition home or self-care (01) ==
LOC: EC 11:15 → 1SOBS 15:04
PROVIDERS: ADMIT Internal Medicine Geriatric Medicine; ATTEND Internal Medicine Geriatric Medicine
DX: N40.1 Benign prostatic hyperplasia with lower urinary tract symptoms (principal); R33.8 Other retention of urine; R39.16 Straining to void; R39.12 Poor urinary stream; R31.9 Hematuria, unspecified; K59.00 Constipation, unspecified; K56.49 Other impaction of intestine; R42 Dizziness and giddiness; I10 Essential (primary) hypertension; R41.3 Other amnesia; N17.9 Acute kidney failure, unspecified; E78.5 Hyperlipidemia, unspecified; K21.9 Gastro-esophageal reflux disease without esophagitis; M19.90 Unspecified osteoarthritis, unspecified site; M47.896 Other spondylosis, lumbar region; F32.9 Major depressive disorder, single episode, unspecified; Z87.440 Personal history of urinary (tract) infections; Z87.438 Personal history of other diseases of male genital organs; Z96.0 Presence of urogenital implants; Z03.818 Encounter for observation for suspected exposure to other biological agents ruled out; Z79.899 Other long term (current) drug therapy; Z91.041 Radiographic dye allergy status; Z86.61 Personal history of infections of the central nervous system; Z90.89 Acquired absence of other organs; Z98.890 Other specified postprocedural states; Z87.891 Personal history of nicotine dependence; Z80.1 Family history of malignant neoplasm of trachea, bronchus and lung; Z81.8 Family history of other mental and behavioral disorders; Z81.1 Family history of alcohol abuse and dependence; Z82.49 Family history of ischemic heart disease and other diseases of the circulatory system; Z81.3 Family history of other psychoactive substance abuse and dependence; Z80.3 Family history of malignant neoplasm of breast
CPT/HCPCS: 93005 ×2; 96365; 96366 ×2; 99283; 99285; 51702; 36415; 80053; 80048 ×2; 83605; 83690; 83735; 85025 ×2; 85610; 85730; 82272; 81003; 74177; G0378 ×2; U0003; J0696 ×2; Q9967

== ENCOUNTER 2020-08-25 07:52 | Observation (INO) | payer MEDICARE ==
[2020-08-25] MEDS ORDERED: SODIUM CHLORIDE 0.9% 1,000 ML IV ONE ×2 (08:25→10:12)
[2020-08-25 08:28] LABS: Basophils % (A) 1 %; Eosinophils # (A) 0.2 k/uL (0-0.7); Eosinophils % (A) 3 %; HGB 13.8 gm/dL (13.0-17.5); Lymphocytes # (A) 1.2 k/uL (1.0-4.8); Lymphocytes % (A) 23 %; MCH 31.2 pg (25.0-35.0); MCHC 33.7 g/dL (31.0-37.0); MCV 92.5 fL (80.0-100.0); Mean Platelet Volume 7.2; Monocytes # (A) 0.2 k/uL (0-1.0); Monocytes % (A) 4 %; Neutrophils # (A) 3.5 k/uL (1.3-7.7); Neutrophils % (A) 67 %; Platelet Count 186 k/uL (150-450); RBC 4.44 m/uL (4.30-5.90); RDW 12.2 % (11.5-15.5); WBC 5.1 k/uL (3.8-10.6)
--- NOTE | 2020-08-25 08:30 | ED ---
General Adult HPI - General Chief complaint: Syncope Stated complaint: syncope Time Seen by Provider: 08/25/20 07:52 Source: patient, EMS, RN notes reviewed, old records reviewed Mode of arrival: EMS Limitations: no limitations - History of Present Illness Initial comments: This is an 84-year-old male who presents to the emergency department after malou gomez had a syncopal episode this morning. He states that he went down once but the tells us that he got up to go to the bathroom went to the ground was still awake but a little confused he got back up again and went right back down and this time he was not responding to her all for a few seconds and then started talking to her. Patient then try to get to a chair and was too weak to do so and fell 2 more times but did not hurt himself and did not pass out either of those 2 times. Patient denies any chest pain or palpitations. Patient states had no difficulty breathing shortness of breath. Patient states she's not been sick in anyway that he knows of. Patient denies any fever chills or cough per patient denies any nausea vomiting diarrhea. Patient states he did once before pass out years ago. Patient states currently he is asymptomatic. - Related Data Home Medications Medication Instructions Recorded Confirmed Tamsulosin HCl [Flomax] 0.4 mg PO BID 12/29/16 08/25/20 Ascorbic Acid [Vitamin C] 1,000 mg PO HS 03/11/20 08/25/20 Aspirin EC [Ecotrin Low Dose] 81 mg PO HS 08/25/20 08/25/20 Donepezil HCl [Aricept] 5 mg PO HS 08/25/20 08/25/20 Allergies Allergy/AdvReac Type Severity Reaction Status Date / Time thallium-201 Allergy Severe Dyspnea Verified 08/25/20 09:08 Review of Systems ROS Statement: Those systems with pertinent positive or pertinent negative responses have been documented in the HPI. ROS Other: All systems not noted in ROS Statement are negative. 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 History of Any Multi-Drug Resistant Organisms: None Reported Past Surgical History: Tonsillectomy Additional Past Surgical History / Comment(s): Tonsillectomy, 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 Past Anesthesia/Blood Transfusion Reactions: No Reported Reaction Past Psychological History: No Psychological Hx Reported, Depression Smoking Status: Former smoker Past Alcohol Use History: None Reported Past Drug Use History: None Reported - Past Family History Mother Family Medical History: Cancer (Mother from lung cancer as well as dementia at the age of 70.) Additional Family Medical History / Comment(s): lung Father History Unknown: Yes Family Medical History: No Reported History (Father in his 40s due to alco hol isn't.) Additional Family Medical History / Comment(s): "i don't know a lot about him...he as an alcoholic Brother(s) Family Medical History: Coronary Artery Disease (CAD) (Patient had 2 brothers one as a drug overdose in his 30s and the other one has CAD.) Sister(s) Family Medical History: Cancer, Coronary Artery Disease (CAD) (Patient has one sister with CAD and breast cancer.) Son(s) Family Medical History: No Reported History (Patient has 3 sons to contact and one healthy.) General Exam - General Exam Comments Initial Comments: GENERAL: Patient is well-developed and well-nourished. Patient is nontoxic and well- hydrated and is in no acute distress. ENT: Neck is soft and supple. No significant lymphadenopathy is noted. Oropharynx is clear. Moist mucous membranes. Neck has full range of motion without eliciting any pain. EYES: The sclera were anicteric and conjunctiva were pink and moist. Extraocular movements were intact and pupils were equal round and reactive to light. E yelids were unremarkable. PULMONARY: Unlabored respirations. Good breath sounds bilaterally. No audible rales rhonchi or wheezing was noted. CARDIOVASCULAR: There is a regular rate and rhythm without any murmurs gallops or rubs. ABDOMEN: Soft and nontender with normal bowel sounds. SKIN: Skin is clear with no lesions or rashes and otherwise unremarkable. NEUROLOGIC: Patient is alert and oriented x3. Cranial nerves II through XII are grossly intact. Motor and sensory are also intact. Normal speech, volume and content. Symmetrical smile. MUSCULOSKELETAL: Normal extremities with adequate strength and full range of motion. No lower extremity swelling or edema. No calf tenderness. LYMPHATICS: No significant lymphadenopathy is noted PSYCHIATRIC: Normal psychiatric evaluation. Limitations: no limitations Course Vital Signs 08/25/20 08/25/20 08/25/20 07:53 08:46 08:50 Temperature 98.0 F Pulse Rate 66 64 Pulse Rate [ 64 Sitting] Pulse Rate [ 87 Standing] Pulse Rate [ 86 Supine] Respiratory 18 Rate Blood Pressure 182/96 Blood Pressure 147/74 [Sitting] Blood Pressure 127/63 [Standing] Blood Pressure 161/95 [Supine] O2 Sat by Pulse 98 Oximetry 08/25/20 08/25/20 08/25/20 09:00 10:02 10:19 Temperature 97.9 F Pulse Rate 64 Pulse Rate [ 92 Sitting] Pulse Rate [ 86 Standing] Pulse Rate [ 82 82 Supine] Respiratory 18 18 Rate Blood Pressure 156/81 Blood Pressure 168/87 [Sitting] Blood Pressure 175/88 [Standing] Blood Pressure 147/73 174/82 [Supine] O2 Sat by Pulse 96 95 Oximetry 08/25/20 10:49 Temperature 98.0 F Pulse Rate 85 Pulse Rate [ Sitting] Pulse Rate [ Standing] Pulse Rate [ Supine] Respiratory 18 Rate Blood Pressure 165/87 Blood Pressure [Sitting] Blood Pressure [Standing] Blood Pressure [Supine] O2 Sat by Pulse 99 Oximetry Medical Decision Making - Medical Decision Making EKG shows sinus rhythm with occasional PAC at 71 bpm IA interval is 152 QRS is 124 QT interval is 438 QTC is 475. Patient's EKG shows no ST segment elevation or depression. Patient's EKG shows a right bundle branch block. - Lab Data Result diagrams: 08/25/20 08:19 08/25/20 08:19 Lab Results 08/25/20 08/25/20 08/25/20 Range/Units 08:19 08:19 08:19 WBC 5.1 (3.8-10.6) k/uL RBC 4.44 (4.30-5.90) m/uL Hgb 13.8 (13.0-17.5) gm/dL Hct 41.0 (39.0-53.0) % MCV 92.5 (80.0-100.0) fL MCH 31.2 (25.0-35.0) pg MCHC 33.7 (31.0-37.0) g/dL RDW 12.2 (11.5-15.5) % Plt Count 186 (150-450) k/uL MPV 7.2 Neutrophils % 67 % Lymphocytes % 23 % Monocytes % 4 % Eosinophils % 3 % Basophils % 1 % Neutrophils # 3.5 (1.3-7.7) k/uL Lymphocytes # 1.2 (1.0-4.8) k/uL Monocytes # 0.2 (0-1.0) k/uL Eosinophils # 0.2 (0-0.7) k/uL Basophils # 0.0 (0-0.2) k/uL PT 10.3 (9.0-12.0) sec INR 1.0 (<1.2) APTT 22.5 (22.0-30.0) sec Sodium 138 (137-145) mmol/L Potassium 4.3 (3.5-5.1) mmol/L Chloride 105 (98-107) mmol/L Carbon Dioxide 27 (22-30) mmol/L Anion Gap 6 mmol/L BUN 23 H (9-20) mg/dL Creatinine 1.02 (0.66-1.25) mg/dL Est GFR (CKD-EPI)AfAm 79 (>60 ml/min/1.73 sqM) Est GFR (CKD-EPI)NonAf 68 (>60 ml/min/1.73 sqM) Glucose 121 H (74-99) mg/dL Calcium 9.0 (8.4-10.2) mg/dL Magnesium 2.0 (1.6-2.3) mg/dL Total Bilirubin 0.8 (0.2-1.3) mg/dL AST 18 (17-59) U/L ALT 12 (4-49) U/L Alkaline Phosphatase 86 (38-126) U/L Troponin I (0.000-0.034) ng/mL Total Protein 6.9 (6.3-8.2) g/dL Albumin 4.2 (3.5-5.0) g/dL 08/25/20 Range/Units 08:19 WBC (3.8-10.6) k/uL RBC (4.30-5.90) m/uL Hgb (13.0-17.5) gm/dL Hct (39.0-53.0) % MCV (80.0-100.0) fL MCH (25.0-35.0) pg MCHC (31.0-37.0) g/dL RDW (11.5-15.5) % Plt Count (150-450) k/uL MPV Neutrophils % % Lymphocytes % % Monocytes % % Eosinophils % % Basophils % % Neutrophils # (1.3-7.7) k/uL Lymphocytes # (1.0-4.8) k/uL Monocytes # (0-1.0) k/uL Eosinophils # (0-0.7) k/uL Basophils # (0-0.2) k/uL PT (9.0-12.0) sec INR (<1.2) APTT (22.0-30.0) sec Sodium (137-145) mmol/L Potassium (3.5-5.1) mmol/L Chloride (98-107) mmol/L Carbon Dioxide (22-30) mmol/L Anion Gap mmol/L BUN (9-20) mg/dL Creatinine (0.66-1.25) mg/dL Est GFR (CKD-EPI)AfAm (>60 ml/min/1.73 sqM) Est GFR (CKD-EPI)NonAf (>60 ml/min/1.73 sqM) Glucose (74-99) mg/dL Calcium (8.4-10.2) mg/dL Magnesium (1.6-2.3) mg/dL Total Bilirubin (0.2-1.3) mg/dL AST (17-59) U/L ALT (4-49) U/L Alkaline Phosphatase (38-126) U/L Troponin I <0.012 (0.000-0.034) ng/mL Total Protein (6.3-8.2) g/dL Albumin (3.5-5.0) g/dL Disposition Clinical Impression: Syncope and collapse Disposition: ADMITTED IP TO THIS HOSP
[2020-08-25 08:41] LABS: Albumin 4.2 g/dL (3.5-5.0); Potassium 4.3 mmol/L (3.5-5.1); Total Bilirubin 0.8 mg/dL (0.2-1.3); Total Protein 6.9 g/dL (6.3-8.2)
--- NOTE | 2020-08-25 08:49 | XR ---
EXAMINATION TYPE: XR chest 2V DATE OF EXAM: 08/25/2020 COMPARISON: 05/05/2017 TECHNIQUE: PA and lateral views submitted. HISTORY: Chest pain FINDINGS: The lungs are clear and there is no pneumothorax, pleural effusion, or focal pneumonia. Hyperinflat ion suggests COPD. No overt failure. Heart size normal. Atherosclerotic change aorta. Degenerative ch kevin of the spine and arthropathy of the shoulders. Hyperinflation suggests COPD. Mild prominence of the right paratracheal stripe likely related to vascular structures. IMPRESSION: 1. No acute process.
[2020-08-25 08:53] LABS: Partial Thromboplastin Time 22.5 sec (22.0-30.0); Prothrombin Time 10.3 sec (9.0-12.0)
--- NOTE | 2020-08-25 11:02 | CT ---
EXAMINATION TYPE: CT angio neck DATE OF EXAM: 08/25/2020 HISTORY: carotid stenosis, syncope COMPARISON: MRA 09/08/2017 CT DLP: 417.6 mGycm. Automated Exposure Control for Dose Reduction was Utilized. TECHNIQUE: CTA scan of the neck is performed with IV Contrast, patient injected with 65 mL of Isovue 370, axial images are obtained, coronal and sagittal reformatted images are reviewed. Three-D recons tructed images are created on an independent workstation and reviewed. FINDINGS: Atherosclerotic change aorta are. There appears to be evidence of a severe stenosis involving the right external carotid artery. There is moderate disease involving the proximal right internal carotid artery measuring approximately 50%. Left carotid bifurcation demonstrates no evidence of significant stenosis. Left vertebral artery is dominant. Atherosclerotic change involving the proximal portion of the left subclavian artery and brachiocephalic artery. Visualized portions of the subclavian remaining arterie s bilaterally are patent. Common carotid artery proximally appears to be patent. IMPRESSION: 1. Approximately 50% stenosis involving the proximal right ICA. 2. Mild atherosclerotic change involving the proximal left ICA with no significant stenosis. 3. Severe stenosis origin right external carotid artery.
--- NOTE | 2020-08-25 11:05 | P.HPIM ---
History of Present Illness H&P Date: 08/25/20 HISTORY OF PRESENT ILLNESS This is an 84-year-old male patient of Dr. Sanchez with past medical history of hypertension, hyperlipidemia, encephalitis from herpes simplex type II in 2017 with significant memory loss, chronic low back pain, benign prostatic hypertrophy. Patient's last hospitalization was in February 2020 at which time he presented with urinary retention requiring Cervantes catheter placement. Patient had episode of a syncopal episode in the bathroom he then had a second episode and possibly a third episode where he was just weak and some to the floor. He denies any injuries. He denies any blurred or double vision. No change in vision. He denies having dizziness while laying in bed. He denies having any palpitations. No chest pain. No edema. He has been eating and drinking okay. No diarrhea. He has been started on a new memory medication, Aricept. MRI of the neck done in August 2017 did reveal high-grade stenosis of the proximal internal carotid artery on the right. He has had follow-up with Dr. Desai at that time. Patient presented to [facility] emergency center for evaluation. He was found to be afebrile, heart rate 66, blood pressure 182/96, pulse ox 98% on room air. EKG was a sinus rhythm with occasional PAC. No ST changes. Positive right bundle branch block. CBC was unremarkable. Creatinine 1.02, BUN 23 electrolytes normal. Liver function tests normal. Troponin negative. Blood sugar 121. Chest x-ray revealed no acute process. Orthostatic vital signs were positive the patient is status post 1 L of IV fluids. Patient admitted to the observation unit and cardiology consult requested as well as CTA of the carotid arteries. REVIEW OF SYSTEMS Constitutional: No fever, no chills, no night sweats. No weight change. Reports weakness, fatigue or lethargy. No daytime sleepiness. EENT: No headache. No blurred vision or double vision, no loss of vision. No loss of Hearing, no ringing in the ears, no dizziness. No nasal drainage or congestion. No epistaxis. No sore throat. Lungs: No shortness of breath, cough, no sputum production. No wheezing. Cardiovascular: No chest pain, no lower extremity edema. No palpitations. No paroxysmal nocturnal dyspnea. No orthopnea. No lightheadedness or dizziness. Reports syncopal episodes. Abdominal: No abdominal pain. No nausea, vomiting. No diarrhea. No constipation. No bloody or tarry stools.. No loss of appetite. Genitourinary: No dysuria, increased frequency, urgency. No urinary retention. Musculoskeletal: No myalgias. Reports muscle weakness, no gait dysfunction, no frequent falls. No back pain. No neck pain. Integumentary: No wounds, no lesions. No rash or pruritus. No unusual bruising. No change in hair or nails. Neurologic: No aphasia. No facial droop. No change in mentation. No head injury. No headache. No paralysis. No paresthesia. Psychiatric: No depression. No anxiety. No mood swings. Endocrine: No abnormal blood sugars. No weight change. No excessive sweating or thirst. No cold intolerance. SOCIAL HISTORY Patient has history of smoking for 25 years and quit at age 42. He also has history of alcohol abuse and quit at age 42. Patient lives at home with his . FAMILY HISTORY Father in his 40s from alcohol abuse. Mother from lung cancer and dementia at age 70. Patient has 2 brothers and one from an overdose and his 30s and the other one has coronary artery disease. Patient has one sister with coronary artery disease and breast cancer. Patient has 3 sons with no major medical problems. PHYSICAL EXAMINATION Gen: This is an 84-year-old male. He is resting on the ears stretching appears to be comfortable. Patient's is at bedside. HEENT: Head is atraumatic, normocephalic. Pupils equal, round. Sclerae is anicteric. NECK: Supple. No JVD. No lymphadenopathy. No thyromegaly. LUNGS: Clear to auscultation. No wheezes or rhonchi. No intercostal retractions. HEART: Regular rate and rhythm. No murmur. ABDOMEN: Soft. Bowel sounds are present. No masses. No tenderness. EXTREMITIES: No pedal edema. No calf tenderness. Decreased dorsalis pedis on the left. NEUROLOGICAL: Patient is awake, alert and oriented x3. Cranial nerves 2 through 12 are grossly intact. ASSESSMENT AND PLAN 1. Syncopal episodes, orthostatic changes. Consult with cardiology. Midodrine 10 mg 3 times daily added. Continue IV fluids 0.9 normal saline at 75 mL per hour. 2. Known right sided carotid artery stenosis. CTA of the neck ordered, consult with Dr. Desai. 3. Dementia. Continue Aricept 5 mg at bedtime. 4. Benign prostatic hypertrophy. Continue Flomax or 0.4 mg twice daily. 5. History of hypertension. 6. History of hyperlipidemia. 7. 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 8. Chronic low back pain, stable. 9. DVT prophylaxis. Heparin subcu. 10. GI prophylaxis. Protonix Patient placed as an observation status. DISCHARGE PLAN Return home. Impression and plan of care have been directed as dictated by the signing physician. Trudi Isbell nurse practitioner acting as scribe for signing physician. Past Medical History Past Medical History: GERD/Reflux, Hyperlipidemia, Musculoskeletal Disorder, Osteoarthritis (OA), Prostate Disorder Additional Past Medical History / Comment(s): Herpes simplex type II enc ephalitis diagnosed in December 2016 and treated, chronic back pain, prostate enlargement, acid reflux, hyperlipidemia, chronic back pain requiring back injections, spondylosis of the lumbar spine, depression. History of Any Multi-Drug Resistant Organisms: None Reported Past Surgical History: Tonsillectomy Additional Past Surgical History / Comment(s): Tonsillectomy, 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 Past Anesthesia/Blood Transfusion Reactions: No Reported Reaction Past Psychological History: No Psychological Hx Reported, Depression Smoking Status: Former smoker Past Alcohol Use History: None Reported Past Drug Use History: None Reported - Past Family History Mother Family Medical History: Cancer (Mother from lung cancer as well as dementia at the age of 70.) Additional Family Medical History / Comment(s): lung Father History Unknown: Yes Family Medical History: No Reported History (Father in his 40s due to alcohol isn't.) Additional Family Medical History / Comment(s): "i don't know a lot about him...he as an alcoholic Brother(s) Family Medical History: Coronary Artery Disease (CAD) (Patient had 2 brothers one as a drug overdose in his 30s and the other one has CAD.) Sister(s) Family Medical History: Cancer, Coronary Artery Disease (CAD) (Patient has one sister with CAD and breast cancer.) Son(s) Family Medical History: No Reported History (Patient has 3 sons to contact and one healthy.) Medications and Allergies Home Medications Medication Instructions Recorded Confirmed Type Tamsulosin HCl [Flomax] 0.4 mg PO BID 12/29/16 08/25/20 History Ascorbic Acid [Vitamin C] 1,000 mg PO HS 03/11/20 08/25/20 History Aspirin EC [Ecotrin Low Dose] 81 mg PO HS 08/25/20 08/25/20 History Donepezil HCl [Aricept] 5 mg PO HS 08/25/20 08/25/20 History Allergies Allergy/AdvReac Type Severity Reaction Status Date / Time thallium-201 Allergy Severe Dyspnea Verified 08/25/20 09:08 Physical Exam Vitals: Vital Signs Temp Pulse Pulse Pulse Pulse Resp BP 08/25/20 10:02 92 86 82 08/25/20 09:00 64 18 156/81 08/25/20 08:50 64 87 86 08/25/20 08:46 64 08/25/20 07:53 98.0 F 66 18 182/96 BP BP BP Pulse Ox 08/25/20 10:02 168/87 175/88 147/73 08/25/20 09:00 96 08/25/20 08:50 147/74 127/63 161/95 08/25/20 08:46 08/25/20 07:53 98 Intake and Output 08/24/20 08/25/20 08/25/20 22:59 06:59 14:59 Other: Weight 83.007 kg Results CBC & Chem 7: 08/25/20 08:19 08/25/20 08:19 Labs: Abnormal Lab Results - Last 24 Hours (Table) 08/25/20 Range/Units 08:19 BUN 23 H (9-20) mg/dL Glucose 121 H (74-99) mg/dL
--- NOTE | 2020-08-25 13:22 | CONS ---
CONSULTATION Mr. Carrera is an 84-year-old male who presented with a syncopal episode. He is not quite sure about the details, but reviewing the notes from the emergency room, apparently the patient got up to went to the bathroom, was more confused, went back down. When he got up, walked a little bit and was too weak and fell down and had a syncopal episode. Because of that, he came into the emergency room and was admitted. He had no tonic-clonic activity. No loss of bladder activity. No chest pain. No arrhythmia. He has a history of encephalitis, history of hyperlipidemia. He has no cardiac history. He has a history of carotid disease and has been followed by Dr. Desai. He has no PND, orthopnea, or peripheral edema. No prior syncope according to him. Prior to this episode, he had no cardiac issues according to him. MEDICATION: At home included Flomax, vitamin C, aspirin and Aricept. REVIEW OF SYSTEMS: RESPIRATORY system: He has some dyspnea on exertion. No recent wheezing or cough. GI system: No recent GI bleeding. No peptic ulcer disease. system: No dysuria or hematuria. Nervous system: No history of seizure. PHYSICAL EXAMINATION: He is an 84-year-old male, alert, confused, in no apparent distress. Blood pressure running in the 160s supine dropping to the 120s standing up at times, although not constantly. Most recent blood pressure did not show orthostatic changes. Heart rate in the 80s. HEAD: Normocephalic. Eyes: Sclerae anicteric. Neck: Good upstroke with bilateral bruit. LUNGS: Clear to auscultation. HEART: Regular rhythm S1, S2. No S3 with systolic ejection murmur heard at the base. No diastolic murmur. No rub. ABDOMEN: Soft. Nontender. Positive bowel sounds. No organomegaly. EXTREMITIES: No edema. Intact distal pulses. LAB DATA: Revealed troponin less than 0.012, BUN and creatinine 23 and 1.02. Potassium 4.3, hemoglobin 13.8. EKG revealed a sinus mechanism. Rate of 71 with PACs, right bundle branch block. Neck CT angiogram revealed a 50% stenosis in the proximal right internal carotid artery with mild atherosclerotic changes in the proximal left internal carotid artery and severe stenosis in the right external carotid artery. Chest x-ray shows no acute infiltrate. IMPRESSION: 1. Syncopal episode most likely orthostatic hypotension. No evidence to suggest malignant arrhythmia. 2. History of carotid disease not critical according to the CT angiogram. 3. Prior history of hypertension, not on treatment. 4. History of hyperlipidemia, not on treatment at this time. 5. History of encephalitis with memory loss and dementia. RECOMMENDATION: From the cardiac standpoint, will obtain echocardiogram with Doppler to rule out any significant abnormality. Otherwise, will continue clinical observation and depending on his progress, further recommendations will be made. Thank you for this consult. We will follow with you. MMODL / IJN: [id number] /
[2020-08-25] MEDS: MIDODRINE 5 MG TAB PO SCH ×2 (15:44→19:17)
[2020-08-25] MEDS: HEPARIN SODIUM,PORCINE 5,000 UNIT/ML 1 ML VIAL SQ SCH (20:47)
[2020-08-25] MEDS: TAMSULOSIN 0.4 MG CAP.ER.24H PO SCH (20:48)
[2020-08-25] MEDS ORDERED: ASPIRIN 81 MG PO SCH (21:00)
[2020-08-25] MEDS ORDERED: ASCORBIC ACID 500 MG TAB PO SCH (21:00)
[2020-08-25] MEDS ORDERED: DONEPEZIL 5 MG TAB PO SCH (21:00)
[2020-08-25 23:21] VITALS: RESP 16
[2020-08-26] MEDS: MIDODRINE 5 MG TAB PO SCH (07:04)
[2020-08-26] MEDS ORDERED: PANTOPRAZOLE 40 MG TABLET PO SCH (07:30)
[2020-08-26 08:09] VITALS: PULSE 71; TEMP 98.4
[2020-08-26] MEDS: HEPARIN SODIUM,PORCINE 5,000 UNIT/ML 1 ML VIAL SQ SCH (09:03)
[2020-08-26] MEDS: TAMSULOSIN 0.4 MG CAP.ER.24H PO SCH (09:05)
--- NOTE | 2020-08-26 10:27 | ECHOF ---
Referral Reason: MEASUREMENTS -------- HEIGHT: 180.3 cm WEIGHT: 83.0 kg BP: 153/70 RVIDd: 2.7 cm (< 3.3) IVSd: 1.0 cm (0.6 - 1.1) LVIDd: 3.4 cm (3.9 - 5.3) LVPWd: 1.0 cm (0.6 - 1.1) IVSs: 1.5 cm LVIDs: 2.1 cm LVPWs: 1.7 cm LAESV Index (A-L): 22.81 ml/m Ao Diam: 2.7 cm (2.0 - 3.7) AV Cusp: 1.5 cm (1.5 - 2.6) LA Diam: 2.4 cm (2.7 - 3.8) MV EXCURSION: 20.824 mm (> 18.000) MV EF SLOPE: 92 mm/s (70 - 150) EPSS: 1.7 cm MV E Allen: 0.65 m/s MV DecT: 339 ms MV A Allen: 0.63 m/s MV E/A Ratio: 1.03 RAP: 5.00 mmHg RVSP: 12.04 mmHg FINDINGS -------- This was a technically good study. The left ventricular size is normal. Left ventricular wall thickness is normal. Overall left vent ricular systolic function is normal with, an EF between 55 - 60 %. The diastolic filling pattern is normal for the age of the patient 11.47. The right ventricle is normal in size. The left atrial size is normal. Normal LA size by volume 22+/-6 ml/m2. The right atrial size is normal. Aortic valve is trileaflet and is mildly thickened. The mitral valve is normal. There is trace mitral regurgitation. The tricuspid valve appears structurally normal. Trace tricuspid regurgitation present. Right cathie tricular systolic pressure is normal at < 35 mmHg. There is no pulmonic regurgitation present. The aortic root size is normal. Normal inferior vena cava with normal inspiratory collapse consistent with estimated right atrial pre ssure of 5 mmHg. There is no pericardial effusion. CONCLUSIONS -------- 1. The left ventricular size is normal. 2. Left ventricular wall thickness is normal. 3. Overall left ventricular systolic function is normal with, an EF between 55 - 60 %. 4. The diastolic filling pattern is normal for the age of the patient 11.47 5. Aortic valve is trileaflet and is mildly thickened. 6. There is trace mitral regurgitation. 7. Trace tricuspid regurgitation present. 8. There is no pericardial effusion. NEON SIGN MAKER: Vivian Sierra RDCS
--- NOTE | 2020-08-26 11:01 | P.DS ---
Providers Date of admission: 08/25/20 10:12 Expected date of discharge: 08/26/20 Attending physician: Joann Coleman Consults: 08/25/20 10:12 Consult Physician Urgent Consulting Provider: [facility] Consult Reason/Comments: Syncope Do you want consulting provider notified?: Yes 08/25/20 10:17 Consult Physician Routine Consulting Provider: Shukri Desai Consult Reason/Comments: Rt carotid stenosis, syncope Do you want consulting provider notified?: Yes Primary care physician: Bhaskar Daniel [facility]ton Hospital Course: HISTORY OF PRESENT ILLNESS This is an 84-year-old male patient of Dr. 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 Patient's last hospitalization was in February 2020 at which time he presented with urinary retention requiring Cervantes catheter placement. Patient had episode of a syncopal episode in the bathroom he then had a second episode and possibly a third episode where he was just weak and some to the floor. He denies any injuries. He denies any blurred or double vision. No change in vision. He denies having dizziness while laying in bed. He denies having any palpitations. No chest pain. No edema. He has been eating and drinking okay. No diarrhea. He has been started on a new memory medication, Aricept. MRI of the neck done in August 2017 did reveal high-grade stenosis of the proximal internal carotid artery on the right. He has had follow-up with Dr. Desai at that time. Patient presented to [facility] emergency center for evaluation. He was found to be afebrile, heart rate 66, blood pressure 182/96, pulse ox 98% on room air. EKG was a sinus rhythm with occasional PAC. No ST changes. Positive right bundle branch block. CBC was unremarkable. Creatinine 1.02, BUN 23 electrolytes normal. Liver function tests normal. Troponin negative. Blood sugar 121. Chest x-ray revealed no acute process. Orthostatic vital signs were positive the patient is status post 1 L of IV fluids. Patient admitted to the observation unit and cardiology consult requested as well as CTA of the carotid arteries. 08/26: CTA of the neck reveals proximal 50% stenosis involving the proximal right ICA. Mild atherosclerotic change involving the proximal left ICA with no significant stenosis. Severe stenosis origin right external carotid artery. Echocardiogram reveals EF of 55-60%, trace mitral regurgitation, trace tricuspid regurgitation. Patient has been seen by cardiology. No evidence of malignant arrhythmia. Patient's orthostatic changes are less significant this morning. He has not received midodrine as his blood pressure is on the higher side. P atient states he does not drink much water and he has been encouraged to drink at least 40 ounces per day. Patient denies having any lightheadedness or dizziness. Patient's has been updated via the phone. Patient will be discharged home today in stable condition. ASSESSMENT AND PLAN 1. Syncopal episodes, orthostatic changes. 2. Known right sided carotid artery stenosis. 3. Dementia. 4. Benign prostatic hypertrophy. 5. History of hypertension. 6. History of hyperlipidemia. 7. 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 8. Chronic low back pain, stable. DISCHARGE PLAN Return home. Impression and plan of care have been directed as dictated by the signing physician. Trudi Isbell nurse practitioner acting as scribe for signing physician. Patient Condition at Discharge: Good Plan - Discharge Summary New Discharge Prescriptions: New Midodrine [ProAmatine] 5 mg PO TID PRN #90 tablet PRN Reason: Hypotension Continue Tamsulosin HCl [Flomax] 0.4 mg PO BID Ascorbic Acid [Vitamin C] 1,000 mg PO HS Donepezil HCl [Aricept] 5 mg PO HS Aspirin EC [Ecotrin Low Dose] 81 mg PO HS Discharge Medication List Tamsulosin HCl [Flomax] 0.4 mg PO BID 12/29/16 [History] Ascorbic Acid [Vitamin C] 1,000 mg PO HS 03/11/20 [History] Aspirin EC [Ecotrin Low Dose] 81 mg PO HS 08/25/20 [History] Donepezil HCl [Aricept] 5 mg PO HS 08/25/20 [History] Midodrine [ProAmatine] 5 mg PO TID PRN #90 tablet 08/26/20 [Rx] Follow up Appointment(s)/Referral(s): Familia Can MD [STAFF PHYSICIAN] - 2 Weeks Bhaskar Sanchez MD [Primary Care Provider] - 1 Week Shukri Desai MD [STAFF PHYSICIAN] - 1 Week Activity/Diet/Wound Care/Special Instructions: Drink >48 ounces of water daily. Discharge Disposition: HOME SELF-CARE
[2020-08-26 12:44] VITALS: BP 173/78
--- NOTE | 2020-08-26 14:24 | P.PN ---
Subjective This is a pleasant 84-year-old male who presented to the hospital with a syncopal episode thought to be related to orthostatic hypotension. He is seen and examined resting comfortably lying flat in bed in no acute distress. He states he has been up ambulating to the bathroom and around the room with no further episodes of dizziness or syncope. He denies chest pain, palpitations or shortness of breath. Current blood pressure 194/85 with a heart rate of 71 afebrile maintaining oxygen saturation on room air. Telemetry tracings rev iewed, persistent sinus mechanism with no acute arrhythmia or bradycardia noted. Echocardiogram obtained reveals preserved LV systolic function with ejection fraction 55-60%. GENERAL: Well-appearing, well-nourished and in no acute distress. NECK: Supple without JVD or thyromegaly. LUNGS: Breath sounds clear to auscultation bilaterally. Respiration equal and unlabored. No wheezes, rales or rhonchi. HEART: Regular rate and rhythm without murmurs, rubs or gallops. S1 and S2 heard. EXTREMITIES: Normal range of motion, no edema. No clubbing or cyanosis. Peripheral pulses intact. ASSESSMENT Syncope secondary to orthostatic hypotension Peripheral vascular disease. Noncritical carotid disease Prior history of hypertension not currently on antihypertensive regimen History of dyslipidemia in the past Dementia and memory loss PLAN Clinically stable from a cardiac perspective. No evidence of malignant arrhythmia normal LV systolic function. Syncope likely secondary to orthostatic hypotension. Follow-up in the office with Dr. Can in 2 weeks. Nurse Practitioner note has been reviewed, I agree with a documented findings and plan of care. Patient was seen and examined. Objective - Vital Signs Vital signs: Vital Signs Temp 98.4 F 08/26/20 08:07 Pulse 71 08/26/20 08:07 Resp 16 08/26/20 08:07 BP 194/85 08/26/20 08:07 Pulse Ox 93 L 08/26/20 08:07 Intake & Output 08/25/20 08/26/20 08/26/20 18:59 06:59 18:59 Intake Total 240 Balance 240 Weight 83.007 kg Intake: Oral 240 Other: Voiding Method Toilet Toilet Toilet # Voids 1 1 - Labs CBC & Chem 7: 08/25/20 08:19 08/25/20 08:19
== END 2020-08-26 13:33 | disposition home or self-care (01) ==
LOC: EC 07:52 → 1SOBS 10:12
PROVIDERS: ADMIT Family Medicine; ATTEND Family Medicine
DX: I95.1 Orthostatic hypotension (principal); R53.1 Weakness; K21.9 Gastro-esophageal reflux disease without esophagitis; E78.5 Hyperlipidemia, unspecified; M19.90 Unspecified osteoarthritis, unspecified site; G89.29 Other chronic pain; N40.0 Benign prostatic hyperplasia without lower urinary tract symptoms; M47.816 Spondylosis without myelopathy or radiculopathy, lumbar region; F32.9 Major depressive disorder, single episode, unspecified; R41.3 Other amnesia; I65.21 Occlusion and stenosis of right carotid artery; I45.10 Unspecified right bundle-branch block; F03.90 Unspecified dementia, unspecified severity, without behavioral disturbance, psychotic disturbance, mood disturbance, and anxiety; I10 Essential (primary) hypertension; M54.5 Low back pain; W19.XXXA Unspecified fall, initial encounter; Z86.61 Personal history of infections of the central nervous system; Y92.002 Bathroom of unspecified non-institutional (private) residence as the place of occurrence of the external cause; Z79.899 Other long term (current) drug therapy; Z79.82 Long term (current) use of aspirin; Z91.048 Other nonmedicinal substance allergy status; Z87.891 Personal history of nicotine dependence; Z80.1 Family history of malignant neoplasm of trachea, bronchus and lung; Z80.3 Family history of malignant neoplasm of breast; Z81.8 Family history of other mental and behavioral disorders; Z82.49 Family history of ischemic heart disease and other diseases of the circulatory system; Z20.828 Contact with and (suspected) exposure to other viral communicable diseases
CPT/HCPCS: 96372; 96360; 99285; 36415; 93005; 93306; 80053; 83735; 84484; 85025; 85610; 85730; 87635; 71046; 70498; G0378 ×2; J1644; Q9967

== ENCOUNTER → 2023-06-15 | Outpatient (CLI) | payer MEDICARE ==
--- NOTE | 2023-06-15 16:09 | US ---
EXAMINATION TYPE: US kidneys/renal and bladder DATE OF EXAM: 06/15/2023 COMPARISON: CT abdomen pelvis 03/11/2020 CLINICAL INDICATION: Male, 87 years old with history of N18.9 CKD; abnormal labs EXAM MEASUREMENTS: Right Kidney: 11.1x3.7x4.1 cm Left Kidney: 9.6x4.2x4.8 cm Right Kidney: 4.3x3.6x3.7cm simple cyst . Left Kidney: wnl Bladder: wnl Bilateral Jets seen: Yes There is no evidence for hydronephrosis at this point in time. Cortical medullary differentiation is maintained. No nephrolithiasis is seen. Right mid kidney exophytic 4.3 cm cyst corresponding to prio r CT. The urinary bladder is anechoic. Bilateral ureteral jets are seen. IMPRESSION: 1. No hydronephrosis or nephrolithiasis. 2. Simple right renal cyst.
== END | disposition home or self-care (01) ==
LOC: RADUSWWP 15:29
PROVIDERS: ATTEND Internal Medicine Geriatric Medicine
DX: N18.9 Chronic kidney disease, unspecified (principal); N28.1 Cyst of kidney, acquired
CPT/HCPCS: 76770

== ENCOUNTER 2024-05-16 06:24 | Day surgery (SDC) | payer MEDICARE ==
[2024-05-15 11:04] VITALS: BMI 20.6
[~2024-05-16 06:24] MED LIST: LIDOCAINE 1% (10MG/ML) FOR IV START INTRADERMA PRN
[2024-05-16 07:09] VITALS: RESP 16; TEMP 96.8
[2024-05-16] MEDS: LACTATED RINGERS 1,000 ML IV SCH (07:35)
[2024-05-16] MEDS: LABETALOL SYRINGE 5 MG/ML (4 ML SYR) IVP STA (07:37)
[2024-05-16] MEDS ORDERED: PROPOFOL 10 MG/ML 20 ML VIAL IV ONE (08:01)
[2024-05-16] MEDS ORDERED: LABETALOL 5 MG/ML VIAL MDV ONE (08:01)
[2024-05-16] MEDS ORDERED: LIDOCAINE 1% INJ 10MG/ML (20 ML MDV) ONE (08:01)
[2024-05-16] MEDS: LACTATED RINGERS 1,000 ML IV ONE ×2 (08:02)
--- NOTE | 2024-05-16 08:32 | P.PCN ---
Date of Procedure: 05/16/24 Procedure(s) Performed: Brief history: Patient is a pleasant 88-year-old white male scheduled for an elective upper endoscopy as well as colonoscopy as a part of evaluation of iron deficiency anemia and chronic intermittent diarrhea. Procedure performed: Esophagogastroduodenoscopy with biopsy Colonoscopy with snare polypectomy Preoperative diagnosis: Iron deficiency anemia Chronic diarrhea Anesthesia: [facility] Procedure: After informed consent was obtained from the patient was brought into the endoscopy unit and IV sedation was administered by anesthesia under continuous monitoring. Initially upper endoscopy was done. The Olympus GF 160 video endoscope was inserted inserted into the mouth and esophagus intubated without any difficulty and was gradually advanced into the stomach and duodenum and carefully examined. The bulb and second part of the duodenum appeared normal. These were done from the duodenum rule out celiac disease. The scope was then withdrawn into the stomach adequately insufflated with air and upon careful examination the antrum had mild antral gastritis with scattered erosions and biopsies were done from this area. Mucosa body, cardia and fundus appeared normal. The scope was then withdrawn into the esophagus. Small sliding-type hiatal hernia noted. The GE junction was located at 40 cm to the incisors. It appeared regular with no erythema erosions or ulcerations. Rest of the esophagus appeared normal. Patient tolerated the procedure well. At this time the patient continued to remain sedation. Initial digital rectal examination was normal. Olympus CF 160 video colonoscope was then inserted into the rectum and gradually advanced to the cecum without any difficulty. Careful examination was performed as the scope was gradually being withdrawn. The prep was excellent. The cecum, normal. Descending colon there was a 7 mm sessile polyp removed by cold snare polypectomy. Rest of the ascending colon, transverse colon, descending colon, sigmoid colon and rectum appeared normal. Katter sigmoid diverticulosis retroflexion was performed in the rectum and no lesions were noted. Patient tolerated the procedure well. Impression: 1. Upper endoscopy revealed mild antral gastritis, small hiatal hernia but no evidence of esophagitis or peptic ulcer disease 2. Colonoscopy revealed 7 mm ascending colon polyp status post cold snare polypectomy and scattered sigmoid diverticulosis Recommendations: Findings of this examination were discussed with the patient as well as his family. He was advised to follow-up with the biopsy results. Continue with a high-fiber diet and fiber supplements daily.
[2024-05-16 08:52] VITALS: BP 185/88; PULSE 60
== END 2024-05-16 09:22 ==
LOC: ORWHC2ENDO 06:24
PROVIDERS: ATTEND Internal Medicine Gastroenterology
DX: D50.9 Iron deficiency anemia, unspecified (principal); K29.50 Unspecified chronic gastritis without bleeding; D12.2 Benign neoplasm of ascending colon; K52.9 Noninfective gastroenteritis and colitis, unspecified; K44.9 Diaphragmatic hernia without obstruction or gangrene; K57.30 Diverticulosis of large intestine without perforation or abscess without bleeding; Z79.899 Other long term (current) drug therapy
CPT/HCPCS: 88305; 88342; 45385; 43239; J2003; J2704; J1920 ×2

== ENCOUNTER → 2024-06-22 | Outpatient (CLI) | payer MEDICARE ==
[2024-06-22 19:24] LABS: Basophils # (A) 0.03 X 10*3/uL (0.00-0.10); Basophils % (A) 0.5 %; Eosinophils # (A) 0.13 X 10*3/uL (0.04-0.35); HCT 35.3 % (39.6-50.0); HGB 11.7 g/dL (13.0-17.0); Lymphocytes # (A) 1.31 X 10*3/uL (0.90-5.00); Lymphocytes % (A) 20.4 %; MCHC 33.1 g/dL (32.0-37.0); MCV 93.4 FL (80.0-97.0); Mean Platelet Volume 10.5 FL (9.5-12.2); Monocytes # (A) 0.45 X 10*3/uL (0.20-1.00); NRBC Per 100 WBC 0 X 10*3/uL (0.00-0.01); Neutrophils # (A) 4.46 X 10*3/uL (1.80-7.70); Neutrophils % (A) 69.6 %; Platelet Count 207 X 10*3/uL (140-440); RBC 3.78 X 10*6/uL (4.40-5.60); RDW 13.4 % (11.5-14.5); WBC 6.41 X 10*3/uL (4.50-10.00)
[2024-06-22 20:16] LABS: ALT 15 U/L (10-49); AST 17 U/L (14-35); Albumin/Globulin Ratio 1.82 Ratio (1.60-3.17); Alkaline Phosphatase 70 U/L (41-126); BUN/Creat Ratio 24.21 Ratio (12.00-20.00); Blood Urea Nitrogen 33.9 mg/dL (9.0-27.0); Calcium 9.2 mg/dL (8.7-10.3); Chloride 109 mmol/L (96-109); Globulin 2.2 g/dL (1.6-3.3); Glucose 108 mg/dL (70-110); Potassium 4.5 mmol/L (3.5-5.5); Sodium 142 mmol/L (135-145); T4, Free (Free Thyroxine) 1.12 ng/dL (0.80-1.80); Total Bilirubin 0.3 mg/dL (0.3-1.2); Total Protein 6.2 g/dL (6.2-8.2); Uric Acid 5.3 mg/dL (3.7-8.7)
[2024-06-23 15:02] LABS: African American GFR (CKD) 50 (>60 ml/min/1.73 sqM); Blood Urea Nitrogen 38 mg/dL (9-20); Non-African American GFR(CKD) 44 (>60 ml/min/1.73 sqM)
== END | disposition home or self-care (01) ==
LOC: LABWHC1 12:25
PROVIDERS: ATTEND Internal Medicine Geriatric Medicine
DX: N18.2 Chronic kidney disease, stage 2 (mild) (principal); R94.6 Abnormal results of thyroid function studies
CPT/HCPCS: 36415; 80053; 82565; 84439; 84443; 84520; 84550; 85025

== ENCOUNTER → 2024-06-23 | Outpatient (CLI) | payer MEDICARE ==
--- NOTE | 2024-06-25 00:27 | CT ---
EXAMINATION TYPE: CT ChestAbdPelvis w con CT DLP: 1338 mGycm, Automated exposure control for dose reduction was used. DATE OF EXAM: 06/23/2024 4:27 PM COMPARISON: CT abdomen and pelvis 03/11/2020, renal ultrasound 06/15/2023 CLINICAL INDICATION:Male, 88 years old with history of R06.02 SHORTNESS OF MOLLY R63.4 ABNORMAL WEIGHT LOSS; PHH, SOB. Weight loss. Technique: Multiple axial images of the chest, abdomen, and pelvis were obtained following the intrav enous administration of 100 mL Isovue-300. Oral contrast was administered. Two-dimensional coronal an d sagittal reconstructions were obtained. Findings: CHEST: LUNGS/ PLEURA: Biapical pleural parenchymal scarring with left apical reticular passages with bronchi ectasis. Mild centrilobular emphysematous changes. No pleural effusion or pneumothorax. Peripheral le ft lateral upper lobe 4 mm pulmonary nodule (series 4, image 16). Anterior left upper lobe 2 mm pulmo nary nodule (series 4, image 35). Peripheral right lower lobe 3.5 mm pulmonary nodule (series 4, imag e 48). Right upper lobe 2.4 mm pulmonary nodule (series 4, image 24). Right lower lobe 5.6 mm pulmon feroz nodule (series 4, image 34). Additional left lower lobe 4.0 mm pulmonary nodule (series 4, image 40). AIRWAY: Patent and unremarkable.. HEART: Size within normal limits. Small anterior pericardial effusion. Aortic valvular calcifications . Small coronary artery calcifications. Bovine aortic arch. MEDIASTINUM: No evidence of adenopathy. VASCULATURE: No aortic aneurysm. MUSCULOSKELETAL: No acute osseous abnormalities. Mild multilevel degenerative disc disease. No aggres sive osseous lesion. SOFT TISSUES/LYMPH NODES: Unremarkable. LOWER NECK: No significant findings. ABDOMEN: ABDOMEN LIVER: A few subcentimeter hypoattenuating structures are demonstrated throughout the liver, which ar e too small to accurately characterize but statistically likely to represent simple hepatic cysts GALLBLADDER AND BILE DUCTS: Unremarkable. PANCREAS: Unremarkable. SPLEEN: Unremarkable. ADRENAL GLANDS: Unremarkable. KIDNEYS AND URETERS: No evidence of hydronephrosis or renal calculus. The kidneys enhance symmetrical ly. Contrast is demonstrated within both collecting systems on the delayed phase. Exophytic right low er pole anterior 4.2 cm simple cyst. PELVIS BLADDER: Incompletely distended but grossly unremarkable. REPRODUCTIVE: Unremarkable. ABDOMEN & PELVIS STOMACH AND BOWEL: Stomach and duodenum are unremarkable. Moderate colonic stool burden. Enteric cont rast is reaches the ileocecal junction. The appendix is within normal limits. Redundant sigmoid colon . Limited evaluation of the colon due to lack of intravenous contrast and moderate amount of stool. Q uestionable wall thickening versus stool identified within the ileocecal valve region. No evidence of bowel obstruction. PERITONEUM: No evidence of pneumoperitoneum or free fluid. VASCULATURE: Moderate atherosclerotic calcification of the aorta and its branches. Infrarenal fusifor m abdominal aortic aneurysm measuring up to 3.1 cm (series 3, image 74). Additionally fusiform distal abdominal aortic ectasia measuring up to 2.9 cm (series 3, image 83). 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 Pelvic phleboliths. MUSCULOSKELETAL: No acute osseous abnormalities. Mild multilevel degenerative disc disease. No aggres sive osseous lesion. Degenerative changes of bilateral SI joints with anterior bridging. LYMPH NODES: No evidence for lymphadenopathy. SOFT TISSUE/ABDOMINAL WALL: Unremarkable IMPRESSION: 1. Questionable wall thickening versus stool present within the ileocecal junction. Moderate colonic stool burden. Consider direct visualization if not recently performed. 2. Infrarenal abdominal aortic aneurysm measuring up to 3.1 cm with additional distal abdominal aort ic ectasia measuring up to 2.9 cm. 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 3. Left apical reticular opacities with bronchiectasis. May represent an infectious/inflammatory pro cess versus scarring. Follow-up CT in 3 months is recommended. 4. Several nonspecific scattered pulmonary nodules measuring less than 6 mm. Attention on #3 recomme ndation. 5. Mild COPD changes. [facility], , 06/25/2024 12:25 AM
== END | disposition home or self-care (01) ==
LOC: RADCTMAIN 14:19
PROVIDERS: ATTEND Internal Medicine Geriatric Medicine
DX: I71.43 Infrarenal abdominal aortic aneurysm, without rupture (principal); J47.9 Bronchiectasis, uncomplicated; R63.4 Abnormal weight loss; R91.8 Other nonspecific abnormal finding of lung field; J44.9 Chronic obstructive pulmonary disease, unspecified
CPT/HCPCS: 71260; 74177; 36415; Q9967

== ENCOUNTER 2024-11-01 12:44 | Emergency (ER) | payer MEDICARE ==
[2024-11-01 13:00] VITALS: RESP 18
[2024-11-01 13:16] LABS: Glucose,Whole Blood 196 mg/dL (70-110)
--- NOTE | 2024-11-01 13:19 | ED ---
General Adult HPI - General Chief complaint: Syncope Stated complaint: syncope,hypoglycemia Time Seen by Provider: 11/01/24 13:01 Source: patient, EMS, RN notes reviewed, old records reviewed Mode of arrival: EMS Limitations: no limitations - History of Present Illness Initial comments: 88-year-old male presents from [facility] after syncopal episode with head injury. Paramedics arrived and the patient was noted to be hypoglycemic, given an amp of dextrose. Patient was unconscious for approximately 2 minutes. He had not eaten at the restaurant but states he did eat breakfast. Patient feels completely fine at the time my evaluation without complaints. No chest pain. No abdominal pain. He denies a history of diabetes or any diabetic medication. - Related Data Home Medications Medication Instructions Recorded Confirmed Tamsulosin HCl [Flomax] 0.4 mg PO HS 12/29/16 09/18/24 Aspirin EC [Ecotrin Low Dose] 81 mg PO DAILY 08/25/20 09/18/24 Mv-Min/Folic/K1/Lycopen/Lutein 1 tab PO DAILY 05/15/24 09/18/24 [Centrum Silver Men Tablet] Rosuvastatin Calcium [Crestor] 5 mg PO HS 05/15/24 09/18/24 Megestrol Acetate 400 mg PO DAILY 09/18/24 09/18/24 Previous Rx's Medication Instructions Recorded Albuterol Inhaler [Ventolin Hfa 2 puff INHALATION QID 30 Days #8 gm 09/20/24 Inhaler] Folic Acid 1 mg PO DAILY@1200 #30 tab 09/20/24 Oseltamivir Phosphate [Tamiflu] 30 mg PO BID 5 Days #10 capsule 09/20/24 Thiamine [Vitamin B-1] 100 mg PO BID-W/MEALS #60 tab 09/20/24 Allergies Allergy/AdvReac Type Severity Reaction Status Date / Time thallium-201 Allergy Severe Dyspnea Verified 11/01/24 13:00 Review of Systems ROS Statement: Those systems with pertinent positive or pertinent negative responses have been documented in the HPI. ROS Other: All systems not noted in ROS Statement are negative. 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 HAS LOST 10 LBS IN THE PAST MONTH History of Any Multi-Drug Resistant Organisms: None Reported Past Surgical History: Tonsillectomy Additional Past Surgical History / Comment(s): 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 COLONOSCOPY, EGD Past Anesthesia/Blood Transfusion Reactions: No Reported Reaction Past Psychological History: No Psychological Hx Reported Smoking Status: Former smoker Past Alcohol Use History: None Reported Past Drug Use History: None Reported - Past Family History Mother Family Medical History: Cancer Additional Family Medical History / Comment(s): lung Father History Unknown: Yes Family Medical History: No Reported History Additional Family Medical History / Comment(s): "i don't know a lot about him...he as an alcoholic Brother(s) Family Medical History: Coronary Artery Disease (CAD) Sister(s) Family Medical History: Cancer, Coronary Artery Disease (CAD) Son(s) Family Medical History: No Reported History (Patient has 3 sons to contact and one healthy.) General Exam Limitations: no limitations General appearance: alert, in no apparent distress Head exam: Present: atraumatic, normocephalic Eye exam: Present: normal appearance, PERRL ENT exam: Present: normal exam Neck exam: Present: normal inspection. Absent: tenderness, meningismus Respiratory exam: Present: normal lung sounds bilaterally. Absent: respiratory distress, wheezes Cardiovascular Exam: Present: regular rate, normal rhythm GI/Abdominal exam: Present: soft. Absent: distended, tenderness, guarding Extremities exam: Present: normal inspection, normal capillary refill Neurological exam: Present: alert, oriented X3, CN II-XII intact. Absent: motor sensory deficit Psychiatric exam: Present: normal affect, normal mood Skin exam: Present: warm, dry, intact. Absent: cyanosis, diaphoretic Course Vital Signs 11/01/24 12:52 Temperature 98.5 F Pulse Rate 94 Respiratory 18 Rate Blood Pressure 148/90 O2 Sat by Pulse 100 Oximetry Medical Decision Making - Medical Decision Making Was pt. sent in by a medical professional or institution (, PA, MUSIC LIBRARY ASSISTANT, urgent care, hospital, or [facility]...) When possible be specific @ -no Did you speak to anyone other than the patient for history (EMS, parent, family, police, friend...)? What history was obtained from this source @Paramedics Did you review nursing and triage notes (agree or disagree)? Why? @ -I reviewed and agree with nursing and triage notes Were old charts reviewed (outside hosp., previous admission, EMS record, old EKG, old radiological studies, urgent care reports/EKG's, [facility] records)? Report findings @ -No old charts were reviewed Differential Diagnosis (chest pain, altered mental status, abdominal pain women, abdominal pain men, vaginal bleeding, weakness, fever, dyspnea, syncope, headache, dizziness, GI bleed, back pain, seizure, CVA, palpatations, mental health, musculoskeletal)? @ -Not applicable EKG interpreted by me (3pts min.). @ -Sinus rhythm incomplete right bundle branch block, left anterior fascicular block, rate of 95, MA interval 146, QRS duration 113, QTc [address] segment elevation, T wave inversion in V2 and V3 X-rays interpreted by me (1pt min.). @ -None done CT interpreted by me (1pt min.). @ -[CT brain negative for intracranial hemorrhage, CT cervical spine negative for fracture or subluxation U/S interpreted by me (1pt. min.). @ -None done What testing was considered but not performed or refused? (CT, X-rays, U/S, labs)? Why? @ -None What meds were considered but not given or refused? Why? @ -None Did you discuss the management of the patient with other professionals (suresh dasilva i.e. , PA, MUSIC LIBRARY ASSISTANT, lab, RT, psych nurse, social work instructor, street vendor, teacher, principal gifts officer, renal case manager)? Give summary @ -No Was smoking cessation discussed for >3mins.? @ -No Was critical care preformed (if so, how long)? @ -No Were there social determinants of health that impacted care today? How? (Homelessness, low income, unemployed, alcoholism, drug addiction, transportation, low edu. Level, literacy, decrease access to med. care, group home, rehab)? @ -No Was there de-escalation of care discussed even if they declined (Discuss DNR or withdrawal of care, Hospice)? DNR status @ -No What co-morbidities impacted this encounter? (DM, HTN, Smoking, COPD, CAD, Cancer, CVA, ARF, Chemo, Hep., AIDS, mental health diagnosis, sleep apnea, morbid obesity)? @ -[Memory impairment, recent influenza Was patient admitted / discharged? Hospital course, mention meds given and route, prescriptions, significant lab abnormalities, going to OR and other pertinent info. @88-year-old male with syncopal episode, and hypoglycemia according to paramedics. Patient was administered glucose with improvement. Patient has no complaints upon arrival. There was head injury and head CT was obtained which w as negative for intracranial hemorrhage or mass effect. Patient had improved anemia from prior no leukocytosis. Improved kidney function from prior. Otherwise normal labs. Patient reevaluated and eager for discharge. Accompanied by family member. Patient instructed to eat regular meals and fol low closely with a primary care provider. Undiagnosed new problem with uncertain prognosis? @ -No Drug Therapy requiring intensive monitoring for toxicity (Heparin, Nitro, Insulin, Cardizem)? @ -No Were any procedures done? @ -No Diagnosis/symptom? @Syncope, hypoglycemia Acute, or Chronic, or Acute on Chronic? @ -Acute Uncomplicated (without systemic symptoms) or Complicated (systemic symptoms)? @ -Default Side effects of treatment? @ -No Exacerbation, Progression, or Severe Exacerbation? @ -No Poses a threat to life or bodily function? How? (Chest pain, USA, ID, pneumonia, PE, COPD, DKA, ARF, appy, cholecystitis, CVA, Diverticulitis, Homicidal, Suicidal, threat to staff... and all critical care pts) @ -Low risk at this time - Lab Data Result diagrams: 11/01/24 13:30 11/01/24 13:30 Lab Results 11/01/24 11/01/24 11/01/24 Range/Units 13:13 13:30 13:30 WBC 7.8 (3.8-10.6) k/uL RBC 3.99 L (4.30-5.90) m/uL Hgb 11.8 L (13.0-17.5) gm/dL Hct 36.5 L (39.0-53.0) % MCV 91.5 (80.0-100.0) fL MCH 29.6 (25.0-35.0) pg MCHC 32.4 (31.0-37.0) g/dL RDW 13.2 (11.5-15.5) % Plt Count 245 (150-450) k/uL MPV 7.1 Neutrophils % 77 % Lymphocytes % 13 % Monocytes % 4 % Eosinophils % 3 % Basophils % 0 % Neutrophils # 6.0 (1.3-7.7) k/uL Lymphocytes # 1.0 (1.0-4.8) k/uL Monocytes # 0.3 (0-1.0) k/uL Eosinophils # 0.3 (0-0.7) k/uL Basophils # 0.0 (0-0.2) k/uL PT 10.8 (10.0-12.5) sec INR 1.0 (<1.2) APTT 21.5 L (22.0-30.0) sec Sodium (137-145) mmol/L Potassium (3.5-5.1) mmol/L Chloride (98-107) mmol/L Carbon Dioxide (22-30) mmol/L Anion Gap mmol/L BUN (9-20) mg/dL Creatinine (0.66-1.25) mg/dL Est GFR (CKD-EPI)AfAm (>60 ml/min/1.73 sqM) Est GFR (CKD-EPI)NonAf (>60 ml/min/1.73 sqM) Glucose (74-99) mg/dL POC Glucose (mg/dL) 196 H (70-110) mg/dL POC Glu Pin Inserter Regulator ID Prasanna Snog Calcium (8.4-10.2) mg/dL Magnesium (1.6-2.3) mg/dL Total Bilirubin (0.2-1.3) mg/dL AST (17-59) U/L ALT (4-49) U/L Alkaline Phosphatase (38-126) U/L Troponin I (0.000-0.034) ng/mL Total Protein (6.3-8.2) g/dL Albumin (3.5-5.0) g/dL 11/01/24 11/01/24 11/01/24 Range/Units 13:30 13:30 13:49 WBC (3.8-10.6) k/uL RBC (4.30-5.90) m/uL Hgb (13.0-17.5) gm/dL Hct (39.0-53.0) % MCV (80.0-100.0) fL MCH (25.0-35.0) pg MCHC (31.0-37.0) g/dL RDW (11.5-15.5) % Plt Count (150-450) k/uL MPV Neutrophils % % Lymphocytes % % Monocytes % % Eosinophils % % Basophils % % Neutrophils # (1.3-7.7) k/uL Lymphocytes # (1.0-4.8) k/uL Monocytes # (0-1.0) k/uL Eosinophils # (0-0.7) k/uL Basophils # (0-0.2) k/uL PT (10.0-12.5) sec INR (<1.2) APTT (22.0-30.0) sec Sodium 139 (137-145) mmol/L Potassium 4.2 (3.5-5.1) mmol/L Chloride 111 H (98-107) mmol/L Carbon Dioxide 23 (22-30) mmol/L Anion Gap 5 mmol/L BUN 38 H (9-20) mg/dL Creatinine 1.41 H (0.66-1.25) mg/dL Est GFR (CKD-EPI)AfAm 52 (>60 ml/min/1.73 sqM) Est GFR (CKD-EPI)NonAf 45 (>60 ml/min/1.73 sqM) Glucose 170 H (74-99) mg/dL POC Glucose (mg/dL) 176 H (70-110) mg/dL POC Glu Pin Inserter Regulator ID Ino Merino Calcium 9.5 (8.4-10.2) mg/dL Magnesium 2.3 (1.6-2.3) mg/dL Total Bilirubin 0.5 (0.2-1.3) mg/dL AST 25 (17-59) U/L ALT 27 (4-49) U/L Alkaline Phosphatase 93 (38-126) U/L Troponin I <0.012 (0.000-0.034) ng/mL Total Protein 6.5 (6.3-8.2) g/dL Albumin 3.8 (3.5-5.0) g/dL Disposition Clinical Impression: Syncope and collapse, Hypoglycemia Disposition: HOME SELF-CARE Condition: Fair Instructions (If sedation given, give patient instructions): Syncope (DC), Non-diabetic Hypoglycemia (ED) Is patient prescribed a controlled substance at d/c from ED?: No Referrals: Bhaskar Sanchez MD [Primary Care Provider] - 1-2 days Time of Disposition: 14:31
[2024-11-01 13:35] LABS: Basophils % (A) 0 %; Eosinophils # (A) 0.3 k/uL (0-0.7); Eosinophils % (A) 3 %; HCT 36.5 % (39.0-53.0); HGB 11.8 gm/dL (13.0-17.5); Lymphocytes % (A) 13 %; MCH 29.6 pg (25.0-35.0); MCHC 32.4 g/dL (31.0-37.0); MCV 91.5 fL (80.0-100.0); Mean Platelet Volume 7.1; Monocytes # (A) 0.3 k/uL (0-1.0); Monocytes % (A) 4 %; Neutrophils % (A) 77 %; Platelet Count 245 k/uL (150-450); RBC 3.99 m/uL (4.30-5.90); RDW 13.2 % (11.5-15.5); WBC 7.8 k/uL (3.8-10.6)
[2024-11-01 13:45] LABS: ALT 27 U/L (4-49); AST 25 U/L (17-59); African American GFR (CKD) 52 (>60 ml/min/1.73 sqM); Albumin 3.8 g/dL (3.5-5.0); Alkaline Phosphatase 93 U/L (38-126); Anion Gap 5 mmol/L; Blood Urea Nitrogen 38 mg/dL (9-20); Calcium 9.5 mg/dL (8.4-10.2); Carbon Dioxide 23 mmol/L (22-30); Chloride 111 mmol/L (98-107); Glucose 170 mg/dL (74-99); Magnesium 2.3 mg/dL (1.6-2.3); Non-African American GFR(CKD) 45 (>60 ml/min/1.73 sqM); Potassium 4.2 mmol/L (3.5-5.1); Sodium 139 mmol/L (137-145); Total Bilirubin 0.5 mg/dL (0.2-1.3); Total Protein 6.5 g/dL (6.3-8.2)
[2024-11-01 13:50] LABS: Glucose,Whole Blood 176 mg/dL (70-110)
[2024-11-01 13:52] LABS: Prothrombin Time 10.8 sec (10.0-12.5)
[2024-11-01 14:11] LABS: Partial Thromboplastin Time 21.5 sec (22.0-30.0)
--- NOTE | 2024-11-01 14:25 | CT ---
EXAMINATION TYPE: CT brain cspine wo con CT DLP: 1291 mGycm, Automated exposure control for dose reduction was used. DATE OF EXAM: 11/01/2024 2:16 PM COMPARISON: CTA neck 08/25/2020, MRA neck 09/08/2017, MRI brain 09/08/2017, CT brain 05/05/2017, CT chest abdomen pelvis 06/23/2024. CLINICAL INDICATION:Male, 88 years old with history of syncope/head injury; Syncope., pain TECHNIQUE: Brain: Multiple axial CT images of the brain were obtained without IV contrast. Cspine: Axial CT images from the skull base to the inferior aspect of T2 we obtained without intraven ous contrast. Coronal and sagittal reformatted images were also reviewed. FINDINGS: Brain: Extra-axial spaces: No abnormal extra-axial fluid collections. Ventricular system: Within normal limits Cerebral parenchyma: Cerebral atrophy. No acute intraparenchymal hemorrhage or mass effect. The ku -white junction is well differentiated. Confluent hypoattenuating areas are seen within the periventr icular and subcortical white matter. Remote left thalamic lacunar infarct. Cerebellum: Unremarkable. Mass effect: No evidence of midline shift. Intracranial vasculature: Atherosclerotic calcifications of the intracranial vessels. Soft tissues: Normal. Calvarium/osseous structures: No depressed skull fracture. Paranasal sinuses and mastoid air cells: Clear. Aplasia of the right frontal sinus. Visualized orbits: Bilateral aphakia Cervical spine: Fracture: None. Osseous structures: Multilevel degenerative disc disease changes with endplate spurring and disc oste ophyte complex's. Vertebral alignment: Straightening of the cervical spine which may be due to patient position versus muscle spasm. Spinal canal/Neural Foramina: No evidence of significant spinal canal narrowing. No evidence for sign ificant neural foraminal stenosis. Neck soft tissues: Prevertebral soft tissues are within normal limits. Other: The airway is patent. Similar patchy opacities within the left upper lobe. Biapical pleural-pa renchymal scarring. IMPRESSION: 1. No acute intracranial process. 2. 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 3. No evidence of cervical spine fracture. 4. Mild multilevel degenerative disc disease. 5. Similar patchy airspace opacities within the left upper lobe which may represent pneumonia versus other etiologies. [facility], , 11/01/2024 2:23 PM
[2024-11-01 14:44] LABS: Glucose,Whole Blood 125 mg/dL (70-110)
[2024-11-01 16:28] LABS: Glucose,Whole Blood 107 mg/dL (70-110)
[2024-11-01 16:38] VITALS: BP 142/87; PULSE 95; TEMP 98.7
== END 2024-11-01 16:41 | disposition home or self-care (01) ==
LOC: EC 12:44
DX: R55 Syncope and collapse (principal); E16.2 Hypoglycemia, unspecified; Z87.891 Personal history of nicotine dependence; Z88.8 Allergy status to other drugs, medicaments and biological substances
CPT/HCPCS: 36415; 70450; 72125; 80053; 83735; 84484; 85025; 85610; 85730; 93005; 99284

== ENCOUNTER 2024-11-04 23:50 | Inpatient (IN) | payer MEDICARE ==
--- NOTE | 2024-11-05 00:56 | ED ---
General Adult HPI - General Chief complaint: Fall Stated complaint: Fall, Head Injury Time Seen by Provider: 11/04/24 23:51 Source: EMS Mode of arrival: EMS - History of Present Illness Initial comments: Dictation was produced using [employer] dictation software. please excuse any gramm atical, word or spelling errors. Chief Complaint: 89-year-old male presents to the emergency department after fall History of Present Illness: Patient 89-year-old male no significant comorbiditie s. History present illness obtained from the at the bedside states that over the last several days he has been having frequent falls. Was seen here recently 4 days ago for the same issue. Found to be hypoglycemic. Patient allegedly stood up after sitting all of a sudden felt faint and fell backwards. witnessed the event states that he did strike the back of his head on the hard part of the bed. Patient feels weak otherwise has no other complaints. He does have chronic back pain. States that he did not hurt himself from this fall. states that they had no success with home visiting nurse requesting rehab placement The ROS documented in this emergency department record has been reviewed and confirmed by me. Those systems with pertinent positive or negative responses have been documented in the HPI. All other systems are other negative and/or noncontributory. - Related Data Home Medications Medication Instructions Recorded Confirmed Tamsulosin HCl [Flomax] 0.4 mg PO HS 12/29/16 11/01/24 Aspirin EC [Ecotrin Low Dose] 81 mg PO DAILY 08/25/20 11/01/24 Mv-Min/Folic/K1/Lycopen/Lutein 1 tab PO DAILY 05/15/24 11/01/24 [Centrum Silver Men Tablet] Rosuvastatin Calcium [Crestor] 5 mg PO HS 05/15/24 11/01/24 Allergies Allergy/AdvReac Type Severity Reaction Status Date / Time thallium-201 Allergy Severe Dyspnea Verified 11/01/24 14:48 Review of Systems ROS Statement: Those systems with pertinent positive or pertinent negative responses have been documented in the HPI. ROS Other: All systems not noted in ROS Statement are negative. 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 HAS LOST 10 LBS IN THE PAST MONTH History of Any Multi-Drug Resistant Organisms: None Reported Past Surgical History: Tonsillectomy Additional Past Surgical History / Comment(s): 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 COLONOSCOPY, EGD Past Anesthesia/Blood Transfusion Reactions: No Reported Reaction Past Psychological History: No Psychological Hx Reported Smoking Status: Former smoker Past Alcohol Use History: None Reported Past Drug Use History: None Reported - Past Family History Mother Family Medical History: Cancer Additional Family Medical History / Comment(s): lung Father History Unknown: Yes Family Medical History: No Reported History Additional Family Medical History / Comment(s): "i don't know a lot about him...he as an alcoholic Brother(s) Family Medical History: Coronary Artery Disease (CAD) Sister(s) Family Medical History: Cancer, Coronary Artery Disease (CAD) Son(s) Family Medical History: No Reported History (Patient has 3 sons to contact and one healthy.) General Exam - General Exam Comments Initial Comments: PHYSICAL EXAM: General Impression: Alert and oriented x3, not in acute distress HEENT: Normocephalic atraumatic, extra-ocular movements intact, pupils equal and reactive to light bilaterally, mucous membranes moist. Cardiovascular: Heart regular rate and rhythm Chest: Able to complete full sentences, no retractions, no tachypnea Abdomen: abdomen soft, non-tender, non-distended, no organomegaly Musculoskeletal: Pulses present and equal in all extremities, no peripheral ed sabina Motor: no focal deficits noted Neurological: CN II-XII grossly intact, no focal motor or sensory deficits noted Skin: Intact with no visualized rashes Psych: Normal affect and mood Course Vital Signs 11/04/24 11/05/24 23:51 02:35 Temperature 97.7 F Pulse Rate 118 H 98 Respiratory 19 18 Rate Blood Pressure 199/109 169/98 O2 Sat by Pulse 98 98 Oximetry EKG Findings - EKG Comments: EKG Findings:: My EKG interpretation: Ventricular rate 113, sinus tachycardia, ND interval 145, QRS 104, QTc 351. No ND prolongation, no QTC prolongation, no ST or T-wave changes noted. EKG compared to November 01, 2024 showing no changes. Overall, this EKG is unremarkable Medical Decision Making - Medical Decision Making Was pt. sent in by a medical professional or institution (, PA, PIGMENT PRESSER, urgent care, hospital, or prison...) When possible be specific @ -No Did you speak to anyone other than the patient for history (EMS, parent, family, police, friend...)? What history was obtained from this source @ -See above Did you review nursing and triage notes (agree or disagree)? Why? @ -I reviewed and agree with nursing and triage notes Were old charts reviewed (outside hosp., previous admission, EMS record, old EKG, old radiological studies, urgent care reports/EKG's, prison records)? Report findings @ -No old charts were reviewed Differential Diagnosis (chest pain, altered mental status, abdominal pain women, abdominal pain men, vaginal bleeding, musculoskeletal, weakness, fever, dyspnea, syncope, headache, dizziness, GI bleed, back pain, seizure, CVA, palpatations, mental health)? @ -Differential Weakness: Hypoglycemia, shock, sepsis, hyponatremia, anemia, infection, CA, ETOH, adverse medicine reaction, overdose, stroke, this is not meant to be an all-inclusive list. EKG interpreted by me (3pts min.). @ -See above X-rays interpreted by me (1pt min.). @ -Chest x-ray shows no acute processes CT interpreted by me (1pt min.). @ -CT head and C-spine shows no acute processes. CT lumbar spine shows compression fracture with 10% height loss at the L1 U/S interpreted by me (1pt. min.). @ -None done What testing was considered but not performed or refused? (CT, X-rays, U/S, labs)? Why? @ -None What meds were considered but not given or refused? Why? @ -None Was smoking cessation discussed for >3mins.? @ -No Were there social determinants of health that impacted care today? How? (Homelessness, low income, unemployed, alcoholism, drug addiction, transportation, low edu. Level, literacy, decrease access to med. care, fdc, rehab)? @ -No Was there de-escalation of care discussed even if they declined (Discuss DNR or withdrawal of care, Hospice)? DNR status @ -No What co-morbidities impacted this encounter? (DM, HTN, Smoking, COPD, CAD, Cancer, CVA, ARF, Chemo, Hep., AIDS, mental health diagnosis, sleep apnea, morbid obesity)? @ -None Was patient admitted / discharged? Hospital course, mention meds given and route, prescriptions, significant lab abnormalities, going to OR and other pertinent info. @ -89-year-old male presents to the emergency department frequent falls. states that patient is a fall risk and she is unable to care for him at home due to his worsening degree of weakness. Suffered multiple falls recently. Vital signs upon arrival are within acceptable limits. Physical examination shows well-appearing male in no acute distress. Labs with acceptable limits. Imaging study shows 10% height loss compression fracture at L1. requesting rehab evaluation. Patient will be admitted with consultation to Ortho spine, case management. Did you discuss the management of the patient with other professionals (professionals i.e. , PA, PIGMENT PRESSER, lab, RT, psych nurse, social science instructor, ocean transportation intermediary, teacher, account officer, catalytic case operator)? Give summary @ -No Was critical care preformed (if so, how long)? @ -No Undiagnosed new problem with uncertain prognosis? @ -No Drug Therapy requiring intensive monitoring for toxicity (Heparin, Nitro, Insu telma, Cardizem)? @ -No Were any procedures done? @ -No Diagnosis/symptom? Acute, or Chronic, or Acute on Chronic? Uncomplicated (without systemic symptoms) or Complicated (systemic symptoms)? @ -Gravely disabled, frequent falls, L1 compression fracture Side effects of treatment? @ -No Exacerbation, Progression, or Severe Exacerbation? @ -No Poses a threat to life or bodily function? How? (Chest pain, USA, CA, pneumonia, PE, COPD, DKA, ARF, appy, cholecystitis, CVA, Diverticulitis, Homicidal, Suicidal, threat to staff... and all critical care pts) @ -yes - Lab Data Result diagrams: 11/05/24 00:07 11/05/24 00:07 Lab Results 11/05/24 11/05/24 11/05/24 Range/Units 00:07 00:07 00:07 WBC 8.8 (3.8-10.6) k/uL RBC 3.49 L (4.30-5.90) m/uL Hgb 10.5 L (13.0-17.5) gm/dL Hct 31.8 L (39.0-53.0) % MCV 91.0 (80.0-100.0) fL MCH 30.0 (25.0-35.0) pg MCHC 33.0 (31.0-37.0) g/dL RDW 13.3 (11.5-15.5) % Plt Count 230 (150-450) k/uL MPV 8.4 Neutrophils % 71 % Lymphocytes % 19 % Monocytes % 5 % Eosinophils % 4 % Basophils % 0 % Neutrophils # 6.2 (1.3-7.7) k/uL Lymphocytes # 1.6 (1.0-4.8) k/uL Monocytes # 0.5 (0-1.0) k/uL Eosinophils # 0.3 (0-0.7) k/uL Basophils # 0.0 (0-0.2) k/uL Sodium 139 (137-145) mmol/L Potassium 4.2 (3.5-5.1) mmol/L Chloride 110 H (98-107) mmol/L Carbon Dioxide 22 (22-30) mmol/L Anion Gap 7 mmol/L BUN 35 H (9-20) mg/dL Creatinine 1.37 H (0.66-1.25) mg/dL Est GFR (CKD-EPI)AfAm 53 (>60 ml/min/1.73 sqM) Est GFR (CKD-EPI)NonAf 46 (>60 ml/min/1.73 sqM) Glucose 105 H (74-99) mg/dL Calcium 8.6 (8.4-10.2) mg/dL Total Bilirubin 0.5 (0.2-1.3) mg/dL AST 19 (17-59) U/L ALT 17 (4-49) U/L Alkaline Phosphatase 82 (38-126) U/L Troponin I <0.012 (0.000-0.034) ng/mL Total Protein 5.7 L (6.3-8.2) g/dL Albumin 3.2 L (3.5-5.0) g/dL Disposition Clinical Impression: Fall, Compression fracture Disposition: ADMITTED IP TO THIS [facility] Condition: Fair Referrals: Bhaskar Sanchez MD [Primary Care Provider] - 1-2 days Decision Time: 03:40
--- NOTE | 2024-11-05 01:20 | CT ---
EXAM: CT Lumbar Spine Without Intravenous Contrast CLINICAL HISTORY: ITS.REASON CT Reason: fall TECHNIQUE: Axial computed tomography images of the lumbar spine without intravenous contrast. CTDI is 25 mGy and DLP is 774.6 mGy-cm. This CT exam was performed using one or more of the following dose reduction techniques: automated exposure control, adjustment of the mA and/or kV according to patient size, and/or use of iterative reconstruction technique. COMPARISON: No relevant prior studies available. FINDINGS: Acute compression fracture involving the superior endplate of L1. Approximately 10% loss of height. No retropulsion. The lumbar lordosis is preserved. There is no spondylolisthesis. The posterior elements are maintained, without evidence of acute fracture. The pedicles are intact. Multilevel lumbar spondylosis and degenerative disc disease. IMPRESSION: Acute compression fracture involving the superior endplate of L1. Approximately 10% loss of height. No retropulsion.
--- NOTE | 2024-11-05 01:23 | CT ---
EXAM: CT Head Without Intravenous Contrast CLINICAL HISTORY: ITS.REASON CT Reason: fall TECHNIQUE: Axial computed tomography images of the head/brain without intravenous contrast. CTDI is 45.2 mGy and DLP is 1081 mGy-cm. This CT exam was performed using one or more of the following dose reduction techniques: automated exposure control, adjustment of the mA and/or kV according to patient size, and/or use of iterative reconstruction technique. COMPARISON: No relevant prior studies available. FINDINGS: Brain: Age-related cerebral volume loss. Periventricular and subcortical white matter hypoattenuation, consistent with chronic microangiopathy. No acute intracranial hemorrhage. No midline shift or mass effect. Ventricles: Unremarkable. No ventriculomegaly. Bones/joints: Unremarkable. No acute fracture. Soft tissues: Unremarkable. Sinuses: Unremarkable as visualized. No acute sinusitis. Mastoid air cells: Unremarkable as visualized. No mastoid effusion. IMPRESSION: No acute intracranial hemorrhage. No midline shift or mass effect. EXAM: CT Cervical Spine Without Intravenous Contrast CLINICAL HISTORY: ITS.REASON CT Reason: fall TECHNIQUE: Axial computed tomography images of the cervical spine without intravenous contrast. CTDI is 11.2 mGy and DLP is 348.9 mGy-cm. This CT exam was performed using one or more of the following dose reduction techniques: automated exposure control, adjustment of the mA and/or kV according to patient size, and/or use of iterative reconstruction technique. COMPARISON: No relevant prior studies available. FINDINGS: The vertebral body heights are maintained. The craniocervical junction is intact. The atlanto-dens interval is maintained. The dens is intact. There is no spondylolisthesis. Multilevel cervical spondylosis and degenerative disc disease. Straightening of the cervical lordosis. The unenhanced neck soft tissues are grossly unremarkable. The visualized lung apices are grossly clear. IMPRESSION: No acute fracture or subluxation of the cervical spine. Airspace consolidation in the LEFT upper lobe, concerning for pneumonia.
[2024-11-05 01:27] LABS: ALT 17 U/L (4-49); AST 19 U/L (17-59); African American GFR (CKD) 53 (>60 ml/min/1.73 sqM); Albumin 3.2 g/dL (3.5-5.0); Alkaline Phosphatase 82 U/L (38-126); Anion Gap 7 mmol/L; Blood Urea Nitrogen 35 mg/dL (9-20); Calcium 8.6 mg/dL (8.4-10.2); Carbon Dioxide 22 mmol/L (22-30); Chloride 110 mmol/L (98-107); Glucose 105 mg/dL (74-99); Non-African American GFR(CKD) 46 (>60 ml/min/1.73 sqM); Potassium 4.2 mmol/L (3.5-5.1); Sodium 139 mmol/L (137-145); Total Bilirubin 0.5 mg/dL (0.2-1.3)
[2024-11-05 01:28] LABS: Total Protein 5.7 g/dL (6.3-8.2)
[2024-11-05 01:43] LABS: Basophils % (A) 0 %; Eosinophils # (A) 0.3 k/uL (0-0.7); Eosinophils % (A) 4 %; HCT 31.8 % (39.0-53.0); HGB 10.5 gm/dL (13.0-17.5); Lymphocytes # (A) 1.6 k/uL (1.0-4.8); Lymphocytes % (A) 19 %; Mean Platelet Volume 8.4; Monocytes # (A) 0.5 k/uL (0-1.0); Monocytes % (A) 5 %; Neutrophils # (A) 6.2 k/uL (1.3-7.7); Neutrophils % (A) 71 %; Platelet Count 230 k/uL (150-450); RBC 3.49 m/uL (4.30-5.90); RDW 13.3 % (11.5-15.5); WBC 8.8 k/uL (3.8-10.6)
[2024-11-05] MEDS ORDERED: NALOXONE 0.4 MG/ML 1 ML VIAL IV PRN (03:35)
[2024-11-05] MEDS ORDERED: ACETAMINOPHEN TAB 325 MG TAB PO PRN (03:35)
--- NOTE | 2024-11-05 05:02 | XR ---
EXAM: XR Chest, 1 View CLINICAL HISTORY: pneumonia TECHNIQUE: Frontal view of the chest. COMPARISON: No relevant prior studies available. FINDINGS: Lungs: Under inflated but clear. Pleural space: Unremarkable. Mediastinum: Unremarkable. Normal mediastinal contour. Bones/joints: No acute findings. IMPRESSION: No acute findings.
[2024-11-05] MEDS: SODIUM CHLORIDE 0.9% 1,000 ML IV SCH (05:40)
--- NOTE | 2024-11-05 08:33 | P.HPIM ---
History of Present Illness This is a pleasant 89 years old male with multiple problems as below. Presents because of multiple falls. Patient fell yesterday and hurt his back so that is why he came to the hospital. Patient states that he passed out before he fall. This is followed by back pain in the lower back about 4/10 nonradiating to both legs. So he decided to come to emergency room No chest pain or dyspnea. No history of heart disease. He quit smoking many years ago. No specific GI symptoms. No dysuria urgency or hesitancy. No headache dizziness weakness or numbness. Vitals are stable, he is mildly tachycardic and hypertensive. Labs including CBC, BMP and LFT were unremarkable. Except for hemoglobin 10.5. Creatinine is stable at baseline 1.3 with baseline 1.4-1.7. Chest x-ray showing no acute cardiopulmonary process EKG showing sinus tachycardia at [address]-T changes CT of the head showing no masses or hemorrhage. No other acute process. CT of the cervical spine showing no fracture or dislocation. CT of the lumbar spine showing acute compression fracture of L1 Review of Systems Review of systems CONSTITUTIONAL: No fever, no malaise, no fatigue. HEENT: No recent visual problems or hearing problems. Denied any sore throat. CARDIOVASCULAR: No orthopnea, PND, no palpitations, no syncope. PULMONARY: No shortness of breath, no cough, no hemoptysis. GASTROINTESTINAL: No diarrhea, no nausea, no vomiting, no abdominal pain. Normoactive bowel sounds. NEUROLOGICAL: No headaches, no weakness, no numbness. HEMATOLOGICAL: Denies any bleeding or petechiae. GENITOURINARY: Denies any burning micturition, frequency, or urgency. MUSCULOSKELETAL/RHEUMATOLOGICAL: Denies any joint pain, swelling, or any muscle pain. ENDOCRINE: Denies any polyuria or polydipsia. 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 HAS LOST 10 LBS IN THE PAST MONTH History of Any Multi-Drug Resistant Organisms: None Reported Past Surgical History: Tonsillectomy Additional Past Surgical History / Comment(s): 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 COLONOSCOPY, EGD Past Anesthesia/Blood Transfusion Reactions: No Reported Reaction Past Psychological History: No Psychological Hx Reported Smoking Status: Former smoker Past Alcohol Use History: None Reported Past Drug Use History: None Reported - Past Family History Mother Family Medical History: Cancer Additional Family Medical History / Comment(s): lung Father History Unknown: Yes Family Medical History: No Reported History Additional Family Medical History / Comment(s): "i don't know a lot about him...he as an alcoholic Brother(s) Family Medical History: Coronary Artery Disease (CAD) Sister(s) Family Medical History: Cancer, Coronary Artery Disease (CAD) Son(s) Family Medical History: No Reported History (Patient has 3 sons to contact and one healthy.) Medications and Allergies Home Medications Medication Instructions Recorded Confirmed Type Tamsulosin HCl [Flomax] 0.4 mg PO HS 12/29/16 11/01/24 History Aspirin EC [Ecotrin Low Dose] 81 mg PO DAILY 08/25/20 11/01/24 History Mv-Min/Folic/K1/Lycopen/Lutein 1 tab PO DAILY 05/15/24 11/01/24 History [Centrum Silver Men Tablet] Rosuvastatin Calcium [Crestor] 5 mg PO HS 05/15/24 11/01/24 History Allergies Allergy/AdvReac Type Severity Reaction Status Date / Time thallium-201 Allergy Severe Dyspnea Verified 11/01/24 14:48 Physical Exam Vitals: Vital Signs Temp Pulse Resp BP Pulse Ox 11/05/24 06:18 106 H 18 141/78 95 11/05/24 02:35 98 18 169/98 98 11/04/24 23:51 97.7 F 118 H 19 199/109 98 Intake and Output 11/04/24 11/05/24 11/05/24 22:59 06:59 14:59 Other: Weight 52.163 kg GENERAL: The patient is alert and oriented x3, not in any acute distress. Well developed, well nourished. HEENT: Pupils are round and equally reacting to light. EOMI. No scleral icterus. No conjunctival pallor. Normocephalic, atraumatic. No pharyngeal erythema. No thyromegaly. CARDIOVASCULAR: S1 and S2 present. No murmurs, rubs, or gallops. PULMONARY: Chest is clear to auscultation, no wheezing , no crackles. ABDOMEN: Soft, nontender, nondistended, normoactive bowel sounds. No palpable organomegaly. MUSCULOSKELETAL: No joint swelling or deformity. EXTREMITIES: No cyanosis, clubbing, or pedal edema. NEUROLOGICAL: Gross neurological examination did not reveal any focal deficits. SKIN: No rashes. no petechiae. Results CBC & Chem 7: 11/05/24 00:07 11/05/24 00:07 Labs: Abnormal Lab Results - Last 24 Hours (Table) 11/05/24 11/05/24 Range/Units 00:07 00:07 RBC 3.49 L (4.30-5.90) m/uL Hgb 10.5 L (13.0-17.5) gm/dL Hct 31.8 L (39.0-53.0) % Chloride 110 H (98-107) mmol/L BUN 35 H (9-20) mg/dL Creatinine 1.37 H (0.66-1.25) mg/dL Glucose 105 H (74-99) mg/dL Total Protein 5.7 L (6.3-8.2) g/dL Albumin 3.2 L (3.5-5.0) g/dL Assessment and Plan Assessment: Multiple falls associated with syncope. Patient states he passed out before he falls. L1 compression fracture with low back pain Mild dehydration. Hypertension Chronic kidney disease stage III Mild anemia. Hyperlipidemia Osteoarthritis Chronic low back pain. History of depression, not an active issue Plan: Continue with gentle hydration Check echocardiogram Cardiology team consult Spine surgery team consult Pain management Check orthostatic vitals Labs and medication were reviewed.. Continue same treatment. Continue with symptomatic treatment. Resume home medication. Monitor labs and vitals. DVT and GI prophylaxis. Further recommendations as per clinical course of the patient DVT prophylaxis: Subcutaneous heparin GI Prophylaxis: Pepcid PT/OT: Pending Prognosis is guarded
--- NOTE | 2024-11-05 12:59 | P.CNOR ---
History of Present Illness - [facility] Consult date: 11/05/24 Requesting physician: Abdiaziz Spence Consult reason: fracture (Acute L1 compression fracture deformity), low back pain History of present illness: Patient is a very pleasant 89-year-old male who is seen examined at the bedside in ER room #16 for further evaluation of his lumbar spine. He is seen with his family present. Patient has recently sustained multiple falls. He most recently sustained a fall yesterday with syncope resulting in increased lumbar pain. He has acute low back pain. He presented to the emergency department for further evaluation. CT imaging of the lumbar spine was taken which shows evidence of acute L1 compression fracture deformity. Patient does have pain at his L1 compression fracture deformity site. He denies any lower extremity weakness or radiculopathy bilaterally. Patient's family states he is able to ambulate at home but does not ambulate much except to use the restroom. She also states an LSO brace was delivered to the house last week which was not ordered. She did discuss this with her primary care provider. She was able to bring this brace to the bedside for further inspection. Brace appears to be a medical grade LSO brace with a firm back with Velcro and drawstrings. This brace seems appropriate for acute treatment of his acute L1 compression fracture deformity. Patient is admitted to medicine and is being seen and examined for multiple medical diagnoses including multiple falls with syncopal episode, hypertension, mild dehydration, chronic kidney disease stage III, mild anemia, and hyperlipidemia. Past Medical History Past Medical History: GERD/Reflux, Hyperlipidemia, Memory Impairment, Musculoskeletal Disorder, Osteoarthritis (OA), Prostate Disorder Additional Past Medical History / Comment(s): Herpes simplex type II enceph alitis diagnosed in December 2016 and treated, chronic back pain, prostate enlargement, acid reflux, hyperlipidemia, chronic back pain requiring back injections, spondylosis of the lumbar spine, depression. HAS LOST 10 LBS IN THE PAST MONTH History of Any Multi-Drug Resistant Organisms: None Reported Past Surgical History: Tonsillectomy Additional Past Surgical History / Comment(s): 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 COLONOSCOPY, EGD Past Anesthesia/Blood Transfusion Reactions: No Reported Reaction Past Psychological History: No Psychological Hx Reported Smoking Status: Former smoker Past Alcohol Use History: None Reported Past Drug Use History: None Reported - Past Family History Mother Family Medical History: Cancer Additional Family Medical History / Comment(s): lung Father History Unknown: Yes Family Medical History: No Reported History Additional Family Medical History / Comment(s): "i don't know a lot about him...he as an alcoholic Brother(s) Family Medical History: Coronary Artery Disease (CAD) Sister(s) Family Medical History: Cancer, Coronary Artery Disease (CAD) Son(s) Family Medical History: No Reported History (Patient has 3 sons to contact and one healthy.) Medications and Allergies Home Medications Medication Instructions Recorded Confirmed Type Rosuvastatin Calcium [Crestor] 5 mg PO DAILY 05/15/24 11/05/24 History Allergies Allergy/AdvReac Type Severity Reaction Status Date / Time thallium-201 Allergy Severe Dyspnea Verified 11/01/24 14:48 Physical Examination Physical exam: Patient is awake, alert, and oriented 3 Vital signs stable Good chest excursion with deep inspiration and expiration Examination of lumbar spine reveals skin is intact with no abrasions, lacerations, or bruises; no erythema, purulence or signs of infection Significant pain with palpation along the midline at approximately L1 Dorsiflexion, plantarflexion, and extensor hallucis longus positive sustained bilaterally No lower extremity hyperreflexia bilaterally Negative Lasegue's test bilaterally No signs or symptoms of DVT; no calf pain No pain with internal and external rotation of the hips bilaterally Neurovascularly intact Results Pertinent studies: Lumbar CT taken on 11/05/2024: Acute L1 superior endplate compression fracture deformity with approximately 10% to 20% height loss; multilevel lumbar spondylosis and degenerative disc disease: No spondylolisthesis - Labs Labs: Abnormal Lab Results - Last 24 Hours (Table) 11/05/24 11/05/24 Range/Units 00:07 00:07 RBC 3.49 L (4.30-5.90) m/uL Hgb 10.5 L (13.0-17.5) gm/dL Hct 31.8 L (39.0-53.0) % Chloride 110 H (98-107) mmol/L BUN 35 H (9-20) mg/dL Creatinine 1.37 H (0.66-1.25) mg/dL Glucose 105 H (74-99) mg/dL Total Protein 5.7 L (6.3-8.2) g/dL Albumin 3.2 L (3.5-5.0) g/dL H & H 11/05/24 Range/Units 00:07 Hgb 10.5 L (13.0-17.5) gm/dL Hct 31.8 L (39.0-53.0) % Result Diagrams: 11/05/24 00:07 11/05/24 00:07 Assessment and Plan Assessment: Assessment: Acute L1 compression fracture deformity status post fall Acute low back pain Lumbar spondylosis Lumbar degenerative disc disease Syncopal episode Multiple falls Hypertension Hyperlipidemia Mild anemia Chronic kidney disease stage III (1) Compression fracture of L1 lumbar vertebra Current Visit: Yes Status: Acute Code(s): S32.010A - WEDGE COMPRESSION FRACTURE OF FIRST LUMBAR VERTEBRA, INIT SNOMED Code(s): 414074332 (2) Acute lumbar back pain Current Visit: Yes Status: Acute Code(s): M54.50 - LOW BACK PAIN, UNSPECIFIED SNOMED Code(s): 071983762 (3) Lumbar degenerative disc disease Current Visit: Yes Status: Acute Code(s): M51.369 - OTH INTVRT DISC DEGEN, LUM RGN W/O LUM BCK OR LW EXTRM PAIN SNOMED Code(s): 80878017 (4) Lumbar spondylosis Current Visit: Yes Status: Acute Code(s): M47.816 - SPONDYLOSIS W/O MYELOPATHY OR RADICULOPATHY, LUMBAR REGION SNOMED Code(s): 626657769 (5) Frequent falls Current Visit: Yes Status: Acute Code(s): R29.6 - REPEATED FALLS SNOMED Code(s): 280115078 (6) Episode of syncope Current Visit: Yes Status: Acute Code(s): R55 - SYNCOPE AND COLLAPSE SNOMED Code(s): 596361977 (7) Chronic kidney disease, stage 3 Current Visit: Yes Status: Acute Code(s): N18.30 - CHRONIC KIDNEY DISEASE, STAGE 3 UNSPECIFIED SNOMED Code(s): 250220468 (8) Anemia Current Visit: Yes Status: Acute Code(s): D64.9 - ANEMIA, UNSPECIFIED S NOMED Code(s): 167838940 (9) Hyperlipidemia Current Visit: Yes Status: Acute Code(s): E78.5 - HYPERLIPIDEMIA, UNSPECIFIED SNOMED Code(s): 85560704 (10) Dehydration Current Visit: No Status: Acute Code(s): E86.0 - DEHYDRATION SNOMED Code(s): 00867024 (11) Hypertension Current Visit: No Status: Acute Code(s): I10 - ESSENTIAL (PRIMARY) HYPERTEN SAIRA SNOMED Code(s): 62183206 Plan: Plan: 1. After reviewing of imaging, physical examination the patient, and further d iscussion with the patient, will currently planned to have the patient's start working through conservative treatment at this time. At this time we'll plan for bracing. A medical grade LSO brace was delivered to the patient's house last week. This was visualized at the bedside. It has a firm high-back with Velcro and drawstrings. This brace is appropriate for treatment of his acute L1 compression fracture deformity. It was discussed in significant detail with the patient, the patient's family, and nursing that the patient should wear this brace while sitting upright at greater than 45, during increase activities, during ambulation. Brace does not have to or while lying in bed or while bathing. We did discuss that from an orthopedic spine standpoint, patient is clear for discharge once cleared by multiple other medical providers. Following discharge, patient may follow-up with Jaime Read PA-C or Dr. Nicolas Jacobo at [facility] in 2 to 3 weeks for further evaluation. 2. Patient will continue to be seen and examined by medicine for his multiple other medical diagnoses. Time with Patient: Greater than 30 (Including obtaining history, physical examination, reviewing of imaging, and dictation.)
[2024-11-05] MEDS: oxyCODONE-APAP 5-325MG 1 EACH TAB PO PRN (16:18)
[2024-11-05 17:21] LABS: Appearance,Urine Clear (Clear); Bilirubin,Urine Negative (Negative); Blood,Urine Negative (Negative); Color,Urine Yellow; Glucose,Urine (UA) Negative (Negative); Ketones,Urine Negative (Negative); Leukocyte Esterase,Urine Negative (Negative); Mucus,Urine Moderate /hpf; Nitrite,Urine Negative (Negative); PH, Urine 5.5 (5.0-8.0); Protein,Urine 1+ (Negative); RBC,Urine 2 /hpf (0-5); Specific Gravity,Urine 1.028 (1.001-1.035); Urobilinogen,Urine <2.0 mg/dL (<2.0); WBC,Urine 2 /hpf (0-5)
[2024-11-06 08:41] LABS: Basophils # (A) 0.04 X 10*3/uL (0.00-0.10); Basophils % (A) 0.6 %; Eosinophils # (A) 0.26 X 10*3/uL (0.04-0.35); Eosinophils % (A) 4.1 %; HCT 31.9 % (39.6-50.0); HGB 10.3 g/dL (13.0-17.0); Lymphocytes # (A) 1.11 X 10*3/uL (0.90-5.00); Lymphocytes % (A) 17.5 %; MCH 30.5 pg (27.0-32.0); MCHC 32.3 g/dL (32.0-37.0); MCV 94.4 FL (80.0-97.0); Mean Platelet Volume 9.7 FL (9.5-12.2); Monocytes # (A) 0.45 X 10*3/uL (0.20-1.00); Monocytes % (A) 7.1 %; NRBC Per 100 WBC 0 X 10*3/uL (0.00-0.01); Neutrophils # (A) 4.44 X 10*3/uL (1.80-7.70); Neutrophils % (A) 69.8 %; Platelet Count 235 X 10*3/uL (140-440); RBC 3.38 X 10*6/uL (4.40-5.60); WBC 6.36 X 10*3/uL (4.50-10.00)
--- NOTE | 2024-11-06 08:50 | P.CRDCN ---
History of Present Illness History of present illness: HISTORY OF PRESENT ILLNESS: This is a 89-year-old male with a past medical history significant for hyperlipidemia. Patient does not follow with a director of research center. We have been asked to see the patient in consultation for syncope. Patient examined at the bedside. Patient is somewhat of a poor historian. There is no family present this morning at the time of evaluation. Patient presented to the hospital on 11/01/2024 after having a syncopal episode at [facility]. According to the ER physician note the patient was found to be hypoglycemic at that time. Patient was discharged home. He presented back to the hospital yesterday after having a syncopal episode at home after using the bathroom. The patient does report that he lost consciousness when he was at [facility]. He is unsure if he lost consciousness yesterday when he fell off the toilet. The patient currently denies any chest pain or pressure. He denies any shortness of breath. He denies having prior syncopal episodes in the past. DIAGNOSTICS: - EKG reveals sinus mechanism with incomplete right bundle branch block. No signs of acute ischemia. Baseline artifact. - Chest xray negative for acute findings - Laboratory data: WBC 6.36. Hemoglobin 10.3. Platelet count 235. Sodium 139. Potassium 4.2. BUN 35. Creatinine 1.37. Troponin negative x 1. - Current home cardiac medications include rosuvastatin 5 mg daily. - Echocardiogram obtained in August 2020 revealed EF 55 to 60%, trace MR, trace TR REVIEW OF SYSTEMS: At the time of my exam: CONSTITUTIONAL: Denies fever or chills. HEENT: Denies blurred vision, vision changes, or eye pain. Denies hemoptysis CARDIOVASCULAR: Denies chest pain. Denies orthopnea. Denies PND. Denies palpitations RESPIRATORY: Denies shortness of breath. GASTROINTESTINAL: Denies abdominal pain. Denies nausea or vomiting. HEMATOLOGIC: Denies bleeding disorders. GENITOURINARY: Denies any blood in urine. SKIN: Denies pruitis. Denies rash. PHYSICAL EXAM: VITAL SIGNS: Reviewed. GENERAL: Well-developed in no acute distress. HEENT: Head is normocephalic. Pupils are equal, round. Sclerae anicteric. Mucous membranes of the mouth are moist. Neck supple. No JVD or thyromegaly LUNGS: Respirations even and unlabored. Lungs essentially clear to auscultation bilaterally. HEART: Regular rate and rhythm. S1 and S2 heard. ABDOMEN: Soft. Nondistended. Nontender. EXTREMITIES: Normal range of motion. No clubbing or cyanosis. Peripheral pulses intact. No lower extremity edema NEUROLOGIC: Awake and alert. ASSESSMENT: Syncope, etiology unknown Acute L1 compression fracture History of hyperlipidemia Chronic kidney disease PLAN: Obtain 2D echo to assess cardiac structure and function Resume home cardiac medications Obtain orthostatic blood pressures Obtain D-dimer Initiate telemetry monitoring to assess for any arrhythmias Further recommendations pending patient course Nurse practitioner note has been reviewed by physician. Signing provider agrees with the documented findings, assessment, and plan of care documented by RABBET OPERATOR as a scribe. 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 HAS LOST 10 LBS IN THE PAST MONTH History of Any Multi-Drug Resistant Organisms: None Reported Past Surgical History: Tonsillectomy Additional Past Surgical History / Comment(s): 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 COLONOSCOPY, EGD Past Anesthesia/Blood Transfusion Reactions: No Reported Reaction Past Psychological History: No Psychological Hx Reported Additional Psychological History / Comment(s): Pt resides with his spouse. He uses no assistive device. He drives. Pt states the medication he recently started for depression seems to be helping. Denies thoughts/plans of suicide. Smoking Status: Former smoker Past Alcohol Use History: None Reported Additional Past Alcohol Use History / Comment(s): Pt states he quit smoking in 1987 and he quit drinking alcohol in 1978. Past Drug Use History: None Reported - Past Family History Mother Family Medical History: Cancer Additional Family Medical History / Comment(s): lung Father History Unknown: Yes Family Medical History: No Reported History Additional Family Medical History / Comment(s): "i don't know a lot about him...he as an alcoholic Brother(s) Family Medical History: Coronary Artery Disease (CAD) Sister(s) Family Medical History: Cancer, Coronary Artery Disease (CAD) Son(s) Family Medical History: No Reported History (Patient has 3 sons to contact and one healthy.) Medications and Allergies Home Medications Medication Instructions Recorded Confirmed Type Rosuvastatin Calcium [Crestor] 5 mg PO DAILY 05/15/24 11/05/24 History Allergies Allergy/AdvReac Type Severity Reaction Status Date / Time thallium-201 Allergy Severe Dyspnea Verified 11/01/24 14:48 Physical Exam Vitals: Vital Signs Temp Pulse Pulse Resp BP BP Pulse Ox 11/06/24 07:47 98.0 F 101 H 16 120/78 97 11/06/24 00:58 98.6 F 93 16 109/65 98 11/05/24 18:43 98.3 F 108 H 16 162/91 97 11/05/24 15:50 98.1 F 94 16 167/88 100 11/05/24 15:13 98 17 123/77 98 11/05/24 13:00 105 H 17 155/80 97 11/05/24 08:56 99 17 133/86 96 Intake and Output 11/05/24 11/06/24 11/06/24 22:59 06:59 14:59 Intake Total 740 900 Output Total 143 150 Balance 597 750 Intake: Intake, IV Titration 900 Amount Sodium Chloride 0.9% 1, 900 000 ml @ 75 mls/hr IV . [id number] [facility] Rx#:[id number] Oral 740 Output: Urine 150 Post Void Residual 143 Other: # Voids 1 1 Weight 68.5 kg Results 11/06/24 04:19 11/05/24 00:07 CBC 11/06/24 Range/Units 04:19 WBC 6.36 (4.50-10.00) X 10*3/uL RBC 3.38 L (4.40-5.60) X 10*6/uL Hgb 10.3 L (13.0-17.0) g/dL Hct 31.9 L (39.6-50.0) % Plt Count 235 (140-440) X 10*3/uL Current Medications Generic Name Dose Route Start Last Admin Trade Name Freq PRN Reason Stop Dose Admin Acetaminophen 650 mg 11/05/24 03:35 Acetaminophen Tab 325 Mg Tab PO Q6HR PRN Mild Pain or Fever > 100.5 Sodium Chloride 1,000 mls @ 75 mls/hr 11/05/24 03:45 11/06/24 04:59 Saline 0.9% IV 75 mls/hr .[id number] MEG Administration Naloxone HCl 0.2 mg 11/05/24 03:35 Naloxone 0.4 Mg/Ml 1 Ml Vial IV Q2M PRN Opioid Reversal Oxycodone/Acetaminophen 1 each 11/05/24 03:35 11/06/24 01:16 Oxycodone-Apap 5-325mg 1 Each Tab PO 1 each Q4HR PRN Administration Severe Pain (Scale 7 to 10) Intake and Output 11/05/24 11/06/24 11/06/24 22:59 06:59 14:59 Intake Total 740 900 Output Total 143 150 Balance 597 750 Intake: Intake, IV Titration 900 Amount Sodium Chloride 0.9% 1, 900 000 ml @ 75 mls/hr IV . [id number] MEG Rx#:[id number] Oral 740 Output: Urine 150 Post Void Residual 143 Other: # Voids 1 1 Weight 68.5 kg 11/06/24 04:19 11/05/24 00:07
[2024-11-06 09:24] LABS: ALT 13 U/L (10-49); AST 20 U/L (14-35); Albumin 3.2 g/dL (3.8-4.9); Albumin/Globulin Ratio 1.39 Ratio (1.60-3.17); Alkaline Phosphatase 78 U/L (41-126); BUN/Creat Ratio 20.31 Ratio (12.00-20.00); Bilirubin, Conjugated <0.20 mg/dL (0.20-0.40); Bilirubin,Unconjugated >0.10 mg/dL (0.20-1.00); Blood Urea Nitrogen 26.4 mg/dL (9.0-27.0); Calcium 8.4 mg/dL (8.7-10.3); Carbon Dioxide 19.6 mmol/L (21.6-31.8); Chloride 109 mmol/L (96-109); Globulin 2.3 g/dL (1.6-3.3); Glucose 103 mg/dL (70-110); Potassium 4.5 mmol/L (3.5-5.5); Sodium 140 mmol/L (135-145); Total Bilirubin 0.3 mg/dL (0.3-1.2); Total Protein 5.5 g/dL (6.2-8.2)
[2024-11-06] MEDS: ATORVASTATIN 10 MG TAB PO SCH (09:45)
--- NOTE | 2024-11-06 12:13 | CA ---
Transthoracic Echo Report Name: Noble Carrera Age: 89 Gender: M : 1935 Exam Date: 11/06/2024 09:10 Exam Location: [facility] Ht (in): 72 Wt (lb): 115 Ordering Physician: Jose Elias Carroll MD Attending/Referring Phys: [id number], [place] [employer] Drawer Brayan Gordon, RD Procedure CPT: Indications: Chest Pain Cardiac Hx: Technical Quality: Technically difficult study Contrast 1: Total Dose (mL): Contrast 2: Total Dose (mL): MEASUREMENTS (Male / Female) Normal Values 2D ECHO RV Internal Dim ED PLAX 1.0 cm LV Diastolic Volume MOD BP 58.4 cm??? 67 - 155 / 56 - 104 cm??? LV Systolic Volume MOD BP 23.8 cm??? 22 - 58 / 19 - 49 cm??? LV Ejection Fraction MOD BP 59.2 % >= 55 % LV Cardiac Index MOD BP 2048.8 cm???/min???m??? LV Diastolic Volume MOD 4C 55.4 cm??? LV Systolic Volume MOD 4C 22.8 cm??? LV Ejection Fraction MOD 4C 58.8 % LV Cardiac Index MOD 4C 1926.6 cm???/min???m??? LV Diastolic Length 4C 8.1 cm LV Systolic Length 4C 6.5 cm LV Diastolic Volume MOD 2C 61.2 cm??? LV Systolic Volume MOD 2C 24.7 cm??? LV Ejection Fraction MOD 2C 59.6 % LV Cardiac Index MOD 2C 2158.4 cm???/min???m??? LV Diastolic Length 2C 8.3 cm LV Systolic Length 2C 6.4 cm DOPPLER MV Area PHT 4.8 cm??? Mitral E Point Velocity 44.7 cm/s Mitral A Point Velocity 73.9 cm/s Mitral E to A Ratio 0.6 MV Deceleration Time 159.0 ms TR Peak Velocity 157.6 cm/s TR Peak Gradient 9.9 mmHg FINDINGS Left Ventricle Left ventricular ejection fraction is estimated at 60 %. LV not well left ventricle not well visualized. Right Ventricle Right ventricular dilatation. Unable to estimate the right ventricular systolic pressure. Right Atrium Normal right atrial size. Left Atrium Normal left atrial size. Mitral Valve Mitral valve thickened. No mitral stenosis. No mitral regurgitation. Aortic Valve Trileaflet aortic valve. Thickened aortic valve without stenosis. No aortic regurgitation. Tricuspid Valve Structurally normal tricuspid valve. No tricuspid stenosis. No tricuspid regurgitation. Pulmonic Valve Pulmonic valve not well visualized. No pulmonic stenosis. No pulmonic regurgitation. Pericardium Pericardial effusion with clot. Aorta Normal size aortic root and proximal ascending aorta. CONCLUSIONS Normal LV function Previewed by: Dr. Chan Diaz MD (Electronically Signed) Final Date: 06 November 2024 12:12
--- NOTE | 2024-11-06 12:56 | P.PN ---
Subjective This is a pleasant 89 years old male with multiple problems as below. Presents because of multiple falls. Patient fell yesterday and hurt his back so that is why he came to the hospital. Patient states that he passed out before he fall. This is followed by back pain in the lower back about 4/10 nonradiating to both legs. So he decided to come to emergency room No chest pain or dyspnea. No history of heart disease. He quit smoking many years ago. No specific GI symptoms. No dysuria urgency or hesitancy. No headache dizziness weakness or numbness. Vitals are stable, he is mildly tachycardic and hypertensive. Labs including CBC, BMP and LFT were unremarkable. Except for hemoglobin 10.5. Creatinine is stable at baseline 1.3 with baseline 1.4-1.7. Chest x-ray showing no acute cardiopulmonary process EKG showing sinus tachycardia at [address]-T changes CT of the head showing no masses or hemorrhage. No other acute process. CT of the cervical spine showing no fracture or dislocation. CT of the lumbar spine showing acute compression fracture of L1 01/06 Patient feels better, he has some pain in the lumbar fracture site at L1 area which looks controlled Orthopedic team recommended brace Echocardiogram was done showing ejection fraction 60%, patient evaluated by nuclear plant operator, orthostatic vitals were negative. D-dimer elevated CTA of the chest is pending Will check for T4 Also patient eval by neurologist with EEG pending Review of systems CONSTITUTIONAL: No fever, no malaise, no fatigue. HEENT: No recent visual problems or hearing problems. Denied any sore throat. CARDIOVASCULAR: No orthopnea, PND, no palpitations, no syncope. PULMONARY: No shortness of breath, no cough, no hemoptysis. GASTROINTESTINAL: No diarrhea, no nausea, no vomiting, no abdominal pain. Normoactive bowel sounds. NEUROLOGICAL: No headaches, no weakness, no numbness. Active Medications Generic Name Dose Route Start Last Admin Trade Name Freq PRN Reason Stop Dose Admin Acetaminophen 650 mg 11/05/24 03:35 Acetaminophen Tab 325 Mg Tab PO Q6HR PRN Mild Pain or Fever > 100.5 Atorvastatin Calcium 10 mg 11/06/24 09:00 11/06/24 09:45 Atorvastatin 10 Mg Tab PO 10 mg DAILY MEG Administration Sodium Chloride 1,000 mls @ 75 mls/hr 11/05/24 03:45 11/06/24 04:59 Saline 0.9% IV 75 mls/hr .[id number] MEG Administration Naloxone HCl 0.2 mg 11/05/24 03:35 Naloxone 0.4 Mg/Ml 1 Ml Vial IV Q2M PRN Opioid Reversal Oxycodone/Acetaminophen 1 each 11/05/24 03:35 11/06/24 01:16 Oxycodone-Apap 5-325mg 1 Each Tab PO 1 each Q4HR PRN Administration Severe Pain (Scale 7 to 10) Objective - Vital Signs Vital signs: Vital Signs Temp 98.4 F 11/06/24 11:25 Pulse 92 11/06/24 11:25 Resp 16 11/06/24 11:25 BP 138/77 11/06/24 11:25 Pulse Ox 97 11/06/24 07:47 FiO2 Intake & Output 11/05/24 11/06/24 11/06/24 18:59 06:59 18:59 Intake Total 540 1100 360 Output Total 199 150 Balance 341 950 360 Weight 68.5 kg Intake: Intake, IV Titration 900 Amount Sodium Chloride 0.9% 1, 900 000 ml @ 75 mls/hr IV . [id number] [facility] Rx#:[id number] Oral 540 200 360 Output: Urine 150 Post Void Residual 199 Other: # Voids 1 1 - Exam GENERAL: The patient is alert and oriented x3, not in any acute distress. Well developed, well nourished. HEENT: Pupils are round and equally reacting to light. EOMI. No scleral icterus. No conjunctival pallor. Normocephalic, atraumatic. No pharyngeal erythema. No thyromegaly. CARDIOVASCULAR: S1 and S2 present. No murmurs, rubs, or gallops. PULMONARY: Chest is clear to auscultation, no wheezing , no crackles. ABDOMEN: Soft, nontender, nondistended, normoactive bowel sounds. No palpable organomegaly. -MUSCULOSKELETAL: No joint swelling or deformity. Lower back tenderness EXTREMITIES: No cyanosis, clubbing, or pedal edema. NEUROLOGICAL: Gross neurological examination did not reveal any focal deficits. SKIN: No rashes. no petechiae. - Labs CBC & Chem 7: 11/06/24 04:19 11/06/24 04:19 Labs: Abnormal Lab Results - Last 24 Hours (Table) 11/05/24 11/06/24 11/06/24 Range/Units 17:10 04:19 04:19 RBC 3.38 L (4.40-5.60) X 10*6/uL Hgb 10.3 L (13.0-17.0) g/dL Hct 31.9 L (39.6-50.0) % Immature Gran # 0.06 H (0.00-0.04) X 10*3/uL D-Dimer (<0.60) mg/L FEU Carbon Dioxide 19.6 L (21.6-31.8) mmol/L Est GFR (CKD-EPI) 53 L (>=60) BUN/Creatinine Ratio 20.31 H (12.00-20.00) Ratio Calcium 8.4 L (8.7-10.3) mg/dL Unconjugated Bilirubin >0.10 L (0.20-1.00) mg/dL Total Protein 5.5 L (6.2-8.2) g/dL Albumin 3.2 L (3.8-4.9) g/dL Albumin/Globulin Ratio 1.39 L (1.60-3.17) Ratio Folate (4.40-31.00) ng/mL TSH 8.590 H (0.350-5.500) UIU/ML Urine Protein 1+ H (Negative) Urine Mucus Moderate H (None) /hpf 11/06/24 11/06/24 Range/Units 04:19 08:17 RBC (4.40-5.60) X 10*6/uL Hgb (13.0-17.0) g/dL Hct (39.6-50.0) % Immature Gran # (0.00-0.04) X 10*3/uL D-Dimer 12.32 H (<0.60) mg/L FEU Carbon Dioxide (21.6-31.8) mmol/L Est GFR (CKD-EPI) (>=60) BUN/Creatinine Ratio (12.00-20.00) Ratio Calcium (8.7-10.3) mg/dL Unconjugated Bilirubin (0.20-1.00) mg/dL Total Protein (6.2-8.2) g/dL Albumin (3.8-4.9) g/dL Albumin/Globulin Ratio (1.60-3.17) Ratio Folate 40.00 H (4.40-31.00) ng/mL TSH (0.350-5.500) UIU/ML Urine Protein (Negative) Urine Mucus (None) /hpf Assessment and Plan Assessment: Multiple falls associated with syncope. Patient states he passed out before he falls. L1 compression fracture with low back pain Elevated D-dimer, CT of the chest pending Mild dehydration. Hypertension Chronic kidney disease stage III Mild anemia. Hyperlipidemia Osteoarthritis Chronic low back pain. History of depression, not an active issue Plan: Follow-up CT of the chest Follow-up T4 Follow-up EEG with neurology consult Continue with gentle hydration Cardiology team consult Spine surgery team consult Pain management Labs and medication were reviewed.. Continue same treatment. Continue with symptomatic treatment. Resume home medication. Monitor labs and vitals. DVT and GI prophylaxis. Further recommendations as per clinical course of the patient DVT prophylaxis: Subcutaneous heparin GI Prophylaxis: Pepcid PT/OT: Pending Prognosis is guarded
--- NOTE | 2024-11-06 15:04 | CT ---
EXAMINATION TYPE: CT angio chest DATE OF EXAM: 11/06/2024 12:39 PM COMPARISON: 06/23/2024, 08/25/2020 CLINICAL INDICATION: Male, 89 years old with history of elevated d-dimer, r/o PE; Elevated dimer, r/o PE TECHNIQUE/CONTRAST: CTA scan of the thorax is performed with IV Contrast, patient injected with 80 mL of Isovue 370, MIP images are created and reviewed these are created on a separate workstation.. CT DLP: 280.90 mGycm, Automated exposure control for dose reduction was used. FINDINGS: Lungs/Pleura: Centrilobular emphysema changes throughout the lungs. Left apical airspace opacities wh ich have become more dense compared to 06/23/2024. There is a groundglass and solid nodule on in this region measuring 9 mm on 2020 study. This area is roughly 3.9 x 3.2 cm Left lower lobe rodrigo pheral cystic nodule measuring 20 mm. Right major fissure intrafissural lymph node series 4 image 82. No evidence of focal consolidation, pleural effusion or pneumothorax. Airway: Mild bronchiectasis noted. Heart: Size within normal limits.Aortic valve calcifications present and are mild. Mild coronary srini ry calcifications present. Vasculature: There is no evidence for a filling defect within the pulmonary vasculature to suggest ac [place] pulmonary embolism. The pulmonary artery is of normal size. Mediastinum: No gross evidence of adenopathy. Musculoskeletal: Moderate disc degeneration changes are present throughout the thoracolumbar spine se condary to osteophyte formation and facet joint arthropathy. Soft Tissues/lymph nodes: Unremarkable. Lower neck: No significant findings. Upper Abdomen: Large amount stool in the colon IMPRESSION: 1. No evidence of pulmonary embolism. 2. Left lower lobe cystic lesion possibly representing a malignancy versus focal infection versus oth er. PET/CT should be performed for evaluation of this lesion and lesion in the cristian and #3. 3. Left apical airspace opacities have become more dense compared to prior findings concerning for ch ronic infection versus likely malignancy given solids irregular morphology. There is a groundglass pu lmonary nodule in this region on 08/25/2020. Correlate for history of treatment. [facility], , 11/06/2024 1:11 PM
--- NOTE | 2024-11-06 15:32 | P.CNNES ---
History of Present Illness Consult date: 11/06/24 Requesting physician: Jose Elias E Sheet Reason for Consult: falls,dizziness History of Present Illness: This is an 89-year-old gentleman who presents emergency department because of recurrent falls. is at bedside who provides the history. According to the . A week ago from this past Wednesday he patient was at [address] and he fell on the ground. When his sugar was checked was in the 30s. Then seems that he had further falls in which past Wednesday he had another fall and his found him in the bathroom and on the floor but he did not lose consciousness no jerking of any extremities and he was on the floor near the top. She stated that his legs gave out. The feels he is not eating properly recently. Patient does have mild dementia he does not have any history of stroke or seizures. Patient denies of any neck pain any lower back pain. Denies of any focal weakness headache visual disturbance. at home he is refusing to cooperate with the physical and Occupational Therapy. Some of the workup during this hospital visit consisted of: Orthostatic vitals: Is supine is 138/77 with a heart rate of 92, sitting is 112/67 with a heart rate of 87 and standing is 123/66 with a heart rate of 91. His orthostatic vitals is positive. B12 is 941 Serum folate is 40 TSH is 8.590 Serum folate is 1.340 Initial creatinine is 1.37 and BUN is 35 and repeated has normalized Otherwise sodium, calcium, AST ALT are within normal limits. CT of the head is reported as no acute intracranial hemorrhage. No midline shift or mass effect. Personally reviewed the CT of the head and agree with the report CT cervical spine is reported as no acute fracture or subluxation cervical spine. CT lumbar spine is reported as acute compression fraction involving the superior endplate of L1. 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 HAS LOST 10 LBS IN THE PAST MONTH History of Any Multi-Drug Resistant Organisms: None Reported Past Surgical History: Tonsillectomy Additional Past Surgical History / Comment(s): 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 COLONOSCOPY, EGD Past Anesthesia/Blood Transfusion Reactions: No Reported Reaction Past Psychological History: No Psychological Hx Reported Additional Psychological History / Comment(s): Pt resides with his spouse. He uses no assistive device. He drives. Pt states the medication he recently started for depression seems to be helping. Denies thoughts/plans of suicide. Smoking Status: Former smoker Past Alcohol Use History: None Reported Additional Past Alcohol Use History / Comment(s): Pt states he quit smoking in 1987 and he quit drinking alcohol in 1978. Past Drug Use History: None Reported - Past Family History Mother Family Medical History: Cancer Additional Family Medical History / Comment(s): lung Father History Unknown: Yes Family Medical History: No Reported History Additional Family Medical History / Comment(s): "i don't know a lot about him...he as an alcoholic Brother(s) Family Medical History: Coronary Artery Disease (CAD) Sister(s) Family Medical History: Cancer, Coronary Artery Disease (CAD) Son(s) Family Medical History: No Reported History (Patient has 3 sons to contact and one healthy.) Medications and Allergies Home Medications Medication Instructions Recorded Confirmed Type Rosuvastatin Calcium [Crestor] 5 mg PO DAILY 05/15/24 11/05/24 History Allergies Allergy/AdvReac Type Severity Reaction Status Date / Time thallium-201 Allergy Severe Dyspnea Verified 11/01/24 14:48 Physical Examination - Vital Signs Vital Signs: Vital Signs Temp Pulse Pulse Pulse Pulse Resp BP 11/06/24 11:25 98.4 F 87 91 92 16 11/06/24 07:47 98.0 F 101 H 16 120/78 11/06/24 00:58 98.6 F 93 16 109/65 11/05/24 18:43 98.3 F 108 H 16 162/91 11/05/24 15:50 98.1 F 94 16 167/88 BP BP BP Pulse Ox 11/06/24 11:25 112/67 123/66 138/77 11/06/24 07:47 97 11/06/24 00:58 98 11/05/24 18:43 97 11/05/24 15:50 100 Intake and Output 11/06/24 11/06/24 11/06/24 06:59 14:59 22:59 Intake Total 900 360 Output Total 150 Balance 750 360 Intake: Intake, IV Titration 900 Amount Sodium Chloride 0.9% 1, 900 000 ml @ 75 mls/hr IV . [id number] ON LICENSE OF [facility] Rx#:[id number] Oral 360 Output: Urine 150 Other: # Voids 1 GENERAL: The patient is lying in bed and is not in acute distress. NEUROLOGICAL: Higher mental function: The patient is awake, alert, oriented to self, place and time. Patient is following commands. No aphasia and no neglect. Cranial nerves: The pupils are round, equal and reactive to light and accommodation. Visual anderson are full to confrontation throughout. Extraocular movement is intact no nystagmus is noted. Facial sensation is normal to touch throughout. The facial strength is normal throughout. Hearing is mild to moderately decreased bilaterally to hand rub. Tongue is midline and moved [id number] without any difficulty. No dysarthria is noted. Shoulder shrug is normal bilaterally. Motor: The strength is 4+ uppers while lowers appears 5 over 5 throughout. Normal tone and bulk. Cerebellum: Normal finger to nose bilaterally. Sensation: Sensation is normal to touch throughout. Reflexes (right/left): 2+ throughout. Plantars are downgoing bilaterally. Results - Laboratory Findings CBC and BMP: 11/06/24 04:19 11/06/24 04:19 Abnormal Lab Findings: Abnormal Labs 11/05/24 11/05/24 11/05/24 00:07 00:07 17:10 RBC 3.49 L Hgb 10.5 L Hct 31.8 L Immature Gran # D-Dimer Chloride 110 H Carbon Dioxide BUN 35 H Creatinine 1.37 H Est GFR (CKD-EPI) BUN/Creatinine Ratio Glucose 105 H Calcium Unconjugated Bilirubin Total Protein 5.7 L Albumin 3.2 L Albumin/Globulin Ratio Folate TSH Urine Protein 1+ H Urine Mucus Moderate H 11/06/24 11/06/24 11/06/24 04:19 04:19 04:19 RBC 3.38 L Hgb 10.3 L Hct 31.9 L Immature Gran # 0.06 H D-Dimer Chloride Carbon Dioxide 19.6 L BUN Creatinine Est GFR (CKD-EPI) 53 L BUN/Creatinine Ratio 20.31 H Glucose Calcium 8.4 L Unconjugated Bilirubin >0.10 L Total Protein 5.5 L Albumin 3.2 L Albumin/Globulin Ratio 1.39 L Folate 40.00 H TSH 8.590 H Urine Protein Urine Mucus 11/06/24 08:17 RBC Hgb Hct Immature Gran # D-Dimer 12.32 H Chloride Carbon Dioxide BUN Creatinine Est GFR (CKD-EPI) BUN/Creatinine Ratio Glucose Calcium Unconjugated Bilirubin Total Protein Albumin Albumin/Globulin Ratio Folate TSH Urine Protein Urine Mucus Assessment and Plan Assessment: This is an 89-year-old gentleman who presented emergency department because of recurrent falls. According to his he had a fall recently and his sugar was in the 30s. Yesterday he had another fall and he was in the bathroom without any loss of consciousness or any jerking of any extremities. feels he is not eating properly. Patient is refusing physical Occupational Therapy at home. Recurrent falls: Multifactorial one of them is positive orthostatic as well as hypoglycemia probable due to lack of nutrition Episode of hypoglycemia as low as in the 30s in the past recently Positive orthostatic hypotension Compression fraction of L1 Underlying history of mild dementia Plan: Ordered a routine EEG. Will defer for the management of the orthostatic hypotension to the primary as well as cardiology team PT and OT are consulted Orthopedic surgery team is on board Patient was notified about the importance of complying with physical therapy and Occupational Therapy inpatient and as well as outpatient for strengthening. I notified the patient as well as his that I did not feel safe that the patient is driving in the status especially with his recurrent falls. Upon discharge recommend the patient to follow-up with a neurologist as an outpatient 3 weeks Will defer the rest of the medical management the primary and other specialist Plan is discussed with the patient and his was at bedside Thank you for the consultation Time with Patient: Greater than 30
[2024-11-06 16:43] VITALS: BMI 20.5
--- NOTE | 2024-11-06 21:45 | EEG ---
ELECTROENCEPHALOGRAM REPORT CLINICAL HISTORY: This is an 89-year-old gentleman with recurrent falls. The video EEG is obtained to evaluate for seizure epileptiform activity. RELEVANT MEDICATION: The patient is not on any antiseizure medication. EEG TYPE: This is a routine 21-channel EEG with video using the 10/20 electrode placement system. DESCRIPTION: Wakefulness and drowsiness are obtained. During awake state, posterior-dominant rhythm consists of [id number] voltage of 10 hertz activity that is well modulated and well sustained. There is no physiological stage 2 sleep architecture. There is no focal slowing. Interictal and ictal is none. ACTIVATION PROCEDURE: Photic stimulation did not evoke a posterior driving response. There is no abnormality during the photic stimulation. Hyperventilation is not performed. CLINICAL INTERPRETATION: This is a normal routine EEG during awake and drowsy state. There is no focal slowing, epileptiform discharges or seizure on the EEG. A normal routine EEG does not rule out underlying epilepsy. Clinical correlation is recommended. KAVITA / GARETTN: [id number] /
--- NOTE | 2024-11-07 09:51 | P.PN ---
Subjective HISTORY OF PRESENT ILLNESS: This is a 89-year-old male with a past medical history significant for hyperlipidemia. 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 We have been asked to see the patient in consultation for syncope. Patient examined at the bedside. Patient is somewhat of a poor historian. There is no family present this morning at the time of evaluation. Patient presented to the hospital on 11/01/2024 after having a syncopal episode at [facility]. According to the ER physician note the patient was found to be hypoglycemic at that time. Patient was discharged home. He presented back to the hospital yesterday after having a syncopal episode at home after using the bathroom. The patient does report that he lost consciousness when he was at [facility]. He is unsure if he lost consciousness yesterday when he fell off the toilet. The patient currently denies any chest pain or pressure. He denies any shortness of breath. He denies having prior syncopal episodes in the past. DIAGNOSTICS: - EKG reveals sinus mechanism with incomplete right bundle branch block. No signs of acute ischemia. Baseline artifact. - Chest xray negative for acute findings - Laboratory data: WBC 6.36. Hemoglobin 10.3. Platelet count 235. Sodium 139. Potassium 4.2. BUN 35. Creatinine 1.37. Troponin negative x 1. - Current home cardiac medications include rosuvastatin 5 mg daily. - Echocardiogram obtained in August 2020 revealed EF 55 to 60%, trace MR, trace TR 11/07/2024 Patient examined this morning the bedside. Patient currently denies chest pain or pressure. He denies shortness of breath. Vital signs are stable. E chocardiogram performed revealing ejection fraction 60% with no significant valvular disease. Orthostatic blood pressures obtained and were unremarkable. Patient was found to have elevated D-dimer yesterday of 12. He underwent CTA which was negative for pulmonary embolism. CT revealed left lower lobe cystic lesion possibly representing malignancy versus focal infection versus other. Left apical airspace opacities have become more dense compared to prior findings concerning for chronic infection versus likely malignancy given solid irregular morphology. There is groundglass pulmonary nodule in this region. PHYSICAL EXAM: VITAL SIGNS: Reviewed. GENERAL: Well-developed in no acute distress. HEENT: Head is normocephalic. Pupils are equal, round. Sclerae anicteric. Mucous membranes of the mouth are moist. Neck supple. No JVD or thyromegaly LUNGS: Respirations even and unlabored. Lungs essentially clear to auscultation bilaterally. HEART: Regular rate and rhythm. S1 and S2 heard. ABDOMEN: Soft. Nondistended. Nontender. EXTREMITIES: Normal range of motion. No clubbing or cyanosis. Peripheral pulses intact. No lower extremity edema NEUROLOGIC: Awake and alert. ASSESSMENT: Syncope, etiology unknown, orthostatic blood pressures negative Acute L1 compression fracture History of hyperlipidemia Chronic kidney disease Left lower cystic lesion possibly representing malignancy versus infection, per CTA Left apical airspace opacities concerning for chronic infection versus likely malignancy, per CTA PLAN: Continue telemetry monitoring to assess for any arrhythmias Patient is currently stable from a cardiac standpoint with no further inpatient recommendations Further recommendations pending patient course Nurse practitioner note has been reviewed by physician. Signing provider agrees with the documented findings, assessment, and plan of care documented by FIREBRICK LAYER HELPER as a scribe. Objective - Vital Signs Vital signs: Vital Signs Temp 97.8 F 11/07/24 06:58 Pulse 101 H 11/07/24 06:58 Resp 16 11/07/24 06:58 BP 151/83 11/07/24 06:58 Pulse Ox 96 11/07/24 06:58 FiO2 Intake & Output 11/06/24 11/07/24 11/07/24 18:59 06:59 18:59 Intake Total 1260 1020 480 Output Total 500 Balance 1260 520 480 Weight 68.5 kg Intake: Intake, IV Titration 900 900 Amount Sodium Chloride 0.9% 1, 900 900 000 ml @ 75 mls/hr IV . [id number] [facility] Rx#:[id number] Oral 360 120 480 Output: Urine 500 Other: Voiding Method Toilet Urinal - Labs CBC & Chem 7: 11/06/24 04:19 11/06/24 04:19
[2024-11-07 12:17] LABS: Basophils # (A) 0.1 k/uL (0-0.2); Basophils % (A) 1 %; Eosinophils # (A) 0.3 k/uL (0-0.7); Eosinophils % (A) 5 %; HCT 34.2 % (39.0-53.0); HGB 11.3 gm/dL (13.0-17.5); Lymphocytes # (A) 0.9 k/uL (1.0-4.8); Lymphocytes % (A) 15 %; MCH 30.3 pg (25.0-35.0); MCHC 33.1 g/dL (31.0-37.0); MCV 91.6 fL (80.0-100.0); Mean Platelet Volume 7.1; Monocytes # (A) 0.4 k/uL (0-1.0); Monocytes % (A) 6 %; Neutrophils # (A) 4.5 k/uL (1.3-7.7); Neutrophils % (A) 72 %; Platelet Count 254 k/uL (150-450); RBC 3.73 m/uL (4.30-5.90); RDW 13.2 % (11.5-15.5); WBC 6.3 k/uL (3.8-10.6)
[2024-11-07 12:34] LABS: African American GFR (CKD) 63 (>60 ml/min/1.73 sqM); Anion Gap 6 mmol/L; Blood Urea Nitrogen 23 mg/dL (9-20); Calcium 8.8 mg/dL (8.4-10.2); Carbon Dioxide 24 mmol/L (22-30); Chloride 108 mmol/L (98-107); Glucose 84 mg/dL (74-99); Non-African American GFR(CKD) 54 (>60 ml/min/1.73 sqM); Potassium 4.6 mmol/L (3.5-5.1); Sodium 138 mmol/L (137-145)
--- NOTE | 2024-11-07 12:42 | US ---
EXAMINATION TYPE: US venous doppler duplex LE BI DATE OF EXAM: 11/07/2024 12:08 PM COMPARISON: NONE CLINICAL INDICATION: Male, 89 years old with history of leg swelling; leg swelling, Pain TECHNIQUE: The lower extremity deep venous system is examined utilizing real time linear array sonog nelda with graded compression, color doppler sonography, and spectral doppler. SIDE PERFORMED: Bilateral FINDINGS: VESSELS IMAGED: Common Femoral Vein Deep Femoral Vein Greater Saphenous Vein * Femoral Vein Popliteal Vein Small Saphenous Vein * Proximal Calf Veins (* superficial vessels) Right Leg: No evidence for DVT, Color Doppler imaging shows patency of the vessels. Spectral wavefor ms are within normal limits. Left Leg: No evidence for DVT, Color Doppler imaging shows patency of the vessels. Spectral waveform s are within normal limits. IMPRESSION: No ultrasound evidence for deep venous thrombosis. [facility], , 11/07/2024 12:40 PM
[2024-11-07] MEDS: HEPARIN SODIUM,PORCINE 5,000 UNIT/ML 1 ML VIAL SQ SCH (13:09)
--- NOTE | 2024-11-07 14:24 | P.PN ---
Subjective Progress Note Date: 11/07/24 I am following-up with patient and per he seems somewhat better today compared to yesterday. No new neurological issues. Objective - Vital Signs Vital signs: Vital Signs Temp 98.3 F 11/07/24 11:30 Pulse 94 11/07/24 11:30 Resp 16 11/07/24 11:30 BP 133/77 11/07/24 11:30 Pulse Ox 94 L 11/07/24 11:30 FiO2 Intake & Output 11/06/24 11/07/24 11/07/24 18:59 06:59 18:59 Intake Total 1260 1020 600 Output Total 500 Balance 1260 520 600 Weight 68.5 kg Intake: Intake, IV Titration 900 900 Amount Sodium Chloride 0.9% 1, 900 900 000 ml @ 75 mls/hr IV . [id number] [facility] Rx#:[id number] Oral 360 120 600 Output: Urine 500 Other: Voiding Method Toilet Toilet Urinal Urinal - Exam GENERAL: The patient is lying in bed and is not in acute distress. NEUROLOGICAL: Higher mental function: The patient is awake, alert, oriented to self, place and time. Patient is following commands. No aphasia and no neglect. Cranial nerves: The pupils are round, equal and reactive to light and accommodation. Visual anderson are full to confrontation throughout. Extraocular movement is intact no nystagmus is noted. Facial sensation is normal to touch throughout. The facial strength is normal throughout. Hearing is mild to moderately decreased bilaterally to hand rub. Tongue is midline and moved [id number] without any difficulty. No dysarthria is noted. Shoulder shrug is normal bilaterally. Motor: The strength is 4+ uppers while lowers appears 5 over 5 throughout. Normal tone and bulk. Cerebellum: Normal finger to nose bilaterally. Sensation: Sensation is normal to touch throughout. Reflexes (right/left): 2+ throughout. Plantars are downgoing bilaterally. Some of the workup during this hospital visit consisted of: Orthostatic vitals: Is supine is 138/77 with a heart rate of 92, sitting is 112/67 with a heart rate of 87 and standing is 123/66 with a heart rate of 91. His orthostatic vitals is positive. B12 is 941 Serum folate is 40 TSH is 8.590 Serum folate is 1.340 Initial creatinine is 1.37 and BUN is 35 and repeated has normalized Otherwise sodium, calcium, AST ALT are within normal limits. CT of the head is reported as no acute intracranial hemorrhage. No midline shift or mass effect. Personally reviewed the CT of the head and agree with the report CT cervical spine is reported as no acute fracture or subluxation cervical spine. CT lumbar spine is reported as acute compression fraction involving the superior endplate of L1. Routine EEG: Normal. - Labs CBC & Chem 7: 11/07/24 11:58 11/07/24 11:58 Labs: Abnormal Lab Results - Last 24 Hours (Table) 11/07/24 11/07/24 Range/Units 11:58 11:58 RBC 3.73 L (4.30-5.90) m/uL Hgb 11.3 L (13.0-17.5) gm/dL Hct 34.2 L (39.0-53.0) % Lymphocytes # 0.9 L (1.0-4.8) k/uL Chloride 108 H (98-107) mmol/L BUN 23 H (9-20) mg/dL Assessment and Plan Assessment: This is an 89-year-old gentleman who presented emergency department because of recurrent falls. According to his he had a fall recently and his sugar was in the 30s. Yesterday he had another fall and he was in the bathroom without any loss of consciousness or any jerking of any extremities. feels he is not eating properly. Patient is refusing physical Occupational Therapy at home. Recurrent falls: Multifactorial one of them is positive orthostatic as well as hypoglycemia probable due to lack of nutrition Episode of hypoglycemia as low as in the 30s in the past recently Positive orthostatic hypotension Compression fraction of L1 Underlying history of mild dementia Plan: Will defer for the management of the orthostatic hypotension to the primary as well as cardiology team PT and OT are consulted Orthopedic surgery team is on board Patient was notified about the importance of complying with physical therapy and Occupational Therapy inpatient and as well as outpatient for strengthening. I notified the patient as well as his that I did not feel safe that the pa tient is driving in the status especially with his recurrent falls. Upon discharge recommend the patient to follow-up with a neurologist as an outpatient 3 weeks Will defer the rest of the medical management the primary and other specialist Plan is discussed with the patient and his was at bedside There is no further neurological work-up. Will sign off. Please reconsult if needed. Time with Patient: Less than 30
--- NOTE | 2024-11-07 19:31 | P.PN ---
Subjective This is a pleasant 89 years old male with multiple problems as below. Presents because of multiple falls. Patient fell yesterday and hurt his back so that is why he came to the hospital. Patient states that he passed out before he fall. This is followed by back pain in the lower back about 4/10 nonradiating to both legs. So he decided to come to emergency room No chest pain or dyspnea. No history of heart disease. He quit smoking many years ago. No specific GI symptoms. No dysuria urgency or hesitancy. No headache dizziness weakness or numbness. Vitals are stable, he is mildly tachycardic and hypertensive. Labs including CBC, BMP and LFT were unremarkable. Except for hemoglobin 10.5. Creatinine is stable at baseline 1.3 with baseline 1.4-1.7. Chest x-ray showing no acute cardiopulmonary process EKG showing sinus tachycardia at [address]-T changes CT of the head showing no masses or hemorrhage. No other acute process. CT of the cervical spine showing no fracture or dislocation. CT of the lumbar spine showing acute compression fracture of L1 01/06 Patient feels better, he has some pain in the lumbar fracture site at L1 area which looks controlled Orthopedic team recommended brace Echocardiogram was done showing ejection fraction 60%, patient evaluated by block greaser, orthostatic vitals were negative. D-dimer elevated CTA of the chest is pending Will check for T4 Also patient eval by neurologist with EEG pending 11/07 Patient overall doing well, mentation at baseline he denies any symptoms and reports improvement Family at bedside and they agreeable No new complaint Workup was unremarkable including urine analysis CT of the head and neck CT of the lumbar spine showing acute compression fracture of L1, orthopedic evaluated the patient and recommended a brace for him with ambulation or when he is sitting up, patient agrees. Currently complains only from mild pain in his back. No leg weakness more than usual. Orthostatic vitals were checked and they were negative CTA of the chest was negative for PE because D-dimer was elevated about 12 we ordered ultrasound of the leg which was negative for DVT in both legs. Patient was evaluated by cardiology and neurology team and no further workup needed Patient is medically clear for discharge pending placement Objective - Vital Signs Vital signs: Vital Signs Temp 98.3 F 11/07/24 11:30 Pulse 94 11/07/24 11:30 Resp 16 11/07/24 11:30 BP 133/77 11/07/24 11:30 Pulse Ox 94 L 11/07/24 11:30 FiO2 Intake & Output 11/06/24 11/07/24 11/07/24 18:59 06:59 18:59 Intake Total 1260 1020 480 Output Total 500 Balance 1260 520 480 Weight 68.5 kg Intake: Intake, IV Titration 900 900 Amount Sodium Chloride 0.9% 1, 900 900 000 ml @ 75 mls/hr IV . [id number] [facility] Rx#:[id number] Oral 360 120 480 Output: Urine 500 Other: Voiding Method Toilet Toilet Urinal Urinal - Exam GENERAL: The patient is alert and oriented x3, not in any acute distress. Well developed, well nourished. HEENT: Pupils are round and equally reacting to light. EOMI. No scleral icterus. No conjunctival pallor. Normocephalic, atraumatic. No pharyngeal erythema. No thyromegaly. CARDIOVASCULAR: S1 and S2 present. No murmurs, rubs, or gallops. PULMONARY: Chest is clear to auscultation, no wheezing , no crackles. ABDOMEN: Soft, nontender, nondistended, normoactive bowel sounds. No palpable organomegaly. -MUSCULOSKELETAL: No joint swelling or deformity. Lower back tenderness EXTREMITIES: No cyanosis, clubbing, or pedal edema. NEUROLOGICAL: Gross neurological examination did not reveal any focal deficits. SKIN: No rashes. no petechiae. - Labs CBC & Chem 7: 11/07/24 11:58 11/07/24 11:58 Assessment and Plan Assessment: Multiple falls associated with syncope. Patient states he passed out before he falls. L1 compression fracture with low back pain Elevated D-dimer, CT of the chest pending Mild dehydration. Hypertension Chronic kidney disease stage III Mild anemia. Hyperlipidemia Osteoarthritis Chronic low back pain. History of depression, not an active issue Plan: Follow-up CT of the chest Follow-up T4 Follow-up EEG with neurology consult Continue with gentle hydration Cardiology team consult Spine surgery team consult Pain management Labs and medication were reviewed.. Continue same treatment. Continue with symptomatic treatment. Resume home medication. Monitor labs and vitals. DVT and GI prophylaxis. Further recommendations as per clinical course of the patient DVT prophylaxis: Subcutaneous heparin GI Prophylaxis: Pepcid PT/OT: Pending Prognosis is guarded Patient is medically clear for discharge pending placement
--- NOTE | 2024-11-08 09:36 | P.PN ---
Subjective HISTORY OF PRESENT ILLNESS: This is a 89-year-old male with a past medical history significant for hyperlipidemia. Patient does not follow with a turner and former automatic. We have been asked to see the patient in consultation for syncope. Patient examined at the bedside. Patient is somewhat of a poor historian. There is no family present this morning at the time of evaluation. Patient presented to the hospital on 11/01/2024 after having a syncopal episode at [facility]. According to the ER physician note the patient was found to be hypoglycemic at that time. Patient was discharged home. He presented back to the hospital yesterday after having a syncopal episode at home after using the bathroom. The patient does report that he lost consciousness when he was at [facility]. He is unsure if he lost consciousness yesterday when he fell off the toilet. The patient currently denies any chest pain or pressure. He denies any shortness of breath. He denies having prior syncopal episodes in the past. DIAGNOSTICS: - EKG reveals sinus mechanism with incomplete right bundle branch block. No signs of acute ischemia. Baseline artifact. - Chest xray negative for acute findings - Laboratory data: WBC 6.36. Hemoglobin 10.3. Platelet count 235. Sodium 139. Potassium 4.2. BUN 35. Creatinine 1.37. Troponin negative x 1. - Current home cardiac medications include rosuvastatin 5 mg daily. - Echocardiogram obtained in August 2020 revealed EF 55 to 60%, trace MR, trace TR 11/07/2024 Patient examined this morning the bedside. Patient currently denies chest pain or pressure. He denies shortness of breath. Vital signs are stable. E chocardiogram performed revealing ejection fraction 60% with no significant valvular disease. Orthostatic blood pressures obtained and were unremarkable. Patient was found to have elevated D-dimer yesterday of 12. He underwent CTA which was negative for pulmonary embolism. CT revealed left lower lobe cystic lesion possibly representing malignancy versus focal infection versus other. Left apical airspace opacities have become more dense compared to prior findings concerning for chronic infection versus likely malignancy given solid irregular morphology. There is groundglass pulmonary nodule in this region. 11/08/2024 Patient examined this morning at the bedside. Patient is sitting up in the chair eating breakfast. He denies chest pain or pressure. He denies shortness of breath. Vital signs are stable. PHYSICAL EXAM: VITAL SIGNS: Reviewed. GENERAL: Well-developed in no acute distress. HEENT: Head is normocephalic. Pupils are equal, round. Sclerae anicteric. Mucous membranes of the mouth are moist. Neck supple. No JVD or thyromegaly LUNGS: Respirations even and unlabored. Lungs essentially clear to auscultation bilaterally. HEART: Regular rate and rhythm. S1 and S2 heard. ABDOMEN: Soft. Nondistended. Nontender. EXTREMITIES: Normal range of motion. No clubbing or cyanosis. Peripheral pulses intact. No lower extremity edema NEUROLOGIC: Awake and alert. ASSESSMENT: Syncope, etiology unknown, orthostatic blood pressures negative Acute L1 compression fracture History of hyperlipidemia Chronic kidney disease Left lower cystic lesion possibly representing malignancy versus infection, per CTA Left apical airspace opacities concerning for chronic infection versus likely malignancy, per CTA PLAN: Continue telemetry monitoring to assess for any arrhythmias Patient is currently stable from a cardiac standpoint with no further inpatient recommendations Further recommendations pending patient course Nurse practitioner note has been reviewed by physician. Signing provider agrees with the documented findings, assessment, and plan of care documented by STATE HIST[employer]ICAL [employer]IET[employer] DIRECTOR as a scribe. Objective - Vital Signs Vital signs: Vital Signs Temp 97.6 F 11/08/24 07:00 Pulse 87 11/08/24 07:00 Resp 18 11/08/24 07:00 BP 157/85 11/08/24 07:00 Pulse Ox 97 11/08/24 07:00 FiO2 Intake & Output 11/07/24 11/08/24 11/08/24 18:59 06:59 18:59 Intake Total 2220 Output Total 100 Balance 2220 -100 Intake: Oral 2220 Output: Urine 100 Other: Voiding Method Toilet Toilet Urinal Urinal # Voids 5 - Labs CBC & Chem 7: 11/07/24 11:58 11/07/24 11:58 Labs: Abnormal Lab Results - Last 24 Hours (Table) 11/07/24 11/07/24 Range/Units 11:58 11:58 RBC 3.73 L (4.30-5.90) m/uL Hgb 11.3 L (13.0-17.5) gm/dL Hct 34.2 L (39.0-53.0) % Lymphocytes # 0.9 L (1.0-4.8) k/uL Chloride 108 H (98-107) mmol/L BUN 23 H (9-20) mg/dL
--- NOTE | 2024-11-08 13:01 | P.DS ---
Providers Date of admission: 11/05/24 03:37 Attending physician: Nick Givens Consults: 11/05/24 03:35 Consult Physician Routine Consulting Provider: Wes Jacobo Consult Reason/Comments: L spine fracture Do you want consulting provider notified?: Yes 11/05/24 08:28 Consult Physician Routine Consulting Provider: Martin Bolivar Consult Reason/Comments: syncope Do you want consulting provider notified?: Yes 11/05/24 16:33 Consult Physician Routine Consulting Provider: Kashif Santana Consult Reason/Comments: Falls, dizziness Do you want consulting provider notified?: Yes Primary care physician: [facility] Course: Diagnoses: -Multiple falls associated with syncope. Patient states he passed out before he falls. This is related to his general debility advanced age and general weaknes s -L1 compression fracture with low back pain -Elevated D-dimer, CT of the chest is negative for PE, ultrasound of the leg is negative for PE -Left lower lobe cystic lesion possibly representing a malignancy. PET/CT should be performed for evaluation for this lesion and the lesion in the left apical airspace opacities as it become more dense. Infection very unlikely with procalcitonin negative and no fever or leukocytosis. Patient will need to follow-up outpatient to rule out malignancy. Patient and at bedside agreeable -Mild dehydration. -Hypertension -Chronic kidney disease stage III -Mild anemia. -Hyperlipidemia -Osteoarthritis -Chronic low back pain. -History of depression, not an active issue Hospital course: This is a pleasant 89 years old male with multiple problems as below. Presents because of multiple falls. Patient fell yesterday and hurt his back so that is why he came to the hospital. Patient states that he passed out before he fall. This is followed by back pain in the lower back about 4/10 nonradiating to both legs. So he decided to come to emergency room CT of the head showing no masses or hemorrhage. No other acute process. CT of the cervical spine showing no fracture or dislocation. CT of the lumbar spine showing acute compression fracture of L1 Patient evaluated by orthopedic team and recommended no surgical intervention in order to brace for him when he is sitting him up or ambulate. Patient agreeable Cardiology and neurology service were consulted as well. D-dimer was elevated around 12, CTA of the chest was negative for PE but showing Left lower lobe cystic lesion possibly representing a malignancy. PET/CT should be performed for evaluation for this lesion and the lesion in the left apical airspace opacities as it become more dense. Infection very unlikely with procalcitonin negative and no fever or leukocytosis. Patient was referred to PCP and oncology as an outpatient for further recommendation and patient and family agreeable. Ultrasound of the leg was negative for DVT Orthostatic vitals were negative. No further workup required from neurology and cardiology service. Patient kept doing fine while he monitored for the last 48 hours, no other new complaint and he is agreeable for discharge as well as at bedside. Patient was cleared for discharge by all consultants including cardiology, neurology and orthopedic team. Problems and management plan were discussed with the patient and he verbalized understanding and acceptance Patient was found stable and can be discharged home in guarded prognosis however he needs follow-up as an outpatient. Patient was instructed to follow up with PCP within one week and patient agrees Patient was instructed to follow-up with his oncologist Dr. Schwartz in 1 to 2 weeks and he agrees and with orthopedic Jaime in 2 weeks and he agrees as well Physical exam Gen: patient is a AAOx3, no distress CVS: S1-S2, RRR, no murmur Lungs: B/L CTA, no wheezing Abdomen: soft, no distention, no tenderness, positive bowel sounds Extremity: no leg edema or induration Time spent more than 35 minutes Patient Condition at Discharge: Fair Plan - Discharge Summary Discharge Rx Participant: No New Discharge Prescriptions: No Action Rosuvastatin Calcium [Crestor] 5 mg PO DAILY Discharge Medication List Rosuvastatin Calcium [Crestor] 5 mg PO DAILY 05/15/24 [History] Follow up Appointment(s)/Referral(s): Dallin Schwartz [STAFF PHYSICIAN] - 2 Weeks (for your lung lesion rule out malignancy ) Bhaskar Sanchez MD [Primary Care Provider] - 1-2 days Jaime Read PAC [PHYSICIAN SOLUTION DESIGN AND ANALYSIS MANAGER] - 2 Weeks (Patient may follow-up with Jaime Read PA-C or Dr. Nicolas Jacobo at [facility] in 2-3 weeks following discharge. ) Activity/Diet/Wound Care/Special Instructions: 1. Patient may wear LSO brace for comfort and support while sitting upright at greater than 45, while working with therapy, and while ambulating; patient does not have to wear the brace while lying in bed or bathing 2. Patient should avoid excessive bending, twisting, and lifting; no lifting greater than 10 pounds Discharge Disposition: TRANSFER TO SNF/ECF
[2024-11-08 13:32] VITALS: BP 99/67; PULSE 82; RESP 16; TEMP 97.9
== END 2024-11-08 14:13 | DRG 552 ==
LOC: EC 23:50 → 4SSUR 11-05 03:37 → 5NMEDONC 11-05 14:49
PROVIDERS: ADMIT Hospitalist; ATTEND Hospitalist
DX: S32.019A Unspecified fracture of first lumbar vertebra, initial encounter for closed fracture (principal); S09.90XA Unspecified injury of head, initial encounter; D63.1 Anemia in chronic kidney disease; N18.30 Chronic kidney disease, stage 3 unspecified; F03.A0 Unspecified dementia, mild, without behavioral disturbance, psychotic disturbance, mood disturbance, and anxiety; I12.9 Hypertensive chronic kidney disease with stage 1 through stage 4 chronic kidney disease, or unspecified chronic kidney disease; E86.0 Dehydration; E16.2 Hypoglycemia, unspecified; E78.5 Hyperlipidemia, unspecified; M47.26 Other spondylosis with radiculopathy, lumbar region; G89.29 Other chronic pain; M51.369 Other intervertebral disc degeneration, lumbar region without mention of lumbar back pain or lower extremity pain; R00.0 Tachycardia, unspecified; I95.1 Orthostatic hypotension; R29.6 Repeated falls; W18.39XA Other fall on same level, initial encounter; Y92.003 Bedroom of unspecified non-institutional (private) residence as the place of occurrence of the external cause; Z91.81 History of falling; Z79.82 Long term (current) use of aspirin; Z79.899 Other long term (current) drug therapy; Z87.891 Personal history of nicotine dependence
CPT/HCPCS: 36415; 70450; 71045; 71275; 72125; 72131; 80048; 80053; 80076; 81001; 82607; 82746; 84145; 84439; 84443; 84484; 85025; 85379; 93005; 93306; 93970; 95816; 96360; 96361; 99285

== ENCOUNTER → 2024-12-07 | Outpatient (CLI) | payer MEDICARE ==
--- NOTE | 2024-12-11 08:13 | PE ---
EXAMINATION TYPE: PET CT fusion skull to thigh DATE OF EXAM: 12/07/2024 COMPARISON: CTA chest November 06, 2024 and older studies HISTORY: Solitary pulmonary nodule, abnormal CT. TECHNIQUE: Following the intravenous administration of 12.56 mCi of F-18 FDG, whole body images are performed from the skull base to the midthigh. Images are reviewed on the computer in the coronal, a xial, and sagittal planes. Reconstructed rotating images are created on independent workstation and reviewed on the computer. A localization and attenuation correction CT is performed in conjunction with the PET scan. Blood glucose level equals 93. SCAN: Initial Scan FINDINGS: SKULL BASE AND NECK: No areas of abnormal hypermetabolic uptake. CHEST, MEDIASTINUM, AND HILAR REGION: Persistent scarlike opacity in the lateral aspect left upper chris ng with slight nodularity measuring approximately 3.1 x 1.5 cm axial image 73 has mild abnormal hyper metabolic uptake, max SUV is 5.52 on axial image 76. There is mild hypermetabolic uptake in the irreg ular 1.5 cm cavitary peripheral left lower lobe lesion axial image 128, max SUV is 3.57 on axial imag e 128. No additional areas of abnormal hypermetabolic uptake are present. ABDOMEN AND PELVIS: No areas of abnormal hypermetabolic uptake. Normal excretion. No hypermetabolic a drenal masses. OSSEOUS STRUCTURES: No areas of abnormal hypermetabolic uptake. OTHER CT: Bilateral aphakia is seen. Small-sized thyroid gland is noted. Mild underlying emphysematou s change redemonstrated. Small anterior pericardial effusion. Moderate coronary artery calcification is present. There is cortical thinning in both kidneys. There is exophytic anterior 4.0 cm simple thin-walled cys t right kidney which does not require follow-up. 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 There is subacute or chronic fracture of the left ischial tuberosity axial image 243 correlate clinic ally. There is mild subacute or chronic compression type fracture of the superior L1 endplate, correl ate clinically. IMPRESSION: 1. Left lung findings as detailed above favor inflammatory process, neoplastic process cannot be excl uded. Consider bronchoscopy evaluation versus short-term diagnostic CT and/or PET CT follow-up in 2-3 months time to reassess. 2. Other findings as noted above. [facility], , 12/11/2024 8:11 AM
== END | disposition home or self-care (01) ==
LOC: RADPETMAIN 13:59
PROVIDERS: ATTEND Internal Medicine Hematology & Oncology
DX: R91.1 Solitary pulmonary nodule (principal); H27.03 Aphakia, bilateral; I31.39 Other pericardial effusion (noninflammatory); J43.9 Emphysema, unspecified
CPT/HCPCS: 78815; A9552

== ENCOUNTER 2025-01-07 21:59 | Emergency (ER) | payer MEDICARE ==
--- NOTE | 2025-01-07 22:40 | ED ---
General Adult HPI - General Chief complaint: Weakness Stated complaint: Weakness Time Seen by Provider: 01/07/25 22:01 Source: patient, EMS Mode of arrival: EMS Limitations: no limitations - History of Present Illness Initial comments: This patient is an 89-year-old man who arrives here by EMS, who reports that the patient has been more confrontational with family members, more disoriented and less active than usual. They also reported that family would not arrive to provide more history. When I asked the patient, he states that he feels well. He denies pain. No dyspnea. No fever or chills noted. No vomiting, change in bowel movements or urination. -: hour(s) Severity scale (1-10): 0 Consistency: constant Improves with: none Worsens with: none Associated Symptoms: confusion Treatments Prior to Arrival: none - Related Data Home Medications Medication Instructions Recorded Confirmed Rosuvastatin Calcium [Crestor] 5 mg PO DAILY 05/15/24 11/05/24 Previous Rx's Medication Instructions Recorded Acetaminophen Tab [Tylenol] 650 mg PO Q6HR PRN tab 11/08/24 Heparin Sodium,Porcine (1 ml) 5,000 unit SQ Q12HR each 11/08/24 [Heparin Sodium] oxyCODONE-APAP 5-325MG [Percocet 1 each PO Q6HR PRN 3 Days #9 tab 11/08/24 5-325 mg] Allergies Allergy/AdvReac Type Severity Reaction Status Date / Time thallium-201 Allergy Severe Dyspnea Verified 01/07/25 22:08 Review of Systems ROS Statement: Those systems with pertinent positive or pertinent negative responses have been documented in the HPI. ROS Other: All systems not noted in ROS Statement are negative. 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 HAS LOST 10 LBS IN THE PAST MONTH, early onset dementia History of Any Multi-Drug Resistant Organisms: None Reported Past Surgical History: Tonsillectomy Additional Past Surgical History / Comment(s): epidural injection due to spondyl osis of the lumbar spine. COLONOSCOPY, EGD Past Anesthesia/Blood Transfusion Reactions: No Reported Reaction Past Psychological History: No Psychological Hx Reported Smoking Status: Former smoker Past Alcohol Use History: None Reported Past Drug Use History: None Reported - Past Family History Mother Family Medical History: Cancer Additional Family Medical History / Comment(s): lung Father History Unknown: Yes Family Medical History: No Reported History Additional Family Medical History / Comment(s): "i don't know a lot about him...he as an alcoholic Brother(s) Family Medical History: Coronary Artery Disease (CAD) Sister(s) Family Medical History: Cancer, Coronary Artery Disease (CAD) Son(s) Family Medical History: No Reported History (Patient has 3 sons to contact and one healthy.) General Exam Limitations: no limitations General appearance: alert, in no apparent distress Head exam: Present: atraumatic, normocephalic Eye exam: Present: normal appearance. Absent: scleral icterus, conjunctival injection Neck exam: Present: normal inspection, full ROM Respiratory exam: Present: normal lung sounds bilaterally. Absent: respiratory distress, wheezes, rales, rhonchi, stridor, accessory muscle use Cardiovascular Exam: Present: regular rate, normal rhythm, normal heart sounds. Absent: systolic murmur, diastolic murmur, rubs, gallop GI/Abdominal exam: Present: soft. Absent: distended, tenderness, guarding, rebound, rigid, mass Extremities exam: Present: normal inspection, normal capillary refill. Absent: pedal edema, calf tenderness Back exam: Present: normal inspection. Absent: vertebral tenderness Neurological exam: Present: alert, CN II-XII intact. Absent: oriented X3 (Patient is oriented to person and recognizes he is in a hospital but could not name the date.), motor sensory deficit Skin exam: Present: warm, dry, intact, normal color. Absent: rash Course Vital Signs 01/07/25 01/08/25 01/08/25 22:00 00:01 01:46 Temperature 98.0 F Pulse Rate 83 75 70 Respiratory 18 16 16 Rate Blood Pressure 137/75 146/75 157/89 O2 Sat by Pulse 99 99 99 Oximetry 01/08/25 01/08/25 02:35 03:25 Temperature 98.5 F Pulse Rate 76 78 Respiratory 16 18 Rate Blood Pressure 163/89 144/76 O2 Sat by Pulse 98 98 Oximetry EKG Findings - EKG Comments: EKG Findings:: Possible old septal infarct. - EKG Results: EKG: interpreted by ERMD, sinus rhythm (Rate 72 bpm) - Blocks, [place], Hypertrophy, ST Abn: AV and intraventricular conduction: right bundle branch block (fixed/intermittent, complete/incomplete) (Incomplete), left anterior fascicular block QRS axis and voltage: low voltage (<0.5 MV total QRS and <1.0 MV in each p recordial lead) Medical Decision Making - Medical Decision Making The patient had chest x-ray that I interpreted as negative for acute infiltrate, pneumothorax, congestive heart failure The patient had CT scan of the brain that I interpreted as negative for acute intracranial hemorrhage, mass effect or midline shift. Was pt. sent in by a medical professional or institution (, PA, TRANSITIONS RN CARE COORDINATOR, urgent care, hospital, or half-way...) When possible be specific @ -[No] Did you speak to anyone other than the patient for history (EMS, parent, family, police, friend...)? What history was obtained from this source @ -[No] Did you review nursing and triage notes (agree or disagree)? Why? @ -[I reviewed and agree with nursing and triage notes] Were old charts reviewed (outside hosp., previous admission, EMS record, old EKG, old radiological studies, urgent care reports/EKG's, half-way records)? Report findings @ -[No old charts were reviewed] Differential Diagnosis (chest pain, altered mental status, abdominal pain women, abdominal pain men, vaginal bleeding, weakness, fever, dyspnea, syncope, headache, dizziness, GI bleed, back pain, seizure, CVA, palpatations, mental health, musculoskeletal)? @ -[Differential Mental Health Depression, anxiety, bipolar, psychosis, schizophrenia, borderline personality, situational depression, adjustment disorder, behavioral disorder, brain tumor, malingering, substance abuse, encephalopathy, medication reaction, dementia, hypothyroidism, degenerative neurologic disorder, lupus.... This is not meant to be all-inclusive list EKG interpreted by me (3pts min.). @ -[I interpreted as above] X-rays interpreted by me (1pt min.). @ -[I interpreted as above CT interpreted by me (1pt min.). @ -[I interpreted as above U/S interpreted by me (1pt. min.). @ -[None done] What testing was considered but not performed or refused? (CT, X-rays, U/S, labs)? Why? @ -[None] What meds were considered but not given or refused? Why? @ -[None] Did you discuss the management of the patient with other professionals (professionals i.e. , PA, TRANSITIONS RN CARE COORDINATOR, lab, RT, psych nurse, long term care social worker, public address system installer, te acher, community liaison officer, home health care case manager)? Give summary @ -[No] Was smoking cessation discussed for >3mins.? @ -[No] Was critical care preformed (if so, how long)? @ -[No] Were there social determinants of health that impacted care today? How? (Homelessness, low income, unemployed, alcoholism, drug addiction, transportation, low edu. Level, literacy, decrease access to med. care, retirement, rehab)? @ -[No] Was there de-escalation of care discussed even if they declined (Discuss DNR or withdrawal of care, Hospice)? DNR status @ -[No] What co-morbidities impacted this encounter? (DM, HTN, Smoking, COPD, CAD, Cancer, CVA, ARF, Chemo, Hep., AIDS, mental health diagnosis, sleep apnea, morbid obesity)? @ -[None] Was patient admitted / discharged? Hospital course, mention meds given and route, prescriptions, significant lab abnormalities, going to OR and other pertinent info. @ -[Patient is 89-year-old man here to have evaluation after becoming more confrontational with family members. The patient is calm and cooperative here. The physical exam consistent with underlying dementia. The workup unremarkable. Family subsequently arrived and will take him home to have further follow-up as outpatient. Undiagnosed new problem with uncertain prognosis? @ -[No] Drug Therapy requiring intensive monitoring for toxicity (Heparin, Nitro, Insulin, Cardizem)? @ -[No] Were any procedures done? @ -[No] Diagnosis/symptom? @ -[Altered mental status, consistent with dementia Acute, or Chronic, or Acute on Chronic? @ -[Acute on chronic Uncomplicated (without systemic symptoms) or Complicated (systemic symptoms)? @ -[Uncomplicated Side effects of treatment? @ -[No] Exacerbation, Progression, or Severe Exacerbation? @ -[No] Poses a threat to life or bodily function? How? (Chest pain, [place], [place], pneumonia, PE, COPD, DKA, ARF, appy, cholecystitis, CVA, Diverticulitis, Homicidal, Suicidal, threat to staff... and all critical care pts) @ -[No] All treatments are based on ideal body weight as in ED triage - Lab Data Result diagrams: 01/07/25 22:50 01/07/25 22:50 Lab Results 01/07/25 01/07/25 01/07/25 Range/Units 22:50 22:50 22:50 WBC 6.67 (4.50-10.00) 10*3/uL RBC 3.56 L (4.40-5.60) 10*6/uL Hgb 11.1 L (13.0-17.0) g/dL Hct 31.8 L (39.6-50.0) % MCV 89.3 (80.0-97.0) fL MCH 31.2 (27.0-32.0) pg MCHC 34.9 (32.0-37.0) g/dL Plt Count 230 (140-440) 10*3/uL MPV 9.1 L (9.5-12.2) fL Immature Gran % (Auto) 0.6 % Neutrophils % 58.2 % Lymphocytes % 26.4 % Monocytes % 9.9 % Eosinophils % 4.3 % Basophils % 0.6 % Immature Gran # 0.04 (0.00-0.04) 10*3/uL Neutrophils # 3.88 (1.80-7.70) 10*3/uL Lymphocytes # 1.76 (0.90-5.00) 10*3/uL Monocytes # 0.66 (0.20-1.00) 10*3/uL Eosinophils # 0.29 (0.04-0.35) 10*3/uL Basophils # 0.04 (0.00-0.10) 10*3/uL PT 10.6 (10.0-12.5) sec INR 0.9 (<1.2) APTT 23.0 (22.0-30.0) sec Sodium 135 L (137-145) mmol/L Potassium 4.7 (3.5-5.1) mmol/L Chloride 103 (98-107) mmol/L Carbon Dioxide 26 (22-30) mmol/L Anion Gap 6 mmol/L BUN 52 H (9-20) mg/dL Creatinine 1.59 H (0.66-1.25) mg/dL Est GFR (CKD-EPI)AfAm 45 (>60 ml/min/1.73 sqM) Est GFR (CKD-EPI)NonAf 39 (>60 ml/min/1.73 sqM) Glucose 99 (74-99) mg/dL POC Glucose (mg/dL) (70-110) mg/dL POC Glu [employer] ID Plasma Lactic Acid Kevin (0.7-2.0) mmol/L Calcium 9.0 (8.4-10.2) mg/dL Magnesium 2.0 (1.6-2.3) mg/dL Total Bilirubin 0.2 (0.2-1.3) mg/dL AST 16 L (17-59) U/L ALT 12 (4-49) U/L Alkaline Phosphatase 116 (38-126) U/L Troponin I (0.000-0.034) ng/mL Total Protein 6.1 L (6.3-8.2) g/dL Albumin 3.5 (3.5-5.0) g/dL Urine Color Urine Appearance (Clear) Urine pH (5.0-8.0) Ur Specific [place] (1.001-1.035) Urine Protein (Negative) Urine Glucose (UA) (Negative) Urine Ketones (Negative) Urine Blood (Negative) Urine Nitrite (Negative) Urine Bilirubin (Negative) Urine Urobilinogen (<2.0) mg/dL Ur Leukocyte Esterase (Negative) 01/07/25 01/07/25 01/07/25 Range/Units 22:50 22:50 23:37 WBC (4.50-10.00) 10*3/uL RBC (4.40-5.60) 10*6/uL Hgb (13.0-17.0) g/dL Hct (39.6-50.0) % MCV (80.0-97.0) fL MCH (27.0-32.0) pg MCHC (32.0-37.0) g/dL Plt Count (140-440) 10*3/uL MPV (9.5-12.2) fL Immature Gran % (Auto) % Neutrophils % % Lymphocytes % % Monocytes % % Eosinophils % % Basophils % % Immature Gran # (0.00-0.04) 10*3/uL Neutrophils # (1.80-7.70) 10*3/uL Lymphocytes # (0.90-5.00) 10*3/uL Monocytes # (0.20-1.00) 10*3/uL Eosinophils # (0.04-0.35) 10*3/uL Basophils # (0.00-0.10) 10*3/uL PT (10.0-12.5) sec INR (<1.2) APTT (22.0-30.0) sec Sodium (137-145) mmol/L Potassium (3.5-5.1) mmol/L Chloride (98-107) mmol/L Carbon Dioxide (22-30) mmol/L Anion Gap mmol/L BUN (9-20) mg/dL Creatinine (0.66-1.25) mg/dL Est GFR (CKD-EPI)AfAm (>60 ml/min/1.73 sqM) Est GFR (CKD-EPI)NonAf (>60 ml/min/1.73 sqM) Glucose (74-99) mg/dL POC Glucose (mg/dL) 112 H (70-110) mg/dL POC Glu [employer] ID Rubenyanely Sanders Plasma Lactic Acid Kevin 1.1 (0.7-2.0) mmol/L Calcium (8.4-10.2) mg/dL Magnesium (1.6-2.3) mg/dL Total Bilirubin (0.2-1.3) mg/dL AST (17-59) U/L ALT (4-49) U/L Alkaline Phosphatase (38-126) U/L Troponin I 0.013 (0.000-0.034) ng/mL Total Protein (6.3-8.2) g/dL Albumin (3.5-5.0) g/dL Urine Color Urine Appearance (Clear) Urine pH (5.0-8.0) Ur Specific [place] (1.001-1.035) Urine Protein (Negative) Urine Glucose (UA) (Negative) Urine Ketones (Negative) Urine Blood (Negative) Urine Nitrite (Negative) Urine Bilirubin (Negative) Urine Urobilinogen (<2.0) mg/dL Ur Leukocyte Esterase (Negative) 01/08/25 Range/Units 00:15 WBC (4.50-10.00) 10*3/uL RBC (4.40-5.60) 10*6/uL Hgb (13.0-17.0) g/dL Hct (39.6-50.0) % MCV (80.0-97.0) fL MCH (27.0-32.0) pg MCHC (32.0-37.0) g/dL Plt Count (140-440) 10*3/uL MPV (9.5-12.2) fL Immature Gran % (Auto) % Neutrophils % % Lymphocytes % % Monocytes % % Eosinophils % % Basophils % % Immature Gran # (0.00-0.04) 10*3/uL Neutrophils # (1.80-7.70) 10*3/uL Lymphocytes # (0.90-5.00) 10*3/uL Monocytes # (0.20-1.00) 10*3/uL Eosinophils # (0.04-0.35) 10*3/uL Basophils # (0.00-0.10) 10*3/uL PT (10.0-12.5) sec INR (<1.2) APTT (22.0-30.0) sec Sodium (137-145) mmol/L Potassium (3.5-5.1) mmol/L Chloride (98-107) mmol/L Carbon Dioxide (22-30) mmol/L Anion Gap mmol/L BUN (9-20) mg/dL Creatinine (0.66-1.25) mg/dL Est GFR (CKD-EPI)AfAm (>60 ml/min/1.73 sqM) Est GFR (CKD-EPI)NonAf (>60 ml/min/1.73 sqM) Glucose (74-99) mg/dL POC Glucose (mg/dL) (70-110) mg/dL POC Glu [employer] ID Plasma Lactic Acid Kevin (0.7-2.0) mmol/L Calcium (8.4-10.2) mg/dL Magnesium (1.6-2.3) mg/dL Total Bilirubin (0.2-1.3) mg/dL AST (17-59) U/L ALT (4-49) U/L Alkaline Phosphatase (38-126) U/L Troponin I (0.000-0.034) ng/mL Total Protein (6.3-8.2) g/dL Albumin (3.5-5.0) g/dL Urine Color Light Yellow Urine Appearance Clear (Clear) Urine pH 5.5 (5.0-8.0) Ur Specific [place] 1.023 (1.001-1.035) Urine Protein Negative (Negative) Urine Glucose (UA) Negative (Negative) Urine Ketones Negative (Negative) Urine Blood Negative (Negative) Urine Nitrite Negative (Negative) Urine Bilirubin Negative (Negative) Urine Urobilinogen <2.0 (<2.0) mg/dL Ur Leukocyte Esterase Negative (Negative) Disposition Clinical Impression: Altered mental status Disposition: HOME SELF-CARE Condition: Fair Instructions (If sedation given, give patient instructions): Altered Mental Status (ED) Is patient prescribed a controlled substance at d/c from ED?: No Referrals: Bhaskar Sanchez MD [Primary Care Provider] - 1-2 days Leona Orantes MD [REFERRING] - 1-2 days
[2025-01-07 23:00] LABS: Basophils # (A) 0.04 10*3/uL (0.00-0.10); Basophils % (A) 0.6 %; Eosinophils # (A) 0.29 10*3/uL (0.04-0.35); Eosinophils % (A) 4.3 %; HCT 31.8 % (39.6-50.0); HGB 11.1 g/dL (13.0-17.0); Lymphocytes # (A) 1.76 10*3/uL (0.90-5.00); Lymphocytes % (A) 26.4 %; MCH 31.2 pg (27.0-32.0); MCHC 34.9 g/dL (32.0-37.0); MCV 89.3 fL (80.0-97.0); Mean Platelet Volume 9.1 fL (9.5-12.2); Monocytes # (A) 0.66 10*3/uL (0.20-1.00); Monocytes % (A) 9.9 %; Neutrophils # (A) 3.88 10*3/uL (1.80-7.70); Neutrophils % (A) 58.2 %; Platelet Count 230 10*3/uL (140-440); RBC 3.56 10*6/uL (4.40-5.60); RDW 12.1 % (11.5-14.5); WBC 6.67 10*3/uL (4.50-10.00)
[2025-01-07 23:14] LABS: ALT 12 U/L (4-49); AST 16 U/L (17-59); African American GFR (CKD) 45 (>60 ml/min/1.73 sqM); Albumin 3.5 g/dL (3.5-5.0); Alkaline Phosphatase 116 U/L (38-126); Anion Gap 6 mmol/L; Blood Urea Nitrogen 52 mg/dL (9-20); Carbon Dioxide 26 mmol/L (22-30); Chloride 103 mmol/L (98-107); Glucose 99 mg/dL (74-99); INR 0.9 (<1.2); Non-African American GFR(CKD) 39 (>60 ml/min/1.73 sqM); Potassium 4.7 mmol/L (3.5-5.1); Prothrombin Time 10.6 sec (10.0-12.5); Sodium 135 mmol/L (137-145); Total Bilirubin 0.2 mg/dL (0.2-1.3); Total Protein 6.1 g/dL (6.3-8.2)
--- NOTE | 2025-01-07 23:37 | XR ---
EXAM: XR Chest, 2 Views CLINICAL HISTORY: Weakness TECHNIQUE: Frontal and lateral views of the chest. COMPARISON: Chest radiograph 11/05/2024 FINDINGS: Lungs: Unremarkable. No consolidation. Pleural space: Blunting of the costophrenic angles may represent pleural scarring or small pleural effusions. No pneumothorax. Heart: Unremarkable. No cardiomegaly. Mediastinum: Unremarkable. Normal mediastinal contour. Bones/joints: There are degenerative changes of the spine. No acute fracture. IMPRESSION: Blunting of the costophrenic angles may represent pleural scarring or small pleural effusions.
[2025-01-07 23:39] LABS: Glucose,Whole Blood 112 mg/dL (70-110)
--- NOTE | 2025-01-08 00:07 | CT ---
EXAM: CT Head Without Intravenous Contrast CLINICAL HISTORY: Weakness TECHNIQUE: Axial computed tomography images of the head/brain without intravenous contrast. CTDI is 49.1 mGy and DLP is 1200.4 mGy-cm. This CT exam was performed using one or more of the following dose reduction techniques: automated exposure control, adjustment of the mA and/or kV according to patient size, and/or use of iterative reconstruction technique. COMPARISON: No relevant prior studies available. FINDINGS: Brain: No intracranial hemorrhage, mass-effect or midline shift. No abnormal extra axial fluid. No evidence of acute infarct. Moderate periventricular white matter hypodensities are most consistent with chronic microangiopathy. Ventricles: Unremarkable. No ventriculomegaly. Bones/joints: Unremarkable. No acute fracture. Soft tissues: Unremarkable. Sinuses: Unremarkable as visualized. No acute sinusitis. Mastoid air cells: Unremarkable as visualized. No mastoid effusion. IMPRESSION: No acute intracranial finding.
[2025-01-08 00:43] LABS: Appearance,Urine Clear (Clear); Bilirubin,Urine Negative (Negative); Blood,Urine Negative (Negative); Color,Urine Light Yellow; Glucose,Urine (UA) Negative (Negative); Ketones,Urine Negative (Negative); Leukocyte Esterase,Urine Negative (Negative); Nitrite,Urine Negative (Negative); PH, Urine 5.5 (5.0-8.0); Protein,Urine Negative (Negative); Specific Gravity,Urine 1.023 (1.001-1.035); Urobilinogen,Urine <2.0 mg/dL (<2.0)
[2025-01-08] MEDS: SODIUM CHLORIDE 0.9% 500 ML 500 ML IV STA (02:26)
[2025-01-08 03:27] VITALS: BP 144/76; PULSE 78; RESP 18; TEMP 98.5
== END 2025-01-08 03:27 | disposition home or self-care (01) ==
LOC: EC 21:59
DX: R41.82 Altered mental status, unspecified (principal); I45.10 Unspecified right bundle-branch block; Z87.891 Personal history of nicotine dependence; Z88.8 Allergy status to other drugs, medicaments and biological substances
CPT/HCPCS: 36415; 70450; 71046; 80053; 81003; 83605; 83735; 84484; 85025; 85610; 85730; 93005; 96360; 99285

== ENCOUNTER → 2025-02-05 | Outpatient (CLI) | payer MEDICARE ==
[2025-02-05 14:47] LABS: African American GFR (CKD) 43 (>60 ml/min/1.73 sqM); Blood Urea Nitrogen 42 mg/dL (9-20); Non-African American GFR(CKD) 37 (>60 ml/min/1.73 sqM)
--- NOTE | 2025-02-05 15:25 | CT ---
EXAMINATION TYPE: CT chest w con CT DLP: 259.5 mGycm, Automated exposure control for dose reduction was used. DATE OF EXAM: 02/05/2025 3:13 PM COMPARISON: PET CT 12/07/2024, CTA chest 11/06/2024, CT chest abdomen and pelvis 06/23/2024 CLINICAL INDICATION:Male, 89 years old with history of R91.1 SOLITARY PULMONARY NODULE; [facility], follow u p prior study TECHNIQUE: Multiple axial images were obtained through the chest following the administration of 100 cc of Isovue 300. . Coronal and sagittal reformats reviewed. FINDINGS: LUNGS/ PLEURA: No pleural effusion or pneumothorax. Stable reticular opacity with focal regions of br onchiectasis within the left upper lobe (series 4, and 11). Demonstrated some FDG activity on prior P ET/CT. Slightly more collapsed appearance of focal nodule in the subpleural region of the left lower lobe measuring up to 1.2 cm. Demonstrated some FDG activity in prior PET/CT. Stable right lower lobe lung base subpleural 1.6 cm nodule (series 4, image 51). No FDG activity on prior PET/CT. Stable poss ible intrafissural lymph node along the right major fissure measuring up to 6 mm (series 4, series 3) . No new or enlarging pulmonary nodules. AIRWAY: Patent and unremarkable.. HEART: Size within normal limits. . Small pericardial effusion. No significant coronary artery calcif ications. MEDIASTINUM: No gross evidence of adenopathy. VASCULATURE: No thoracic aortic aneurysm. Bovine aortic arch. Moderate atherosclerotic calcification of the aorta and its branches. Partial visualization of known abdominal aortic aneurysm measuring at least 3.3 cm. MUSCULOSKELETAL: No acute osseous abnormalities. Remote posterior left ninth rib fracture. DISH of th e thoracic spine. Chronic anterior wedge compression deformity of the L1 vertebral body with approxim ately 25% height loss and no retropulsion. SOFT TISSUES/LYMPH NODES: Bilateral gynecomastia. LOWER NECK: No significant findings. UPPER ABDOMEN: Simple right renal lower pole exophytic 4.4 cm cyst. No follow-up recommended. IMPRESSION: 1. Stable left upper lobe focal reticular opacity with bronchiectasis. Demonstrated some FDG activity on prior PET/CT. Again favored to represent chronic infection/scarring however malignancy is not ent irely excluded. Recommend follow-up CT chest in 6 months. 2. More collapsed appearance of focal lesion within the periphery of the left lower lobe possibly rep resenting an infectious/inflammatory process. Malignancy not excluded. Attention on follow-up exam. 3. Couple of additional solid pulmonary nodules. No new or enlarging pulmonary nodules. 4. Small pericardial effusion. 5. Chronic anterior wedge compression deformity of the L1 vertebral body. [facility], , 02/05/2025 3:23 PM
== END | disposition home or self-care (01) ==
LOC: RADCTMAIN 14:05
PROVIDERS: ATTEND Internal Medicine Hematology & Oncology
DX: I31.39 Other pericardial effusion (noninflammatory) (principal); M48.56XA Collapsed vertebra, not elsewhere classified, lumbar region, initial encounter for fracture; J47.9 Bronchiectasis, uncomplicated; R91.8 Other nonspecific abnormal finding of lung field
CPT/HCPCS: 82565; 84520; 71260; 36415; Q9967